=== PATIENT | female | born 1970 | race Caucasian/White ===

== ENCOUNTER 2017-06-19 21:07 | Emergency (ER) | payer MEDICAID, SELFPAY ==
[2017-06-19 21:15] VITALS: BP 136/90; PULSE 133; RESP 20; TEMP 37.3; O2SAT 90; BMI 36.6
--- NOTE | 2017-06-19 21:21 | XR_ITS ---
XR chest portable COMPARISON: None HISTORY: Shortness of breath TECHNIQUE: Portable upright chest FINDINGS: This is a somewhat poor inspiration. There is a large right pleural effusion with fluid extending into the minor fissure. Somewhat coarse opacities are seen in the right infrahilar region and a cannot exclude a right lower lobe pneumonia. The right upper lung field and left lung field are clear. There is borderline cardio megaly. IMPRESSION: Large right pleural effusion with probable right lower lobe pneumonia and effusion could be reactive but in addition there could be an element of chronic congestive heart failure and suggest clinical correlation.
[2017-06-19 21:38] LABS: ABG Base Excess 0.2 mmol/L (-2.4-2.3); ABG HCO3 23.1 mmhg (22.0-26.0); ABG Oxygen Saturation 94 % (90-100); ABG PH 7.52 mmol/L (7.35-7.45); ABG PO2 62.9 mmhg (80-100)
[2017-06-19 21:39] LABS: Allen's Test Y; Oxygen R/A %; Source R/R
[2017-06-19 21:43] VITALS: PULSE 83; PULSE 88
[2017-06-19 21:44] LABS: Basophils # 0.1 K/mm3 (0-0.2); Basophils % 0.4 % (0.1-2.0); Eosinophils # 0.4 K/mm3 (0.0-0.4); Eosinophils % 2.6 % (0.1-12.0); Hematocrit 40.4 % (37.0-47.0); Hemoglobin 13.5 g/dL (12.2-16.2); Lymphocytes # 1.2 K/mm3 (0.7-4.5); Lymphocytes % 7.3 K/mm3 (10-50); Mean Corpuscular HGB Conc 33.4 g/dL (31.8-35.4); Mean Corpuscular Hemoglobin 28.6 pg (27.0-31.2); Mean Corpuscular Volume 85.6 fl (81-99); Mean Platelet Volume 7.2 fl (7.4-10.4); Monocytes # 0.5 K/mm3 (0.1-1.0); Neutrophils # 14.3 K/mm3 (1.8-7.8); Neutrophils % 86.7 % (37.0-80.0); Platelet Count 373 K/mm3 (142-424); Red Blood Count 4.72 M/mm3 (4.20-5.40); Red Cell Distribution Width 14.4 % (11.5-17.5); White Blood Count 16.5 K/mm3 (4.8-10.8)
[2017-06-19 21:47] LABS: MANUAL DIFFERENTIAL MANUAL DIFFERENTIAL (MANUAL DIFF)
[2017-06-19 21:57] LABS: Lactic Acid 0.9 mmol/L (0.4-2.0)
[2017-06-19 22:03] LABS: Eosinophils % 3 % (0-3); Lymphocytes % 7 % (10-50); Monocytes % 1 % (2-9); Neutrophils % 79 % (42-76); Platelet Estimate Normal; RBC Morphology Normal; Total Cells Counted 100
[2017-06-19 22:11] LABS: Alanine Aminotransferase 25 U/L (12-78); Albumin Level 2.9 gm/dL (3.4-5.0); Albumin/Globulin Ratio 0.6 (1.1-1.8); Alkaline Phosphatase 120 U/L (46-116); Anion Gap 13.3 mEq/L (5-15); Aspartate Amino Transferase 5 U/L (15-37); Bilirubin,Total 1.1 mg/dL (0.2-1.0); Blood Urea Nitrogen 13 mg/dL (7-18); Calcium 8.9 mg/dL (8.5-10.1); Carbon Dioxide 25 mmol/L (21.0-32.0); Chloride 100 mmol/L (98-107); Creatine Kinase 18 U/L (26-192); Creatinine Clearance Estimated 122 mL/min (0-300); Estimated Glomerular Filt Rate 76 ml/min (>60); GFR (African American) 92 ML/MIN (>60); Globulin 4.7 gm/dl (1.3-3.2); Glucose 114 mg/dL (74-106); Potassium 3.3 mmoL/L (3.5-5.1); Sodium 135 mmol/L (136-145); Total Protein,Serum 7.6 gm/dL (6.4-8.2); Troponin I < 0.02 ng/ml (0.00-0.06)
[2017-06-19 22:14] LABS: CKMB Relative Index 2.8 U/L (0-4.0); Creatine Kinase MB < 0.5 mg/ml (0.0-3.6)
--- NOTE | 2017-06-19 22:19 | CT_ITS ---
CT angio chest COMPARISON: Portable upright chest same date HISTORY: Shortness of breath, tachycardia, portable chest film showing a large right pleural effusion. Possible pneumonic infiltrate at the right base TECHNIQUE: Multiaxial scans obtained from the thoracic inlet to the hemidiaphragms after rapid injection of IV contrast. Sagittal and coronal reformats were evaluated as well. FINDINGS: There is a somewhat poor inspiration. Again noted is a large right pleural effusion with fluid extending up to level of the aortic arch. There is excellent vascular opacification and there is no CT evidence of pulmonary emboli. Lung windows show subtle areas of groundglass opacity in the left lung and in the right upper lobe. Cardiac size is normal and the vascularity is normal. There is a coarse appearing pneumonic infiltrate in the right lower lobe and there is partial collapse of the right lower lobe. The left lung field is clear throughout. IMPRESSION: 1. Negative for PE 2. Large right pleural effusion with probable right lower lobe pneumonia, an empyema is a possibility and the subtle areas of groundglass opacity in the left lung could indicate a mild degree of interstitial pneumonitis. I agree with the [facility] report
--- NOTE | 2017-06-19 22:26 | [facility].EDSOB ---
ED Disposition Clinical Impression: Empyema of right pleural space, Interstitial pneumonitis, Hypoxia, Immunosuppression, Reactive airway disease Leukocytosis Qualifiers: Leukocytosis type: bandemia Qualified Code(s): D72.825 - Bandemia Rheumatoid arthritis Qualifiers: Rheumatoid arthritis location: multiple sites Rheumatoid factor presence: unspecified presence Qualified Code(s): M06.9 - Rheumatoid arthritis, unspecified Disposition: Xfer Short-Term Hosp Condition on Discharge: Serious Forms: Transfer Record - ED Time of Disposition: 12:01 - Critical Care Critical Care Time: No Attestation: On 06/19/17, the high probability of a clinically significant, sudden or life threatening deterioration of the following system(s) required my full and direct attention, intervention and personal management. The time I documented below is in addition to time spent performing reported procedures but includes the following listed in this critical care notation. Total Critical Care Time: 75 Vital system(s) involved:: Respiratory Failure My critical care processes included: Assessment & monitoring of V/S, Initial and Re-exams, Data Review/Interpretation, Coordinating Care, Medication Orders and management, Documentation Medical Decision Making - Medical Records Medical records reviewed: Yes: I reviewed the patient's medical records. - Joel Inquiry Pt receiving controlled substance: No Vital Signs: 06/19/17 21:15 06/19/17 21:43 06/19/17 23:08 Temperature 99.2 F 99.5 F Temperature Source Oral Oral Pulse Rate 88 Pulse Rate [Right Radial] 133 H 115 H Respiratory Rate 20 22 Blood Pressure [Right Arm] 136/90 138/74 Blood Pressure Mean [Right Arm] 105 95 Blood Pressure Position [Right Arm] 02 Sat by Pulse Oximetry 90 L 95 Oxygen Delivery Method Room Air Nasal Cannula Oxygen Flow Rate (LPM) 2 06/20/17 00:24 06/20/17 00:30 Temperature 99.1 F Temperature Source Oral Pulse Rate 84 Pulse Rate [Right Radial] 113 H Respiratory Rate 24 Blood Pressure [Right Arm] 137/79 Blood Pressure Mean [Right Arm] 98 Blood Pressure Position [Right Arm] Sitting 02 Sat by Pulse Oximetry 95 Oxygen Delivery Method Nasal Cannula Oxygen Flow Rate (LPM) 2 - Lab Data Lab results reviewed: Yes: I reviewed the patient's lab results. Lab Results 06/19/17 21:25: WBC 16.5 H, RBC 4.72, Hgb 13.5, Hct 40.4, MCV 85.6, MCH 28.6, MCHC 33.4, RDW 14.4, Plt Count 373, MPV 7.2 L, Neut % (Auto) 86.7 H, Lymph % (Auto) 7.3 L, [place] % (Auto) 3.0, Eos % (Auto) 2.6, Baso % (Auto) 0.4, Neut # (Auto) 14.3 H, Lymph # (Auto) 1.2, [place] # (Auto) 0.5, Eos # (Auto) 0.4, Baso # (Auto) 0.1, Total Counted 100, Neutrophils % (Manual) 79 H, Band Neutrophils % 10.0 H, Lymphocytes % (Manual) 7 L, Monocytes % (Manual) 1 L, Eosinophils % (Manual) 3, Platelet Estimate Normal, RBC Morphology Normal 06/19/17 21:25: Sodium 135 L, Potassium 3.3 L, Chloride 100, Carbon Dioxide 25, Anion Gap 13.3, BUN 13, Creatinine 0.80, Estimated Creat Clear 122, Estimated GFR 76, Est GFR ( Amer) 92, Glucose 114 H, Calcium 8.9, Total Bilirubin 1.1 H, AST 5 L, ALT 25, Alkaline Phosphatase 120 H, Total Creatine Kinase 18 L, CK-MB (CK-2) < 0.5, CK-MB (CK-2) Rel Index 2.8, Troponin I < 0.02, Total Protein 7.6, Albumin 2.9 L, Globulin 4.7 H, Albumin/Globulin Ratio 0.6 L 06/19/17 21:25: Lactic Acid 0.9 06/19/17 21:25: Specimen Source R/r, O2 % R/a, ABG pH 7.52 H, ABG pCO2 29.0 L, ABG pO2 62.9 L, ABG HCO3 23.1, ABG Total CO2 24.0, ABG O2 Saturation 94, ABG Base Excess 0.2, Brooks Test Y 06/19/17 21:25: D-Dimer 1810 H* 06/19/17 21:25: B-Natriuretic Peptide 11 06/19/17 21:25: TSH 0.65 06/19/17 21:25: ESR 108 H 06/19/17 21:25: C-Reactive Protein 29.2 H Result diagrams: 06/19/17 21:25 06/19/17 21:25 Orders (Tests/Meds): ED MEDICATIONS Generic Name Dose Route Start Last Admin Trade Name Freq PRN Reason Stop Dose Admin Levofloxacin/Dextrose 750 mg in 150 mls @ 100 mls/hr
[2017-06-19 22:38] LABS: Thyroid Stimulating Hormone 0.65 uIU/ml (0.358-3.740)
[2017-06-19 22:49] LABS: D-Dimer 1810 (0-400)
--- NOTE | 2017-06-19 22:52 | PC.NURSE ---
dr. yap notified of elevated ddimer given by yessy in lab.
[2017-06-19 23:02] LABS: C-Reactive Protein 29.2 mg/L (0.0-0.9)
[2017-06-19 23:08] VITALS: BP 138/74; PULSE 115; RESP 22; TEMP 37.5; O2SAT 95
[2017-06-19 23:22] LABS: Erythrocyte Sedimentation Rate 108 mm/hr (0-20)
[2017-06-20 00:24] VITALS: PULSE 81; PULSE 84
[2017-06-20 00:30] VITALS: BP 137/79; PULSE 113; RESP 24; TEMP 37.3; O2SAT 95
[2017-06-20 00:53] VITALS: BP 132/80; PULSE 113; RESP 24; TEMP 37.5; O2SAT 95
[2017-10-26 09:09] LABS: ABG PH 7.52 mmol/L (7.35-7.45); ABG PO2 62.9 mmhg (80-100)
[2017-10-26 09:10] LABS: ABG Base Excess 0.2 mmol/L (-2.4-2.3); ABG HCO3 23.1 mmhg (22.0-26.0); ABG Oxygen Saturation 94 % (90-100); Allen's Test ACCEPTABLE; Oxygen RA %; Source R RADIAL
== END 2017-06-20 00:58 | disposition short-term general hospital (02) ==
PROVIDERS: Emergency Provider Emergency Medicine; PCP Emergency Medicine
DX: J86.9 Pyothorax without fistula (principal); J84.89 Other specified interstitial pulmonary diseases; J45.909 Unspecified asthma, uncomplicated; R09.02 Hypoxemia; D72.825 Bandemia; M06.9 Rheumatoid arthritis, unspecified; E84.9 Cystic fibrosis, unspecified
CPT/HCPCS: 71045; 71275; 80053; 82550; 82553; 82803; 83605; 83880; 84443; 84484; 85007; 85025; 85378; 85651; 86140; 87040; 93005; 96365; 96366; 96375; 99285; J1956; Q9967

== ENCOUNTER → 2017-11-16 12:57 | Outpatient (CLI) | payer MEDICAID, SELFPAY ==
[2017-11-16 13:44] LABS: Basophils % 0.2 % (0.1-2.0); Eosinophils # 0.2 K/mm3 (0.0-0.4); Eosinophils % 1.1 % (0.1-12.0); Hematocrit 39.9 % (37.0-47.0); Hemoglobin 12.8 g/dL (12.2-16.2); Lymphocytes # 0.8 K/mm3 (0.7-4.5); Lymphocytes % 5.5 K/mm3 (10-50); Mean Corpuscular HGB Conc 32.2 g/dL (31.8-35.4); Mean Corpuscular Hemoglobin 29.5 pg (27.0-31.2); Mean Corpuscular Volume 91.7 fl (81-99); Monocytes # 0.2 K/mm3 (0.1-1.0); Monocytes % 1.4 % (1.7-9.3); Neutrophils # 13.7 K/mm3 (1.8-7.8); Neutrophils % 91.8 % (37.0-80.0); Platelet Count 313 K/mm3 (142-424); Red Blood Count 4.35 M/mm3 (4.20-5.40); Red Cell Distribution Width 15.6 % (11.5-17.5); White Blood Count 14.9 K/mm3 (4.8-10.8)
[2017-11-16 13:46] LABS: MANUAL DIFFERENTIAL MANUAL DIFFERENTIAL (MANUAL DIFF)
[2017-11-16 14:11] LABS: Alanine Aminotransferase 42 U/L (12-78); Albumin Level 3.4 gm/dL (3.4-5.0); Alkaline Phosphatase 95 U/L (46-116); Anion Gap 12.6 mEq/L (5-15); Aspartate Amino Transferase 13 U/L (15-37); Bilirubin,Total 0.2 mg/dL (0.2-1.0); Blood Urea Nitrogen 23 mg/dL (7-18); Calcium 9.2 mg/dL (8.5-10.1); Carbon Dioxide 29 mmol/L (21.0-32.0); Chloride 107 mmol/L (98-107); Creatinine,Serum 1.04 mg/dL (0.55-1.02); Estimated Glomerular Filt Rate 56 ml/min (>60); GFR (African American) 68 ML/MIN (>60); Globulin 3.4 gm/dl (1.3-3.2); Glucose 104 mg/dL (74-106); Potassium 4.6 mmoL/L (3.5-5.1); Sodium 144 mmol/L (136-145); Total Protein,Serum 6.8 gm/dL (6.4-8.2)
[2017-11-16 14:54] LABS: Lymphocytes % 5 % (10-50); Monocytes % 5 % (2-9); Neutrophils % 90 % (42-76); Total Cells Counted 100
[2017-11-16 14:56] LABS: Platelet Estimate Normal; RBC Morphology Normal
== END ==
PROVIDERS: Visit Provider Nurse Practitioner Family
DX: Z00.00 Encounter for general adult medical examination without abnormal findings (principal); Z79.899 Other long term (current) drug therapy; Z79.52 Long term (current) use of systemic steroids; Z51.81 Encounter for therapeutic drug level monitoring; M06.9 Rheumatoid arthritis, unspecified; M79.643 Pain in unspecified hand; R53.83 Other fatigue
CPT/HCPCS: 36415; 80053; 85007; 85025

== ENCOUNTER → 2017-11-16 14:00 | Outpatient (POV) | payer MEDICAID, SELFPAY | PROVIDERS: PCP Emergency Medicine | DX: Z00.00 Encounter for general adult medical examination without abnormal findings (principal) ==

== ENCOUNTER → 2017-12-20 13:46 | Outpatient (CLI) | payer MEDICAID, SELFPAY ==
[2017-12-20 14:15] VITALS: PULSE 88; PULSE 90
== END ==
PROVIDERS: PCP Nurse Practitioner Family; Visit Provider Nurse Practitioner Family
DX: R06.02 Shortness of breath (principal)
CPT/HCPCS: 94060; 94640

== ENCOUNTER 2018-02-19 17:51 | Observation (INO) ==
[2018-02-19 18:19] LABS: Basophils # 0.1 K/mm3 (0-0.2); Basophils % 0.9 % (0.1-2.0); Eosinophils # 0.8 K/mm3 (0.0-0.4); Eosinophils % 11.7 % (0.1-12.0); Hematocrit 44.1 % (37.0-47.0); Hemoglobin 14.1 g/dL (12.2-16.2); Lymphocytes # 1.6 K/mm3 (0.7-4.5); Lymphocytes % 22.8 % (10-50); Mean Corpuscular HGB Conc 31.9 g/dL (31.8-35.4); Mean Corpuscular Hemoglobin 28.6 pg (27.0-31.2); Mean Corpuscular Volume 89.8 fl (81-99); Monocytes # 0.3 K/mm3 (0.1-1.0); Monocytes % 4.2 % (1.7-9.3); Neutrophils # 4.1 K/mm3 (1.8-7.8); Neutrophils % 60.3 % (37.0-80.0); Platelet Count 342 K/mm3 (142-424); Red Blood Count 4.92 M/mm3 (4.20-5.40); Red Cell Distribution Width 14.5 % (11.5-17.5); White Blood Count 6.8 K/mm3 (4.8-10.8)
[2018-02-19 18:32] LABS: Albumin Level 3.4 gm/dL (3.4-5.0); Albumin/Globulin Ratio 0.8 (1.1-1.8); Anion Gap 14.2 mEq/L (5-15); Bilirubin,Total 0.2 mg/dL (0.2-1.0); Calcium 8.8 mg/dL (8.5-10.1); Globulin 4.5 gm/dl (1.3-3.2); Potassium 4.2 mmoL/L (3.5-5.1); Total Protein,Serum 7.9 gm/dL (6.4-8.2)
--- NOTE | 2018-02-19 18:32 | Emergency Department Note ---
ED Disposition Clinical Impression: Upper respiratory tract infection, COPD exacerbation Disposition: Home, Self-Care Condition on Discharge: Fair - Critical Care Critical Care Time: No Attestation: On , the high probability of a clinically significant, sudden or life threatening deterioration of the following system(s) required my full and direct attention, intervention and personal management. The time I documented below is in addition to time spent performing reported procedures but includes the following listed in this critical care notation. Medical Decision Making - Medical Records Medical records reviewed: Yes: I reviewed the patient's medical records. - Joel Inquiry Pt receiving controlled substance: No Joel was queried for this patient: No Vital Signs: 02/19/18 18:18 02/19/18 18:21 02/19/18 18:30 Temperature 98.9 F Temperature Source Oral Pulse Rate [Right Brachial] 73 101 H 95 H Respiratory Rate 28 H 24 Blood Pressure [Right Arm] 123/70 127/73 127/73 Blood Pressure Mean [Right Arm] 87 91 91 Blood Pressure Source [Right Arm] Automatic Cuff Automatic Cuff Blood Pressure Position [Right Arm] Sitting 02 Sat by Pulse Oximetry 93 L 99 97 Oxygen Delivery Method Room Air Nasal Cannula Oxygen Flow Rate (LPM) 2 02/19/18 18:47 02/19/18 19:00 Temperature Temperature Source Pulse Rate [Right Brachial] 93 H 102 H Respiratory Rate Blood Pressure [Right Arm] 126/85 138/75 Blood Pressure Mean [Right Arm] 98 96 Blood Pressure Source [Right Arm] Automatic Cuff Blood Pressure Position [Right Arm] Sitting 02 Sat by Pulse Oximetry 95 100 Oxygen Delivery Method Oxygen Flow Rate (LPM) - Lab Data Lab Results 02/19/18 18:07: WBC 6.8, RBC 4.92, Hgb 14.1, Hct 44.1, MCV 89.8, MCH 28.6, MCHC 31.9, RDW 14.5, Plt Count 342, MPV 7.0 L, Neut % (Auto) 60.3, Lymph % (Auto) 22.8, [place] % (Auto) 4.2, Eos % (Auto) 11.7, Baso % (Auto) 0.9, Neut # (Auto) 4.1, Lymph # (Auto) 1.6, [place] # (Auto) 0.3, Eos # (Auto) 0.8 H, Baso # (Auto) 0.1 02/19/18 18:07: Sodium 140, Potassium 4.2, Chloride 105, Carbon Dioxide 25, Anion Gap 14.2, BUN 28 H, Creatinine 0.86, Estimated Creat Clear 134, Estimated GFR 70, Est GFR ( Amer) 85, Glucose 100, Calcium 8.8, Total Bilirubin 0.2, AST 24, ALT 51, Alkaline Phosphatase 108, Total Protein 7.9, Albumin 3.4, Globulin 4.5 H, Albumin/Globulin Ratio 0.8 L 02/19/18 18:07: Lactate 1.5 02/19/18 18:14: Influenza Type A Ag Negative, Influenza Type B Ag Negative Result diagrams: 02/19/18 18:07 02/19/18 18:07 Orders (Tests/Meds): ED MEDICATIONS Generic Name Dose Route Start Last Admin Trade Name Freq PRN Reason Stop Dose Admin Albuterol/Ipratropium 3 ml 02/19/18 18:30 Duoneb 3ml Neb IH 03/21/18 18:29 Q1H CARLOS Discontinued Medications Generic Name Dose Route Start Last Admin Trade Name Freq PRN Reason Stop Dose Admin Ceftriaxone Sodium 1 gm/ 50 mls @ 100 mls/hr 02/19/18 18:29 02/19/18 18:34 Sodium Chloride IV 02/19/18 18:58 100 mls/hr ONCE ONE Administration Protocol Methylprednisolone Sodium Succinate 125 mg 02/19/18 18:04 02/19/18 18:10 Solu-Medrol 125mg/2ml Vial IV 02/19/18 18:05 125 mg ONCE ONE Administration ORDERS Category Date Time Status XR chest portable Stat Exams 02/19/18 18:04 Taken Blood Culture Stat Micro 02/19/18 18:07 Received ECG Request by /Margo Stat Y 02/19/18 18:04 Ordered - Radiology Data #1 Image(s): Chest Image Reviewed: Yes I reviewed the patient's radiology image Preliminary Findings: Normal/NAD Medical Decision Narrative: She received IV Solu-Medrol DuoNeb and she remained to be symptomatic.. I gave her another breathing treatment. The patient remained short of breath speaking short sentences after repeated medications. I spoke with Dr. Weaver manager of production for Dr. Mcleod agreed to admit her for COPD exacerbation. Resp/SOB HPI - General Chief Complaint: Shortness of Breath/Dyspnea Stated Complaint: SOA, Coughing Time Seen by Provider: 02/19/18 18:25 Mode of Arrival: Wheelchair Limitations: No Limitations Description of Symptoms (Recalled from ER Triage Doc. by RN): SHORTNESS OF AIR AFTER COUGHING FOR A WEEK; PROGRESSIVELY WORSENING DESPITE MUCINEX; EXPOSED TO [place]AND SMOKE DAILY PER . PT STATED COUGH IS NON PRODUCTIVE BUT FEELS TIGHT WHEN SHE IS BREATHING. SUSCEPTIBLE TO INFECTIONS PER HER MEDS FOR RHEUMATOID ARTHRITIS PER HER REPORT; STATES SHE DID TAKE A FLU SHOT THIS YEAR - History of Present Illness 48 years old white female with history of rheumatoid on methotrexate and a secondhand smoke by her . A week ago she developed upper respiratory tra ct infection progressively gotten worse with shortness of breath wheezing and nonproductive cough. She arrived to the ED today and started on Solu-Medrol DuoNeb with not much improvement. MD Complaint: shortness of breath, cough Onset (ago): week(s) (2 days.) Severity: moderate Consistency/Duration: constant Relieving factors: oxygen, rest, bronchodilators, upright position Exacerbating factors: lying flat, exertion, coughing Associated symptoms: denies other symptoms - Related Data Home oxygen amount: 2 liters Home Medications Medication Instructions Recorded Confirmed Folic Acid [Folic Acid 1mg tablet] 1 mg PO DAILY 06/19/17 01/20/18 metHOTREXate sodium [metHOTREXate 15 mg PO WEEKLY 06/19/17 01/20/18 2.5mg Tablet] sulfasalazine 500 mg tablet 0.5 g PO Q6H 12/26/17 01/20/18 Previous Rx's Medication Instructions Recorded Albuterol Sulfate [Albuterol HFA 1 - 2 puffs IH Q4-6H PRN #1 inh 12/01/17 Inhaler] prednisone 20 mg tablet 20 mg PO BID #6 tab 12/26/17 Allergies Allergy/AdvReac Type Severity Reaction Status Date / Time diphenhydramine Allergy Mild RASH, ITCH Verified 01/20/18 09:47 [DIPHENHYDRAMINE] [facility] History I have reviewed the patient's past medical history: Yes Medical History: Reports:: Dementia Denies:: Chronic Obstructive Pulmonary Disease (COPD) Other Medical History: Reports: Arthritis, Other Comment: joint pain Other Surgeries: Yes: Hysterectomy-Total Amputation: No Fractures: Yes Comment: tibia,fibula - Social History Educational Level: Completed High School Smoking Status: Former smoker Tobacco Type: cigarettes # Packs/Day (cigarettes): 1 Alcohol Intake: never Substance Use Type: denies use Occupational Status: disabled Housing: apartment - Psychiatric History Expresses thoughts of harming self/others: None Suicide Plan Description: No Plan Family Hx:: Cancer, Coronary Artery Disease, Hypertension ROS Obtained: Yes All systems reviewed & no additional complaints Physical Exam - General General appearance: alert, in no apparent distress - Head Head exam: atraumatic, normocephalic, normal inspection - Eye Eye exam: Present: normal appearance, PERRL, EOMI. Absent: scleral icterus, nystagmus - ENT ENT exam: Present: normal exam, normal oropharynx, mucous membranes moist, TM's normal bilaterally, normal external ear exam - Neck Neck exam: Present: normal inspection, full ROM, trachea midline. Absent: tenderness, meningismus, lymphadenopathy - Chest Chest inspection: Present: normal inspection, symmetric chest wall rise. Absent: tenderness - Respiratory Respiratory exam: Present: normal lung sounds bilaterally, wheezes, other (Bronchial breathing. ). Absent: respiratory distress - Cardiovascular Cardiovascular exam: Present: regular rate, normal rhythm, normal heart sounds. Absent: JVD - Abdominal Exam Abdominal exam: Present: soft, normal bowel sounds. Absent: distention, tenderness, guarding, rebound, rigidity - Extremities Exam Extremities exam: Present: normal inspection, full ROM, normal capillary refill. Absent: calf tenderness - Back Exam Back exam: Present: normal inspection. Absent: tenderness, CVA tenderness (R), CVA tenderness (L), paraspinal tenderness, vertebral tenderness - Neurological Exam Neurological exam: Present: alert, oriented X3, CN II-XII intact, motor sensory deficit, reflexes normal - Psychiatric Psychiatric exam: Present: normal affect, normal mood - Skin Skin exam: Present: warm, dry, intact, normal color - Lymphatic Lymphatic Findings: no adenopathy
[2018-02-20 02:27] LABS: Basophils % 0.2 % (0.1-2.0); Eosinophils % 0.4 % (0.1-12.0); Hematocrit 39.9 % (37.0-47.0); Hemoglobin 12.6 g/dL (12.2-16.2); Lymphocytes # 0.4 K/mm3 (0.7-4.5); Lymphocytes % 5.4 % (10-50); Mean Corpuscular HGB Conc 31.5 g/dL (31.8-35.4); Mean Corpuscular Hemoglobin 28.5 pg (27.0-31.2); Mean Corpuscular Volume 90.5 fl (81-99); Mean Platelet Volume 7.9 fl (7.4-10.4); Monocytes # 0.1 K/mm3 (0.1-1.0); Monocytes % 1.1 % (1.7-9.3); Neutrophils # 6.1 K/mm3 (1.8-7.8); Neutrophils % 92.8 % (37.0-80.0); Platelet Count 279 K/mm3 (142-424); Red Blood Count 4.41 M/mm3 (4.20-5.40); Red Cell Distribution Width 14.4 % (11.5-17.5); White Blood Count 6.6 K/mm3 (4.8-10.8)
[2018-02-20 02:33] LABS: Anion Gap 14.2 mEq/L (5-15); Calcium 8.8 mg/dL (8.5-10.1); Potassium 4.2 mmoL/L (3.5-5.1)
[2018-02-20 02:41] LABS: Lymphocytes % 3 % (10-50); Neutrophils % 90 % (42-76); Total Cells Counted 100
[2018-02-20 02:42] LABS: Hypochromasia 1+; Polychromasia 1+
--- NOTE | 2018-02-20 07:44 | Pharmacy Consult Notes ---
[facility] Pharmacy VTE Monitoring - Patient Demographics Admission date: 02/19/18 Report Date: 02/20/18 Time: 07:44 Allergies/Adverse Reactions: Patient Allergies diphenhydramine [DIPHENHYDRAMINE] Allergy (Mild, Verified 01/20/18 09:47) RASH, ITCH Height: 1.68 m Weight: 89.902 kg Patient Problems: Current Active Problems COPD exacerbation (Acute) Upper respiratory tract infection (Acute) - VTE Risk Labs: VTE Related Lab Results Hgb 12.6 g/dL (12.2-16.2) D 02/20/18 02:20 Hct 39.9 % (37.0-47.0) 02/20/18 02:20 Plt Count 279 K/mm3 (142-424) 02/20/18 02:20 BUN 26 mg/dL (7-18) H 02/20/18 02:20 Creatinine 0.81 mg/dL (0.55-1.02) 02/20/18 02:20 Estimated Creat Clear 143 mL/min (50-200) 02/20/18 02:20 VTE Score: 7 VTE Risk Level: Moderate Risk - Prophylaxis VTE Prophylaxis Ordered?: Yes Types of VTE Prophylaxis: TEDS Knee High Location of Applied Device: Bilateral Lower Extremeties - VTE Diagnosis Confirmed Treatment or plan recommended: Continue Current Treatment
--- NOTE | 2018-02-20 13:06 | History & Physical Report ---
*Admission Date: 02/19/18 *Chief complaint: sob *History of present illness: this wf with progressive sob over the last few days with cough and wheezing - but no hemoptysis- she tried home and otc meds but no response and was seen in the ed -years old white female with history of rheumatoid on methotrexate and a secondhand smoke by her . A week ago she developed upper respiratory tract infection progressively gotten worse with shortness of breath wheezing and nonproductive cough. She arrived to the ED today and started on Solu-Medrol DuoNeb with not much improve [facility] History I have reviewed the patient's past medical history: Yes Medical History: Reports:: Dementia Denies:: Chronic Obstructive Pulmonary Disease (COPD) Other Medical History: Reports: Arthritis, Other Other Surgeries: Yes: Hysterectomy-Total Amputation: No Fractures: Yes - *Social History Educational Level: Completed High School Smoking Status: Former smoker Tobacco Type: cigarettes # Packs/Day (cigarettes): 1 Alcohol Intake: never Substance Use Type: denies use Occupational Status: disabled Housing: apartment - Psychiatric History Expresses thoughts of harming self/others: None Suicide Plan Description: No Plan *Family Hx:: Cancer, Coronary Artery Disease, Hypertension Review of Systems - Review of Systems Review of systems:: pertinent systems reviewed and negative unless documented below - Constitutional Reports fever(s), Reports malaise - Eyes Denies change in vision - ENT Denies sore throat - *Cardiovascular Reports chest pain - *Respiratory Reports cough, Reports shortness of breath - *Gastrointestinal Reports abdominal pain - *Genitourinary Denies blood in urine - *Musculoskeletal Reports joint pain, Denies joint swelling - Integumentary/Breasts Denies rash - *Neurologic Denies seizure-like activity - Psychiatric Reports anxiety Meds Home Medications Medication Instructions Recorded Confirmed Type Folic Acid [Folic Acid 1mg tablet] 1 mg PO DAILY 06/19/17 02/20/18 History metHOTREXate sodium [metHOTREXate 15 mg PO WEEKLY 06/19/17 02/20/18 History 2.5mg Tablet] sulfasalazine 500 mg tablet 1,000 mg PO BID 12/26/17 02/20/18 History Tofacitinib Citrate [Xeljanz Xr] 11 mg PO DAILY 02/20/18 02/20/18 History Allergies Allergy/AdvReac Type Severity Reaction Status Date / Time diphenhydramine Allergy Mild RASH, ITCH Verified 01/20/18 09:47 [DIPHENHYDRAMINE] Exam Vital signs and Labs for Last 24 Hours: Temp Pulse Resp BP Pulse Ox 98.2 F 85 21 107/67 L 97 02/20/18 08:00 02/20/18 09:20 02/20/18 08:00 02/20/18 08:00 02/20/18 08:00 Laboratory Results - last 24 hr 02/19/18 18:07: WBC 6.8, RBC 4.92, Hgb 14.1, Hct 44.1, MCV 89.8, MCH 28.6, MCHC 31.9, RDW 14.5, Plt Count 342, MPV 7.0 L, Neut % (Auto) 60.3, Lymph % (Auto) 22.8, [place] % (Auto) 4.2, Eos % (Auto) 11.7, Baso % (Auto) 0.9, Neut # (Auto) 4.1, Lymph # (Auto) 1.6, [place] # (Auto) 0.3, Eos # (Auto) 0.8 H, Baso # (Auto) 0.1 02/19/18 18:07: Sodium 140, Potassium 4.2, Chloride 105, Carbon Dioxide 25, Anion Gap 14.2, BUN 28 H, Creatinine 0.86, Estimated Creat Clear 134, Estimated GFR 70, Est GFR ( Amer) 85, Glucose 100, Calcium 8.8, Total Bilirubin 0.2, AST 24, ALT 51, Alkaline Phosphatase 108, Total Protein 7.9, Albumin 3.4, Globulin 4.5 H, Albumin/Globulin Ratio 0.8 L 02/19/18 18:07: Lactate 1.5 02/19/18 18:14: Influenza Type A Ag Negative, Influenza Type B Ag Negative 02/19/18 23:09: Troponin I < 0.02 02/20/18 02:20: Troponin I < 0.02 02/20/18 02:20: WBC 6.6, RBC 4.41, Hgb 12.6 D, Hct 39.9, MCV 90.5, MCH 28.5, MCHC 31.5 L, RDW 14.4, Plt Count 279, MPV 7.9, Neut % (Auto) 92.8 H, Lymph % (Auto) 5.4 L, [place] % (Auto) 1.1 L, Eos % (Auto) 0.4, Baso % (Auto) 0.2, Neut # (Auto) 6.1, Lymph # (Auto) 0.4 L, [place] # (Auto) 0.1, Eos # (Auto) 0.0, Baso # (Auto) 0.0, Total Counted 100, Neutrophils % (Manual) 90 H, Band Neutrophils % 7.0, Lymphocytes % (Manual) 3 L, Platelet Estimate Normal, Polychromasia 1+, Hypochromasia 1+ 02/20/18 02:20: Sodium 140, Potassium 4.2, Chloride 106, Carbon Dioxide 24, Anion Gap 14.2, BUN 26 H, Creatinine 0.81, Estimated Creat Clear 143, Estimated GFR 75, Est GFR ( Amer) 91, Glucose 251 H D, Calcium 8.8 I & O for Last 24 hours: Intake & Output 02/18/18 02/19/18 02/20/18 02/21/18 11:59 11:59 11:59 11:59 Intake Total 1475 / 1475 250 / 250 Output Total 2099 / 2099 600 / 600 Balance -625 / -625 -350 / -350 Weight 198 lb 3.2 oz - Constitutional no acute distress, obese - *Routine HEENT Exam Head: Present: normocephalic Eye: Present: EOMI, PERRL ENT: Present: mucous membranes dry - *Routine Neck Exam Present: supple. Absent: JVD - *Routine Respiratory Exam Present: prolonged expiratory phase, rhonchi, wheezes - *Routine Cardiovascular Exam Present: RRR, murmur. Absent: S3 - *Routine Abdominal Exam Present: soft - *Routine Extremities Exam Present: edema. Absent: calf tenderness - *Routine Skin Exam Present: intact - *Routine Neurological Exam Present: alert, oriented X3, CN II-XII intact - Routine Psychiatric Exam Present: normal affect Assessment and Plan (1) COPD exacerbation Current visit: Yes Status: Acute Category: Medical Code(s): J44.1 - Chronic obstructive pulmonary disease with (acute) exacerbation (2) Bronchitis Current visit: Yes Status: Acute Category: Medical Code(s): J40 - Bronchitis, not specified as acute or chronic (3) Rheumatoid arthritis Current visit: Yes Status: Acute Category: Medical Code(s): M06.9 - Rheumatoid arthritis, unspecified
--- NOTE | 2018-02-21 09:39 | Progress Note ---
Internal Medicine - PN: Subj *Date: 02/21/18 *Time: 09:38 Exam Vital signs and Labs for Last 24 Hours: Temp Pulse Resp BP Pulse Ox 98.7 F 97 H 18 124/80 100 02/21/18 08:00 02/21/18 08:00 02/21/18 08:00 02/21/18 08:00 02/21/18 08:00 I & O for Last 24 hours: Intake & Output 02/18/18 02/19/18 02/20/18 02/21/18 11:59 11:59 11:59 11:59 Intake Total 1475 / 1475 1626 / 1626 Output Total 2100 / 2100 1200 / 1200 Balance -625 / -625 426 / 426 Weight 198 lb 3.2 oz - Constitutional no acute distress - *Routine HEENT Exam Head: Present: normocephalic Eye: Present: PERRL ENT: Present: mucous membranes moist - *Routine Neck Exam Present: supple. Absent: lymphadenopathy - *Routine Respiratory Exam Present: CTA bilaterally - *Routine Cardiovascular Exam Present: RRR - *Routine Abdominal Exam Present: soft, normoactive bowel sounds. Absent: tenderness - *Routine Extremities Exam Absent: cyanosis, clubbing, edema - *Routine Skin Exam Present: warm. Absent: rash - *Routine Neurological Exam Present: alert, oriented X3 Assessment and Plan (1) COPD exacerbation Current visit: Yes Status: Acute Category: Medical Code(s): J44.1 - Chronic obstructive pulmonary disease with (acute) exacerbation (2) Bronchitis Current visit: Yes Status: Acute Category: Medical Code(s): J40 - Bronchitis, not specified as acute or chronic (3) Rheumatoid arthritis Current visit: Yes Status: Acute Category: Medical Code(s): M06.9 - Rheumatoid arthritis, unspecified - Assessment and plan all Dx Assessment and Plan for all problems:: Rounded with Dr. Mcleod all orders per Hars[place] CT of the chest to rule out PE Wean oxygen patient does not use oxygen at home Possible discharge tomorrow
--- NOTE | 2018-02-22 08:14 | Discharge Summary ---
General - General Admission date:: 02/19/18 Discharge date: 02/22/18 HPI HPI: this wf with progressive sob over the last few days with cough and wheezing - but no hemoptysis- she tried home and otc meds but no response and was seen in the ed -years old white female with history of rheumatoid on methotrexate and a secondhand smoke by her . A week ago she developed upper respiratory tract infection progressively gotten worse with shortness of breath wheezing and nonproductive cough. She arrived to the ED today and started on Solu-Medrol DuoNeb with not much improve Hospital Course Hospital Course: pt with slow improvement and off o2 but has continued cough and wheezing at this time- labd stable and will d/c today on steroids and abx and inhalers and will see in office tuesday Objective Vital signs: Temp Pulse Resp BP Pulse Ox 98.2 F 82 18 154/80 H 98 02/22/18 07:53 02/22/18 07:53 02/22/18 07:53 02/22/18 07:53 02/22/18 07:53 no acute distress, obese - *Routine HEENT Exam Head: Present: normocephalic Eye: Present: EOMI, PERRL ENT: Present: mucous membranes dry - *Routine Neck Exam Present: supple. Absent: JVD - *Routine Respiratory Exam Present: decreased breath sounds, rhonchi, wheezes - *Routine Cardiovascular Exam Present: RRR, murmur - *Routine Abdominal Exam Present: soft - *Routine Extremities Exam Absent: Wes's sign - *Routine Skin Exam Present: intact - *Routine Neurological Exam Present: alert, oriented X3, CN II-XII intact - Routine Psychiatric Exam Present: normal affect Results Labs on day of discharge: Preliminary micro results at discharge 02/19/18 18:07 Blood Culture - Preliminary Blood NO GROWTH AFTER 48 HOURS 02/19/18 18:07 Blood Culture - Preliminary Blood NO GROWTH AFTER 48 HOURS DS: Diagnosis - Discharge Diagnosis (1) COPD exacerbation Status: Acute (2) Bronchitis Status: Acute (3) Rheumatoid arthritis Status: Acute (4) Pneumonitis Status: Acute (5) Overweight Status: Acute Discharge Plan - Patient Discharge Instructions ACTIVITY: Continue current activity DIET: continue same diet - Follow up Plan Disposition: Home, Self-Long Term Medications: Home Medications Medication Instructions Recorded Confirmed Type Folic Acid [Folic Acid 1mg tablet] 1 mg PO DAILY 06/19/17 02/20/18 History metHOTREXate sodium [metHOTREXate 15 mg PO WEEKLY 06/19/17 02/20/18 History 2.5mg Tablet] sulfasalazine 500 mg tablet 1,000 mg PO BID 12/26/17 02/20/18 History Tofacitinib Citrate [Xeljanz Xr] 11 mg PO DAILY 02/20/18 02/20/18 History Prescriptions/Medication Reconciliation: New Albuterol Sulfate [Proventil-HFA 90mcg/puff Inh] 2 puffs IH QIDP PRN #1 inh PRN Reason: Shortness Of Breath Or Wheezing Azithromycin [Zithromax 250mg tab] 250 mg PO DIRECTED #6 tab Benzonatate [Tessalon Perle 100mg Cap] 100 mg PO TID #30 cap Budesonide/Formoterol Fumarate [Symbicort 80-4.5 Mcg Inhaler] 10.2 gm IH BID #1 hfa.aer.ad cephALEXin [Keflex 500mg Cap] 500 mg PO TID #30 cap predniSONE [Prednisone 20mg Tab] 20 mg PO BID #10 tab Continue sulfasalazine 500 mg tablet 1,000 mg PO BID metHOTREXate sodium [metHOTREXate 2.5mg Tablet] 15 mg PO WEEKLY Folic Acid [Folic Acid 1mg tablet] 1 mg PO DAILY Tofacitinib Citrate [Xeljanz Xr] 11 mg PO DAILY
== END 2018-02-22 10:38 | disposition home or self-care (01) ==
LOC: ER 17:51 → ICU 17:51 → 2ND 02-20 16:55
PROVIDERS: ADMIT Family Medicine; ATTEND Emergency Medicine

== ENCOUNTER → 2018-03-14 09:40 | Outpatient (POV) | payer SELFPAY ==
--- NOTE | 2018-03-14 13:39 | SW/DCPLANNER ---
I was asked to come [facility] to see [facility] patient by Constantino Crowley . Patient was sitting in patient room at time of my visit. Patient stated that she was previously receiving treatment at and was referred to [facility]. Patient stated this was due to living in a tool shed and not having running water or heat. Patient has stated since her visit at she now lives in a camper with heat on her mothers property. Patient stated that her mother is fixing to go into foster care and patient is a felon so she can NOT have any interaction with her mother. Her mother does leave her water outside and patient is able to shower. Patient stated that she is going today to sign a guilty plea (did not elaborate). Patient stated that she is doing much better since her previous appointment at . I did give patient contact phone number to [employer] due to needing assistance with bills. I also gave patient my work card incase she has any further questions once she gets home. Patient stated that she does have a car and is able to drive herself to her appointments. Patient and I also discussed local food estr[place], churches, and organizations to help assist with food. Patient did not have any other needs at this time. I will be happy to see this patient is she needs assistance during her next MD appointment. Patient also has my contact information for at home as well.
== END ==
PROVIDERS: Visit Provider Internal Medicine
DX: Z00.00 Encounter for general adult medical examination without abnormal findings (principal)

== ENCOUNTER 2018-05-05 15:00 | Observation (INO) ==
[2018-05-05 15:35] LABS: Basophils # 0.1 K/mm3 (0-0.2); Basophils % 0.7 % (0.1-2.0); Eosinophils # 0.4 K/mm3 (0.0-0.4); Eosinophils % 3.9 % (0.1-12.0); Hematocrit 42.5 % (37.0-47.0); Hemoglobin 13.7 g/dL (12.2-16.2); Lymphocytes # 0.9 K/mm3 (0.7-4.5); Mean Corpuscular HGB Conc 32.2 g/dL (31.8-35.4); Mean Corpuscular Hemoglobin 28.7 pg (27.0-31.2); Mean Corpuscular Volume 89.1 fl (81-99); Mean Platelet Volume 7.1 fl (7.4-10.4); Monocytes # 0.3 K/mm3 (0.1-1.0); Neutrophils # 9.6 K/mm3 (1.8-7.8); Neutrophils % 84.4 % (37.0-80.0); Platelet Count 313 K/mm3 (142-424); Red Blood Count 4.77 M/mm3 (4.20-5.40); Red Cell Distribution Width 15.4 % (11.5-17.5); White Blood Count 11.4 K/mm3 (4.8-10.8)
[2018-05-05 15:47] LABS: Albumin Level 3.3 gm/dL (3.4-5.0); Albumin/Globulin Ratio 0.9 (1.1-1.8); Anion Gap 14.5 mEq/L (5-15); Bilirubin,Total 0.3 mg/dL (0.2-1.0); Calcium 9.1 mg/dL (8.5-10.1); Globulin 3.8 gm/dl (1.3-3.2); Potassium 3.5 mmoL/L (3.5-5.1); Total Protein,Serum 7.1 gm/dL (6.4-8.2)
--- NOTE | 2018-05-05 16:02 | Emergency Department Note ---
ED Disposition Clinical Impression: Acute bronchitis with bronchospasm Disposition: Admitted as Observation Condition on Discharge: Fair - Critical Care Critical Care Time: No Attestation: On 05/05/18, the high probability of a clinically significant, sudden or life threatening deterioration of the following system(s) required my full and direct attention, intervention and personal management. The time I documented below is in addition to time spent performing reported procedures but includes the following listed in this critical care notation. Medical Decision Making - Joel Inquiry Pt receiving controlled substance: No Vital Signs: 05/05/18 15:05 05/05/18 15:39 05/05/18 17:08 Temperature 98.5 F Temperature Source Oral Pulse Rate [Left Radial] 112 H 105 H 124 H Respiratory Rate 22 Blood Pressure [Right Arm] 132/82 137/83 131/79 Blood Pressure Mean [Right Arm] 98 101 96 Blood Pressure Source [Right Arm] Automatic Cuff Automatic Cuff Automatic Cuff Blood Pressure Position [Right Arm] Sitting Sitting Sitting 02 Sat by Pulse Oximetry 95 96 96 Oxygen Delivery Method Room Air - Lab Data Lab Results 05/05/18 15:20: WBC 11.4 H, RBC 4.77, Hgb 13.7, Hct 42.5, MCV 89.1, MCH 28.7, MCHC 32.2, RDW 15.4, Plt Count 313, MPV 7.1 L, Neut % (Auto) 84.4 H, Lymph % (Auto) 8.0 L, [place] % (Auto) 3.0, Eos % (Auto) 3.9, Baso % (Auto) 0.7, Neut # (Auto) 9.6 H, Lymph # (Auto) 0.9, [place] # (Auto) 0.3, Eos # (Auto) 0.4, Baso # (Auto) 0.1 05/05/18 15:20: Sodium 140, Potassium 3.5, Chloride 103, Carbon Dioxide 26, Anion Gap 14.5, BUN 13, Creatinine 0.97, Estimated Creat Clear 99, Estimated GFR 61, Est GFR ( Amer) 74, Glucose 253 H, Calcium 9.1, Total Bilirubin 0.3, AST 13 L, ALT 29, Alkaline Phosphatase 95, Total Protein 7.1, Albumin 3.3 L, Globulin 3.8 H, Albumin/Globulin Ratio 0.9 L 05/05/18 15:20: Lactate 2.2 H 05/05/18 17:07: Influenza Type A Ag Negative, Influenza Type B Ag Negative Result diagrams: 05/05/18 15:20 05/05/18 15:20 Orders (Tests/Meds): ED MEDICATIONS Generic Name Dose Route Start Last Admin Trade Name Freq PRN Reason Stop Dose Admin Azithromycin 500 mg/ Sodium 250 mls @ 250 mls/hr 05/05/18 18:15 Chloride IV 05/19/18 18:14 Q24H CARLOS Protocol Discontinued Medications Generic Name Dose Route Start Last Admin Trade Name Freq PRN Reason Stop Dose Admin Albuterol/Ipratropium 3 ml 05/05/18 15:31 05/05/18 15:34 Duoneb 3ml [facility] 05/05/18 15:32 3 ml ONCE ONE Administration Albuterol/Ipratropium 3 ml 05/05/18 15:58 05/05/18 15:58 Duoneb 3ml [facility] 05/05/18 15:59 3 ml ONCE ONE Administration Benzonatate 100 mg 05/05/18 17:10 05/05/18 17:16 Tessalon Perles 100mg Capsule PO 05/05/18 17:11 100 mg ONCE ONE Administration Methylprednisolone Sodium Succinate 125 mg 05/05/18 15:31 05/05/18 15:34 Solu-Medrol 125mg/2ml Vial IV 05/05/18 15:32 125 mg ONCE ONE Administration ORDERS Category Date Time Status Blood Culture Stat Micro 05/05/18 15:20 Received - Radiology Data #1 Image(s): Chest Image Reviewed: Yes I have reviewed radiologist's interpretation IMPRESSION: Trace right effusion otherwise negative chest Dictated By: Brooks Mcdaniel MD Signed By: <Electronically signed by Brooks Mcdaniel MD in OV> 05/05/18 1546 - ECG Data Tracing #1 EKG interpreted by William Madison MD: Rhythm: sinus Rate: 99 [place]: normal Ectopy: none Conduction: normal ST Segment Changes: none T Wave Changes: none Q Waves: none No evidence of acute ischemia or injury Normal electrocardiogram - Physician Consults Physician Consulted: Krys Llanes NP for Dr. Mcleod Time: 18:11 Reason -: Admission Comment/Response: Agrees to admit the patient to the hospital. We discussed the patient's clinical information, including history, exam, laboratory and radiology results and ED course. Per hospital procedure, I will write temporary bridge inpatient orders on the patient. Specific orders requested by the admitting physician: Continue steroids, nebulizer treatments, zithromax Medical Decision Narrative: Discussed blood sugar of 253. Patient is diabetic. States she has never been told that her blood sugar was high. Review of her previous letter shows a blood sugar of 251 on 02/20/18. She was in the hospital at that time. She was unaware of an elevated blood sugar. Her last sugar was on 04/12/18 was 112. She says that she ate a lot of peanut butter before coming in because of her "shakes". General Adult HPI - General Chief complaint: Shortness of Breath/Dyspnea Stated complaint: soa Time Seen by Provider: 05/05/18 15:50 Mode of Arrival: Ambulatory Limitations: No Limitations Description of Symptoms (Recalled from ER Triage Doc. by RN): c/o coughing and congestion and SOA for a week "she has pneumonia alot and this feels like that". - History of Present Illness HPI narrative: States she has been short of breath all week with chest congestion. Nonproductive cough. No fever. No vomiting or diarrhea. No rhinorrhea or sore throat. States that she has had problems with shortness of breath off and on with multiple admissions over the past few months. She has had pneumonia. She had a pleural effusion and was sent to [facility] and had it drained. She states that she followed up in March and her pleural effusion was improved. States that she thinks she is prone to respiratory infections due to immune suppression from her rheumatoid arthritis medication. States when she gets like she usually gets admitted to the hospital. - Related Data Home Medications Medication Instructions Recorded Confirmed Folic Acid [Folic Acid 1mg tablet] 1 mg PO DAILY 06/19/17 05/05/18 metHOTREXate sodium [metHOTREXate 15 mg PO WEEKLY 06/19/17 05/05/18 2.5mg Tablet] sulfasalazine 500 mg tablet 1,000 mg PO BID 12/26/17 05/05/18 Tofacitinib Citrate [Xeljanz Xr] 11 mg PO DAILY 02/20/18 05/05/18 Allergies Allergy/AdvReac Type Severity Reaction Status Date / Time diphenhydramine Allergy Mild RASH, ITCH Verified 02/27/18 13:13 [DIPHENHYDRAMINE] [facility] History - Hepatitis A Screen Drug use history?: No High risk sexual behaviors?: No History of sexually transmitted infection?: No Currently employed?: No Childcare worker?: No Do you have indoor plumbing?: Yes Do you have electricity?: Yes Attestation statement:: This patient has been screened for Hepatitis A risk factors. I have reviewed the patient's past medical history: Yes Medical History: Reports:: Dementia Denies:: Chronic Obstructive Pulmonary Disease (COPD), Diabetes Mellitus Type 1, Diabetes Mellitus Type 2 Other Medical History: Reports: Arthritis, Other Comment: joint pain Other Surgeries: Yes: Hysterectomy-Total Amputation: No Fractures: Yes Comment: tibia,fibula - Social History Smoking Status: Never smoker Tobacco Type: cigarettes # Packs/Day (cigarettes): 1 Alcohol Intake: never Substance Use Type: denies use Occupational Status: disabled Housing: apartment - Psychiatric History Expresses thoughts of harming self/others: None Suicide Plan Description: No Plan Family Hx:: Cancer, Coronary Artery Disease, Hypertension ROS Obtained: Yes All systems reviewed & no additional complaints - Constitutional Constitutional: Denies fever(s) - ENT Ears, Nose, Mouth, and Throat: Denies nasal discharge, Denies sore throat - Cardiovascular Cardiovascular: Reports chest pain (States secondary to congestion and coughing. Hurts worse with cough.) - Respiratory Respiratory: Yes cough, Yes non-productive cough, Yes dyspnea, No excessive phlegm production, No coughing up blood, Yes pain with cough - Gastrointestinal Gastrointestingal: Denies: abdominal pain, diarrhea, vomiting Physical Exam - General General appearance: alert, in no apparent distress - Head Head exam: atraumatic, normocephalic, normal inspection - Eye Eye exam: Present: normal appearance, PERRL, EOMI - ENT ENT exam: Present: mucous membranes moist - Neck Neck exam: Present: normal inspection, full ROM, trachea midline. Absent: meningismus, lymphadenopathy - Chest Chest inspection: Present: normal inspection, symmetric chest wall rise. Absent: tenderness - Respiratory Respiratory exam: Present: wheezes, other (Frequent cough). Absent: respiratory distress - Cardiovascular Cardiovascular exam: Present: regular rate, normal rhythm. Absent: JVD - Abdominal Exam Abdominal exam: Present: soft, normal bowel sounds. Absent: distention, tenderness, guarding - Extremities Exam Extremities exam: Present: normal inspection, full ROM, normal capillary refill. Absent: calf tenderness - Neurological Exam Neurological exam: Present: alert, oriented X3 - Psychiatric Psychiatric exam: Present: normal affect, normal mood - Skin Skin exam: Present: warm, dry, intact, normal color
[2018-05-06 07:01] LABS: Calcium 9.1 mg/dL (8.5-10.1)
[2018-05-06 08:27] LABS: Eosinophils % 0.1 % (0.1-12.0); Lymphocytes # 0.4 K/mm3 (0.7-4.5); Mean Platelet Volume 7.4 fl (7.4-10.4); Red Cell Distribution Width 15.5 % (11.5-17.5)
[2018-05-06 08:38] LABS: Basophils % 0.1 % (0.1-2.0); Hematocrit 37.2 % (37.0-47.0); Lymphocytes % 3.6 % (10-50); Mean Corpuscular Volume 90.7 fl (81-99); Monocytes # 0.2 K/mm3 (0.1-1.0); Monocytes % 1.9 % (1.7-9.3); Neutrophils # 11.3 K/mm3 (1.8-7.8); Neutrophils % 94.3 % (37.0-80.0); Platelet Count 295 K/mm3 (142-424); Red Blood Count 4.11 M/mm3 (4.20-5.40)
[2018-05-06 08:44] LABS: Hemoglobin 11.9 g/dL (12.2-16.2)
[2018-05-06 09:22] LABS: Lymphocytes % 2 % (10-50); Monocytes % 2 % (2-9); Neutrophils % 94 % (42-76); RBC Morphology Normal; Total Cells Counted 100
--- NOTE | 2018-05-06 11:30 | Pharmacy Consult Notes ---
[facility] Pharmacy VTE Monitoring - Patient Demographics Admission date: 05/06/18 Report Date: 05/06/18 Time: 11:29 Allergies/Adverse Reactions: Patient Allergies diphenhydramine [DIPHENHYDRAMINE] Allergy (Mild, Verified 02/27/18 13:13) RASH, ITCH Height: 1.57 m Weight: 87.742 kg Patient Problems: Current Active Problems Acute bronchitis with bronchospasm (Acute) - VTE Risk Labs: VTE Related Lab Results Hgb 11.9 g/dL (12.2-16.2) L D 05/06/18 06:20 Hct 37.2 % (37.0-47.0) 05/06/18 06:20 Plt Count 295 K/mm3 (142-424) 05/06/18 06:20 BUN 21 mg/dL (7-18) H D 05/06/18 06:20 Creatinine 0.80 mg/dL (0.55-1.02) 05/06/18 06:20 Estimated Creat Clear 117 mL/min (50-200) 05/06/18 06:20 Was VTE Risk Assessment Performed: Yes VTE Score: 5 VTE Risk Level: Low Risk - Prophylaxis Types of VTE Prophylaxis: TEDS Knee High (GIGI HOSE ORDERED) Location of Applied Device: Bilateral Lower Extremeties, Refused
--- NOTE | 2018-05-06 17:00 | H&P/Discharge Summary ---
General - General Admission date:: 05/05/18 Discharge date: 05/06/18 *Admission Date: 05/06/18 *Chief complaint: sob *History of present illness: 48-year-old female presents for short of breath all week with chest congestion. Nonproductive cough. No fever. No vomiting or diarrhea. No rhinorrhea or sore throat. States that she has had problems with shortness of breath off and on with multiple admissions over the past few months. She has had pneumonia. She had a pleural effusion and was sent to [facility] and had it drained. She states that she followed up in March and her pleural effusion was improved. States that she thinks she is prone to respiratory infections due to immune suppression from her rheumatoid arthritis medication. Patient admitted for bronchitis placed on IV antibiotics. Patient states she does not have COPD or asthma that her shortness of breath is related to her medication she takes for her rheumatoid arthritis. [facility] History I have reviewed the patient's past medical history: Yes Medical History: Reports:: Dementia Denies:: Cancer, Chronic Obstructive Pulmonary Disease (COPD), Diabetes Mellitus Type 1, Diabetes Mellitus Type 2, MRSA Have you ever received a pneumonia vaccine?: No Have you received a flu vaccine this season?: Yes Other Medical History: Reports: Arthritis, Other Laterality Cases: Bilateral: Other Other Surgeries: Yes: Colonoscopy, Hysterectomy-Total, Other (BUNIONECTOMY) Amputation: No Fractures: Yes - *Social History Educational Level: Completed College Smoking Status: Never smoker Tobacco Type: cigarettes # Packs/Day (cigarettes): 1 Alcohol Intake: never Substance Use Type: denies use Occupational Status: disabled Housing: apartment Household Members: spouse Travel in the last 8 weeks: None - Psychiatric History Expresses thoughts of harming self/others: None Suicide Plan Description: No Plan *Family Hx:: Cancer, Coronary Artery Disease, Hypertension Review of Systems - Constitutional Denies headache(s) - Eyes Denies change in vision - ENT Denies change in voice, Denies sore throat - *Cardiovascular Reports shortness of breath, Reports shortness of breath with activity - *Respiratory Reports cough, Reports shortness of breath - *Gastrointestinal Denies nausea, Denies vomiting - *Genitourinary Denies difficulty starting urination - *Musculoskeletal Denies decreased muscle mass - Integumentary/Breasts Denies rash - *Neurologic Denies abnormal movements - Psychiatric Denies anxiety - Endocrine Denies heat intolerance - Hematologic/Lymphatic Denies enlarged lymph nodes Exam Vital signs and Labs for Last 24 Hours: Temp Pulse Resp BP Pulse Ox 98.9 F 96 H 17 133/77 93 L 05/06/18 15:44 05/06/18 15:44 05/06/18 15:44 05/06/18 15:44 05/06/18 15:44 Laboratory Results - last 24 hr 05/05/18 17:07: Influenza Type A Ag Negative, Influenza Type B Ag Negative 05/05/18 19:33: Lactate 1.7 05/06/18 06:20: Sodium 143, Potassium 4.0, Chloride 106, Carbon Dioxide 27, Anion Gap 14.0, BUN 21 H D, Creatinine 0.80, Estimated Creat Clear 117, Estimated GFR 76, Est GFR ( Amer) 92 D, Glucose 238 H, Calcium 9.1 05/06/18 06:20: WBC 12.0 H, RBC 4.11 L, Hgb 11.9 L D, Hct 37.2, MCV 90.7, MCH 29.0, MCHC 32.0, RDW 15.5, Plt Count 295, MPV 7.4, Neut % (Auto) 94.3 H, Lymph % (Auto) 3.6 L, [place] % (Auto) 1.9, Eos % (Auto) 0.1, Baso % (Auto) 0.1, Neut # (Auto) 11.3 H, Lymph # (Auto) 0.4 L, [place] # (Auto) 0.2, Eos # (Auto) 0.0, Baso # (Auto) 0.0, Total Counted 100, Neutrophils % (Manual) 94 H, Lymphocytes % (Manual) 2 L, Atypical Lymphs % 2.0, Monocytes % (Manual) 2, Platelet Estimate Normal, RBC Morphology Normal 05/06/18 06:20: Hemoglobin A1c 6.2 I & O for Last 24 hours: Intake & Output 05/04/18 05/05/18 05/06/18 05/07/18 11:59 11:59 11:59 11:59 Intake Total 870 / 870 480 / 480 Output Total 500 / 500 Balance 870 / 870 -20 / -20 Weight 193 lb 7 oz - Constitutional no acute distress - *Routine HEENT Exam Head: Present: normocephalic Eye: Present: EOMI, PERRL ENT: Present: mucous membranes moist - *Routine Neck Exam Present: supple. Absent: lymphadenopathy - *Routine Respiratory Exam Present: wheezes - *Routine Cardiovascular Exam Present: RRR - *Routine Abdominal Exam Present: soft, normoactive bowel sounds. Absent: tenderness - *Routine Extremities Exam Absent: cyanosis, clubbing, edema - *Routine Skin Exam Present: warm. Absent: rash - *Routine Neurological Exam Present: alert, oriented X3 Hospital Course Hospital Course: chest x ray IMPRESSION: Trace right effusion otherwise negative chest Today patient states she is feeling better and would like to go home. Will discharge patient home on Zithromax and follow-up with Dr. Mcleod in the office. Patient's A1c was 6.2 instructed patient we will watch this closely. Instructed patient she needed to follow-up with her concrete carpenter and discuss breathing issues she is having related to her rheumatoid arthritis medications. Results Labs on day of discharge: Labs from last 24 hours 05/06/18 05/06/18 05/06/18 06:20 06:20 06:20 WBC 12.0 H RBC 4.11 L Hgb 11.9 L D Hct 37.2 MCV 90.7 MCH 29.0 MCHC 32.0 RDW 15.5 Plt Count 295 MPV 7.4 Neut % (Auto) 94.3 H Lymph % (Auto) 3.6 L [place] % (Auto) 1.9 Eos % (Auto) 0.1 Baso % (Auto) 0.1 Neut # (Auto) 11.3 H Lymph # (Auto) 0.4 L [place] # (Auto) 0.2 Eos # (Auto) 0.0 Baso # (Auto) 0.0 Total Counted 100 Neutrophils % (Manual) 94 H Lymphocytes % (Manual) 2 L Atypical Lymphs % 2.0 Monocytes % (Manual) 2 Platelet Estimate Normal RBC Morphology Normal Sodium 143 Potassium 4.0 Chloride 106 Carbon Dioxide 27 Anion Gap 14.0 BUN 21 H D Creatinine 0.80 Estimated Creat Clear 117 Estimated GFR 76 Est GFR ( Amer) 92 D Glucose 238 H Hemoglobin A1c 6.2 Lactate Calcium 9.1 Influenza Type A Ag Influenza Type B Ag 05/05/18 05/05/18 19:33 17:07 WBC RBC Hgb Hct MCV MCH MCHC RDW Plt Count MPV Neut % (Auto) Lymph % (Auto) [place] % (Auto) Eos % (Auto) Baso % (Auto) Neut # (Auto) Lymph # (Auto) [place] # (Auto) Eos # (Auto) Baso # (Auto) Total Counted Neutrophils % (Manual) Lymphocytes % (Manual) Atypical Lymphs % Monocytes % (Manual) Platelet Estimate RBC Morphology Sodium Potassium Chloride Carbon Dioxide Anion Gap BUN Creatinine Estimated Creat Clear Estimated GFR Est GFR ( Amer) Glucose Hemoglobin A1c Lactate 1.7 Calcium Influenza Type A Ag Negative Influenza Type B Ag Negative - Additional Comments Dr. Mcleod rounded earlier today all orders per Harsha DS: Diagnosis - Discharge Diagnosis (1) Bronchitis Status: Acute Discharge Medications - Medications for Discharge Home Medication List at Discharge: No Action sulfasalazine 500 mg tablet 1,000 mg PO BID metHOTREXate sodium [metHOTREXate 2.5mg Tablet] 15 mg PO SA Folic Acid [Folic Acid 1mg tablet] 1 mg PO DAILY Tofacitinib Citrate [Xeljanz Xr] 11 mg PO DAILY Disposition Disposition: Home, Self-Care
== END 2018-05-06 18:37 | disposition home or self-care (01) ==
LOC: ER 15:00 → 2ND 15:00
PROVIDERS: ADMIT Emergency Medicine; ATTEND Emergency Medicine
CPT/HCPCS: 36415; 71020; 71046; 80048; 80053; 83036; 83605; 85007; 85025; 87040; 87275; 87276; 93005; 94640; 96365; 96375; 99285; G0378; J0456; J8610

== ENCOUNTER 2018-06-26 14:01 | Observation (INO) ==
--- NOTE | 2018-06-26 14:36 | Emergency Department Note ---
ED Disposition Clinical Impression: Acute bronchitis with bronchospasm Disposition: Admitted as Observation Condition on Discharge: Fair Referrals: Dread Mcleod MD [Primary Care Provider] - - Critical Care Critical Care Time: No Attestation: On 06/26/18, the high probability of a clinically significant, sudden or life threatening deterioration of the following system(s) required my full and direct attention, intervention and personal management. The time I documented below is in addition to time spent performing reported procedures but includes the following listed in this critical care notation. Medical Decision Making - Joel Inquiry Pt receiving controlled substance: No Vital Signs: 06/26/18 14:13 06/26/18 14:21 06/26/18 14:39 Temperature 98.5 F 98.5 F Temperature Source Oral Oral Pulse Rate Pulse Rate [Right Radial] 121 H 112 H Respiratory Rate 26 H 32 H Blood Pressure [Right Arm] 119/72 110/65 Blood Pressure Mean [Right Arm] 87 80 Blood Pressure Source [Right Arm] Automatic Cuff Automatic Cuff Blood Pressure Position [Right Arm] Sitting Sitting 02 Sat by Pulse Oximetry 92 L 90 L 96 Oxygen Delivery Method Room Air Room Air Nasal Cannula Oxygen Flow Rate (LPM) 3 06/26/18 14:58 Temperature Temperature Source Pulse Rate 82 Pulse Rate [Right Radial] Respiratory Rate Blood Pressure [Right Arm] Blood Pressure Mean [Right Arm] Blood Pressure Source [Right Arm] Blood Pressure Position [Right Arm] 02 Sat by Pulse Oximetry Oxygen Delivery Method Oxygen Flow Rate (LPM) - Lab Data Lab Results 06/26/18 14:25: WBC 15.8 H, RBC 4.16 L, Hgb 12.0 L, Hct 36.8 L, MCV 88.6, MCH 29.0, MCHC 32.7, RDW 14.2, Plt Count 390, MPV 7.1 L, Neut % (Auto) 87.0 H, Lymph % (Auto) 6.0 L, [place] % (Auto) 2.7, Eos % (Auto) 4.0, Baso % (Auto) 0.4, Neut # (Auto) 13.7 H, Lymph # (Auto) 1.0, [place] # (Auto) 0.4, Eos # (Auto) 0.6 H, Baso # (Auto) 0.1, Total Counted 100, Neutrophils % (Manual) 84 H, Band Neutrophils % 4.0, Lymphocytes % (Manual) 7 L, Monocytes % (Manual) 3, Eosinophils % (Manual) 2, Platelet Estimate Normal, RBC Morphology Normal 06/26/18 14:25: Sodium 138, Potassium 3.7, Chloride 101, Carbon Dioxide 24, Anion Gap 16.7 H, BUN 11, Creatinine 0.92, Estimated Creat Clear 105, Estimated GFR 65, Est GFR ( Amer) 78, Glucose 173 H, Calcium 9.0, Troponin I < 0.02 06/26/18 14:50: Lactate 1.4 Result diagrams: 06/26/18 14:25 06/26/18 14:25 Orders (Tests/Meds): ED MEDICATIONS Generic Name Dose Route Start Last Admin Trade Name Freq PRN Reason Stop Dose Admin Azithromycin 500 mg/ Sodium 250 mls @ 250 mls/hr 06/26/18 16:00 Chloride IV 07/10/18 15:59 Q24H CARLOS Protocol Ceftriaxone Sodium 1 gm/ 50 mls @ 100 mls/hr 06/26/18 16:00 Sodium Chloride IV 07/10/18 15:59 Q24H CARLOS Protocol Sodium Chloride 10 ml 06/26/18 14:30 Saline Flush 10ml Syringe IV 07/26/18 14:29 NEEDED PRN Maintain IV Site Discontinued Medications Generic Name Dose Route Start Last Admin Trade Name Freq PRN Reason Stop Dose Admin Albuterol/Ipratropium 3 ml 06/26/18 14:56 06/26/18 14:57 Duoneb 3ml Neb IH 06/26/18 14:57 3 ml ONCE ONE Administration Methylprednisolone Sodium Succinate 125 mg 06/26/18 15:34 Solu-Medrol 125mg/2ml Vial IV 06/26/18 15:35 ONCE ONE ORDERS Category Date Time Status Blood Culture Stat Micro 06/26/18 14:58 Received - Radiology Data #1 Image(s): Chest Image Reviewed: Yes I reviewed the patient's radiology image Minimal blunting right costophrenic angle. No change from recent chest x-rays. - ECG Data Tracing #1 EKG interpreted by William Madison MD: Rhythm: sinus tachycardia Rate: 110 [place]: normal Ectopy: none Conduction: normal ST Segment Changes: none T Wave Changes: none Q Waves: none No evidence of acute ischemia or injury - Physician Consults Physician Consulted: Harsha Time: 16:03 Reason -: Admission Comment/Response: Agrees to admit the patient to the hospital. We discussed the patient's clinical information, including history, exam, laboratory and radiology results and ED course. Per hospital procedure, I will write temporary bridge inpatient orders on the patient. Specific orders requested by the admitting physician: Sputum culture, nebulizer treatments, Rocephin and Zithromax, steroids, oxygen Medical Decision Narrative: The patient appears ill, tachycardic, borderline pulse oximetry. Given her history of recurrent pneumonia and immunocompromised state, I think it is best to admit her and treat with antibiotics, steroids, nebulizer treatments. General Adult HPI - General Chief complaint: Shortness of Breath/Dyspnea Stated complaint: cough SOA Time Seen by Provider: 06/26/18 14:25 Mode of Arrival: Wheelchair Limitations: No Limitations Description of Symptoms (Recalled from ER Triage Doc. by RN): pt sent from [facility] for eval due to sob cough x 1 week. states recently admitted to hospital 1 month ago for pneumonia. pt c/o chest pain when coughing. pt currently taking methotrexate for RA. - History of Present Illness HPI narrative: Complains of productive cough with yellow sputum, subjective fever, shortness of breath, feeling tired for 1 week. Rhinorrhea and sore throat. States was in the hospital here a month ago for pneumonia and has had pneumonia 6 times over the past [address] Plunkett for pulmonary evaluation. She says that she does not have COPD. It is felt she gets recurrent pneumonia due to immunosuppressive medications for rheumatoid arthritis. She is not on oxygen or nebulizer treatments at home. She says she finished up a 5-day course of prednisone last week. - Related Data Home Medications Medication Instructions Recorded Confirmed Folic Acid [Folic Acid 1mg tablet] 1 mg PO DAILY 06/19/17 06/26/18 metHOTREXate sodium [metHOTREXate 15 mg PO SA 06/19/17 06/26/18 2.5mg Tablet] sulfasalazine 500 mg tablet 1,000 mg PO BID 12/26/17 06/26/18 Tofacitinib Citrate [Xeljanz Xr] 11 mg PO DAILY 02/20/18 06/26/18 predniSONE [Prednisone 20mg 20 mg PO BID 06/26/18 06/26/18 Tab] Allergies Allergy/AdvReac Type Severity Reaction Status Date / Time diphenhydramine Allergy Mild RASH, ITCH Verified 02/27/18 13:13 [DIPHENHYDRAMINE] [facility] History - Hepatitis A Screen Drug use history?: No High risk sexual behaviors?: No History of sexually transmitted infection?: No Currently employed?: No Childcare worker?: No Do you have indoor plumbing?: Yes Do you have electricity?: Yes Attestation statement:: This patient has been screened for Hepatitis A risk factors. I have reviewed the patient's past medical history: Yes Medical History: Reports:: Dementia Denies:: Cancer, Chronic Obstructive Pulmonary Disease (COPD), Diabetes Mellitus Type 1, Diabetes Mellitus Type 2, MRSA Other Medical History: Reports: Arthritis, Other Comment: joint pain Laterality Cases: Bilateral: Other Other Surgeries: Yes: Colonoscopy, Hysterectomy-Total, Other (BUNIONECTOMY) Amputation: No Fractures: Yes Comment: tibia,fibula - Social History Smoking Status: Never smoker Tobacco Type: cigarettes # Packs/Day (cigarettes): 1 Alcohol Intake: never Substance Use Type: denies use Occupational Status: disabled Housing: apartment Household Members: spouse - Psychiatric History Expresses thoughts of harming self/others: None Suicide Plan Description: No Plan Family Hx:: Cancer, Coronary Artery Disease, Hypertension ROS Obtained: Yes All systems reviewed & no additional complaints - Constitutional Constitutional: Reports fatigue, Reports fever(s) - ENT Ears, Nose, Mouth, and Throat: Reports nasal discharge, Reports sore throat - Cardiovascular Cardiovascular: Reports chest pain (Only when coughing) - Respiratory Respiratory: Yes cough, Yes dyspnea, Yes excessive phlegm production - Gastrointestinal Gastrointestingal: Denies: abdominal pain, diarrhea, vomiting Physical Exam - General General appearance: alert, in no apparent distress Comment: Appears fatigued - Head Head exam: atraumatic, normocephalic - Eye Eye exam: Present: normal appearance, PERRL, EOMI - ENT ENT exam: Present: mucous membranes moist - Neck Neck exam: Present: normal inspection, full ROM - Chest Chest inspection: Present: normal inspection, symmetric chest wall rise - Respiratory Respiratory exam: Present: wheezes, other ([place]) - Cardiovascular Cardiovascular exam: Present: normal rhythm, tachycardia, normal heart sounds - Abdominal Exam Abdominal exam: Present: soft. Absent: distention, tenderness - Extremities Exam Extremities exam: Present: normal inspection. Absent: tenderness, pedal edema, calf tenderness - Neurological Exam Neurological exam: Present: alert, oriented X3 - Psychiatric Psychiatric exam: Present: normal affect, normal mood - Skin Skin exam: Present: warm, dry
[2018-06-26 14:39] LABS: Basophils # 0.1 K/mm3 (0-0.2); Basophils % 0.4 % (0.1-2.0); Eosinophils # 0.6 K/mm3 (0.0-0.4); Hematocrit 36.8 % (37.0-47.0); Mean Corpuscular HGB Conc 32.7 g/dL (31.8-35.4); Mean Corpuscular Volume 88.6 fl (81-99); Mean Platelet Volume 7.1 fl (7.4-10.4); Monocytes # 0.4 K/mm3 (0.1-1.0); Monocytes % 2.7 % (1.7-9.3); Neutrophils # 13.7 K/mm3 (1.8-7.8); Platelet Count 390 K/mm3 (142-424); Red Blood Count 4.16 M/mm3 (4.20-5.40); Red Cell Distribution Width 14.2 % (11.5-17.5); White Blood Count 15.8 K/mm3 (4.8-10.8)
[2018-06-26 14:55] LABS: Anion Gap 16.7 mEq/L (5-15); Blood Urea Nitrogen 11 mg/dL (7-18); Carbon Dioxide 24 mmol/L (21.0-32.0); Chloride 101 mmol/L (98-107); Glucose 173 mg/dL (74-106); Potassium 3.7 mmoL/L (3.5-5.1); Sodium 138 mmol/L (136-145)
[2018-06-26 15:18] LABS: Eosinophils % 2 % (0-3); Lymphocytes % 7 % (10-50); Monocytes % 3 % (2-9); Neutrophils % 84 % (42-76); RBC Morphology Normal; Total Cells Counted 100
--- NOTE | 2018-06-26 21:12 | History & Physical Report ---
*Admission Date: 06/26/18 *Chief complaint: sob *History of present illness: this wf with hx of sev rheumatoid art has progressive cough and despite op treatment continued sx-t sent from [facility] for eval due to sob cough x 1 week. states recently admitted to hospital 1 month ago for pneumonia. pt c/o chest pain when coughing. pt currently taking methotrexate for RA. Complains of productive cough with yellow sputum, subjective fever, shortness of breath, feeling tired for 1 week. Rhinorrhea and sore throat. States was in the hospital here a month ago for pneumonia and has had pneumonia 6 times over the past [address] Plunkett for pulmonary evaluation. She says that she does not have COPD. It is felt she gets recurrent pneumonia due to immunosuppressive medications for rheumatoid arthritis. She is not on oxygen or nebulizer treatments at home. She says she finished up a 5-day course of prednisone last week. [facility] History I have reviewed the patient's past medical history: Yes Medical History: Reports:: Dementia Denies:: Cancer, Chronic Obstructive Pulmonary Disease (COPD), Diabetes Mellitus Type 1, Diabetes Mellitus Type 2, MRSA *Have you ever received a pneumonia vaccine?: No *Have you received a flu vaccine this season?: No Other Medical History: Reports: Arthritis, Other Laterality Cases: Bilateral: Other Other Surgeries: Yes: Colonoscopy, Hysterectomy-Total, Other (BUNIONECTOMY) Amputation: No Fractures: Yes - *Social History Educational Level: Completed High School Smoking Status: Never smoker Tobacco Type: cigarettes # Packs/Day (cigarettes): 1 Alcohol Intake: never Substance Use Type: denies use *Occupational Status:: disabled Housing: apartment Household Members: spouse *Travel in the last 8 weeks: None - Psychiatric History Expresses thoughts of harming self/others: None Suicide Plan Description: No Plan Family Hx:: Cancer, Coronary Artery Disease, Hypertension Review of Systems - Review of Systems Review of systems:: pertinent systems reviewed and negative unless documented below - Constitutional Denies fever(s) - Eyes Denies change in vision - ENT Denies sore throat - *Cardiovascular Reports shortness of breath - *Respiratory Reports cough, Reports shortness of breath with activity, Reports pain on inspiration, Denies coughing up blood - *Gastrointestinal Denies abdominal pain - *Genitourinary Denies blood in urine - *Musculoskeletal Denies joint pain, Denies neck pain - Integumentary/Breasts Denies rash - *Neurologic Denies seizure-like activity - Psychiatric Denies anxiety Meds Home Medications Medication Instructions Recorded Confirmed Type Folic Acid [Folic Acid 1mg tablet] 1 mg PO DAILY 06/19/17 06/26/18 History metHOTREXate sodium [metHOTREXate 15 mg PO WEEKLY 06/19/17 06/27/18 History 2.5mg Tablet] sulfasalazine 500 mg tablet 1,000 mg PO BID 12/26/17 06/26/18 History Tofacitinib Citrate [Xeljanz Xr] 11 mg PO DAILY 02/20/18 06/26/18 History Allergies Allergy/AdvReac Type Severity Reaction Status Date / Time diphenhydramine Allergy Mild RASH, ITCH Verified 02/27/18 13:13 [DIPHENHYDRAMINE] Exam Vital signs and Labs for Last 24 Hours: Temp Pulse Resp BP Pulse Ox 98.2 F 96 H 22 121/71 90 L 06/26/18 16:31 06/26/18 19:19 06/26/18 16:31 06/26/18 16:31 06/26/18 19:19 Laboratory Results - last 24 hr 06/26/18 14:25: WBC 15.8 H, RBC 4.16 L, Hgb 12.0 L, Hct 36.8 L, MCV 88.6, MCH 29.0, MCHC 32.7, RDW 14.2, Plt Count 390, MPV 7.1 L, Neut % (Auto) 87.0 H, Lymph % (Auto) 6.0 L, [place] % (Auto) 2.7, Eos % (Auto) 4.0, Baso % (Auto) 0.4, Neut # (Auto) 13.7 H, Lymph # (Auto) 1.0, [place] # (Auto) 0.4, Eos # (Auto) 0.6 H, Baso # (Auto) 0.1, Total Counted 100, Neutrophils % (Manual) 84 H, Band Neutrophils % 4.0, Lymphocytes % (Manual) 7 L, Monocytes % (Manual) 3, Eosinophils % (Manual) 2, Platelet Estimate Normal, RBC Morphology Normal 06/26/18 14:25: Sodium 138, Potassium 3.7, Chloride 101, Carbon Dioxide 24, Anion Gap 16.7 H, BUN 11, Creatinine 0.92, Estimated Creat Clear 105, Estimated GFR 65, Est GFR ( Amer) 78, Glucose 173 H, Calcium 9.0, Troponin I < 0.02 06/26/18 14:50: Lactate 1.4 I & O for Last 24 hours: Intake & Output 06/24/18 06/25/18 06/26/18 06/27/18 11:59 11:59 11:59 11:59 Intake Total 710 / 710 Balance 710 / 710 Weight 200 lb 6 oz - Constitutional no acute distress, obese - *Routine HEENT Exam Head: Present: normocephalic Eye: Present: EOMI, PERRL. Absent: conjunctival icterus ENT: Present: mucous membranes dry - *Routine Neck Exam Present: supple. Absent: JVD - *Routine Respiratory Exam Present: prolonged expiratory phase, rhonchi, wheezes - *Routine Cardiovascular Exam Present: RRR, murmur, S4 - *Routine Abdominal Exam Present: soft - *Routine Extremities Exam Absent: calf tenderness - *Routine Skin Exam Present: intact - *Routine Neurological Exam Present: alert, oriented X3, CN II-XII intact - Routine Psychiatric Exam Present: normal affect Assessment and Plan (1) Rheumatoid arthritis Current visit: Yes Status: Acute Qualifiers: Rheumatoid arthritis location: multiple sites Rheumatoid factor presence: with rheumatoid factor Qualified Code(s): M05.79 - Rheumatoid arthritis with rheumatoid factor of multiple sites without organ or systems involvement Category: Medical Code(s): M06.9 - Rheumatoid arthritis, unspecified (2) Acute bronchitis with bronchospasm Current visit: Yes Status: Acute Category: Medical Code(s): J20.9 - Acute bronchitis, unspecified (3) Obesity (BMI 30-39.9) Current visit: Yes Status: Acute Category: Medical Code(s): E66.9 - Obesity, unspecified
--- NOTE | 2018-06-27 07:28 | Pharmacy Consult Notes ---
[facility] Pharmacy VTE Monitoring - Patient Demographics Admission date: 06/26/18 Report Date: 06/27/18 Time: 07:28 Allergies/Adverse Reactions: Patient Allergies diphenhydramine [DIPHENHYDRAMINE] Allergy (Mild, Verified 02/27/18 13:13) RASH, ITCH Height: 1.57 m Weight: 90.889 kg Patient Problems: Current Active Problems Acute bronchitis with bronchospasm (Acute) - VTE Risk Labs: VTE Related Lab Results Hgb 12.0 g/dL (12.2-16.2) L 06/26/18 14:25 Hct 36.8 % (37.0-47.0) L 06/26/18 14:25 Plt Count 390 K/mm3 (142-424) 06/26/18 14:25 BUN 11 mg/dL (7-18) 06/26/18 14:25 Creatinine 0.92 mg/dL (0.55-1.02) 06/26/18 14:25 Estimated Creat Clear 105 mL/min (50-200) 06/26/18 14:25 Was VTE Risk Assessment Performed: Yes VTE Score: 1 VTE Risk Level: Very Low Risk - Prophylaxis VTE Prophylaxis Ordered?: Yes Types of VTE Prophylaxis: TEDS Knee High Location of Applied Device: Bilateral Lower Extremeties - VTE Diagnosis Confirmed Treatment or plan recommended: Continue Current Treatment
--- NOTE | 2018-06-27 08:49 | Progress Note ---
Internal Medicine - PN: Subj *Date: 06/27/18 *Time: 08:48 Interval history: Patient states she is feeling slightly better today Exam Vital signs and Labs for Last 24 Hours: Temp Pulse Resp BP Pulse Ox 97.6 F 98 H 18 117/73 90 L 06/27/18 07:42 06/27/18 07:42 06/27/18 07:42 06/27/18 07:42 06/27/18 07:42 Laboratory Results - last 24 hr 06/26/18 14:25: WBC 15.8 H, RBC 4.16 L, Hgb 12.0 L, Hct 36.8 L, MCV 88.6, MCH 29.0, MCHC 32.7, RDW 14.2, Plt Count 390, MPV 7.1 L, Neut % (Auto) 87.0 H, Lymph % (Auto) 6.0 L, [place] % (Auto) 2.7, Eos % (Auto) 4.0, Baso % (Auto) 0.4, Neut # (Auto) 13.7 H, Lymph # (Auto) 1.0, [place] # (Auto) 0.4, Eos # (Auto) 0.6 H, Baso # (Auto) 0.1, Total Counted 100, Neutrophils % (Manual) 84 H, Band Neutrophils % 4.0, Lymphocytes % (Manual) 7 L, Monocytes % (Manual) 3, Eosinophils % (Manual) 2, Platelet Estimate Normal, RBC Morphology Normal 06/26/18 14:25: Sodium 138, Potassium 3.7, Chloride 101, Carbon Dioxide 24, Anion Gap 16.7 H, BUN 11, Creatinine 0.92, Estimated Creat Clear 105, Estimated GFR 65, Est GFR ( Amer) 78, Glucose 173 H, Calcium 9.0, Troponin I < 0.02 06/26/18 14:50: Lactate 1.4 I & O for Last 24 hours: Intake & Output 06/24/18 06/25/18 06/26/18 06/27/18 11:59 11:59 11:59 11:59 Intake Total 2318 / 2318 Balance 2318 / 2318 Weight 200 lb 6 oz - Constitutional no acute distress - *Routine HEENT Exam Head: Present: normocephalic Eye: Present: EOMI, PERRL ENT: Present: mucous membranes moist - *Routine Neck Exam Present: supple. Absent: lymphadenopathy - *Routine Respiratory Exam Present: rhonchi, wheezes, diminished air movement - *Routine Cardiovascular Exam Present: RRR - *Routine Abdominal Exam Present: soft, normoactive bowel sounds. Absent: tenderness - *Routine Extremities Exam Absent: cyanosis, clubbing, edema - *Routine Skin Exam Present: warm. Absent: rash - *Routine Neurological Exam Present: alert, oriented X3 - Routine Psychiatric Exam Present: normal affect Assessment and Plan - Assessment and plan all Dx Assessment and Plan for all problems:: Rounded with Dr. Mcleod all orders per Harsha Continue plan of care
[2018-06-28 06:58] LABS: Hematocrit 32.4 % (37.0-47.0); Hemoglobin 10.2 g/dL (12.2-16.2); Lymphocytes # 0.7 K/mm3 (0.7-4.5); Lymphocytes % 4.8 % (10-50); Mean Corpuscular HGB Conc 31.3 g/dL (31.8-35.4); Mean Corpuscular Hemoglobin 28.9 pg (27.0-31.2); Mean Corpuscular Volume 92.2 fl (81-99); Mean Platelet Volume 7.1 fl (7.4-10.4); Monocytes # 0.4 K/mm3 (0.1-1.0); Monocytes % 2.6 % (1.7-9.3); Neutrophils # 13.6 K/mm3 (1.8-7.8); Neutrophils % 92.5 % (37.0-80.0); Platelet Count 357 K/mm3 (142-424); Red Blood Count 3.52 M/mm3 (4.20-5.40); Red Cell Distribution Width 14.4 % (11.5-17.5); White Blood Count 14.7 K/mm3 (4.8-10.8)
[2018-06-28 07:07] LABS: Albumin Level 2.7 gm/dL (3.4-5.0); Albumin/Globulin Ratio 0.7 (1.1-1.8); Anion Gap 11.6 mEq/L (5-15); Bilirubin,Total 0.1 mg/dL (0.2-1.0); Calcium 8.6 mg/dL (8.5-10.1); Globulin 3.8 gm/dl (1.3-3.2); Potassium 4.6 mmoL/L (3.5-5.1); Total Protein,Serum 6.5 gm/dL (6.4-8.2)
[2018-06-28 09:25] LABS: Lymphocytes % 5 % (10-50); Neutrophils % 93 % (42-76); RBC Morphology Normal; Total Cells Counted 100
--- NOTE | 2018-06-28 16:08 | Progress Note ---
Internal Medicine - PN: Subj *Date: 06/28/18 *Time: 08:00 Interval history: doing better but still on o2 and sig cough with dec po intake Exam Vital signs and Labs for Last 24 Hours: Temp Pulse Resp BP Pulse Ox 98.5 F 94 H 16 120/65 91 L 06/28/18 08:00 06/28/18 13:56 06/28/18 08:00 06/28/18 08:00 06/28/18 13:56 Laboratory Results - last 24 hr 06/28/18 06:40: WBC 14.7 H, RBC 3.52 L, Hgb 10.2 L, Hct 32.4 L, MCV 92.2, MCH 28.9, MCHC 31.3 L, RDW 14.4, Plt Count 357, MPV 7.1 L, Neut % (Auto) 92.5 H, Lymph % (Auto) 4.8 L, [place] % (Auto) 2.6, Eos % (Auto) 0.0 L, Baso % (Auto) 0.0 L , Neut # (Auto) 13.6 H, Lymph # (Auto) 0.7, [place] # (Auto) 0.4, Eos # (Auto) 0.0, Baso # (Auto) 0.0, Total Counted 100, Neutrophils % (Manual) 93 H, Band Neutrophils % 2.0, Lymphocytes % (Manual) 5 L, Platelet Estimate Normal, RBC Morphology Normal 06/28/18 06:40: Sodium 140, Potassium 4.6 D, Chloride 108 H, Carbon Dioxide 25, Anion Gap 11.6, BUN 15 D, Creatinine 0.64 D, Estimated Creat Clear 151, Estimated GFR 98, Est GFR ( Amer) 119 D, Glucose 144 H, Calcium 8.6, Total Bilirubin 0.1 L, AST 26, ALT 39, Alkaline Phosphatase 93, Total Protein 6.5, Albumin 2.7 L, Globulin 3.8 H, Albumin/Globulin Ratio 0.7 L I & O for Last 24 hours: Intake & Output 06/26/18 06/27/18 06/28/18 06/29/18 11:59 11:59 11:59 11:59 Intake Total 2319 / 2319 3651 / 3651 240 / 240 Balance 2319 / 231 3651 / 3651 240 / 240 Weight 200 lb 6 oz Microbiology Reports for the Last 24 Hours: Microbiology 06/26/18 14:58 Blood Blood Culture - Preliminary NO GROWTH AFTER 48 HOURS 06/26/18 14:50 Blood Blood Culture - Preliminary NO GROWTH AFTER 48 HOURS 06/27/18 10:05 Sputum - Expectorated Sputum Gram Stain - Final 06/27/18 10:05 Sputum - Expectorated Sputum Sputum Culture - Preliminary - Constitutional no acute distress, obese - *Routine HEENT Exam Head: Present: normocephalic Eye: Present: EOMI, PERRL ENT: Present: mucous membranes dry - *Routine Neck Exam Absent: JVD - *Routine Respiratory Exam Present: rhonchi, wheezes. Absent: respiratory distress - *Routine Cardiovascular Exam Present: RRR, murmur - *Routine Abdominal Exam Present: soft - *Routine Extremities Exam Present: full ROM. Absent: calf tenderness - *Routine Skin Exam Present: intact - *Routine Neurological Exam Present: alert, oriented X3, CN II-XII intact - Routine Psychiatric Exam Present: normal affect Assessment and Plan (1) Rheumatoid arthritis Current visit: Yes Status: Acute Qualifiers: Rheumatoid arthritis location: multiple sites Rheumatoid factor presence: with rheumatoid factor Qualified Code(s): M05.79 - Rheumatoid arthritis with rheumatoid factor of multiple sites without organ or systems involvement Category: Medical Code(s): M06.9 - Rheumatoid arthritis, unspecified (2) Acute bronchitis with bronchospasm Current visit: Yes Status: Acute Category: Medical Code(s): J20.9 - Acute bronchitis, unspecified (3) Obesity (BMI 30-39.9) Current visit: Yes Status: Acute Category: Medical Code(s): E66.9 - Obesity, unspecified (4) Anemia Current visit: Yes Status: Acute Qualifiers: Anemia type: unspecified type Qualified Code(s): D64.9 - Anemia, unspecified Category: Medical Code(s): D64.9 - Anemia, unspecified
[2018-06-29 06:17] LABS: Basophils % 0.1 % (0.1-2.0); Eosinophils % 0.1 % (0.1-12.0); Hematocrit 30.7 % (37.0-47.0); Hemoglobin 9.6 g/dL (12.2-16.2); Lymphocytes # 0.6 K/mm3 (0.7-4.5); Lymphocytes % 6.3 % (10-50); Mean Corpuscular HGB Conc 31.2 g/dL (31.8-35.4); Mean Corpuscular Hemoglobin 29.3 pg (27.0-31.2); Mean Corpuscular Volume 94.2 fl (81-99); Mean Platelet Volume 7.3 fl (7.4-10.4); Monocytes # 0.3 K/mm3 (0.1-1.0); Monocytes % 2.8 % (1.7-9.3); Neutrophils # 9.1 K/mm3 (1.8-7.8); Neutrophils % 90.8 % (37.0-80.0); Platelet Count 326 K/mm3 (142-424); Red Blood Count 3.26 M/mm3 (4.20-5.40); Red Cell Distribution Width 14.4 % (11.5-17.5); White Blood Count 10.1 K/mm3 (4.8-10.8)
[2018-06-29 06:43] LABS: Albumin Level 2.6 gm/dL (3.4-5.0); Albumin/Globulin Ratio 0.7 (1.1-1.8); Anion Gap 13.4 mEq/L (5-15); Bilirubin,Total 0.2 mg/dL (0.2-1.0); Calcium 8.6 mg/dL (8.5-10.1); Globulin 3.6 gm/dl (1.3-3.2); Potassium 4.4 mmoL/L (3.5-5.1); Total Protein,Serum 6.2 gm/dL (6.4-8.2)
--- NOTE | 2018-06-29 09:54 | Progress Note ---
Internal Medicine - PN: Subj *Date: 06/29/18 *Time: 09:10 Interval history: Patient coughing and complaining of rib pain. States she feels worse today. Exam Vital signs and Labs for Last 24 Hours: Temp Pulse Resp BP Pulse Ox 98.0 F 83 20 116/51 L 93 L 06/29/18 07:45 06/29/18 07:45 06/29/18 07:45 06/29/18 07:45 06/29/18 07:45 Laboratory Results - last 24 hr 06/29/18 05:44: WBC 10.1 D, RBC 3.26 L, Hgb 9.6 L, Hct 30.7 L, MCV 94.2, MCH 29.3, MCHC 31.2 L, RDW 14.4, Plt Count 326, MPV 7.3 L, Neut % (Auto) 90.8 H, Lymph % (Auto) 6.3 L, [place] % (Auto) 2.8, Eos % (Auto) 0.1, Baso % (Auto) 0.1, Neut # (Auto) 9.1 H, Lymph # (Auto) 0.6 L, [place] # (Auto) 0.3, Eos # (Auto) 0.0, Baso # (Auto) 0.0 06/29/18 05:44: Sodium 142, Potassium 4.4, Chloride 108 H, Carbon Dioxide 25, Anion Gap 13.4, BUN 15, Creatinine 0.76, Estimated Creat Clear 127, Estimated GFR 81, Est GFR ( Amer) 97, Glucose 198 H D, Calcium 8.6, Total Bilirubin 0.2, AST 63 H D, ALT 100 H D, Alkaline Phosphatase 88, Total Protein 6.2 L, Albumin 2.6 L, Globulin 3.6 H, Albumin/Globulin Ratio 0.7 L I & O for Last 24 hours: Intake & Output 06/26/18 06/27/18 06/28/18 06/29/18 11:59 11:59 11:59 11:59 Intake Total 2318 / 2318 3650 / 3650 2250 / 2250 Balance 2318 / 2318 3650 / 3650 2250 / 2250 Weight 200 lb 6 oz Microbiology Reports for the Last 24 Hours: Microbiology 06/27/18 10:05 Sputum - Expectorated Sputum Gram Stain - Final 06/27/18 10:05 Sputum - Expectorated Sputum Sputum Culture - Final Normal Respiratory Mary Ann 06/26/18 14:58 Blood Blood Culture - Preliminary NO GROWTH AFTER 48 HOURS 06/26/18 14:50 Blood Blood Culture - Preliminary NO GROWTH AFTER 48 HOURS - Constitutional no acute distress, obese - *Routine HEENT Exam Head: Present: normocephalic Eye: Present: EOMI, PERRL ENT: Present: mucous membranes moist - *Routine Neck Exam Present: supple. Absent: lymphadenopathy - *Routine Respiratory Exam Present: wheezes - *Routine Cardiovascular Exam Present: RRR - *Routine Abdominal Exam Present: soft, normoactive bowel sounds. Absent: tenderness - *Routine Extremities Exam Absent: cyanosis, clubbing, edema - *Routine Skin Exam Present: warm. Absent: rash - *Routine Neurological Exam Present: alert, oriented X3 - Routine Psychiatric Exam Present: normal affect Assessment and Plan (1) Rheumatoid arthritis Current visit: Yes Status: Acute Qualifiers: Rheumatoid arthritis location: multiple sites Rheumatoid factor presence: with rheumatoid factor Qualified Code(s): M05.79 - Rheumatoid arthritis with rheumatoid factor of multiple sites without organ or systems involvement Category: Medical Code(s): M06.9 - Rheumatoid arthritis, unspecified (2) Acute bronchitis with bronchospasm Current visit: Yes Status: Acute Category: Medical Code(s): J20.9 - Acute bronchitis, unspecified (3) Obesity (BMI 30-39.9) Current visit: Yes Status: Acute Category: Medical Code(s): E66.9 - Obesity, unspecified (4) Anemia Current visit: Yes Status: Acute Qualifiers: Anemia type: unspecified type Qualified Code(s): D64.9 - Anemia, unspecified Category: Medical Code(s): D64.9 - Anemia, unspecified - Assessment and plan all Dx Assessment and Plan for all problems:: Rounded with Dr. Mcleod all orders per Harsha Repeat chest x-ray Possible discharge home in a.m.
[2018-06-29 10:27] LABS: Lymphocytes % 9 % (10-50); Monocytes % 1 % (2-9); Neutrophils % 90 % (42-76); Total Cells Counted 100
[2018-06-29 10:28] LABS: Hypochromasia 2+
[2018-06-30 06:17] LABS: Basophils % 0.1 % (0.1-2.0); Hematocrit 30.6 % (37.0-47.0); Hemoglobin 9.8 g/dL (12.2-16.2); Lymphocytes # 0.7 K/mm3 (0.7-4.5); Lymphocytes % 9.8 % (10-50); Mean Corpuscular HGB Conc 32.2 g/dL (31.8-35.4); Mean Corpuscular Hemoglobin 29.3 pg (27.0-31.2); Mean Corpuscular Volume 91.1 fl (81-99); Mean Platelet Volume 7.2 fl (7.4-10.4); Monocytes # 0.3 K/mm3 (0.1-1.0); Monocytes % 3.6 % (1.7-9.3); Neutrophils # 6.3 K/mm3 (1.8-7.8); Neutrophils % 86.4 % (37.0-80.0); Platelet Count 300 K/mm3 (142-424); Red Blood Count 3.36 M/mm3 (4.20-5.40); Red Cell Distribution Width 14.2 % (11.5-17.5); White Blood Count 7.3 K/mm3 (4.8-10.8)
[2018-06-30 06:38] LABS: Albumin Level 2.7 gm/dL (3.4-5.0); Albumin/Globulin Ratio 0.8 (1.1-1.8); Bilirubin,Total 0.2 mg/dL (0.2-1.0); Calcium 8.4 mg/dL (8.5-10.1); Globulin 3.6 gm/dl (1.3-3.2); Total Protein,Serum 6.3 gm/dL (6.4-8.2)
[2018-06-30 07:59] LABS: Lymphocytes % 8 % (10-50); Monocytes % 3 % (2-9); Neutrophils % 89 % (42-76); Total Cells Counted 100
--- NOTE | 2018-06-30 08:59 | Progress Note ---
Internal Medicine - PN: Subj *Date: 06/30/18 *Time: 08:58 Exam Vital signs and Labs for Last 24 Hours: Temp Pulse Resp BP Pulse Ox 97.8 F 85 18 144/58 H 95 06/30/18 08:00 06/30/18 08:00 06/30/18 08:00 06/30/18 08:00 06/30/18 08:00 Laboratory Results - last 24 hr 06/29/18 05:44: Total Counted 100, Neutrophils % (Manual) 90 H, Lymphocytes % (Manual) 9 L, Monocytes % (Manual) 1 L, Platelet Estimate Normal, Hypochromasia 2+ 06/30/18 05:40: WBC 7.3 D, RBC 3.36 L, Hgb 9.8 L, Hct 30.6 L, MCV 91.1, MCH 29.3, MCHC 32.2, RDW 14.2, Plt Count 300, MPV 7.2 L, Neut % (Auto) 86.4 H, Lymph % (Auto) 9.8 L, [place] % (Auto) 3.6, Eos % (Auto) 0.0 L, Baso % (Auto) 0.1, Neut # (Auto) 6.3, Lymph # (Auto) 0.7, [place] # (Auto) 0.3, Eos # (Auto) 0.0, Baso # (Auto) 0.0, Total Counted 100, Neutrophils % (Manual) 89 H, Lymphocytes % (Manual) 8 L, Monocytes % (Manual) 3, Platelet Estimate Normal 06/30/18 05:40: Sodium 142, Potassium 4.0, Chloride 107, Carbon Dioxide 27, Anion Gap 12.0, BUN 16, Creatinine 0.84, Estimated Creat Clear 115, Estimated GFR 72, Est GFR ( Amer) 87, Glucose 181 H, Calcium 8.4 L, Total Bilirubin 0.2, AST 77 H, ALT 173 H D, Alkaline Phosphatase 93, Total Protein 6.3 L, Albumin 2.7 L, Globulin 3.6 H, Albumin/Globulin Ratio 0.8 L I & O for Last 24 hours: Intake & Output 06/27/18 06/28/18 06/29/18 06/30/18 23:59 23:59 23:59 23:59 Intake Total 2329 / 2329 3411 / 3411 2844 / 2844 1528 / 1528 Balance 2329 / 2329 3411 / 3411 2844 / 2844 1528 / 1528 Weight 90.889 kg Microbiology Reports for the Last 24 Hours: Microbiology 06/27/18 10:05 Sputum - Expectorated Sputum Gram Stain - Final 06/27/18 10:05 Sputum - Expectorated Sputum Sputum Culture - Final Normal Respiratory Mary Ann Assessment and Plan (1) Rheumatoid arthritis Current visit: Yes Status: Acute Qualifiers: Rheumatoid arthritis location: multiple sites Rheumatoid factor presence: with rheumatoid factor Qualified Code(s): M05.79 - Rheumatoid arthritis with rheumatoid factor of multiple sites without organ or systems involvement Category: Medical Code(s): M06.9 - Rheumatoid arthritis, unspecified (2) Acute bronchitis with bronchospasm Current visit: Yes Status: Acute Category: Medical Code(s): J20.9 - Acute bronchitis, unspecified (3) Obesity (BMI 30-39.9) Current visit: Yes Status: Acute Category: Medical Code(s): E66.9 - Obesity, unspecified (4) Anemia Current visit: Yes Status: Acute Qualifiers: Anemia type: unspecified type Qualified Code(s): D64.9 - Anemia, unspecified Category: Medical Code(s): D64.9 - Anemia, unspecified The patient's infection will respond to the chosen ABx?: Yes Is the patient receiving the right drug, dose, and route?: Yes Could a more targeted ABx be ordered?: No
--- NOTE | 2018-06-30 09:11 | Discharge Summary ---
General - General Admission date:: 06/26/18 Discharge date: 06/30/18 HPI HPI: this wf with hx of sev rheumatoid art has progressive cough and despite op treatment continued sx-t sent from [facility] for eval due to sob cough x 1 week. states recently admitted to hospital 1 month ago for pneumonia. pt c/o chest pain when coughing. pt currently taking methotrexate for RA. Complains of productive cough with yellow sputum, subjective fever, shortness of breath, feeling tired for 1 week. Rhinorrhea and sore throat. States was in the hospital here a month ago for pneumonia and has had pneumonia 6 times over the past [address] Plunkett for pulmonary evaluation. She says that she does not have COPD. It is felt she gets recurrent pneumonia due to immunosuppressive medications for rheumatoid arthritis. She is not on oxygen or nebulizer treatments at home. She says she finished up a 5-day course of prednisone last week. Hospital Course Hospital Course: 06/26 chest x ray:FINDINGS: Unremarkable cardiovascular structures. There is some minimal blunting of the right CP angle which had a similar appearance on 02/19/2018 portable exam. No lobar consolidation or collapse is evident. No acute bony findings. IMPRESSION: No change with no acute finding. Minimal chronic blunting of the right CP angle 06/29chest x ray FINDINGS: The cardiomediastinal silhouette and pulmonary vascularity are within normal limits. There is blunting of the right CP angle consistent with small right pleural effusion. There is mild thickening of the major fissure on the right. The left lung is clear. No acute bony anomalies. IMPRESSION: Slight increase in size of small right effusion with mild thickening of the right major fissure which may be due to small amount of fluid in the fissure Will discharge home follow-up on Tuesday in the office. Objective Vital signs: Temp Pulse Resp BP Pulse Ox 97.8 F 85 18 144/58 H 95 06/30/18 08:00 06/30/18 08:00 06/30/18 08:00 06/30/18 08:00 06/30/18 08:00 no acute distress - *Routine HEENT Exam Head: Present: normocephalic Eye: Present: PERRL ENT: Present: mucous membranes moist - *Routine Neck Exam Present: full ROM - *Routine Respiratory Exam Present: CTA bilaterally - *Routine Cardiovascular Exam Present: RRR - *Routine Abdominal Exam Present: soft, normoactive bowel sounds - *Routine Skin Exam Present: intact - *Routine Neurological Exam Present: alert, oriented X3 - Routine Psychiatric Exam Present: normal affect Results Labs on day of discharge: Labs from last 24 hours 06/30/18 06/30/18 06/29/18 05:40 05:40 05:44 WBC 7.3 D RBC 3.36 L Hgb 9.8 L Hct 30.6 L MCV 91.1 MCH 29.3 MCHC 32.2 RDW 14.2 Plt Count 300 MPV 7.2 L Neut % (Auto) 86.4 H Lymph % (Auto) 9.8 L [place] % (Auto) 3.6 Eos % (Auto) 0.0 L Baso % (Auto) 0.1 Neut # (Auto) 6.3 Lymph # (Auto) 0.7 [place] # (Auto) 0.3 Eos # (Auto) 0.0 Baso # (Auto) 0.0 Total Counted 100 100 Neutrophils % (Manual) 89 H 90 H Lymphocytes % (Manual) 8 L 9 L Monocytes % (Manual) 3 1 L Platelet Estimate Normal Normal Hypochromasia 2+ Sodium 142 Potassium 4.0 Chloride 107 Carbon Dioxide 27 Anion Gap 12.0 BUN 16 Creatinine 0.84 Estimated Creat Clear 115 Estimated GFR 72 Est GFR ( Amer) 87 Glucose 181 H Calcium 8.4 L Total Bilirubin 0.2 AST 77 H ALT 173 H D Alkaline Phosphatase 93 Total Protein 6.3 L Albumin 2.7 L Globulin 3.6 H Albumin/Globulin Ratio 0.8 L Preliminary micro results at discharge 06/26/18 14:58 Blood Culture - Preliminary Blood NO GROWTH AFTER 48 HOURS 06/26/18 14:50 Blood Culture - Preliminary Blood NO GROWTH AFTER 48 HOURS - Additional Comments Rounded with Dr. Mcleod all orders per Harsha DS: Diagnosis - Discharge Diagnosis (1) Rheumatoid arthritis Status: Acute (2) Acute bronchitis with bronchospasm Status: Acute (3) Obesity (BMI 30-39.9) Status: Acute (4) Anemia Status: Acute Discharge Plan - Patient Discharge Instructions ACTIVITY: Continue current activity DIET: continue same diet Patient Instructions: Acute Bronchitis, DI for Rheumatoid Arthritis - Follow up Plan Follow up with: Dread Mcleod MD [Primary Care Provider] - 07/03/18 Disposition: Home, Self-Longterm Medications: Home Medications Medication Instructions Recorded Confirmed Type Folic Acid [Folic Acid 1mg tablet] 1 mg PO DAILY 06/19/17 06/26/18 History metHOTREXate sodium [metHOTREXate 15 mg PO WEEKLY 06/19/17 06/27/18 History 2.5mg Tablet] sulfasalazine 500 mg tablet 1,000 mg PO BID 12/26/17 06/26/18 History Tofacitinib Citrate [Xeljanz Xr] 11 mg PO DAILY 02/20/18 06/26/18 History Azithromycin [Zithromax 250mg 250 mg PO DIRECTED #6 tab 06/30/18 Rx tab] Benzonatate [Tessalon Perle 100mg 100 mg PO BID 7 Days #14 cap 06/30/18 Rx Cap] predniSONE [Prednisone 20mg 20 mg PO BID #10 tab 06/30/18 Rx Tab] Prescriptions/Medication Reconciliation: New predniSONE [Prednisone 20mg Tab] 20 mg PO BID #10 tab Azithromycin [Zithromax 250mg tab] 250 mg PO DIRECTED #6 tab Benzonatate [Tessalon Perle 100mg Cap] 100 mg PO BID 7 Days #14 cap Continue sulfasalazine 500 mg tablet 1,000 mg PO BID metHOTREXate sodium [metHOTREXate 2.5mg Tablet] 15 mg PO WEEKLY Folic Acid [Folic Acid 1mg tablet] 1 mg PO DAILY Tofacitinib Citrate [Xeljanz Xr] 11 mg PO DAILY
== END 2018-06-30 10:20 | disposition home or self-care (01) ==
LOC: 2ND 14:01 → UTC 14:01 → 2ND 16:32
PROVIDERS: ADMIT Emergency Medicine; ATTEND Emergency Medicine
CPT/HCPCS: 36415; 71010; 71020; 71045; 71046; 80048; 80053; 83605; 84484; 85007; 85025; 87040; 87070; 87205; 93005; 94640; 94761; 96374; 96375; 99285; G0378; J0456

== ENCOUNTER 2018-08-28 15:09 | Emergency (ER) | payer MEDICAID, SELFPAY ==
[2018-08-28 15:20] VITALS: BP 121/74; PULSE 105; RESP 20; TEMP 36.9; O2SAT 97; BMI 36.6
[2018-08-28 15:26] VITALS: BP 121/74; PULSE 92; RESP 18; TEMP 36.9; O2SAT 98; BMI 34.3
[2018-08-28 15:40] VITALS: BP 121/74; BP 142/87; PULSE 105; PULSE 92; RESP 18; TEMP 36.9; O2SAT 98; O2SAT 99; BMI 34.3
--- NOTE | 2018-08-28 15:46 | CT_ITS ---
CT abdomen pelvis w con INDICATION: Left upper quadrant pain ITS.REASON: abdomen pain ORDERING PHYSICIAN: Dread Waller MD PATIENT AGE: 48 years COMPARISON: No previous abdominal CT or plain films CTA chest which includes upper abdomen from 06/19/2017 TECHNIQUE: IV contrast: 75 cc Isovue 350 followed no oral contrast utilized. Axial images obtained with sagittal and coronal reformats. All CT scans at the facility use one or more dose reduction, viz: automated exposure control, ma/kV adjustment per patient size (including targeted exams where dose is matched to indication, i.e. head), or iterative reconstruction technique. FINDINGS: Right lung base: Mild pleural thickening at the posterior right base. Slightly undulating along the posterior aspect of the right lower lobe. Warrants follow-up no discrete masslike areas and most likely reflect scarring..-This likely reflects residual from the previous prominent right pleural effusion & prominent right lower lobe airspace disease/pneumonia sequela which was seen at right lung base 06/19/2017. CT chest. There is also a small residual most inferiorly at the dependent pleural effusion seen at the posterior sulcus region. Left lung base: wispy pleural & parenchymal scarring at the posterior left base Heart upper normal size. Abdomen/Pelvis.: Postcontrast images Liver appear normal. Spleen unremarkable. Pancreas unremarkable. No inflammation about the pancreas towards the tail. No retroperitoneal or peripancreatic adenopathy. Adrenal satisfactory. Gallbladder markedly contracted with multiple gallstones.. With the largest measuring at least 12 mm maximally. Upper normal gallbladder wall wall thickness. . No biliary ductal dilatation common duct normal. Pancreatic duct normal. Aorta. No aneurysm. Diffuse calcification most evident distally.- Likely yields slight narrowing at the distal most aorta and origin of the common iliac arteries GI TRACT.: Large Bowel: Minimal liquid semisolid stool the cecum, right colon up to hepatic flexure. Moderate stool & generous gas throughout the transverse, & into the left colon. Airdox Fitter film nicely demonstrates generous gas at the transverse colon. Moderate to generous gas is specifically noted in the region of splenic flexure on axial images as well as towards the descending colon. Descending colon . Diffuse Upper normal wall thickness sigmoid colon with a few diverticuli but no diverticulitis evident. No free fluid at pelvis. Appendix is normal. Terminal ileum unremarkable. Small Bowel: distal small bowel unremarkable. Proximal small bowel borderline dilated upper normal in caliber proximal jejunum measuring up to to 2.8 cm.. With some slight increased fluid and areas of borderline thickening proximal small bowel. Nonspecific reflect mild enteritis developing or less likely mild ileus. No free fluid no focal inflammation. Stomach-fairly distended food filled stomach. Presumed recent meal Last of all note slight bulging of fat at the inguinal canal region bilaterally reflecting lack inguinal ring,. Perhaps a very small developing fat-containing left inguinal hernia. Barely evident, unimpressive. No bowel loops. No inflammation. TRACT . No urinary tract calculi nor obstruction. No significant renal mass. Small cyst anterior lower pole left kidney 8.5 mm size. Ureters unremarkable A generous extra renal pelvis bilaterally may merely reflect generous hydration. Pelvis. Urinary bladder unremarkable. Hysterectomy. No adnexal masses. No free fluid Bones no remarkable findings. IMPRESSION: ...... 1. No prominent findings. Appendix normal. Terminal ileum unremarkable 2. Regarding LUQ pain; note the following minimal observat
--- NOTE | 2018-08-28 15:46 | XR_ITS ---
XR shoulder RT min 2V Ordering Physician: Dread Waller MD Patient Age: 48 years: Female HISTORY: ITS.REASON: pain TECHNIQUE: 3 views right shoulder AP internal and rotation with Y view. COMPARISON :These are compared to previous April 2018 right shoulder study FINDINGS Right shoulder appears intact with no fracture nor acute finding. Normal relationships at the glenohumeral joint. Head and neck intact. AC joint intact. Scapula and upper right ribs including right lung apex appears satisfactory. Minimal calcification carotid bifurcation.Incidentally noted IMPRESSION: Right shoulder intact. & Within normal limits. No significant change since 2018 radiograph
--- NOTE | 2018-08-28 15:58 | PC.NURSE ---
iv initiated to left antecubital at this time, x 1 attempt. no issues, no complaints. sl placed. blood collected and sent to lab. pt is complaining of left ankle in additional to right shoulder and left upper quad pain. meds given. boyfriend brought to room per house. adequate response from meds. propped left ankle up on pillow and ice placed. blanket given.
[2018-08-28 15:59] LABS: Basophils % 0.4 % (0.1-2.0); Eosinophils # 0.3 K/mm3 (0.0-0.4); Eosinophils % 3.8 % (0.1-12.0); Hematocrit 36.8 % (37.0-47.0); Hemoglobin 12.2 g/dL (12.2-16.2); Lymphocytes # 1.1 K/mm3 (0.7-4.5); Lymphocytes % 12.8 % (10-50); Mean Corpuscular HGB Conc 33.2 g/dL (31.8-35.4); Mean Corpuscular Hemoglobin 28.5 pg (27.0-31.2); Mean Platelet Volume 7.2 fl (7.4-10.4); Monocytes # 0.5 K/mm3 (0.1-1.0); Monocytes % 5.4 % (1.7-9.3); Neutrophils # 6.7 K/mm3 (1.8-7.8); Neutrophils % 77.4 % (37.0-80.0); Platelet Count 358 K/mm3 (142-424); Red Blood Count 4.28 M/mm3 (4.20-5.40); Red Cell Distribution Width 13.9 % (11.5-17.5); White Blood Count 8.6 K/mm3 (4.8-10.8)
[2018-08-28 16:10] VITALS: BP 134/83; PULSE 96; O2SAT 97
[2018-08-28 16:12] LABS: Anion Gap 12.5 mEq/L (5-15); Blood Urea Nitrogen 15 mg/dL (7-18); C-Reactive Protein 13.6 mg/L (0.0-0.9); Calcium 8.4 mg/dL (8.5-10.1); Carbon Dioxide 28 mmol/L (21.0-32.0); Chloride 103 mmol/L (98-107); Creatinine Clearance Estimated 105 mL/min (50-200); Creatinine,Serum 0.92 mg/dL (0.55-1.02); Estimated Glomerular Filt Rate 65 ml/min (>60); GFR (African American) 78 ML/MIN (>60); Glucose 117 mg/dL (74-106); Potassium 3.5 mmoL/L (3.5-5.1); Sodium 140 mmol/L (136-145)
[2018-08-28 16:30] VITALS: BP 134/83; PULSE 101; O2SAT 94
--- NOTE | 2018-08-28 18:49 | HMH.EDGENADL ---
ED Disposition Clinical Impression: Shoulder pain, Rheumatoid arthritis Disposition: Home, Self-Care Condition on Discharge: Good Instructions: Rheumatoid Arthritis Prescriptions: Hydrocodone/Acetaminophen [[place] 7.5-325 Tablet] 1 tab PO QID PRN 3 Days #10 tab PRN Reason: Moderate Pain predniSONE [Prednisone 50mg Tab] 50 mg PO DAILY 5 Days #5 tab Referrals: Dread Mcleod MD [Primary Care Provider] - Time of Disposition: 18:53 - Critical Care Critical Care Time: No Attestation: On 08/28/18, the high probability of a clinically significant, sudden or life threatening deterioration of the following system(s) required my full and direct attention, intervention and personal management. The time I documented below is in addition to time spent performing reported procedures but includes the following listed in this critical care notation. Medical Decision Making - Medical Records Medical records reviewed: Yes: I reviewed the patient's medical records. - Joel Inquiry Pt receiving controlled substance: Yes Joel was queried for this patient: Yes Reference #:: [id number] report was obtai Risks and benefits of using a controlled substance: were discussed with pt by me Vital Signs: 08/28/18 15:20 08/28/18 15:26 08/28/18 15:40 Temperature 98.5 F 98.5 F 98.5 F Temperature Source Oral Oral Oral Pulse Rate [Left Radial] 105 H 92 H 105 H Respiratory Rate 20 18 18 Blood Pressure [Right Arm] 121/74 121/74 142/87 H Blood Pressure Mean [Right Arm] 89 89 105 Blood Pressure Source [Right Arm] Automatic Cuff Blood Pressure Position [Right Arm] Sitting 02 Sat by Pulse Oximetry 97 98 99 Oxygen Delivery Method Room Air Room Air Room Air 08/28/18 16:10 08/28/18 16:30 Temperature Temperature Source Pulse Rate [Left Radial] 96 H 101 H Respiratory Rate Blood Pressure [Right Arm] 134/83 134/83 Blood Pressure Mean [Right Arm] 100 100 Blood Pressure Source [Right Arm] Blood Pressure Position [Right Arm] 02 Sat by Pulse Oximetry 97 94 L Oxygen Delivery Method - Lab Data Lab results reviewed: Yes: I reviewed the patient's lab results. Lab Results 08/28/18 15:46: WBC 8.6, RBC 4.28, Hgb 12.2, Hct 36.8 L, MCV 86.0, MCH 28.5, MCHC 33.2, RDW 13.9, Plt Count 358, MPV 7.2 L, Neut % (Auto) 77.4, Lymph % (Auto) 12.8, [place] % (Auto) 5.4, Eos % (Auto) 3.8, Baso % (Auto) 0.4, Neut # (Auto) 6.7, Lymph # (Auto) 1.1, [place] # (Auto) 0.5, Eos # (Auto) 0.3, Baso # (Auto) 0.0 08/28/18 15:46: Sodium 140, Potassium 3.5, Chloride 103, Carbon Dioxide 28, Anion Gap 12.5, BUN 15, Creatinine 0.92, Estimated Creat Clear 105, Estimated GFR 65, Est GFR ( Amer) 78, Glucose 117 H, Calcium 8.4 L, C-Reactive Protein 13.6 H Result diagrams: 08/28/18 15:46 08/28/18 15:46 Orders (Tests/Meds): ED MEDICATIONS Discontinued Medications Generic Name Dose Route Start Last Admin Trade Name Kerwin PRN Reason Stop Dose Admin Ioversol 75 ml 08/28/18 17:01 08/28/18 17:03 Rad-Optiray 350 100ml Vial IV 08/28/18 17:02 75 ml ONCE ONE Administration Protocol Sodium Chloride 10 ml 08/28/18 17:01 08/28/18 17:03 Rad-Saline Flush 10ml Syringe IV 08/28/18 17:02 10 ml ONCE ONE Administration ORDERS Category Date Time Status XR shoulder RT min 2V Stat Exams 08/28/18 15:46 Taken General Adult HPI - General Chief complaint: Abdominal Pain Stated complaint: Has RA, shoulder&Rib pain Time Seen by Provider: 08/28/18 15:30 Mode of Arrival: Wheelchair Source of Information: Patient Limitations: No Limitations Description of Symptoms (Recalled from ER Triage Doc. by RN): Pt states she has a hx of RA and states this is a flare up pain in her right shoulder and rib pain. States she usually gets anti inflammatory and steroid and it gets better. Sent from [facility] with c/o left uppper quad pain thinks her spleen is swollen . - History of Present Illness HPI narrative: right shoulder pain, severe, aggrav
--- NOTE | 2018-08-28 18:52 | ED_ITS ---
ED Disposition Clinical Impression: Shoulder pain, Rheumatoid arthritis Disposition: Home, Self-Care Condition on Discharge: Good Instructions: Rheumatoid Arthritis Prescriptions: Hydrocodone/Acetaminophen [[place] 7.5-325 Tablet] 1 tab PO QID PRN 3 Days #10 tab PRN Reason: Moderate Pain predniSONE [Prednisone 50mg Tab] 50 mg PO DAILY 5 Days #5 tab Referrals: Dread Mcleod MD [Primary Care Provider] - Time of Disposition: 18:53 - Critical Care Critical Care Time: No Attestation: On 08/28/18, the high probability of a clinically significant, sudden or life threatening deterioration of the following system(s) required my full and direct attention, intervention and personal management. The time I documented below is in addition to time spent performing reported procedures but includes the following listed in this critical care notation. Medical Decision Making - Medical Records Medical records reviewed: Yes: I reviewed the patient's medical records. - Joel Inquiry Pt receiving controlled substance: Yes Joel was queried for this patient: Yes Reference #:: [id number] report was obtai Risks and benefits of using a controlled substance: were discussed with pt by me Vital Signs: 08/28/18 15:20 08/28/18 15:26 08/28/18 15:40 Temperature 98.5 F 98.5 F 98.5 F Temperature Source Oral Oral Oral Pulse Rate [Left Radial] 105 H 92 H 105 H Respiratory Rate 20 18 18 Blood Pressure [Right Arm] 121/74 121/74 142/87 H Blood Pressure Mean [Right Arm] 89 89 105 Blood Pressure Source [Right Arm] Automatic Cuff Blood Pressure Position [Right Arm] Sitting 02 Sat by Pulse Oximetry 97 98 99 Oxygen Delivery Method Room Air Room Air Room Air 08/28/18 16:10 08/28/18 16:30 Temperature Temperature Source Pulse Rate [Left Radial] 96 H 101 H Respiratory Rate Blood Pressure [Right Arm] 134/83 134/83 Blood Pressure Mean [Right Arm] 100 100 Blood Pressure Source [Right Arm] Blood Pressure Position [Right Arm] 02 Sat by Pulse Oximetry 97 94 L Oxygen Delivery Method - Lab Data Lab results reviewed: Yes: I reviewed the patient's lab results. Lab Results 08/28/18 15:46: WBC 8.6, RBC 4.28, Hgb 12.2, Hct 36.8 L, MCV 86.0, MCH 28.5, MCHC 33.2, RDW 13.9, Plt Count 358, MPV 7.2 L, Neut % (Auto) 77.4, Lymph % (Auto) 12.8, [place] % (Auto) 5.4, Eos % (Auto) 3.8, Baso % (Auto) 0.4, Neut # (Auto) 6.7, Lymph # (Auto) 1.1, [place] # (Auto) 0.5, Eos # (Auto) 0.3, Baso # (Auto) 0.0 08/28/18 15:46: Sodium 140, Potassium 3.5, Chloride 103, Carbon Dioxide 28, Anion Gap 12.5, BUN 15, Creatinine 0.92, Estimated Creat Clear 105, Estimated GFR 65, Est GFR ( Amer) 78, Glucose 117 H, Calcium 8.4 L, C-Reactive Protein 13.6 H Result diagrams: 08/28/18 15:46 08/28/18 15:46 Orders (Tests/Meds): ED MEDICATIONS Discontinued Medications Generic Name Dose Route Start Last Admin Trade Name Kerwin PRN Reason Stop Dose Admin Ioversol 75 ml 08/28/18 17:01 08/28/18 17:03 Rad-Optiray 350 100ml Vial IV 08/28/18 17:02 75 ml ONCE ONE Administration Protocol Sodium Chloride 10 ml 08/28/18 17:01 08/03
[2018-08-28 19:02] VITALS: BP 125/72; PULSE 106; RESP 19; TEMP 36.7; O2SAT 98
--- NOTE | 2018-08-28 20:13 | PC.NURSE ---
pt ride here at this time
== END 2018-08-28 20:17 | disposition home or self-care (01) ==
LOC: UTC 15:19 → ER 15:39
PROVIDERS: Emergency Provider Emergency Medicine; PCP Emergency Medicine
DX: M25.511 Pain in right shoulder (principal); M06.9 Rheumatoid arthritis, unspecified
CPT/HCPCS: 73030; 74177; 80048; 85025; 86140; 96365; 96374; 96375; 96376; 99283; J2405; Q9967

== ENCOUNTER → 2018-09-12 10:57 | Outpatient (CLI) | payer MEDICAID, SELFPAY ==
[2018-09-12 13:59] LABS: Alanine Aminotransferase 32 U/L (12-78); Albumin Level 3.2 gm/dL (3.4-5.0); Alkaline Phosphatase 123 U/L (46-116); Aspartate Amino Transferase 21 U/L (15-37); Bilirubin,Direct 0.1 mg/dL (0.0-0.2); Bilirubin,Indirect 0.2 mg/dL (0.0-0.9); Bilirubin,Total 0.3 mg/dL (0.2-1.0); Total Protein,Serum 6.4 gm/dL (6.4-8.2)
== END ==
PROVIDERS: Visit Provider Surgery
DX: K82.8 Other specified diseases of gallbladder (principal)
CPT/HCPCS: 36415; 80076; 93005

== ENCOUNTER 2018-09-23 19:54 | Emergency (ER) | payer MEDICAID, SELFPAY ==
--- NOTE | 2018-09-23 20:04 | HMH.EDGENADL ---
ED Disposition Clinical Impression: Problem involving surgical incision Disposition: Home, Self-Care Condition on Discharge: Good Additional Instructions: See Dr. Barba in the office on Tuesday or Tuesday of this coming week. Return to the emergency room if increasing pain, redness is spreading, fever greater than 100.5 degrees. Augmentin as prescribed. Apply warm compresses to the area for 20 minutes 4-5 times a day. Prescriptions: Amoxicillin/Potassium Clav [Augmentin 875-125 Tablet] 1 tab PO Q12H #20 tab Referrals: Dread Mcleod MD [Primary Care Provider] - - Critical Care Critical Care Time: No Attestation: On , the high probability of a clinically significant, sudden or life threatening deterioration of the following system(s) required my full and direct attention, intervention and personal management. The time I documented below is in addition to time spent performing reported procedures but includes the following listed in this critical care notation. Medical Decision Making - Joel Inquiry Pt receiving controlled substance: No Vital Signs: 09/23/18 20:06 Temperature 98.3 F Temperature Source Oral Pulse Rate [Right] 127 H Respiratory Rate 20 Blood Pressure [Right Arm] 146/93 H Blood Pressure Mean [Right Arm] 110 02 Sat by Pulse Oximetry 100 - Lab Data Lab Results 09/23/18 20:22: WBC 10.3, RBC 4.21, Hgb 11.1 L, Hct 36.4 L, MCV 86.4, MCH 26.4 L, MCHC 30.6 L, RDW 14.5, Plt Count 339, MPV 7.3 L, Neut % (Auto) 79.6, Lymph % (Auto) 9.0 L, [place] % (Auto) 5.8, Eos % (Auto) 4.9, Baso % (Auto) 0.7, Neut # (Auto) 8.2 H, Lymph # (Auto) 0.9, [place] # (Auto) 0.6, Eos # (Auto) 0.5 H, Baso # (Auto) 0.1 09/23/18 20:22: Sodium 140, Potassium 3.8, Chloride 105, Carbon Dioxide 25, Anion Gap 13.8, BUN 22 H, Creatinine 0.80, Estimated Creat Clear 113, Estimated GFR 76, Est GFR ( Amer) 92, Glucose 100, Calcium 8.6 09/23/18 20:22: Lactate 0.7 09/23/18 20:22: Total Bilirubin 0.3, Direct Bilirubin 0.1, Indirect Bilirubin 0.2, AST 19, ALT 80 H, Alkaline Phosphatase 163 H, Total Protein 6.8, Albumin 3.0 L Result diagrams: 09/23/18 20:22 09/23/18 20:22 Orders (Tests/Meds): ED MEDICATIONS Discontinued Medications Generic Name Dose Route Start Last Admin Trade Name Kerwin PRN Reason Stop Dose Admin Amoxicillin/Clavulanate Potassium 1 each 09/23/18 21:51 Augmentin 500mg Tablet PO 09/23/18 21:52 ONCE ONE Protocol Sodium Chloride 1,000 ml 09/23/18 20:17 09/23/18 20:40 Sod Chlor 0.9% 1000ml Bag IV 09/23/18 20:18 1,000 ml BOLUS ONE Administration ORDERS Category Date Time Status Blood Culture Stat Micro 09/23/18 20:22 Received - Physician Consults Physician Consulted: Gomez Barba Time: 20:15 Reason -: Surgical Eval/Care Comment/Response: Call him back when labs are resulted Additional Consult: Gomez Time: 21:09 Reason -: Surgical Eval/Care Comment/Response: Do not I&D. Augmentin, warm compresses, follow-up with Dr. Barba in clinic on Tuesday. Return to the emergency department if worse. General Adult HPI - General Stated complaint: Surg 0614 Pain Time Seen by Provider: 09/23/18 20:04 - History of Present Illness HPI narrative: 8 days status post laparoscopic cholecystectomy. 3-day history of increasing pain and a knot at her midline epigastric incision. No fever. All other incisions are nonpainful and healing well. Called Dr. Barba's office on and was advised to come to the emergency room, but did not have a ride to get her until today. She drove herself here today. The patient has rheumatoid arthritis and is on medications for that. Her only medication added postoperatively is ibuprofen. Patient states her heart rate always runs high, usually between 100-110. Blood pressure runs low, so that they cannot put her on medications for her heart rate. - Related Data Home Medications Medication Instructions Recorded Confirmed
[2018-09-23 20:06] VITALS: BP 146/93; PULSE 127; RESP 20; TEMP 36.8; O2SAT 100; BMI 34.4
[2018-09-23 20:34] LABS: Basophils # 0.1 K/mm3 (0-0.2); Basophils % 0.7 % (0.1-2.0); Eosinophils # 0.5 K/mm3 (0.0-0.4); Eosinophils % 4.9 % (0.1-12.0); Hematocrit 36.4 % (37.0-47.0); Hemoglobin 11.1 g/dL (12.2-16.2); Lymphocytes # 0.9 K/mm3 (0.7-4.5); Mean Corpuscular HGB Conc 30.6 g/dL (31.8-35.4); Mean Corpuscular Hemoglobin 26.4 pg (27.0-31.2); Mean Corpuscular Volume 86.4 fl (81-99); Mean Platelet Volume 7.3 fl (7.4-10.4); Monocytes # 0.6 K/mm3 (0.1-1.0); Monocytes % 5.8 % (1.7-9.3); Neutrophils # 8.2 K/mm3 (1.8-7.8); Neutrophils % 79.6 % (37.0-80.0); Platelet Count 339 K/mm3 (142-424); Red Blood Count 4.21 M/mm3 (4.20-5.40); Red Cell Distribution Width 14.5 % (11.5-17.5); White Blood Count 10.3 K/mm3 (4.8-10.8)
[2018-09-23 20:40] LABS: Anion Gap 13.8 mEq/L (5-15); Blood Urea Nitrogen 22 mg/dL (7-18); Calcium 8.6 mg/dL (8.5-10.1); Carbon Dioxide 25 mmol/L (21.0-32.0); Chloride 105 mmol/L (98-107); Creatinine Clearance Estimated 113 mL/min (50-200); Estimated Glomerular Filt Rate 76 ml/min (>60); GFR (African American) 92 ML/MIN (>60); Glucose 100 mg/dL (74-106); Potassium 3.8 mmoL/L (3.5-5.1); Sodium 140 mmol/L (136-145)
[2018-09-23 21:05] LABS: Lactic Acid 0.7 mmol/L (0.4-2.0)
--- NOTE | 2018-09-23 21:08 | PC.NURSE ---
dr chinchilla consulting with dr calero once again concerning patient.
[2018-09-23 21:29] LABS: Alanine Aminotransferase 80 U/L (12-78); Alkaline Phosphatase 163 U/L (46-116); Aspartate Amino Transferase 19 U/L (15-37); Bilirubin,Direct 0.1 mg/dL (0.0-0.2); Bilirubin,Indirect 0.2 mg/dL (0.0-0.9); Bilirubin,Total 0.3 mg/dL (0.2-1.0); Total Protein,Serum 6.8 gm/dL (6.4-8.2)
[2018-09-23 22:01] VITALS: BP 153/79; PULSE 97; RESP 18; O2SAT 98
[2018-09-23 22:22] VITALS: BP 150/70; PULSE 100; RESP 20; TEMP 37; O2SAT 98
== END 2018-09-23 22:24 | disposition home or self-care (01) ==
PROVIDERS: Emergency Provider Emergency Medicine; PCP Emergency Medicine
DX: T81.89XA Other complications of procedures, not elsewhere classified, initial encounter (principal); G89.18 Other acute postprocedural pain; M06.9 Rheumatoid arthritis, unspecified
CPT/HCPCS: 80048; 80076; 83605; 85025; 87040; 87077; 87186; 96365; 99283

== ENCOUNTER 2019-07-21 13:08 | Emergency (ER) | payer MEDICAID, SELFPAY ==
[2019-07-21 13:10] VITALS: BP 151/92; PULSE 103; RESP 20; TEMP 36.8; O2SAT 99; BMI 32.9
--- NOTE | 2019-07-21 13:21 | XR_ITS ---
PROCEDURE: XR CHEST 2V Patient Age:49Y CLINICAL HISTORY: CP chest pain, epigastric pains. Smoker. COMPARISON: CXR2V XR chest 2V from 02/20/[address] angio chest from 02/21/2018 CXR2V XR chest 2V from 05/05/2018 CXR1VP XR chest portable from 06/26/2018 CXR2V XR chest 2V from 06/29/2018 FINDINGS: The heart is normal in size.. There is better inspiration today than on 06/29/2018. With this lungs overall appear better expanded and slightly clear overall with less vascular prominence but pulmonary vascularity. I would consider pulmonary vascularity normal-upper normal on today's study. Left CP angle clear Again note blunting of the right CP angle/right posterior sulcus with fluid pleural thickening tracking into the inferior aspect of right major fissure. Initially felt due to a recent right pleural effusion similar to 06/29/2018., but note is a longstanding feature and finding dates back to Feb [address] chest, thus appears to reflect some chronic pleural thickening or fluid, rather than a new effusion. On today's the lateral film there is a new small a subtle bandlike linear area of density extending anteriorly through the retrosternal space. It was not seen on prior 2018 studies nor May 2018. I suspect is area of atelectasis and scarring but cannot totally exclude a subtle infiltrate. You may want to consider follow-up CT in this patient particular if there are any persistent chest symptoms On final review of images, also question of minor focal pleural thickening is beneath the 6 rib. Doubt of significance but noted the chest wall and rib cage otherwise unremarkable. T-spine and ribs unremarkable but IMPRESSION: 1.. Persistent blunting right CP angle & posterior sulcus again noted with, no significant change since 06/29/2018 CXR. . On further review of old studies, would note similar feature on 2018 CT chest and CXR, thus appears to reflect primarily chronic pleural changes rather than new feature. 2. New bandlike density passing through retrosternal space on today's lateral view, was not seen on previous studies. May be related to scarring/and atelectasis but nonspecific and will also benefit from follow-up 3. On final review of images, also question of minor focal pleural thickening is beneath the 6 rib. Doubt of significance but noted. 4.CT chest with contrast may be of benefit in this patient for further evaluation and follow-up, particularly of persistent chest symptoms Dictated by: Jesus Edwards MD 07/21/2019 14:37 Electronically signed by Jesus Edwards MD in [place] 07/21/2019 14:37
--- NOTE | 2019-07-21 13:31 | ECG_ITS ---
APPROVED REPORT Exam: Resting ECG HR:103 bpm ECG Measurements Heart Rate 103 AXES UT 124 P 41 QRSd 74 QRS 69 QT 350 T 53 QTc 458 <Conclusion> Sinus tachycardia Otherwise normal ECG Electronically signed by : Yuan Montez, 07/23/2019 07:04:56
--- NOTE | 2019-07-21 14:00 | HMH.EDGENADL ---
ED Disposition Clinical Impression: Cellulitis, Abscess Disposition: Home, Self-Care Condition on Discharge: Good Instructions: Cellulitis Additional Instructions: Please follow-up with your primary care if condition worsens Prescriptions: Clindamycin HCl 150 mg PO Q8 10 Days #30 cap Transmission Status: Pending to [facility] Referrals: Provider,Referral, [Primary Care Provider] - - Critical Care Critical Care Time: No Attestation: On 07/21/19, the high probability of a clinically significant, sudden or life threatening deterioration of the following system(s) required my full and direct attention, intervention and personal management. The time I documented below is in addition to time spent performing reported procedures but includes the following listed in this critical care notation. Medical Decision Making - Joel Inquiry Pt receiving controlled substance: No Vital Signs: 07/21/19 13:10 Temperature 98.2 F Temperature Source Oral Pulse Rate [Right] 103 H Respiratory Rate 20 Blood Pressure [Right Arm] 151/92 H Blood Pressure Mean [Right Arm] 111 02 Sat by Pulse Oximetry 99 Orders (Tests/Meds): ED MEDICATIONS Generic Name Dose Route Start Last Admin Trade Name Freq PRN Reason Stop Dose Admin Clindamycin Phosphate 900 mg/ 106 mls @ 100 mls/hr 07/21/19 13:49 07/21/19 13:54 Sodium Chloride IV 07/21/19 14:52 100 mls/hr ONCE ONE Administration Protocol Discontinued Medications Generic Name Dose Route Start Last Admin Trade Name Freq PRN Reason Stop Dose Admin Ketorolac Tromethamine 30 mg 07/21/19 13:49 07/21/19 13:54 Toradol 30mg/Ml Vial IV 07/21/19 13:50 30 mg ONCE ONE Administration ORDERS Category Date Time Status XR chest 2V Stat Exams 07/21/19 13:21 Taken Complete Blood Count Auto Diff Stat Lab 07/21/19 13:38 Received Comprehensive Metabolic Panel Stat Lab 07/21/19 13:38 Received Lactic Acid Stat Lab 07/21/19 13:38 Received Troponin I Q3H Lab 07/21/19 16:30 Ordered Troponin I Q3H Lab 07/21/19 19:30 Ordered Troponin I Stat Lab 07/21/19 13:38 Received Blood Culture Stat Micro 07/21/19 13:38 Received ECG Request by /Margo Stat Y 07/21/19 13:21 Ordered General Adult HPI - General Chief complaint: PAIN Stated complaint: possible infection from surgery Time Seen by Provider: 07/21/19 14:00 Mode of Arrival: Ambulatory Source of Information: Patient Limitations: No Limitations Description of Symptoms (Recalled from ER Triage Doc. by RN): PT C/O PAIN IN HER SCAR IN THE EPIGASTRIC REGION WHERE SHE HAD HER GB REMOVED THAT SHOOTS UP INTO HER CHEST AND DOWN HER LEFT ARM - History of Present Illness HPI narrative: 49-year-old female comes in complaining of an abscess on her abdomen that she noticed started about 2 days ago and is progressively gotten worse. She states she did have an abdominal surgery and that was 1 of the areas where they went and she states that the surgery was 10 months ago. She states that it is painful to touch and she has some mild erythema around the area with no draining. She denies any recent fever shakes or chills. She also denies any shortness of breath or cough or headache or nausea vomiting or diarrhea. - Related Data Home Medications Medication Instructions Recorded Confirmed Folic Acid [Folic Acid 1mg tablet] 1 mg PO DAILY 06/19/17 10/10/18 metHOTREXate sodium [metHOTREXate 15 mg PO WEEKLY 06/19/17 10/10/18 2.5mg Tablet] sulfasalazine 500 mg tablet 1,000 mg PO BID 12/26/17 10/10/18 Tofacitinib Citrate [Xeljanz Xr] 11 mg PO DAILY 02/20/18 10/10/18 Previous Rx's Medication Instructions Recorded ondansetron HCl 4 mg tablet 4 mg PO Q8H PRN #14 tab 09/05/18 Clindamycin HCl 150 mg PO Q8 10 Days #30 cap 07/21/19 Allergies Allergy/AdvReac Type Severity Reaction Status Date / Time diphenhydramine Allergy Mild RASH, ITCH Verified 10/10/18 13:12 [DIPHENHYDRAMINE]
[2019-07-21 14:04] LABS: Alanine Aminotransferase 19 U/L (12-78); Albumin Level 4.4 g/dl (3.5-5.0); Albumin/Globulin Ratio 1.1 (1.1-1.8); Alkaline Phosphatase 95 U/L (38-126); Anion Gap 10.1 mEq/L (5-15); Aspartate Amino Transferase 35 U/L (14-36); Bilirubin,Total 0.5 mg/dl (0.2-1.3); Blood Urea Nitrogen 14 mg/dl (7-17); Calcium 9.9 mg/dl (8.4-10.2); Carbon Dioxide 27 mmol/L (22.0-30.0); Chloride 105 mmol/L (98-107); Creatinine Clearance Estimated 123 mL/min (50-200); Estimated Glomerular Filt Rate 88 ml/min (>60); GFR (African American) 107 ML/MIN (>60); Globulin 3.9 g/dL (1.3-3.2); Glucose 107 mg/dl (74-100); Potassium 4.1 mmoL/L (3.5-5.1); Sodium 138 mmol/L (136-145); Total Protein,Serum 8.3 g/dl (6.3-8.2)
[2019-07-21 14:05] LABS: Lactic Acid 1.1 mmol/L (0.7-2.1)
[2019-07-21 14:10] LABS: Basophils # 0.1 K/mm3 (0-0.2); Basophils % 1.3 % (0.1-2.0); Eosinophils # 0.2 K/mm3 (0.0-0.4); Hematocrit 42.5 % (37.0-47.0); Hemoglobin 13.9 g/dL (12.2-16.2); Lymphocytes % 11.5 % (10-50); Mean Corpuscular HGB Conc 32.7 g/dL (31.8-35.4); Mean Corpuscular Hemoglobin 28.4 pg (27.0-31.2); Mean Platelet Volume 8.4 fl (7.4-10.4); Monocytes # 0.5 K/mm3 (0.1-1.0); Monocytes % 5.7 % (1.7-9.3); Neutrophils # 7.2 K/mm3 (1.8-7.8); Neutrophils % 79.6 % (37.0-80.0); Platelet Count 342 K/mm3 (142-424); Red Blood Count 4.88 M/mm3 (4.20-5.40); Red Cell Distribution Width 16.4 % (11.5-17.5)
[2019-07-21 14:18] LABS: Troponin I < 0.01 ng/ml (0.00-0.034)
[2019-07-21 14:46] VITALS: BP 140/85; PULSE 85; RESP 20; TEMP 36.8; O2SAT 98
== END 2019-07-21 14:47 | disposition home or self-care (01) ==
PROVIDERS: Emergency Provider Family Medicine
DX: L02.211 Cutaneous abscess of abdominal wall (principal); F03.90 Unspecified dementia, unspecified severity, without behavioral disturbance, psychotic disturbance, mood disturbance, and anxiety; Z90.49 Acquired absence of other specified parts of digestive tract; Z90.79 Acquired absence of other genital organ(s); F17.210 Nicotine dependence, cigarettes, uncomplicated
CPT/HCPCS: 71046; 80053; 83605; 84484; 85025; 87040; 93005; 96365; 96367; 96374; 96375; 99284

== ENCOUNTER 2020-02-15 19:06 | Emergency (ER) | payer MEDICAID, SELFPAY ==
[2020-02-15 19:06] VITALS: BP 131/54; BP 157/90; PULSE 100; PULSE 95; RESP 20; TEMP 36.5; O2SAT 97; O2SAT 98; BMI 32.0
--- NOTE | 2020-02-15 19:33 | ECG_ITS ---
APPROVED REPORT Exam: Resting ECG HR:95 bpm ECG Measurements Heart Rate 95 AXES UT 130 P 40 QRSd 84 QRS 66 QT 364 T 54 QTc 457 Conclusion Normal sinus rhythm Normal ECG Electronically signed by : Yuan Montez, 02/16/2020 06:55:16
--- NOTE | 2020-02-15 19:38 | XR_ITS ---
PROCEDURE: XR CHEST 2V CLINICAL HISTORY: soa Shortness of air and wheezing cough COMPARISON: CT AGCHEST CT angio chest from 02/21/2018 CR CXR1VP XR chest portable from 06/26/2018 CR CXR2V XR chest 2V from 06/29/2018 CR XR CHEST 2V from 07/21/2019 FINDINGS: The cardiomediastinal silhouette and pulmonary vascularity are within normal limits. There is chronic consolidation/volume loss in the right middle lobe along with blunting of the right CP angle slightly more prominent. Increased density noted in the retrosternal region within the anterior clear space which may be slightly more prominent. No acute bony abnormalities. IMPRESSION: Persistent right middle lobe volume loss/consolidation with pleural thickening in the right lung base suggesting effusion which is slightly more prominent with. Persistent retrosternal opacification with suggestion of nodularity in this region. Chest CT with contrast may provide further evaluation. Dictated by: Brooks Mcdaniel MD 02/16/2020 00:04 Brooks Mcdaniel MD in [place] 02/16/2020 00:04
[2020-02-15 19:41] LABS: Microscopic, Urine URINE MICROSCOPIC (MICROSCOPIC)
[2020-02-15 20:04] LABS: Basophils # 0.1 K/mm3 (0-0.2); Basophils % 1.3 % (0.1-2.0); Eosinophils # 0.4 K/mm3 (0.0-0.4); Eosinophils % 6.3 % (0.1-12.0); Hematocrit 44.7 % (37.0-47.0); Hemoglobin 14.7 g/dL (12.2-16.2); Lymphocytes # 1.7 K/mm3 (0.7-4.5); Lymphocytes % 29.7 % (10-50); Mean Corpuscular Hemoglobin 29.8 pg (27.0-31.2); Mean Corpuscular Volume 90.4 fl (81-99); Mean Platelet Volume 7.4 fl (7.4-10.4); Monocytes # 0.3 K/mm3 (0.1-1.0); Monocytes % 5.6 % (1.7-9.3); Neutrophils # 3.4 K/mm3 (1.8-7.8); Neutrophils % 57.2 % (37.0-80.0); Platelet Count 289 K/mm3 (142-424); Red Blood Count 4.94 M/mm3 (4.20-5.40); Red Cell Distribution Width 13.8 % (11.5-17.5); White Blood Count 5.9 K/mm3 (4.8-10.8)
[2020-02-15 20:10] LABS: Appearance,Urine CLEAR (Clear); Bilirubin,Urine Negative (Negative); Blood, Urine Negative (Negative); Color,Urine YELLOW (Yellow); Glucose,Urine (UA) Negative (Negative); Ketones,Urine Negative (Negative); Leukocyte Esterase,Urine TRACE (Negative); Nitrate,Urine Negative (Negative); PH,Urine 7.5 (5.0-8.5); Protein,Urine Negative (Negative); Urobilinogen,Urine 0.2 EU/dl (0.2)
[2020-02-15 20:10] LABS: Chloride 107 mmol/L (98-107)
[2020-02-15 20:11] LABS: Sodium 141 mmol/L (136-145)
[2020-02-15 20:12] LABS: Potassium 3.6 mmoL/L (3.5-5.1)
[2020-02-15 20:14] LABS: Anion Gap 11.6 mEq/L (5-15); Blood Urea Nitrogen 14 mg/dl (7-17); Calcium 9.3 mg/dl (8.4-10.2); Carbon Dioxide 26 mmol/L (22.0-30.0); Creatinine Clearance Estimated 118 mL/min (50-200); Estimated Glomerular Filt Rate 88 ml/min (>60); GFR (African American) 106 ML/MIN (>60); Glucose 94 mg/dl (74-100)
[2020-02-15 20:24] LABS: Bacteria,Urine 3+ /lpf
--- NOTE | 2020-02-15 20:38 | HMH.EDSOB ---
ED Disposition Clinical Impression: Acute exacerbation of chronic obstructive airways disease Disposition: Home, Self-Care Condition on Discharge: Good Prescriptions: Azithromycin 250 mg PO DAILY 5 Days #6 tab Transmission Status: Received by [facility] dexAMETHasone [Dexamethasone] 2 mg PO BID 6 Days #12 tab Transmission Status: Received by [facility] Cholecalciferol (Vitamin D3) [Dialyvite Vitamin D3 Max] 50,000 unit PO WEEKLY 30 Days #4 tab Transmission Status: Received by [facility] Referrals: PCP,No [Primary Care Provider] - - Critical Care Critical Care Time: No Attestation: On 02/15/20, the high probability of a clinically significant, sudden or life threatening deterioration of the following system(s) required my full and direct attention, intervention and personal management. The time I documented below is in addition to time spent performing reported procedures but includes the following listed in this critical care notation. Medical Decision Making - Medical Records Medical records reviewed: Yes: I reviewed the patient's medical records. - Joel Inquiry Pt receiving controlled substance: No Vital Signs: 02/15/20 19:06 Temperature 97.7 F Temperature Source Oral Pulse Rate [Left Radial] 95 H Respiratory Rate 20 Blood Pressure [Right Arm] 157/90 H Blood Pressure Mean [Right Arm] 112 Blood Pressure Source [Right Arm] Automatic Cuff Blood Pressure Position [Right Arm] Supine 02 Sat by Pulse Oximetry 97 Oxygen Delivery Method Room Air - Lab Data Lab results reviewed: Yes: I reviewed the patient's lab results. Lab Results 02/15/20 19:22: Urine Color Yellow, Urine Appearance Clear, Urine pH 7.5, Ur Specific Hext 1.020, Urine Protein Negative, Urine Glucose (UA) Negative, Urine Ketones Negative, Urine Blood Negative, Urine Nitrate Negative, Urine Bilirubin Negative, Urine Urobilinogen 0.2, Ur Leukocyte Esterase Trace, Urine WBC 5-10, Ur Squamous Epith Cells 3-5, Urine Bacteria 3+ 02/15/20 19:55: WBC 5.9, RBC 4.94, Hgb 14.7, Hct 44.7, MCV 90.4, MCH 29.8, MCHC 33.0, RDW 13.8, Plt Count 289, MPV 7.4, Neut % (Auto) 57.2, Lymph % (Auto) 29.7, Mclennan % (Auto) 5.6, Eos % (Auto) 6.3, Baso % (Auto) 1.3, Neut # (Auto) 3.4, Lymph # (Auto) 1.7, Mclennan # (Auto) 0.3, Eos # (Auto) 0.4, Baso # (Auto) 0.1 02/15/20 19:55: Sodium 141, Potassium 3.6, Chloride 107, Carbon Dioxide 26, Anion Gap 11.6, BUN 14, Creatinine 0.70, Estimated Creat Clear 118, Estimated GFR 88, Est GFR ( Amer) 106, Glucose 94, Calcium 9.3 02/15/20 19:55: SARS-CoV-2 IgG Ab (Rapid) Negative, SARS-CoV-2 IgM Ab (Rapid) Negative 02/15/20 19:55: Procalcitonin 0.038 02/15/20 20:21: Lactate 0.7 Result diagrams: 02/15/20 19:55 02/15/20 19:55 Orders (Tests/Meds): ED MEDICATIONS Generic Name Dose Route Start Last Admin Trade Name Freq PRN Reason Stop Dose Admin Sodium Chloride 3 ml 02/15/20 19:33 Sodium Chloride 3% 15ml Neb 03/16/20 19:32 ONCE PRN INDUCE SPUTUM COLLECTION Discontinued Medications Generic Name Dose Route Start Last Admin Trade Name Freq PRN Reason Stop Dose Admin Albuterol/Ipratropium 1 puff 02/15/20 21:06 Combivent 20mcg/100mcg Respimat Inhaler 02/15/20 21:07 ONCE ONE Albuterol/Ipratropium 2 puff 02/15/20 21:06 Combivent 20mcg/100mcg Respimat Inhaler 02/15/20 21:07 ONCE ONE Methylprednisolone Sodium Succinate 125 mg 02/15/20 20:07 02/15/20 20:27 Methylprednisolone Sod Succ 125mg Vial IV 02/15/20 20:08 125 mg ONCE ONE Administration Miscellaneous 1 unit 02/15/20 21:06 Aerochamber/Optihaler 02/15/20 21:07 ONCE ONE Miscellaneous 1 unit 02/15/20 21:06 Aerochamber/Optihaler 02/15/20 21:07 ONCE ONE ORDERS Category Date Time Status Chest XR 2 view (NOT portable) [XR chest 2V] Stat Exams 02/15/20 19:38 Taken Covid-19 Nasal PCR ([facility]) Routine Lab 02/15/20 21:05 Ordered Blood Culture Stat Micr
[2020-02-15 20:39] LABS: Coronavirus 19 IgG Antibody Negative (Negative); Coronavirus 19 IgM Antibody Negative (Negative)
[2020-02-15 20:40] LABS: Lactic Acid 0.7 mmol/L (0.7-2.1)
[2020-02-15 20:43] LABS: Procalcitonin 0.038 ng/mL (0.0-2.0)
[2020-02-15 22:08] VITALS: BP 144/88; PULSE 94; RESP 19; TEMP 36.6; O2SAT 96
== END 2020-02-15 22:10 | disposition home or self-care (01) ==
PROVIDERS: Family Medicine; Emergency Provider Emergency Medicine
DX: Z20.828 Contact with and (suspected) exposure to other viral communicable diseases (principal); J44.1 Chronic obstructive pulmonary disease with (acute) exacerbation; F03.90 Unspecified dementia, unspecified severity, without behavioral disturbance, psychotic disturbance, mood disturbance, and anxiety; Z79.899 Other long term (current) drug therapy; F17.210 Nicotine dependence, cigarettes, uncomplicated; Z88.8 Allergy status to other drugs, medicaments and biological substances
CPT/HCPCS: 71046; 80048; 81001; 83605; 84145; 85025; 86328; 87040; 87086; 93005; 96374; 99284; U0003

== ENCOUNTER 2021-10-16 03:55 | Emergency (ER) | payer MEDICAID, SELFPAY ==
[2021-10-16] VITALS (7 sets, daily range): BP systolic 126–164; BP diastolic 77–88; PULSE 79–99; RESP 17–24; TEMP 37.2; O2SAT 87–98; BMI 35.3
[2021-10-16 04:04] LABS: Influenza A, PCR Not Detected (NotDetected); Influenza B, PCR Not Detected (NotDetected)
--- NOTE | 2021-10-16 04:07 | ECG_ITS ---
APPROVED REPORT Exam: Resting ECG HR:88 bpm ECG Measurements Heart Rate 88 AXES FL 137 P 23 QRSd 84 QRS 38 QT 372 T 48 QTc 418 Conclusion SINUS RHYTHM NORMAL ECG UNCONFIRMED REPORT Electronically signed by : Yuan Montez MD 10/18/2021 16:29:40
--- NOTE | 2021-10-16 04:09 | PC.NURSE ---
RT at to obtain ABG
--- NOTE | 2021-10-16 04:10 | XR_ITS ---
PROCEDURE INFORMATION: Exam: XR Chest Exam date and time: 10/16/2021 4:30 AM Age: 51 years old Clinical indication: Cough and shortness of breath; Additional info: Cough, shortness of air TECHNIQUE: Imaging protocol: Radiologic exam of the chest. Views: 1 view. COMPARISON: CR XR CHEST 2V 02/15/2020 7:50 PM FINDINGS: Lungs: There is atelectasis in the right lung base that could be reactive. Pleural spaces: There is a meniscus involving the right costophrenic angle. Heart/Mediastinum: Unremarkable. No cardiomegaly. Bones/joints: Unremarkable. IMPRESSION: There is evidence of small right pleural effusion and reactive atelectasis.
--- NOTE | 2021-10-16 04:20 | PC.NURSE ---
RADIOLOGY AT BEDSIDE TO DO PCXR.
[2021-10-16 04:22] LABS: ABG Base Excess -4.2 mmol/L (-2.4-2.3); ABG HCO3 18.2 mmhg (22.0-26.0); ABG Oxygen Saturation 98 % (90-100); ABG PCO2 21.6 mmhg (35.0-45.0); ABG PH 7.54 mmol/L (7.35-7.45); ABG PO2 106.7 mmhg (80-100); ABG TCO2 18.9 mmhg (23-27)
--- NOTE | 2021-10-16 04:22 | PC.NURSE ---
PORTABLE CHEST XRAY OBTAINED PER RADIOLOGY.
[2021-10-16 04:23] LABS: Allen's Test Acceptable; Oxygen 1.5L %; Source Right Radial
[2021-10-16 04:24] LABS: Basophils # 0.1 K/mm3 (0-0.2); Basophils % 1.7 % (0.1-2.0); Eosinophils # 0.2 K/mm3 (0.0-0.4); Eosinophils % 3.5 % (0.1-12.0); Hematocrit 39.5 % (37.0-47.0); Hemoglobin 12.8 g/dL (12.2-16.2); Lymphocytes # 1.8 K/mm3 (0.7-4.5); Lymphocytes % 35.3 % (10-50); Mean Corpuscular HGB Conc 32.4 g/dL (31.8-35.4); Mean Corpuscular Hemoglobin 27.7 pg (27.0-31.2); Mean Corpuscular Volume 85.5 fl (81-99); Mean Platelet Volume 8.1 fl (7.4-10.4); Monocytes # 0.3 K/mm3 (0.1-1.0); Monocytes % 6.8 % (1.7-9.3); Neutrophils # 2.6 K/mm3 (1.8-7.8); Neutrophils % 52.8 % (37.0-80.0); Platelet Count 295 K/mm3 (142-424); Red Blood Count 4.61 M/mm3 (4.20-5.40); Red Cell Distribution Width 15.2 % (11.5-17.5)
[2021-10-16 04:26] LABS: Alanine Aminotransferase 29 U/L (12-78); Albumin Level 3.8 g/dl (3.5-5.0); Alkaline Phosphatase 97 U/L (38-126); Anion Gap 11.1 mEq/L (5-15); Aspartate Amino Transferase 29 U/L (14-36); Blood Urea Nitrogen 17 mg/dl (7-17); Carbon Dioxide 22 mmol/L (22.0-30.0); Chloride 105 mmol/L (98-107); Creatinine Clearance Estimated 112 mL/min (50-200); Estimated Glomerular Filt Rate 75 ml/min (>60); GFR (African American) 91 ML/MIN (>60); Globulin 3.8 g/dL (1.3-3.2); Glucose 118 mg/dl (74-100); Potassium 4.1 mmoL/L (3.5-5.1); Sodium 134 mmol/L (136-145); Total Protein,Serum 7.6 g/dl (6.3-8.2)
[2021-10-16 04:27] LABS: Lactic Acid 1.5 mmol/L (0.7-2.1)
[2021-10-16 04:28] LABS: Bilirubin,Total < 0.1 mg/dl (0.2-1.3)
[2021-10-16 04:31] LABS: C-Reactive Protein 13.2 mg/L (0-4)
--- NOTE | 2021-10-16 04:34 | PC.NURSE ---
PT PLACED ON ROOM AIR AFTER ABG RESULTS OBTAINED.
--- NOTE | 2021-10-16 04:35 | HMH.EDSOB ---
ED Disposition Clinical Impression: COVID-19, Obesity (BMI 30-39.9) Rheumatoid arthritis Qualifiers: Rheumatoid arthritis location: unspecified site Rheumatoid factor presence: unspecified presence Qualified Code(s): M06.9 - Rheumatoid arthritis, unspecified Disposition: Home, Self-Care Condition on Discharge: Good Instructions: DI for COVID-19 (Suspected or Confirmed ) Additional Instructions: fluids and use meds as directed and limit tob use Prescriptions: Benzonatate [Benzonatate 100mg cap] 100 mg PO TID #21 cap Transmission Status: Pending to [facility] Molnupiravir [Molnupiravir (Eua)] 200 mg PO BID #40 cap Transmission Status: [facility] predniSONE [Prednisone 20mg Tab] 20 mg PO BID #10 tab Transmission Status: [facility] Referrals: Provider,Referral, MD [Primary Care Provider] - - Critical Care Critical Care Time: No Attestation: On , the high probability of a clinically significant, sudden or life threatening deterioration of the following system(s) required my full and direct attention, intervention and personal management. The time I documented below is in addition to time spent performing reported procedures but includes the following listed in this critical care notation. Medical Decision Making - Medical Records Medical records reviewed: Yes: I reviewed the patient's medical records. - Joel Inquiry Pt receiving controlled substance: No Vital Signs: 10/16/21 03:55 10/16/21 04:09 10/16/21 04:30 Temperature 98.9 F Temperature Source Oral Pulse Rate 87 Pulse Rate [Left Brachial] 94 H Respiratory Rate 22 24 20 Blood Pressure 153/87 H Blood Pressure [Left Arm] 133/88 Blood Pressure Mean 109 Blood Pressure Mean [Left Arm] 103 Blood Pressure Source [Left Arm] Automatic Cuff Blood Pressure Position [Left Arm] Sitting 02 Sat by Pulse Oximetry 98 87 L 97 Oxygen Delivery Method Nasal Cannula Room Air Oxygen Flow Rate (LPM) 2 10/16/21 05:10 10/16/21 05:30 10/16/21 06:30 Temperature Temperature Source Pulse Rate 81 86 83 Pulse Rate [Left Brachial] Respiratory Rate 17 19 17 Blood Pressure 148/85 H 164/82 H 136/77 Blood Pressure [Left Arm] Blood Pressure Mean 106 Blood Pressure Mean [Left Arm] Blood Pressure Source [Left Arm] Blood Pressure Position [Left Arm] 02 Sat by Pulse Oximetry 96 96 96 Oxygen Delivery Method Room Air Room Air Room Air Oxygen Flow Rate (LPM) - Lab Data Lab results reviewed: Yes: I reviewed the patient's lab results. Lab Results 10/16/21 03:57: SARS-CoV-2 (PCR) Detected A, Influenza A Untype (PCR) Not detected, Influenza Type B (PCR) Not detected 10/16/21 04:02: WBC 5.0, RBC 4.61, Hgb 12.8, Hct 39.5, MCV 85.5, MCH 27.7, MCHC 32.4, RDW 15.2, Plt Count 295, MPV 8.1, Neut % (Auto) 52.8, Lymph % (Auto) 35.3, Stokes % (Auto) 6.8, Eos % (Auto) 3.5, Baso % (Auto) 1.7, Neut # (Auto) 2.6, Lymph # (Auto) 1.8, Stokes # (Auto) 0.3, Eos # (Auto) 0.2, Baso # (Auto) 0.1, ESR 125 H 10/16/21 04:02: Sodium 134 L, Potassium 4.1, Chloride 105, Carbon Dioxide 22, Anion Gap 11.1, BUN 17, Creatinine 0.80, Estimated Creat Clear 112, Estimated GFR 75, Est GFR ( Amer) 91, Glucose 118 H, Calcium 9.0, Total Bilirubin < 0.1 L, AST 29, ALT 29, Alkaline Phosphatase 97, Troponin I < 0.01, C-Reactive Protein 13.2 H, Total Protein 7.6, Albumin 3.8, Globulin 3.8 H, Albumin/Globulin Ratio 1.0 L 10/16/21 04:02: Lactate 1.5 10/16/21 04:02: NT-Pro-B Natriuret Pep 20.0, Procalcitonin 0.043 10/16/21 04:16: Specimen Source Right radial, O2 % 1.5l, ABG pH 7.54 H, ABG pCO2 21.6 L, ABG pO2 106.7 H, ABG HCO3 18.2 L, ABG Total CO2 18.9 L, ABG O2 Saturation 98, ABG Base Excess -4.2 L, Brooks Test Acceptable Result diagrams: 10/16/21 04:02 10/16/21 04:02 Orders (Tests/Meds): ED MEDICATIONS Generic Name Dose Route Start Last Admin Trade Name Freq PRN Reason Stop Dose Admin Benzonatate 100
--- NOTE | 2021-10-16 04:44 | CT_ITS ---
PROCEDURE INFORMATION: Exam: CTA Chest With Contrast Exam date and time: 10/16/2021 4:53 AM Age: 51 years old Clinical indication: Cough and shortness of breath; Additional info: SOB TECHNIQUE: Imaging protocol: Computed tomographic angiography of the chest with contrast. 3D rendering (Not supervised by radiologist): MIP and/or 3D reconstructed images were created by the technologist. Radiation optimization: All CT scans at this facility use at least one of these dose optimization techniques: automated exposure control; mA and/or kV adjustment per patient size (includes targeted exams where dose is matched to clinical indication); or iterative reconstruction. Contrast material: ISOVUE; Contrast volume: 70 ml; Contrast route: INTRAVENOUS (IV); COMPARISON: [facility] CT angio chest 02/21/2018 1:58 PM FINDINGS: Pulmonary arteries: No pulmonary emboli. Aorta: No aortic aneurysm. No aortic dissection. Lungs: There is a 5 mm calcified nodule in the left lower lobe. Pleural spaces: There is a small to moderate right pleural effusion. There is reactive atelectasis. No pneumothorax. No pleural effusion. Heart: The RV/LV ratio measures 0.77 (normal < 0.91). Lymph nodes: There are calcified lymph nodes in the left shayy that are subclinical in size. Spleen: There are scattered punctate calcifications in the spleen. Bones/joints: Unremarkable. No acute fracture. Soft tissues: Unremarkable. IMPRESSION: 1. There is a small to moderate right pleural effusion with reactive atelectasis. 2. There are stable chronic calcified granulomatous changes of the spleen and left hilar calcified lymphadenitis. There is a stable 5 mm calcified granuloma in the left lower lobe. 3. No evidence of pulmonary embolus by CTA PA. No aortic dissection or aneurysm.
--- NOTE | 2021-10-16 04:44 | PC.NURSE ---
PATIENT IN [place]BORNE/CONTACT ISOLATION.
[2021-10-16 04:45] LABS: Procalcitonin 0.043 ng/mL (0.0-2.0)
--- NOTE | 2021-10-16 04:53 | PC.NURSE ---
Pt gone to RAD for CT
[2021-10-16 04:59] LABS: Troponin I < 0.01 ng/ml (0.00-0.034)
--- NOTE | 2021-10-16 05:02 | PC.NURSE ---
Pt back from RAD
[2021-10-16 05:14] LABS: Coronavirus 19, PCR Detected (NotDetected)
[2021-10-16 05:35] LABS: Erythrocyte Sedimentation Rate 125 mm/hr (0-30)
--- NOTE | 2021-10-16 06:08 | PC.NURSE ---
PT ASSISTED TO RESTROOM. BLANKETS PROVIDED UPON RETURN. PT UPDATED. NO COMPLAINTS VOICED. WCM.
--- NOTE | 2021-10-16 06:20 | PC.NURSE ---
called radiology to check on cxr & cta readings from [facility]
--- NOTE | 2021-10-16 06:57 | PC.NURSE ---
MD at BS speaking with pt about results and POC
--- NOTE | 2021-10-16 06:58 | PC.NURSE ---
RT at BS
== END 2021-10-16 07:23 | disposition home or self-care (01) ==
PROVIDERS: Emergency Provider Emergency Medicine
DX: U07.1 COVID-19 (principal); E66.9 Obesity, unspecified; Z68.35 Body mass index [BMI] 35.0-35.9, adult; Z79.899 Other long term (current) drug therapy; Z88.8 Allergy status to other drugs, medicaments and biological substances; F03.90 Unspecified dementia, unspecified severity, without behavioral disturbance, psychotic disturbance, mood disturbance, and anxiety
CPT/HCPCS: 71045; 71275; 80053; 82803; 83605; 83880; 84145; 84484; 85025; 85651; 86140; 87040; 93005; 94640; 96365; 96375; 99284; C9803; Q9967; U0003; U0005

== ENCOUNTER 2022-11-23 14:52 | Emergency (ER) | payer MEDICAID, SELFPAY ==
--- NOTE | 2022-11-23 15:08 | EXP.UTC ---
Discharge Plan Disposition Patient Disposition: Home, Self-Care Condition: Good Prescriptions Prescriptions: New benzonatate [benzonatate] 100 mg capsule 100 mg PO TIDP PRN (Reason: Cough) Qty: 30 0RF amoxicillin-pot clavulanate 875-125 mg Tablet 1 tab PO Q12H Qty: 20 0RF methylprednisolone 4 mg Tablets,Dose Pack 4 mg PO DIRECTED Qty: 21 0RF guaifenesin [Mucinex] 600 mg tablet extended release 12hr 600 - 1,200 mg PO BIDP PRN (Reason: Congestion) Qty: 30 0RF No Action sulfasalazine 500 mg tablet 1,000 mg PO BID methotrexate sodium 2.5 MG tablet 15 mg PO WEEKLY Patient Comments: PATIENT TAKES ON SATURDAYS Rx Instructions: takes on saturdays folic acid 1 MG tablet 1 mg PO DAILY upadacitinib 15 MG tablet extended release 24 hr 15 mg PO DAILY benzonatate 100 MG capsule 100 mg PO TID Qty: 21 0RF prednisone 20 MG tablet 20 mg PO BID Qty: 10 0RF molnupiravir 200 MG capsule 200 mg PO BID Qty: 40 0RF Rx Instructions: 4 tabs bid x 5 days Referrals Follow up/Referrals: Provider,Referral, MD [Primary Care Provider] - See instructions Activity Restrictions/Add. Instructions Additional Instructions/Restrictions: Drink plenty of fluids. Take tylenol for pain or fever. Take the medications as directed. Follow up with your regular doctor. GO TO THE ER FOR ANY WORSENING SYMPTOMS Clinical Impressions Clinical Impression: COPD exacerbation, Sinusitis, Exposure to 2019 novel coronavirus Instructions Patient Instructions: DI for Chronic Obstructive Pulmonary Disease, Coronavirus Disease 2019, Preventing the Spread of Coronavirus Discharge Instructions Discharge ED Provider: Bradley Ventura [facility] General Stated complaint: cough,sore throat,headache Time Seen by Provider: 11/23/22 15:07 History of Present Illness Provider Complaint: She states that for the past 5 days she has had chest congestion, body aches, chilling, sore throat, and cough. She has a history of copd. She has been exposed to covid-19 also. Related Data Home Medications Medication Instructions Recorded Confirmed folic acid 1 mg tablet 1 mg PO DAILY Supplement 06/19/17 10/16/21 methotrexate sodium 2.5 mg tablet 15 mg PO WEEKLY Arthritis 06/19/17 10/16/21 sulfasalazine 500 mg tablet 1,000 mg PO BID Rheumatoid 12/26/17 10/16/21 arthritis upadacitinib 15 mg tablet,extended 15 mg PO DAILY Arthritis 10/16/21 10/16/21 release 24 hr Previous Rx's Medication Instructions Recorded benzonatate 100 mg capsule 100 mg PO TID #21 caps 10/16/21 molnupiravir 200 mg capsule (EUA) 200 mg PO BID #40 caps 10/16/21 prednisone 20 mg tablet 20 mg PO BID #10 tabs 10/16/21 amoxicillin 875 mg-potassium 1 tab PO Q12H #20 tabs 11/23/22 clavulanate 125 mg tablet benzonatate 100 mg capsule 100 mg PO TIDP PRN Cough #30 caps 11/23/22 guaifenesin 600 mg tablet, 600 - 1,200 mg PO BIDP PRN 11/23/22 extended release 12 hr (Mucinex) Congestion #30 tabs methylprednisolone 4 mg tablets in 4 mg PO DIRECTED #21 tabs 11/23/22 a dose pack Allergies Allergy/AdvReac Type Severity Reaction Status Date / Time diphenhydramine Allergy Mild RASH, ITCH Verified 10/10/18 13:12 [DIPHENHYDRAMINE] [facility] Disclaimer: The information contained in this section may have been updated after the patient was seen, as this information can be updated by other users. Social History Smoking Status: Current every day smoker tobacco type: cigarettes packs per day: 1 second hand exposure: Yes alcohol intake: never substance use type: denies use current occupational status: disabled Travel in the last 8 weeks: None household members: spouse housing: apartment current occupational exposures/hazards: No caffeine: Yes ROS Obtained: Yes All systems reviewed & no additional complaints except as documented Constitutional Constitutional: Reports chills and Re
[2022-11-23 15:10] VITALS: BP 159/102; PULSE 124; RESP 22; TEMP 37.6; O2SAT 96; BMI 35.4
[2022-11-23 15:21] VITALS: BP 159/102; PULSE 124; RESP 22; TEMP 37.6; O2SAT 96
== END 2022-11-23 15:43 | disposition home or self-care (01) ==
PROVIDERS: Emergency Provider Nurse Practitioner Family
DX: J44.1 Chronic obstructive pulmonary disease with (acute) exacerbation (principal); J01.90 Acute sinusitis, unspecified; Z20.822 Contact with and (suspected) exposure to COVID-19; F17.210 Nicotine dependence, cigarettes, uncomplicated
CPT/HCPCS: 99204; 99212; G0463

== ENCOUNTER 2023-08-19 21:16 | Emergency (ER) | payer MEDICAID, SELFPAY ==
[2023-08-19 21:25] VITALS: BP 182/101; PULSE 104; RESP 19; TEMP 35.5; O2SAT 96; BMI 36.6
--- NOTE | 2023-08-19 21:57 | CT_ITS ---
PROCEDURE INFORMATION: Exam: CTA Chest With Contrast Exam date and time: 08/20/2023 12:02 AM Age: 53 years old Clinical indication: Pain; Chest pressure; Additional info: Chest pain, L calf pain, family HX blood clot TECHNIQUE: Imaging protocol: Computed tomographic angiography of the chest with contrast. Exam focused on the arteries. 3D rendering (Not supervised by radiologist): MIP and/or 3D reconstructed images were created by the technologist. Radiation optimization: All CT scans at this facility use at least one of these dose optimization techniques: automated exposure control; mA and/or kV adjustment per patient size (includes targeted exams where dose is matched to clinical indication); or iterative reconstruction. Contrast material: ISOUVE 370; Contrast volume: 70 ml; Contrast route: INTRAVENOUS (IV); COMPARISON: 1. CT ANGIO CHEST PE PROTOCOL 10/16/2021 4:53 AM [facility] 02/21/2018 1:58 PM [address] [facility] 06/19/2017 10:57 PM FINDINGS: Pulmonary arteries: There is fair opacification of the pulmonary arterial tree. No central pulmonary arterial filling defect is seen. Aorta: There is atherosclerotic disease of the visualized aorta and its major branch vessels. Other arteries: Subsegmental vessels are not well evaluated due to technical factors. Lungs: There are scattered calcified granulomas in the lungs which most likely reflect prior granulomatous disease. Scattered areas of bronchial wall thickening which are likely chronic inflammatory. A few areas of subpleural reticulation are noted, nonspecific. Stable 6 mm subpleural left upper lobe pulmonary nodule (image 25 series 5). Pleural spaces: There is a moderate to large right pleural effusion. Heart: There is a 1.7 x 1.2 cm nodule adjacent to the right heart border, unchanged since at least October 16, 2021 and possibly reflecting loculated fluid. Coronary arteries: There is mild coronary atherosclerotic disease/calcification although evaluation is limited secondary to the non gated nature of the study. Lymph nodes: Unremarkable. No enlarged lymph nodes. Gallbladder and bile ducts: The patient is status post cholecystectomy. Bones/joints: There is diffuse degenerative disease of the visualized osseous structures. Soft tissues: Unremarkable. IMPRESSION: 1. There is a moderate to large right pleural effusion. 2. No central pulmonary arterial filling defect is seen. Subsegmental vessels are not well evaluated due to technical factors. 3. There is a 1.7 x 1.2 cm nodule adjacent to the right heart border, unchanged since at least October 16, 2021 and possibly reflecting loculated fluid.
[2023-08-19 22:00] VITALS: BP 147/95; PULSE 96; O2SAT 96
[2023-08-19 22:30] VITALS: BP 141/77; PULSE 85; O2SAT 94
[2023-08-19 23:00] VITALS: BP 141/78; PULSE 81; O2SAT 95
--- NOTE | 2023-08-19 23:18 | ECG_ITS ---
APPROVED REPORT Exam: Resting ECG HR:81 bpm ECG Measurements Heart Rate 81 AXES UT 152 P 68 QRSd 85 QRS 86 QT 376 T 58 QTc 413 Conclusion SINUS RHYTHM NORMAL ECG UNCONFIRMED REPORT Electronically signed by : NERY EASTMAN, 08/20/2023 06:00:41
--- NOTE | 2023-08-19 23:25 | PC.NURSE ---
EKG obtained, patient given pillow and blanket, no other needs at this time
[2023-08-19 23:30] VITALS: BP 162/90; PULSE 86; O2SAT 95
--- NOTE | 2023-08-19 23:41 | [facility].EDGENADL ---
Discharge Plan Disposition Patient Disposition: Home, Self-Care Prescriptions Prescriptions: No Action sulfasalazine 500 mg tablet 1,000 mg PO BID methotrexate sodium 2.5 MG tablet 15 mg PO WEEKLY Patient Comments: PATIENT TAKES ON SATURDAYS Rx Instructions: takes on saturdays folic acid 1 MG tablet 1 mg PO DAILY upadacitinib 15 MG tablet extended release 24 hr 15 mg PO DAILY benzonatate 100 MG capsule 100 mg PO TID Qty: 21 0RF prednisone 20 MG tablet 20 mg PO BID Qty: 10 0RF molnupiravir 200 MG capsule 200 mg PO BID Qty: 40 0RF Rx Instructions: 4 tabs bid x 5 days benzonatate [benzonatate] 100 mg capsule 100 mg PO TIDP PRN (Reason: Cough) Qty: 30 0RF amoxicillin-pot clavulanate 875-125 mg Tablet 1 tab PO Q12H Qty: 20 0RF methylprednisolone 4 mg Tablets,Dose Pack 4 mg PO DIRECTED Qty: 21 0RF guaifenesin [Mucinex] 600 mg tablet extended release 12hr 600 - 1,200 mg PO BIDP PRN (Reason: Congestion) Qty: 30 0RF Referrals Follow up/Referrals: Provider,Referral, MD [Primary Care Provider] - See instructions Activity Restrictions/Add. Instructions Additional Instructions/Restrictions: No evidence of blood clot on CT scan of the chest or on ultrasound of the leg. Please follow-up with your primary care provider. Please return to the emergency department if you develop any new or worsening symptoms or become concerned for your health. Clinical Impressions Clinical Impression: Left leg pain, Pleural effusion Discharge ED Provider: Georgiana Rand General Adult HPI <Georgiana Rand DO - Last Filed: 08/19/23 23:45> General Chief complaint: Extremity Problem,Nontraumatic Stated complaint: Left leg pain no injury Time Seen by Provider: 08/19/23 21:43 Mode of Arrival: Family Vehicle Source of Information: Patient Limitations: No Limitations Description of Symptoms (Recalled from ER Triage Doc. by RN): 53 YO FEMALE WITH LEFT POSTERIOR LEG PAIN X 1 MONTH. MINIMAL CHEST DISCOMFORT LAST NIGHT. HX: RA. WORRIED ABOUT A BLOOD CLOT. +PMS. INTERFERING WITH GAIT History of Present Illness HPI narrative: This patient is a 53-year-old female with a history of rheumatoid arthritis and COPD presenting to the emergency department for evaluation with concern for posterior left leg pain x 1 month. She also started having some minimal chest discomfort last night. Given this, she became concerned for blood clot and came into the ED for further evaluation and management. She states that she related her left leg pain to chronic rheumatoid arthritis, however when these other symptoms showed up, it made her concerned. She does have a family history of blood clots, though no personal history. She does not take any anticoagulation. No other concerns noted at this time she is able to bear weight. No numbness or tingling. Related Data Home Medications Medication Instructions Recorded Confirmed folic acid 1 mg tablet 1 mg PO DAILY Supplement 06/19/17 10/16/21 methotrexate sodium 2.5 mg tablet 15 mg PO WEEKLY Arthritis 06/19/17 10/16/21 sulfasalazine 500 mg tablet 1,000 mg PO BID Rheumatoid 12/26/17 10/16/21 arthritis upadacitinib 15 mg tablet,extended 15 mg PO DAILY Arthritis 10/16/21 10/16/21 release 24 hr Previous Rx's Medication Instructions Recorded benzonatate 100 mg capsule 100 mg PO TID #21 caps 10/16/21 molnupiravir 200 mg capsule (EUA) 200 mg PO BID #40 caps 10/16/21 prednisone 20 mg tablet 20 mg PO BID #10 tabs 10/16/21 amoxicillin 875 mg-potassium 1 tab PO Q12H #20 tabs 11/23/22 clavulanate 125 mg tablet benzonatate 100 mg capsule 100 mg PO TIDP PRN Cough #30 caps 11/23/22 guaifenesin 600 mg tablet, 600 - 1,200 mg (1 - 2 x 600 mg) PO 11/23/22 extended release 12 hr (Mucinex) BIDP PRN Congestion #30 tabs methylprednisolone 4 mg tablets in 4 mg PO DIRECTED #21 tabs 11/23/22 a dose pack Allergies Allergy/AdvReac Type Severity Reaction Status Date / Time diphenhydramine Allergy Mild RASH, ITCH Verified 10/10/18 13:12 [DIPHENHYDRAMINE] [facility] <Georgiana Rand DO - Last Filed: 08/19/23 23:45> [facility] Disclaimer: The information contained in this section may have been updated after the patient was seen, as this information can be updated by other users. Social History (Updated 08/19/23 @ 23:45 by BRETT Wilde Smoking Status: Unknown if ever smoked second hand exposure: Yes alcohol intake: never substance use type: denies use current occupational status: disabled Travel in the last 8 weeks: None household members: spouse housing: apartment current occupational exposures/hazards: No caffeine: Yes <Georgiana Rand DO - Last Filed: 08/19/23 23:45> ROS Obtained: Yes All systems reviewed & no additional complaints except as documented Physical Exam <Georgiana Rand DO - Last Filed: 08/19/23 23:45> General General appearance: alert and in no apparent distress Head Head exam: atraumatic and normocephalic Eye Eye exam: Present normal appearance, PERRL and EOMI ENT ENT exam: Present normal exam, normal oropharynx, mucous membranes moist and normal external ear exam Neck Neck exam: Present normal inspection, full ROM and trachea midline; Absent tenderness Chest Chest inspection: Present normal inspection and symmetric chest wall rise; Absent tenderness Respiratory Respiratory exam: Present normal lung sounds bilaterally; Absent respiratory distress, wheezes, stridor or accessory muscle use Cardiovascular Cardiovascular exam: Present normal rhythm and tachycardia Abdominal Exam Abdominal exam: Present soft; Absent distention, tenderness or guarding Extremities Exam Extremities exam: Present normal inspection, full ROM and normal capillary refill; Absent tenderness or edema Back Exam Back exam: Present normal inspection and full ROM; Absent tenderness Neurological Exam Neurological exam: Present alert, oriented X3, CN II-XII intact and normal gait; Absent motor sensory deficit Psychiatric Psychiatric exam: Present normal affect and normal mood Skin Skin exam: Present warm and dry Medical Decision Making <Georgiana Rand DO - Last Filed: 08/19/23 23:45> Medical Records Medical records reviewed: Yes I reviewed the patient's medical records. Joel Inquiry Pt receiving controlled substance: No Vital Signs: 08/19/23 21:25 08/19/23 22:00 08/19/23 22:30 Temperature 96 F L Temperature Source Oral Pulse Rate 96 H 85 Pulse Rate [Right Brachial] 104 H Respiratory Rate 19 Blood Pressure 147/95 H 141/77 H Blood Pressure [Right Arm] 182/101 H Blood Pressure Mean 124 121 Blood Pressure Mean [Right Arm] 128 Blood Pressure Source [Right Arm] Automatic Cuff Blood Pressure Position [Right Arm] Sitting 02 Sat by Pulse Oximetry 96 96 94 L Oxygen Delivery Method Room Air Room Air Room Air 08/19/23 23:00 08/19/23 23:30 Temperature Temperature Source Pulse Rate 81 86 Pulse Rate [Right Brachial] Respiratory Rate Blood Pressure 141/78 H 162/90 H Blood Pressure [Right Arm] Blood Pressure Mean Blood Pressure Mean [Right Arm] Blood Pressure Source [Right Arm] Blood Pressure Position [Right Arm] 02 Sat by Pulse Oximetry 95 95 Oxygen Delivery Method Lab Data Lab results reviewed: Yes I reviewed the patient's lab results. Lab Results 08/19/23 23:40: WBC 9.8, RBC 5.19, Hgb 14.8, Hct 46.3, MCV 89.2, MCH 28.5, MCHC 32.0, RDW 15.1, Plt Count 339, MPV 7.4, Neut % (Auto) 72.1, Lymph % (Auto) 18.3, Fallon % (Auto) 5.1, Eos % (Auto) 3.4, Baso % (Auto) 1.1, Neut # (Auto) 7.1, Lymph # (Auto) 1.8, Fallon # (Auto) 0.5, Eos # (Auto) 0.3, Baso # (Auto) 0.1, D-Dimer 0.56 H, Sodium 140, Potassium 4.0, Chloride 105, Carbon Dioxide 27, Anion Gap 12.0, BUN 33 H, Creatinine 0.80, Estimated Creat Clear 114, Estimated GFR 74, Est GFR ( Amer) 90, Glucose 102 H, Calcium 9.6, Total Bilirubin 0.3, AST 25, ALT 23, Alkaline Phosphatase 110, Troponin I < 0.01, Total Protein 8.1, Albumin 4.2, Globulin 3.9 H, Albumin/Globulin Ratio 1.1 08/19/23 23:40 08/19/23 23:40 Orders (Tests/Meds): ED MEDICATIONS Generic Name Dose Route Start Last Admin Trade Name Freq PRN Reason Stop Dose Admin Sodium Chloride 10 ml 08/20/23 00:16 08/20/23 00:18 Sodium Chloride 0.9% 10ml Syr (Rad Only) IV 09/19/23 00:15 10 ml NEEDED PRN Administration Maintain IV Site Discontinued Medications Generic Name Dose Route Start Last Admin Trade Name Freq PRN Reason Stop Dose Admin Iopamidol 70 ml 08/20/23 00:16 08/20/23 00:18 Iopamidol-370 (76%);100ml Bottle IV 08/20/23 00:17 70 ml ONCE ONE Administration Sodium Chloride 50 ml 08/20/23 00:16 08/20/23 00:18 0.9 % Sodium Chloride 50 Ml Vial IV 08/20/23 00:17 50 ml ONCE ONE Administration ORDERS Category Date Time Status CT angio chest PE protocol Stat Cat Scan 08/19/23 21:57 Completed Complete Blood Count Auto Diff Stat Lab 08/19/23 23:40 Completed Comprehensive Metabolic Panel Stat Lab 08/19/23 23:40 Completed D-Dimer Stat Lab 08/19/23 23:40 Completed Troponin I Q3H Lab 08/20/23 01:00 Ordered Troponin I Q3H Lab 08/20/23 04:00 Ordered Troponin I Stat Lab 08/19/23 23:40 Completed ECG Data Tracing #1: I reviewed this ECG and interpreted as documented below: Normal sinus rhythm with a ventricular rate of [address] changes concerning for ischemia. Normal axis and intervals. ECG initial impression date: 08/19/23 ECG initial impression time: 23:22 Medical Decision Narrative: In summary, this patient is a 53-year-old male presenting to the Emergency Department for evaluation of left leg pain and chest pain. Differential diagnoses considered include but are not limited to PE, DVT, ACS, dysrhythmia, GERD, rheumatoid arthritis pain. Ruling out the most morbid conditions drove assessment. It should be noted patient's history includes rheumatoid arthritis and COPD which may or may not be at goal therapy. This complicates all aspects of care by increasing patient's risk for morbidity. On exam, the patient is well-appearing. She has no significant swelling, redness, or skin color changes to her left lower extremity. She is neurovascularly intact. She is mildly tachycardic. Workup included CBC, CMP, troponin, EKG, CTA of the chest, and D-dimer. EKG is reassuring. Patient care signed out to the oncoming provider, Dr. Corbin, pending workup and disposition. <Nitin Corbin MD - Last Filed: 08/20/23 01:20> Vital Signs: 08/19/23 21:25 08/19/23 22:00 08/19/23 22:30 Temperature 96 F L Temperature Source Oral Pulse Rate 96 H 85 Pulse Rate [Right Brachial] 104 H Respiratory Rate 19 Blood Pressure 147/95 H 141/77 H Blood Pressure [Right Arm] 182/101 H Blood Pressure Mean 124 121 Blood Pressure Mean [Right Arm] 128 Blood Pressure Source [Right Arm] Automatic Cuff Blood Pressure Position [Right Arm] Sitting 02 Sat by Pulse Oximetry 96 96 94 L Oxygen Delivery Method Room Air Room Air Room Air 08/19/23 23:00 08/19/23 23:30 Temperature Temperature Source Pulse Rate 81 86 Pulse Rate [Right Brachial] Respiratory Rate Blood Pressure 141/78 H 162/90 H Blood Pressure [Right Arm] Blood Pressure Mean Blood Pressure Mean [Right Arm] Blood Pressure Source [Right Arm] Blood Pressure Position [Right Arm] 02 Sat by Pulse Oximetry 95 95 Oxygen Delivery Method Lab Data Lab Results 08/19/23 23:40: WBC 9.8, RBC 5.19, Hgb 14.8, Hct 46.3, MCV 89.2, MCH 28.5, MCHC 32.0, RDW 15.1, Plt Count 339, MPV 7.4, Neut % (Auto) 72.1, Lymph % (Auto) 18.3, Fallon % (Auto) 5.1, Eos % (Auto) 3.4, Baso % (Auto) 1.1, Neut # (Auto) 7.1, Lymph # (Auto) 1.8, Fallon # (Auto) 0.5, Eos # (Auto) 0.3, Baso # (Auto) 0.1, D-Dimer 0.56 H, Sodium 140, Potassium 4.0, Chloride 105, Carbon Dioxide 27, Anion Gap 12.0, BUN 33 H, Creatinine 0.80, Estimated Creat Clear 114, Estimated GFR 74, Est GFR ( Amer) 90, Glucose 102 H, Calcium 9.6, Total Bilirubin 0.3, AST 25, ALT 23, Alkaline Phosphatase 110, Troponin I < 0.01, Total Protein 8.1, Albumin 4.2, Globulin 3.9 H, Albumin/Globulin Ratio 1.1 Orders (Tests/Meds): ED MEDICATIONS Generic Name Dose Route Start Last Admin Trade Name Freq PRN Reason Stop Dose Admin Sodium Chloride 10 ml 08/20/23 00:16 08/20/23 00:18 Sodium Chloride 0.9% 10ml Syr (Rad Only) IV 09/19/23 00:15 10 ml NEEDED PRN Administration Maintain IV Site Discontinued Medications Generic Name Dose Route Start Last Admin Trade Name Kewrin PRN Reason Stop Dose Admin Iopamidol 70 ml 08/20/23 00:16 08/20/23 00:18 Iopamidol-370 (76%);100ml Bottle IV 08/20/23 00:17 70 ml ONCE ONE Administration Sodium Chloride 50 ml 08/20/23 00:16 08/20/23 00:18 0.9 % Sodium Chloride 50 Ml Vial IV 08/20/23 00:17 50 ml ONCE ONE Administration ORDERS Category Date Time Status CT angio chest PE protocol Stat Cat Scan 08/19/23 21:57 Completed Complete Blood Count Auto Diff Stat Lab 08/19/23 23:40 Completed Comprehensive Metabolic Panel Stat Lab 08/19/23 23:40 Completed D-Dimer Stat Lab 08/19/23 23:40 Completed Troponin I Q3H Lab 08/20/23 01:00 Ordered Troponin I Q3H Lab 08/20/23 04:00 Ordered Troponin I Stat Lab 08/19/23 23:40 Completed Medical Decision Narrative: In summary, this patient is a 53-year-old male presenting to the Emergency Department for evaluation of left leg pain and chest pain. Differential diagnoses considered include but are not limited to PE, DVT, ACS, dysrhythmia, GERD, rheumatoid arthritis pain. Ruling out the most morbid conditions drove assessment. It should be noted patient's history includes rheumatoid arthritis and COPD which may or may not be at goal therapy. This complicates all aspects of care by increasing patient's risk for morbidity. On exam, the patient is well-appearing. She has no significant swelling, redness, or skin color changes to her left lower extremity. She is neurovascularly intact. She is mildly tachycardic. Workup included CBC, CMP, troponin, EKG, CTA of the chest, and D-dimer. EKG is reassuring. Patient care signed out to the oncoming provider, Dr. Corbin, pending workup and disposition. Emerald MORALES: I assumed care of the patient at the time of handoff from the prior provider. On reassessment patient is sleeping, remains afebrile and hemodynamically stable. She reports that her chest discomfort/pressure started yesterday and is not currently present. The left leg pain is posterior to the knee and is intermittent. Labs independently interpreted by me and show D-dimer of 0.56, undetectable initial troponin, no significant electrolyte derangement. CTA of the chest shows no evidence of PE but does show chronic pleural effusion which patient is aware of. I performed a bedside ultrasound of the left popliteal fossa to assess the region of the patient's pain. The veins are compressible, no evidence of DVT at this time. These findings were communicated with patient and she was discharged in stable condition. Repeat troponin was considered, but deemed unnecessary given duration of symptoms and the fact that patient is truly here for Procedures <Nitin Corbin MD - Last Filed: 08/20/23 01:20> Limited Ultrasound Indication:: Limited DVT ultrasound Indication: Limited compression ultrasonography of the left lower extremity popliteal fossa was performed to evaluate for non-compressibility of the deep veins in the patient. The ultrasound was performed with the following indications, as noted in the H&P: Left leg pain Chest pain Identified structures: Left popliteal vein Findings: Lower Extremity: Left Popliteal vein: Good compressibility Impression: Normal, no evidence of DVT in the area of pain Images were saved to permanent archive The study was technically adequate [id number] This study was performed by me, and I personally interpreted all images/videos. Critical Care <Georgiana Rand DO - Last Filed: 08/19/23 23:45> Critical Care Time Critical Care Time: No
[2023-08-19 23:47] LABS: Basophils # 0.1 K/mm3 (0-0.2); Basophils % 1.1 % (0.1-2.0); Eosinophils # 0.3 K/mm3 (0.0-0.4); Eosinophils % 3.4 % (0.1-12.0); Hematocrit 46.3 % (37.0-47.0); Hemoglobin 14.8 g/dL (12.2-16.2); Lymphocytes # 1.8 K/mm3 (0.7-4.5); Lymphocytes % 18.3 % (10-50); Mean Corpuscular Hemoglobin 28.5 pg (27.0-31.2); Mean Corpuscular Volume 89.2 fl (81-99); Mean Platelet Volume 7.4 fl (7.4-10.4); Monocytes # 0.5 K/mm3 (0.1-1.0); Monocytes % 5.1 % (1.7-9.3); Neutrophils # 7.1 K/mm3 (1.8-7.8); Neutrophils % 72.1 % (37.0-80.0); Platelet Count 339 K/mm3 (142-424); Red Blood Count 5.19 M/mm3 (4.20-5.40); Red Cell Distribution Width 15.1 % (11.5-17.5); White Blood Count 9.8 K/mm3 (4.8-10.8)
[2023-08-19 23:55] LABS: Alanine Aminotransferase 23 U/L (12-78); Albumin Level 4.2 g/dl (3.5-5.0); Albumin/Globulin Ratio 1.1 (1.1-1.8); Alkaline Phosphatase 110 U/L (38-126); Aspartate Amino Transferase 25 U/L (14-36); Bilirubin,Total 0.3 mg/dl (0.2-1.3); Blood Urea Nitrogen 33 mg/dl (7-17); Calcium 9.6 mg/dl (8.4-10.2); Carbon Dioxide 27 mmol/L (22.0-30.0); Chloride 105 mmol/L (98-107); Creatinine Clearance Estimated 114 mL/min (50-200); Estimated Glomerular Filt Rate 74 ml/min (>60); GFR (African American) 90 ML/MIN (>60); Globulin 3.9 g/dL (1.3-3.2); Glucose 102 mg/dl (74-100); Sodium 140 mmol/L (136-145); Total Protein,Serum 8.1 g/dl (6.3-8.2)
[2023-08-20] LABS: D-Dimer 0.56 ug/mL (0.0-0.5)
[2023-08-20 00:10] LABS: Troponin I < 0.01 ng/ml (0.00-0.034)
[2023-08-20] MEDS: 0.9 % SODIUM CHLORIDE 50 ML VIAL IV (00:18)
[2023-08-20] MEDS: SODIUM CHLORIDE 0.9% 10ML SYR (RAD ONLY) 10 ML IV (00:18)
[2023-08-20] MEDS: IOPAMIDOL-370 (76%);100ML BOTTLE 70 ML IV (00:18)
[2023-08-20 01:22] VITALS: BP 144/98; PULSE 82; RESP 18; TEMP 36.7; O2SAT 96
== END 2023-08-20 01:23 | disposition home or self-care (01) ==
PROVIDERS: Emergency Provider Emergency Medicine
DX: M79.605 Pain in left leg (principal); J90 Pleural effusion, not elsewhere classified; M06.9 Rheumatoid arthritis, unspecified; J44.9 Chronic obstructive pulmonary disease, unspecified
CPT/HCPCS: 71275; 80053; 84484; 85025; 85378; 93005; 99284; Q9967

== ENCOUNTER 2023-09-05 10:32 | Emergency (ER) | payer MEDICAID, SELFPAY ==
[2023-09-05 10:43] VITALS: BP 141/76; PULSE 97; RESP 17; TEMP 37.3; O2SAT 94; BMI 35.3
[2023-09-05 10:45] VITALS: BP 133/76; PULSE 108; O2SAT 96
--- NOTE | 2023-09-05 10:57 | HMH.EDGENADL ---
Discharge Plan Disposition Patient Disposition: Home, Self-Care Prescriptions Prescriptions: New hydrocodone-acetaminophen 5-325 mg tablet 1 tab PO Q6H PRN (Reason: pain) 3 Days Qty: 12 0RF prednisone 50 mg tablet 50 mg PO DAILY 5 Days Qty: 5 0RF Rx Instructions: Please begin 1 day after ED visit No Action sulfasalazine 500 mg tablet 1,000 mg PO BID methotrexate sodium 2.5 MG tablet 15 mg PO WEEKLY Patient Comments: PATIENT TAKES ON SATURDAYS Rx Instructions: takes on saturdays folic acid 1 MG tablet 1 mg PO DAILY upadacitinib 15 MG tablet extended release 24 hr 15 mg PO DAILY benzonatate 100 MG capsule 100 mg PO TID Qty: 21 0RF prednisone 20 MG tablet 20 mg PO BID Qty: 10 0RF molnupiravir 200 MG capsule 200 mg PO BID Qty: 40 0RF Rx Instructions: 4 tabs bid x 5 days benzonatate [benzonatate] 100 mg capsule 100 mg PO TIDP PRN (Reason: Cough) Qty: 30 0RF amoxicillin-pot clavulanate 875-125 mg Tablet 1 tab PO Q12H Qty: 20 0RF methylprednisolone 4 mg Tablets,Dose Pack 4 mg PO DIRECTED Qty: 21 0RF guaifenesin [Mucinex] 600 mg tablet extended release 12hr 600 - 1,200 mg PO BIDP PRN (Reason: Congestion) Qty: 30 0RF Referrals Follow up/Referrals: Kevin Polo MD [Primary Care Provider] - See instructions Activity Restrictions/Add. Instructions Additional Instructions/Restrictions: Please take the remainder of your steroids starting 72 hours from your ED visit. Only take your other pain medicine if needed. Please follow-up closely with your statistics manager or your primary care doctor. Clinical Impressions Clinical Impression: Rheumatoid arthritis flare Discharge ED Provider: Lazarus Cheek General Adult HPI General Chief complaint: PAIN Stated complaint: arthritis Time Seen by Provider: 09/05/23 10:51 Mode of Arrival: EMS Source of Information: Patient and EMS Limitations: No Limitations Description of Symptoms (Recalled from ER Triage Doc. by RN): pt to ed c/o bilateral extremity pain. pt states she is having an RA flare. History of Present Illness HPI narrative: Patient is a 53-year-old female presenting today with severe pain associated with her rheumatoid arthritis. 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 Subsequently she has had severe worsening of her pain over the last several days in her hands and in her feet. She states this is consistent with flares that she had many years ago and in the past steroid to help with this. Pain is 10 out of 10 and severe at the moment. No fevers chills or any other symptoms Related Data Home Medications Medication Instructions Recorded Confirmed folic acid 1 mg tablet 1 mg PO DAILY Supplement 06/19/17 10/16/21 methotrexate sodium 2.5 mg tablet 15 mg PO WEEKLY Arthritis 06/19/17 10/16/21 sulfasalazine 500 mg tablet 1,000 mg PO BID Rheumatoid 12/26/17 10/16/21 arthritis upadacitinib 15 mg tablet,extended 15 mg PO DAILY Arthritis 10/16/21 10/16/21 release 24 hr Previous Rx's Medication Instructions Recorded benzonatate 100 mg capsule 100 mg PO TID #21 caps 10/16/21 molnupiravir 200 mg capsule (EUA) 200 mg PO BID #40 caps 10/16/21 prednisone 20 mg tablet 20 mg PO BID #10 tabs 10/16/21 amoxicillin 875 mg-potassium 1 tab PO Q12H #20 tabs 11/23/22 clavulanate 125 mg tablet benzonatate 100 mg capsule 100 mg PO TIDP PRN Cough #30 caps 11/23/22 guaifenesin 600 mg tablet, 600 - 1,200 mg (1 - 2 x 600 mg) PO 11/23/22 extended release 12 hr (Mucinex) BIDP PRN Congestion #30 tabs methylprednisolone 4 mg tablets in 4 mg PO DIRECTED #21 tabs 11/23/22 a dose pack hydrocodone 5 mg-acetaminophen 325 1 tab PO Q6H PRN pain 3 days #12 09/05/23 mg tablet tabs prednisone 50 mg tablet 50 mg PO DAILY 5 days #5 tabs 09/05/23 Allergies Allergy/AdvReac Type Severity Reaction Status Date / Time diphenhydramine Allergy Mild RASH, ITCH Verified 10/10/18 13:12 [DIPHENHYDRAMINE] [facility] Disclaimer: The information contained in this section may have been updated after the patient was seen, as this information can be updated by other users. Social History (Updated 08/19/23 @ 23:45 by Georgiana Rand DO) Smoking Status: Never smoker second hand exposure: Yes alcohol intake: never substance use type: denies use current occupational status: disabled Travel in the last 8 weeks: None household members: spouse housing: apartment current occupational exposures/hazards: No caffeine: Yes ROS Obtained: Yes All systems reviewed & no additional complaints except as documented Physical Exam General General appearance: in distress (Writhing in severe pain) Respiratory Respiratory exam: Present normal lung sounds bilaterally Cardiovascular Cardiovascular exam: Present regular rate Extremities Exam Extremities exam: Present other (Patient with obvious deformities in her upper extremities consistent with end-stage and severe rheumatoid arthritis no redness or swelling in any of her extremities or joints) Neurological Exam Neurological exam: Present alert and oriented X3 Medical Decision Making Joel Inquiry Pt receiving controlled substance: No Vital Signs: 09/05/23 10:43 09/05/23 10:45 Temperature 99.1 F Temperature Source Oral Pulse Rate 108 H Pulse Rate [Left Radial] 97 H Respiratory Rate 17 Blood Pressure 133/76 Blood Pressure [Right Arm] 141/76 H Blood Pressure Mean [Right Arm] 97 02 Sat by Pulse Oximetry 94 L 96 Oxygen Delivery Method Room Air Orders (Tests/Meds): ED MEDICATIONS Generic Name Dose Route Start Last Admin Trade Name Freq PRN Reason Stop Dose Admin Lactated Ringer's 1,000 mls @ 999 mls/hr 09/05/23 11:00 09/05/23 11:14 Lactated Ringer's 1000 Ml Bag IV 09/05/23 12:00 999 mls/hr .Q1H1M CARLOS Administration Discontinued Medications Generic Name Dose Route Start Last Admin Trade Name Freq PRN Reason Stop Dose Admin Dexamethasone Sodium Phosphate 10 mg 09/05/23 10:54 09/05/23 11:14 Dexamethasone 4mg/Ml 1ml Vial IV 09/05/23 10:55 10 mg ONCE ONE Administration Hydromorphone HCl 0.5 mg 09/05/23 10:54 09/05/23 11:14 Hydromorphone 2mg/Ml Syringe IV 09/05/23 10:55 0.5 mg ONCE ONE Administration Medical Decision Narrative: 53-year-old female presenting today with severe exacerbation of her chronic rheumatoid arthritis after discontinuation of her DMARDs. Will give 10 of IV Dex and Dilaudid for immediate pain control and inflammatory control and will reassess. I do not suspect infectious joints or other complications. Reassessment 11:44 AM patient given Dilaudid and dexamethasone with significant improvement. We will make sure she can ambulate. She will follow-up with her statistics manager and primary care doctor she will be given a short course of opiates as well as additional steroids to be started 72 hours from her ED visit. She was discharged in improved and stable condition. Critical Care Critical Care Time Critical Care Time: No
[2023-09-05] MEDS: DEXAMETHASONE 4MG/ML 1ML VIAL 10 MG IV (11:14)
[2023-09-05] MEDS: LACTATED RINGERS 1000ML 1,000 ML 999 ML IV (11:14)
[2023-09-05] MEDS: HYDROMORPHONE 2MG/ML SYRINGE 0.5 MG IV (11:14)
[2023-09-05 12:04] VITALS: BP 133/76; PULSE 108; RESP 19; TEMP 36.7
== END 2023-09-05 12:05 | disposition home or self-care (01) ==
PROVIDERS: Emergency Provider Student in an Organized Health Care Education/Training Program; PCP Family Medicine
DX: M06.841 Other specified rheumatoid arthritis, right hand; M06.842 Other specified rheumatoid arthritis, left hand; M06.871 Other specified rheumatoid arthritis, right ankle and foot; M06.872 Other specified rheumatoid arthritis, left ankle and foot; M79.671 Pain in right foot; M79.641 Pain in right hand; M79.642 Pain in left hand; M79.672 Pain in left foot
CPT/HCPCS: 96361; 96374; 96375; 99284; J7120

== ENCOUNTER 2024-05-02 10:03 | Emergency (ER) | payer MEDICARE, SELFPAY ==
[2024-05-02] VITALS (7 sets, daily range): BP systolic 149–189; BP diastolic 88–107; PULSE 82–127; RESP 16–28; TEMP 36.6–36.7; O2SAT 93–99; BMI 35.6
--- NOTE | 2024-05-02 10:49 | XR_ITS ---
FINAL REPORT CLINICAL HISTORY: soa FINDINGS: CHEST 2 VIEWS PA AND LATERAL The heart is normal in size. The mediastinum is unremarkable. Small right pleural effusion is identified. The lungs are clear. There is no pneumothorax. IMPRESSION: Small right pleural effusion. Reviewed, Interpreted and Dictated by Jimmy Chaudhry MD Transcribed by Ivana France Authenticated and [facility]
--- NOTE | 2024-05-02 10:58 | ED_ITS ---
Discharge Plan Disposition Patient Disposition: Still a Patient Condition: Fair Referrals Follow up/Referrals: Kevin Polo MD [Primary Care Provider] - See instructions Clinical Impressions Clinical Impression: Pleural effusion on right Print Language Print Language: Italian Discharge ED Provider: Dayana Carlton [facility] [place] Stated complaint: soa, cough Mode of Arrival: Ambulatory Source of Information: Patient Time Seen by Provider: 05/02/24 10:58 Description of Symptoms (Recalled from Triage Doc. by RN): TROUBLE BREATHING, INHALED SMOKE A FEW WEEKS AGO HEENT Symptoms (Recalled from RN notes): No Resp Symptoms (Recalled from RN notes): Yes Skin Symptoms (Recalled from RN notes): No MS Symptoms (Recalled from RN notes): No Functional Status (Recalled from RN notes): WNL History of Present Illness Provider Complaint: She states that for the past 2 weeks she has had progressively worsening shortness of breath. She states that her dyspnea is much worse with walking or any activities. Related Data Allergies Allergy/AdvReac Type Severity Reaction Status Date / Time diphenhydramine Allergy Mild RASH, ITCH Verified 10/10/18 13:12 (DIPHENHYDRAMINE) Worker's Comp Is this a Worker's Comp case?: No [facility] Disclaimer: The information contained in this section may have been updated after the patient was seen, as this information can be updated by other users. Social History (Updated 08/19/23 @ 23:45 by Georgiana Rand DO) Smoking Status: Never smoker second hand exposure: Yes alcohol intake: never substance use type: denies use current occupational status: disabled Travel in the last 8 weeks: None household members: spouse housing: apartment current occupational exposures/hazards: No caffeine: Yes Have you lived/traveled outside [place] in past 30 days?: No Contact w/someone who lives/traveled outside [place] past 30 days?: No Exposure to someone with infectious disease in past 14 days?: No Do you have a fever (greater than 100.4 F or 38 C)?: No Have you tested positive for COVID-19: No Exposed to someone with COVID-19 in past 14 days?: No Do you have a sore throat?: No Do you have a cough?: Yes Do you have any weakness?: No Do you have any diarrhea?: No Are you experiencing any unusual bleeding?: No Do you have any muscle aches/pain?: No Do you have any abdominal pain?: No Are you experiencing loss of taste or smell?: No ROS Obtained: Yes All systems reviewed & no additional complaints except as documented Constitutional Constitutional: Denies chills and Denies fever(s) Eyes Eyes: Denies eye discharge ENT Ears, Nose, Mouth, and Throat: Denies dizziness, Denies otalgia and Denies sore throat Cardiovascular Cardiovascular: Denies chest pain Respiratory Respiratory: Reports shortness of breath, Reports chest congestion, Denies cough, Denies stridor and Reports wheezing Gastrointestinal Gastrointestingal: Denies nausea or vomiting Musculoskeletal Musculoskeletal: Reports system reviewed and no additional complaints, except as documented and Denies arthralgias Integumentary/Breasts Skin/Breast: Denies rash Neurologic Neurologic: Denies dizziness and Denies paresthesias Allergic/Immunologic Allergic/Immunologic: Reports wheezing Physical Exam General General appearance: alert and in no apparent distress Head Head exam: atraumatic, normocephalic and normal inspection Eye Eye exam: Present normal appearance, PERRL and EOMI ENT ENT exam: Present normal exam, normal oropharynx, mucous membranes moist, TM's normal bilaterally and normal external ear exam Neck Neck exam: Present normal inspection, full ROM and trachea midline; Absent meningismus or lymphadenopathy Chest Chest inspection: Present normal inspection and symmetric chest wall rise; Absent tenderness Respiratory Respiratory exam: Present wheezes; Absent respiratory distress Expanded Respiratory Exam Location: Right: decreased breath sounds and Lower: decreased breath sounds Cardiovascular Cardiovascular exam: Present regular rate and normal rhythm; Absent JVD Abdominal Exam Abdominal exam: Present soft and normal bowel sounds; Absent distention, tenderness or guarding Extremities Exam Extremities exam: Present normal inspection, full ROM and normal capillary refill; Absent calf tenderness Back Exam Back exam: Present normal inspection; Absent tenderness Neurological Exam Neurological exam: Present alert and oriented X3 Psychiatric Psychiatric exam: Present normal affect and normal mood Skin Skin exam: Present warm, dry, intact and normal color Lymphatic Lymphatic Findings: no adenopathy Medical Decision Making Medical Records Medical records reviewed: No I reviewed the patient's medical records. Screening: Per USPSTF and CDC recommendations, given the prevalence of disease in our region, it is our hospital?s policy to screen for HIV and viral Hepatitis for all patients aged 18 and over and those with ongoing risk factors. Joel Inquiry Pt receiving controlled substance: No Vital Signs: 05/02/24 10:54 Temperature 97.9 F Temperature Source Oral Pulse Rate [Left Radial] 99 H Respiratory Rate 28 H Blood Pressure [Left Arm] 149/91 H Blood Pressure Mean [Left Arm] 110 02 Sat by Pulse Oximetry 97 Orders (Tests/Meds): ORDERS Category Date Time Status Chest XR 2 view (NOT portable) [XR chest 2V] Stat Exams 05/02/24 10:49 Ordered Radiology Data #1: Image(s): Chest Image Reviewed: Yes I reviewed the patient's radiology image Preliminary Findings: Abnormal right pleural effusion Medical Decision Narrative: She was transferred to the ER due to her having right pleural effusion with worsening shortness of breath.
--- NOTE | 2024-05-02 11:48 | ECG_ITS ---
APPROVED REPORT Exam: Resting ECG HR:84 bpm ECG Measurements Heart Rate 84 AXES SC 136 P 55 QRSd 85 QRS 74 QT 361 T 59 QTc 402 Conclusion SINUS RHYTHM NORMAL ECG UNCONFIRMED REPORT Electronically signed by : Dayana Carlton, 05/04/2024 07:09:22
[2024-05-02] MEDS: IPRATROPIUM/ALBUTEROL 3 ML NEB 9 ML IH (12:00)
--- NOTE | 2024-05-02 12:24 | ED_ITS ---
<Statement entered by Dayana Carlton MD - 05/04/24 06:52> I was consulted by the KAREN, and we discussed the complexity of problems being addressed. I approved the treatment and management plan for this patient's care in the emergency department, thus performing a substantive portion of the medical decision making. Dayana Carlton MD Discharge Plan Disposition Patient Disposition: Home, Self-Care Condition: Good Prescriptions Prescriptions: New prednisone 50 mg tablet 50 mg PO DAILY 5 Days Qty: 5 0RF albuterol sulfate 90 mcg/actuation HFA aerosol inhaler 1 inh inhalation Q4H PRN (Reason: shortness of breath or wheezing) Qty: 8.5 0RF mtqvmkwgildlcoz-tlifliclr-NB [Bromfed DM] 2-30-10 mg/5 mL syrup 5 ml PO Q4H PRN (Reason: sinus symptoms) Qty: 118 0RF amoxicillin-pot clavulanate 875-125 mg tablet 1 tab PO BID Qty: 20 0RF azithromycin 250 mg tablet 250 mg PO DAILY 6 Days Qty: 6 0RF Rx Instructions: start on day 2 of therapy Referrals Follow up/Referrals: Kevin Polo MD [Primary Care Provider] - See instructions Hannah Godwin MD [Physician] - See instructions Activity Restrictions/Add. Instructions Additional Instructions/Restrictions: I have referred you to pulmonology. Please call to make your appointment tomorrow. Follow-up with your PCP within 48 hours for recheck. If you have any new or worsening signs or symptoms follow-up sooner or return to the ER as needed. I have sent a prescription into your pharmacy for steroids and antibiotics as well as an inhaler. Please take the antibiotics and your steroids till they are gone. Your inhaler is a rescue inhaler only. If you are having to use it more than twice a day you need to be evaluated. Clinical Impressions Clinical Impression: Acute exacerbation of chronic obstructive pulmonary disease Instructions Patient Instructions: DI for Chronic Obstructive Pulmonary Disease Print Language Print Language: Estonian Discharge ED Provider: Dayana Carlton General Adult HPI General Chief complaint: Shortness of Breath/Dyspnea Stated complaint: soa, cough Time Seen by Provider: 05/02/24 10:58 Mode of Arrival: Wheelchair Source of Information: Patient Limitations: No Limitations Description of Symptoms (Recalled from ER Triage Doc. by RN): PT VIA WC FROM [facility] FOR FURTHER EVALUATION OF SHORTNESS OF BREATH. PT REPORTS SHORT OF BREATH X 2 MONTHS, WORSE FOR 2 WEEKS. DENIES FEVER OR COUGH. DOES NOT WEAR HOME O2. History of Present Illness HPI narrative: Patient presents for evaluation of dyspnea.. Patient has a known history of COPD however she is not on no current disease modifying medications. She has not seen pulmonology in many years. In fact she has not seen any doctor in many years. Patient is a smoker down to 5 cigarettes a day. Patient gives a 2- month history of worsening shortness of breath however the last 2 weeks it has been even more significant. She is short of breath even at rest. She does not wear home O2 does not carry diagnosis of sleep apnea. She denies any fever chills chest pain hemoptysis hematochezia melena nausea vomiting diarrhea. Related Data Previous Rx's ?Medication ?Instructions ?Recorded albuterol sulfate 90 mcg/actuation 1 inh inhalation Q4H PRN shortness 05/02/24 aerosol inhaler of breath or wheezing #8.5 grams amoxicillin 875 mg-potassium 1 tab PO BID #20 tabs 05/02/24 clavulanate 125 mg tablet azithromycin 250 mg tablet 250 mg PO DAILY 6 days #6 tabs 05/02/24 dmwzcckcrenrtvn-bzyygivdemekkwz-QG 5 ml PO Q4H PRN sinus symptoms 05/02/24 2 mg-30 mg-10 mg/5 mL oral syrup #118 mL (Bromfed DM) prednisone 50 mg tablet 50 mg PO DAILY 5 days #5 tabs 05/02/24 Allergies Allergy/AdvReac Type Severity Reaction Status Date / Time diphenhydramine Allergy Mild RASH, ITCH Verified 05/02/24 11:53 (DIPHENHYDRAMINE) [facility] Disclaimer: The information contained in this section may have been updated after the patient was seen, as this information can be updated by other users. Medical History (Updated 05/02/24 @ 13:58 by AMANDA Ruano) Rheumatoid arthritis Surgical History (Updated 05/02/24 @ 11:55 by Irena Bae RN) Hx of hysterectomy Hx of cholecystectomy Family History (Updated 05/02/24 @ 11:57 by Irena Bae RN) Other No significant family history Social History (Updated 05/02/24 @ 11:56 by Irena Bae RN) Smoking Status: Never smoker second hand exposure: Yes alcohol intake: never substance use type: denies use current occupational status: disabled Travel in the last 8 weeks: None household members: spouse housing: apartment current occupational exposures/hazards: No caffeine: Yes Have you lived/traveled outside US in past 30 days?: No Contact w/someone who lives/traveled outside US past 30 days?: No Exposure to someone with infectious disease in past 14 days?: No Do you have a fever (greater than 100.4 F or 38 C)?: No Have you tested positive for COVID-19: No Exposed to someone with COVID-19 in past 14 days?: No Do you have a sore throat?: No Do you have a cough?: Yes Do you have any weakness?: No Are you experiencing any nausea/vomitting?: No Do you have any diarrhea?: No Are you experiencing any unusual bleeding?: No Do you have any muscle aches/pain?: No Do you have any abdominal pain?: No Are you experiencing loss of taste or smell?: No Other Medical History Have you received the Flu Vaccine for this season: No Have you received the Pneumonia Vaccine: No ROS Obtained: Yes Systems reviewed as appropriate & no additional complaints except as documented Physical Exam General General appearance: alert Respiratory Respiratory exam: Present respiratory distress, accessory muscle use and prolonged expiratory phase; Absent normal lung sounds bilaterally (Diminished air entry in all 4 rosas and late wheezes) or wheezes Cardiovascular Cardiovascular exam: Present regular rate Neurological Exam Neurological exam: Present alert and oriented X3 Medical Decision Making Medical Records Medical records reviewed: Yes I reviewed the patient's medical records. Screening: Per USPSTF and CDC recommendations, given the prevalence of disease in our region, it is our hospital?s policy to screen for HIV and viral Hepatitis for all patients aged 18 and over and those with ongoing risk factors. Joel Inquiry Pt receiving controlled substance: No Vital Signs: 05/02/24 10:54 05/02/24 11:41 05/02/24 12:00 Temperature 97.9 F 98.0 F Temperature Source Oral Oral Pulse Rate 82 Pulse Rate [Apical] 87 Pulse Rate [Left Radial] 99 H Respiratory Rate 28 H 20 Blood Pressure 153/89 H Blood Pressure [Left Arm] 149/91 H Blood Pressure [Right Arm] 150/107 H Blood Pressure Mean Blood Pressure Mean [Left Arm] 110 Blood Pressure Mean [Right Arm] 121 Blood Pressure Source Blood Pressure Source [Right Arm] Automatic Cuff Blood Pressure Position [Right Arm] Sitting 02 Sat by Pulse Oximetry 97 99 98 Oxygen Delivery Method Room Air 05/02/24 13:00 05/02/24 13:01 05/02/24 13:15 Temperature Temperature Source Pulse Rate 121 H 123 H 127 H Pulse Rate [Apical] Pulse Rate [Left Radial] Respiratory Rate 16 22 23 Blood Pressure 182/92 H 182/92 H 189/98 H Blood Pressure [Left Arm] Blood Pressure [Right Arm] Blood Pressure Mean 122 Blood Pressure Mean [Left Arm] Blood Pressure Mean [Right Arm] Blood Pressure Source Blood Pressure Source [Right Arm] Blood Pressure Position [Right Arm] 02 Sat by Pulse Oximetry 95 93 L 94 L Oxygen Delivery Method 05/02/24 13:59 Temperature 98.0 F Temperature Source Oral Pulse Rate 112 H Pulse Rate [Apical] Pulse Rate [Left Radial] Respiratory Rate 20 Blood Pressure 159/88 H Blood Pressure [Left Arm] Blood Pressure [Right Arm] Blood Pressure Mean Blood Pressure Mean [Left Arm] Blood Pressure Mean [Right Arm] Blood Pressure Source Automatic Cuff Blood Pressure Source [Right Arm] Blood Pressure Position [Right Arm] 02 Sat by Pulse Oximetry Oxygen Delivery Method Room Air Lab Data Lab results reviewed: Yes I reviewed the patient's lab results. Lab Results 05/02/24 11:52: WBC 6.8, RBC 4.76, Hgb 13.2, Hct 41.1, MCV 86.3, MCH 27.7, MCHC 32.1, RDW 13.7, Plt Count 363, MPV 9.8, Neut % (Auto) 73.3, Lymph % (Auto) 15.7, [place] % (Auto) 6.5, Eos % (Auto) 2.9, Baso % (Auto) 1.3, Neut # (Auto) 5.0, Lymph # (Auto) 1.1, [place] # (Auto) 0.4, Eos # (Auto) 0.2, Baso # (Auto) 0.1, PT 9.3, I NR 0.83 L, Sodium 135 L, Potassium 4.4, Chloride 104, Carbon Dioxide 22, Anion Gap 13.4, BUN 14, Creatinine 0.70, Estimated Creat Clear 129, Estimated GFR 87, Est GFR ( Amer) 105, Glucose 109 H, Calcium 9.2, Magnesium 2.1, Total Bilirubin 0.3, AST 30, ALT 27, Alkaline Phosphatase 111, Troponin I < 0.01, NT-Pro-B Natriuret Pep 23.8, Total Protein 7.8, Albumin 4.1, Globulin 3.7 H, Albumin/Globulin Ratio 1.1, Procalcitonin 0.045, HCV Ab PARTH w/Rflx PCR Qn Negative, HIV Ag/Ab Combo Qual Negative 05/02/24 12:26: VBG pH 7.37, VBG pCO2 35.3, VBG pO2 65.7 H, VBG HCO3 19.9 L, VBG Total CO2 21.0 L, VBG O2 Saturation 92.0 H, VBG Base Excess -5.3 L, VBG Lactic Acid 3.2 H 05/02/24 12:39: SARS-CoV-2 (PCR) Not detected, Influenza Type A (PCR) Not detected, Influenza Type B (PCR) Not detected, RSV (PCR) Not detected, Rhinovirus (PCR) Not detected 05/02/24 11:52 05/02/24 11:52 Orders (Tests/Meds): ED MEDICATIONS Discontinued Medications Generic Name Dose Route Start Last Admin Trade Name Freq PRN Reason Stop Dose Admin Albuterol/Ipratropium 9 ml 05/02/24 11:59 05/02/24 12:00 Ipratropium/Albuterol 3 Ml Neb IH 05/02/24 12:00 9 ml ONCE ONE Administration Amoxicillin/Clavulanate Potassium 1 each 05/02/24 13:53 05/02/24 13:59 Amoxicillin/Clavulanate Potassium 875/125mg Tablet PO 05/02/24 13:54 1 each ONCE ONE Administration Azithromycin 500 mg 05/02/24 13:53 05/02/24 14:00 Azithromycin 250mg Tablet PO 05/02/24 13:54 500 mg ONCE ONE Administration Dexamethasone Sodium Phosphate 10 mg 05/02/24 12:25 05/02/24 12:36 Dexamethasone 4mg/Ml 5ml Mdv IV 05/02/24 12:26 10 mg ONCE ONE Administration ORDERS Category Date Time Status Chest XR 2 view (NOT portable) [XR chest 2V] Stat Exams 05/02/24 10:49 Completed BNP [NT Pro Brain Natriuretic Pep.] Stat Lab 05/02/24 11:52 Completed CBC w/Auto Diff [Complete Blood Count Auto Diff] Stat Lab 05/02/24 11:52 Completed CMP [Comprehensive Metabolic Panel] Stat Lab 05/02/24 11:52 Completed HIV Combo Stat Lab 05/02/24 11:52 Completed Hepatitis C Ab Qual. W/ RFX Stat Lab 05/02/24 11:52 Completed INR [Prothrombin Time INR] Stat Lab 05/02/24 11:52 Completed Magnesium Stat Lab 05/02/24 11:52 Completed Mini Respiratory Panel Stat Lab 05/02/24 12:39 Completed Procalcitonin Stat Lab 05/02/24 11:52 Completed Trop I [Troponin I] Stat Lab 05/02/24 11:52 Completed VBG [Venous Blood Gas] Stat RT 05/02/24 12:26 Completed Medical Decision Narrative: In summary patient is a 54-year-old female who presents to the emergency department for evaluation of dyspnea. Patient is initially normotensive at 149/91 slightly tachycardic at 99 tachypneic at 28 satting at 97% on room air upon arrival, and afebrile at 97.9. Physical exam is remarkable for visible respiratory distress with tachypnea and increased work of breathing and accessory muscle use, breath sounds are diminished in all 4 rosas with late expiratory wheezes.. Differential diagnosis includes COPD exacerbation versus viral or bacterial pneumonia versus ACS etc. Initial workup will be conducted with hematologic labs plain film chest x-ray twelve-lead EKG respiratory swab. Initial interventions include DuoNeb Decadron magnesium infusion. Initial workup reviewed by me shows that her white count is normal normal H&H no neutrophilic shift, INR 0.83 VBG shows a pH of 7.37 pCO2 of 35.3 VBG lactic acid 3.2 the remainder of her hematologic labs are nonactionable including undetectable troponin and NT proBNP of 23.8 procalcitonin is 0.045 and her respiratory panel is negative. My informal interpretation with plain film chest x-ray does not show any acute processes but does show evidence of chronic COPD. And chronic and stable pleural effusion. Review of her records shows that this pleural effusion has been present since at least 2018 which was secondary to an empyema.. Upon repeat evaluation patient had significant improvement in her constitutional subjective symptoms and objectively she was breathing easier at 20 times a minute with wheezes still present but air entry heard in all 4 rosas to the bases no accessory muscle use.. Given this I had interactive discussion regarding her workup and findings and I offered the patient admission versus discharge home with strict return precautions and via patient directed decision making and discharge patient felt comfortable going home with steroid Dosepak antibiotics a rescue inhaler and referral to pulmonology. Thus she is appropriate for discharge with a prescription for steroid Dosepak metered-dose inhaler prescription for Augmentin and azithromycin with first doses given here and referral to pulmonology. Critical Care Critical Care Time Critical Care Time: Yes Attestation: On 05/02/24, the high probability of a clinically significant, sudden or life threatening deterioration of the following system(s) required my full and direct attention, intervention and personal management. The time I documented below is in addition to time spent performing reported procedures but includes the following listed in this critical care notation. Total Time Total Critical Care Time: 35
[2024-05-02 12:32] LABS: Basophils # 0.1 K/mm3 (0-0.2); Basophils % 1.3 % (0.1-2.0); Eosinophils # 0.2 K/mm3 (0.0-0.4); Eosinophils % 2.9 % (0.1-12.0); Hematocrit 41.1 % (37.0-47.0); Hemoglobin 13.2 g/dL (12.2-16.2); Lymphocytes # 1.1 K/mm3 (0.7-4.5); Lymphocytes % 15.7 % (10-50); Mean Corpuscular HGB Conc 32.1 g/dL (31.8-35.4); Mean Corpuscular Hemoglobin 27.7 pg (27.0-31.2); Mean Corpuscular Volume 86.3 fl (81-99); Mean Platelet Volume 9.8 fl (7.4-10.4); Monocytes # 0.4 K/mm3 (0.1-1.0); Monocytes % 6.5 % (1.7-9.3); Neutrophils % 73.3 % (37.0-80.0); Platelet Count 363 K/mm3 (142-424); Red Blood Count 4.76 M/mm3 (4.20-5.40); Red Cell Distribution Width 13.7 % (11.5-17.5); White Blood Count 6.8 K/mm3 (4.8-10.8)
[2024-05-02 12:33] LABS: Albumin Level 4.1 g/dl (3.5-5.0); Chloride 104 mmol/L (98-107); Potassium 4.4 mmoL/L (3.5-5.1); Sodium 135 mmol/L (136-145)
[2024-05-02 12:36] LABS: Alanine Aminotransferase 27 U/L (12-78); Albumin/Globulin Ratio 1.1 (1.1-1.8); Alkaline Phosphatase 111 U/L (38-126); Anion Gap 13.4 mEq/L (5-15); Aspartate Amino Transferase 30 U/L (14-36); Bilirubin,Total 0.3 mg/dl (0.2-1.3); Blood Urea Nitrogen 14 mg/dl (7-17); Calcium 9.2 mg/dl (8.4-10.2); Carbon Dioxide 22 mmol/L (22.0-30.0); Creatinine Clearance Estimated 129 mL/min (50-200); Estimated Glomerular Filt Rate 87 ml/min (>60); GFR (African American) 105 ML/MIN (>60); Globulin 3.7 g/dL (1.3-3.2); Glucose 109 mg/dl (74-100); Magnesium 2.1 mg/dl (1.6-2.3); Total Protein,Serum 7.8 g/dl (6.3-8.2)
[2024-05-02] MEDS: DEXAMETHASONE 4MG/ML 5ML MDV 10 MG IV (12:36)
[2024-05-02 12:42] LABS: Coronavirus 19, PCR Not Detected (NotDetected); Human Rhinovirus Not Detected (NotDetected); Influenza A, PCR Not Detected (NotDetected); Influenza B, PCR Not Detected (NotDetected); Respiratory Syncytial Virus Not Detected (NotDetected)
[2024-05-02 12:46] LABS: NT Pro Brain Natriuretic Pep. 23.8 pg/mL (0-125)
[2024-05-02 12:46] LABS: VBG Base Excess -5.3 mmol/L (-2.4-2.3); VBG HCO3 19.9 mmol/L (23-30); VBG PCO2 35.3 mmol/L (35-51); VBG PH 7.37 mmol/L (7.31-7.41); VBG PO2 65.7 mmol/L (28-40)
[2024-05-02 12:47] LABS: Lactate Venous 3.2 mmol/L (0.4-2.0)
[2024-05-02 13:00] LABS: Procalcitonin 0.045 ng/mL (0.0-2.0)
--- NOTE | 2024-05-02 13:02 | PC.NURSE ---
Rounded on PT. PT voices that she does not need anything at this time. Call light is within reach of the PT.
[2024-05-02 13:13] LABS: HIV Combo NEGATIVE (Negative)
[2024-05-02 13:20] LABS: Hepatitis C Ab Qual. W/ RFX NEGATIVE (Negative)
[2024-05-02 13:30] LABS: INR 0.83 (0.9-1.1); Prothrombin Time 9.3 seconds (9.2-12.1)
[2024-05-02 13:34] LABS: Troponin I < 0.01 ng/ml (0.00-0.034)
--- NOTE | 2024-05-02 13:47 | PC.NURSE ---
Rounded on the PT. The PT voices that she does not need anything at this time. Call light is within reach of the PT.
[2024-05-02] MEDS: AMOXICILLIN/CLAVULANATE POTASSIUM 875/125MG TABLET 1 EACH PO (13:59)
[2024-05-02] MEDS: AZITHROMYCIN 250MG TABLET 500 MG PO (14:00)
[2024-05-02 16:48] LABS: Reflex Lactic Add Lactic Reflex
== END 2024-05-02 14:03 | disposition home or self-care (01) ==
LOC: UTC 10:42 → ER 11:37
PROVIDERS: Physician Assistant; Emergency Provider Student in an Organized Health Care Education/Training Program; PCP Family Medicine
DX: J44.1 Chronic obstructive pulmonary disease with (acute) exacerbation (principal); R06.02 Shortness of breath; R06.00 Dyspnea, unspecified; R06.2 Wheezing; R09.89 Other specified symptoms and signs involving the circulatory and respiratory systems; Z72.0 Tobacco use
CPT/HCPCS: 71046; 80053; 82803; 83735; 83880; 84145; 84484; 85025; 85610; 86803; 87389; 87631; 93005; 96374; 99284; J1100; J7620

== ENCOUNTER 2024-06-08 11:07 | Observation (INO) | payer MEDICARE, SELFPAY ==
[2024-06-08] VITALS (11 sets, daily range): BP systolic 120–170; BP diastolic 63–126; PULSE 98–137; RESP 17–26; TEMP 36.7–37.7; O2SAT 90–98; BMI 35.4; BMI 35.5
--- NOTE | 2024-06-08 11:22 | ECG_ITS ---
APPROVED REPORT Exam: Resting ECG HR:123 bpm ECG Measurements Heart Rate 123 AXES VT 140 P 48 QRSd 79 QRS 81 QT 311 T 39 QTc [address] depression in leads II and III normal axis Electronically signed by : Jaimie Marie, 06/08/2024 16:22:51
[2024-06-08 11:26] LABS: Influenza A, PCR Not Detected (NotDetected); Influenza B, PCR Not Detected (NotDetected)
--- NOTE | 2024-06-08 11:44 | PC.NURSE ---
DR BEATTY AT BEDSIDE
--- NOTE | 2024-06-08 11:46 | XR_ITS ---
FINAL REPORT CLINICAL HISTORY: soa cough COMPARISON: 05/02/2024 FINDINGS: CHEST 2 VIEWS PA AND LATERAL The heart is normal in size. The mediastinum is unremarkable. There is moderate right effusion, similar to previous. There is mild atelectasis in the right lower lobe. The left lung is clear. There is no pneumothorax. IMPRESSION: Stable moderate right effusion. Reviewed, Interpreted and Dictated by Josue Denson MD Transcribed by Ivana France Authenticated and [facility]
--- NOTE | 2024-06-08 11:46 | HMH.EDGENADL ---
Discharge Plan Disposition Patient Disposition: Admitted Clinical Impressions Clinical Impression: COPD exacerbation Discharge ED Provider: Jaimie Marie General Adult HPI General Chief complaint: Shortness of Breath/Dyspnea Stated complaint: cough, SOA Time Seen by Provider: 06/08/24 11:43 Mode of Arrival: Ambulatory Source of Information: Patient Description of Symptoms (Recalled from ER Triage Doc. by RN): PT TO THE ED FOR SOB AND NONPRODUCTIVE COUGH X 2 DAYS, PT DENIES ANY FEVER OR KNOWN ILLNESS. PT ALSO REPORTS THAT THEY RECENTLY FOUND BLACK MOLD IN HER APARTMENT. History of Present Illness HPI narrative: Patient is a 54-year-old past medical history significant for COPD, current smoker presents to the emergency department with shortness of breath. Patient has had 2 days of nonproductive cough with increased shortness of breath. Takes albuterol inhaler but no other inhalers at baseline. Denies fevers or chills. No chest pain. Related Data Home Medications ?Medication ?Instructions ?Recorded ?Confirmed No Known Home Medications 06/08/24 06/08/24 Allergies Allergy/AdvReac Type Severity Reaction Status Date / Time diphenhydramine Allergy Mild RASH, ITCH Verified 05/02/24 11:53 (DIPHENHYDRAMINE) [facility] Disclaimer: The information contained in this section may have been updated after the patient was seen, as this information can be updated by other users. Medical History (Updated 06/08/24 @ 14:23 by Jaimie Marie MD) Rheumatoid arthritis Surgical History Hx of hysterectomy Hx of cholecystectomy Family History Other No significant family history Social History (Updated 06/08/24 @ 14:10 by Karolyn Fox RN) Smoking Status: Smoker, status unknown tobacco type: cigarettes packs per day: 1 second hand exposure: Yes alcohol intake: never substance use type: denies use current occupational status: disabled Travel in the last 8 weeks: None household members: spouse housing: apartment current occupational exposures/hazards: No caffeine: Yes Have you lived/traveled outside US in past 30 days?: No Contact w/someone who lives/traveled outside US past 30 days?: No Exposure to someone with infectious disease in past 14 days?: No Do you have a fever (greater than 100.4 F or 38 C)?: No Have you tested positive for COVID-19: No Exposed to someone with COVID-19 in past 14 days?: No Do you have a sore throat?: No Do you have a cough?: Yes Do you have any weakness?: No Do you have any diarrhea?: No Are you experiencing any unusual bleeding?: No Do you have any muscle aches/pain?: No Do you have any abdominal pain?: No Are you experiencing loss of taste or smell?: No Other Medical History Have you received the Flu Vaccine for this season: No Have you received the Pneumonia Vaccine: No ROS Obtained: Yes All systems reviewed & no additional complaints except as documented Physical Exam General General appearance: alert Comment: Diaphoretic Respiratory Respiratory exam: Present respiratory distress, wheezes, accessory muscle use and prolonged expiratory phase; Absent stridor Cardiovascular Cardiovascular exam: Present normal rhythm and tachycardia Abdominal Exam Abdominal exam: Present soft; Absent distention or tenderness Neurological Exam Neurological exam: Present alert and oriented X3 Skin Skin exam: Present warm and diaphoresis Medical Decision Making Medical Records Screening: Per USPSTF and CDC recommendations, given the prevalence of disease in our region, it is our hospital?s policy to screen for HIV and viral Hepatitis for all patients aged 18 and over and those with ongoing risk factors. Joel Inquiry Pt receiving controlled substance: No Vital Signs: 06/08/24 11:08 06/08/24 11:32 06/08/24 12:20 Temperature 98.5 F Temperature Source Oral Pulse Rate 108 H 114 H Pulse Rate [Left Radial] 117 H Respiratory Rate 17 18 Blood Pressure 157/85 H Blood Pressure [Right Arm] 155/104 H Blood Pressure Mean 109 Blood Pressure Mean [Right Arm] 121 Blood Pressure Source [Right Arm] Automatic Cuff Blood Pressure Position [Right Arm] Sitting 02 Sat by Pulse Oximetry 96 95 96 Oxygen Delivery Method Room Air 06/08/24 12:21 06/08/24 12:30 06/08/24 13:01 Temperature Temperature Source Pulse Rate 100 H 109 H 137 H Pulse Rate [Left Radial] Respiratory Rate Blood Pressure 138/88 161/110 H 170/126 H Blood Pressure [Right Arm] Blood Pressure Mean 131 Blood Pressure Mean [Right Arm] Blood Pressure Source [Right Arm] Blood Pressure Position [Right Arm] 02 Sat by Pulse Oximetry 98 98 92 L Oxygen Delivery Method Lab Data Lab Results 06/08/24 11:15: SARS-CoV-2 (PCR) Detected A, Influenza A Untype (PCR) Not detected, Influenza Type B (PCR) Not detected 06/08/24 11:31: WBC 5.8, RBC 4.92, Hgb 13.7, Hct 42.3, MCV 86.0, MCH 27.8, MCHC 32.4, RDW 14.2, Plt Count 263, MPV 9.7, Neut % (Auto) 63.6, Lymph % (Auto) 22.0, [place] % (Auto) 11.5 H, Eos % (Auto) 1.5, Baso % (Auto) 1.2, Neut # (Auto) 3.7, Lymph # (Auto) 1.3, [place] # (Auto) 0.7, Eos # (Auto) 0.1, Baso # (Auto) 0.1, Sodium 140, Potassium 3.8, Chloride 107, Carbon Dioxide 27, Anion Gap 9.8, BUN 12, Creatinine 0.80, Estimated Creat Clear 112, Estimated GFR 74, Est GFR ( Amer) 90, Glucose 104 H, Calcium 9.1, Total Bilirubin 0.3, AST 36, ALT 31, Alkaline Phosphatase 95, Troponin I < 0.01, NT-Pro-B Natriuret Pep < 20.0, Total Protein 7.8, Albumin 4.3, Globulin 3.5 H, Albumin/Globulin Ratio 1.2, Procalcitonin 0.060 06/08/24 11:52: VBG pH 7.37, VBG pCO2 39.6, VBG pO2 82.6 H, VBG HCO3 22.2 L, VBG Total CO2 23.4, VBG O2 Saturation 95.1 H, VBG Base Excess -3.1 L, VBG Lactic Acid 2.3 H 06/08/24 11:31 06/08/24 11:31 Orders (Tests/Meds): ED MEDICATIONS Generic Name Dose Route Start Last Admin Trade Name Freq PRN Reason Stop Dose Admin Fluticasone/Umeclidinium/Vilanterol 1 puff 06/09/24 09:00 Fluticasone/Umeclidin/Vilanter 100/62.5/25mcg Inhaler IH 07/09/24 08:59 DAILY [facility] Ceftriaxone Sodium 2 gm/ 100 mls @ 200 mls/hr 06/08/24 13:45 06/08/24 14:20 Sodium Chloride IV 06/18/24 13:44 200 mls/hr Q24H CARLOS Administration Azithromycin 500 mg/ Sodium 250 mls @ 250 mls/hr 06/08/24 14:00 Chloride IV 06/18/24 13:59 Q24H [facility] Ipratropium [place] 0.5 mg 06/08/24 14:00 Ipratropium [place] 0.5 Mg/2.5ml Solution 07/08/24 13:59 Q4RT CARLOS Levalbuterol HCl 1.25 mg 06/08/24 14:00 06/08/24 14:20 Levalbuterol 1.25mg/3ml Neb 07/08/24 13:59 1.25 mg QIDRT CARLOS Administration Prednisone 40 mg 06/09/24 09:00 Prednisone 20mg Tab PO 07/09/24 08:59 DAILY [facility] Discontinued Medications Generic Name Dose Route Start Last Admin Trade Name Freq PRN Reason Stop Dose Admin Albuterol/Ipratropium 9 ml 06/08/24 11:47 06/08/24 11:54 Ipratropium/Albuterol 3 Ml Neb 06/08/24 11:48 9 ml ONCE ONE Administration Albuterol/Ipratropium 3 ml 06/08/24 13:44 06/08/24 14:20 Ipratropium/Albuterol 3 Ml [facility] 06/08/24 13:45 3 ml ONCE ONE Administration Enoxaparin Sodium 40 mg 06/08/24 13:58 Enoxaparin 40mg/0.4ml Syringe SUBCUT 06/08/24 13:59 ONCE ONE Magnesium Sulfate 2 gm in 50 mls @ 50 mls/hr 06/08/24 11:46 06/08/24 11:54 Magnesium Sulfate 2gm/50ml Premix IV 06/08/24 12:45 50 mls/hr ONCE ONE Administration Methylprednisolone Sodium Succinate 125 mg 06/08/24 11:48 06/08/24 11:54 Methylprednisolone Sod Succ 125mg Vial IV 06/08/24 11:49 125 mg ONCE ONE Administration ORDERS Category Date Time Status POCUS Point of Care (ER Only) Stat Exams 06/08/24 11:43 Completed XR chest 2V Stat Exams 06/08/24 11:46 Completed BNP [NT Pro Brain Natriuretic Pep.] Stat Lab 06/08/24 11:31 Received Complete Blood Count Auto Diff AMLAB Lab 06/09/24 06:00 Ordered Complete Blood Count Auto Diff Stat Lab 06/08/24 11:31 Completed Comprehensive Metabolic Panel AMLAB Lab 06/09/24 06:00 Ordered Comprehensive Metabolic Panel Stat Lab 06/08/24 11:31 Completed HIV Combo Routine Lab 06/08/24 11:31 Received Hepatitis C Ab Qual. W/ RFX Routine Lab 06/08/24 11:31 Received Magnesium AMLAB Lab 06/09/24 06:00 Ordered Procalcitonin Stat Lab 06/08/24 11:31 Completed Rapid PCR Covid and Flu A/B Stat Lab 06/08/24 11:15 Completed Troponin I Q3H Lab 06/08/24 15:00 Ordered Troponin I Q3H Lab 06/08/24 18:00 Ordered Troponin I Stat Lab 06/08/24 11:31 Completed Blood Culture Stat Micro 06/08/24 14:12 Received VBG [Venous Blood Gas] Stat RT 06/08/24 11:52 Completed CA echo doppler complete Routine Y 06/08/24 13:56 Completed Medical Decision Narrative: In summary, this 54-year-old female presents to the emergency department today with shortness of breath. On initial evaluation patient is diaphoretic hypertensive tachycardic saturating appropriately on her. Differential diagnosis includes but is not limited to viral syndrome COPD exacerbation ACS pneumonia. Based on these concerns, I ordered CBC CMP troponin EKG Pro-Gordon mag VBG. ECG personally interpreted demonstrates EKG personally turbid by me and significant for ST depressions in lead II and III, sinus tachycardia Patient received 3 DuoNebs, magnesium ceftriaxone methylprednisolone for treatment. Labs personally reviewed demonstrate COVID-positive, no hypercapnia XR personally interpreted demonstrates no focal consolidation I had an interactive discussion with hospital medicine recommendations to admit to their service Critical Care Critical Care Time Critical Care Time: No
[2024-06-08 11:54] LABS: Basophils # 0.1 K/mm3 (0-0.2); Basophils % 1.2 % (0.1-2.0); Eosinophils # 0.1 K/mm3 (0.0-0.4); Eosinophils % 1.5 % (0.1-12.0); Hematocrit 42.3 % (37.0-47.0); Hemoglobin 13.7 g/dL (12.2-16.2); Lymphocytes # 1.3 K/mm3 (0.7-4.5); Mean Corpuscular HGB Conc 32.4 g/dL (31.8-35.4); Mean Corpuscular Hemoglobin 27.8 pg (27.0-31.2); Mean Platelet Volume 9.7 fl (7.4-10.4); Monocytes # 0.7 K/mm3 (0.1-1.0); Monocytes % 11.5 % (1.7-9.3); Neutrophils # 3.7 K/mm3 (1.8-7.8); Neutrophils % 63.6 % (37.0-80.0); Platelet Count 263 K/mm3 (142-424); Red Blood Count 4.92 M/mm3 (4.20-5.40); Red Cell Distribution Width 14.2 % (11.5-17.5); White Blood Count 5.8 K/mm3 (4.8-10.8)
[2024-06-08] MEDS: METHYLPREDNISOLONE SOD SUCC 125MG VIAL 125 MG IV (11:54)
[2024-06-08] MEDS: IPRATROPIUM/ALBUTEROL 3 ML NEB 9 ML IH (11:54)
[2024-06-08] MEDS: MAGNESIUM SULFATE IN WATER 2 GM/50 ML PIGGYBACK IV (11:54)
[2024-06-08 11:57] LABS: Albumin Level 4.3 g/dl (3.5-5.0); Chloride 107 mmol/L (98-107); Potassium 3.8 mmoL/L (3.5-5.1); Sodium 140 mmol/L (136-145)
[2024-06-08 11:59] LABS: Blood Urea Nitrogen 12 mg/dl (7-17); Creatinine Clearance Estimated 112 mL/min (50-200); Estimated Glomerular Filt Rate 74 ml/min (>60); GFR (African American) 90 ML/MIN (>60)
[2024-06-08 12:00] LABS: Alanine Aminotransferase 31 U/L (12-78); Albumin/Globulin Ratio 1.2 (1.1-1.8); Alkaline Phosphatase 95 U/L (38-126); Anion Gap 9.8 mEq/L (5-15); Aspartate Amino Transferase 36 U/L (14-36); Bilirubin,Total 0.3 mg/dl (0.2-1.3); Calcium 9.1 mg/dl (8.4-10.2); Carbon Dioxide 27 mmol/L (22.0-30.0); Globulin 3.5 g/dL (1.3-3.2); Glucose 104 mg/dl (74-100); Total Protein,Serum 7.8 g/dl (6.3-8.2)
[2024-06-08 12:05] LABS: VBG Base Excess -3.1 mmol/L (-2.4-2.3); VBG HCO3 22.2 mmol/L (23-30); VBG Oxygen Saturation 95.1 % (50-70); VBG PCO2 39.6 mmol/L (35-51); VBG PH 7.37 mmol/L (7.31-7.41); VBG PO2 82.6 mmol/L (28-40); VBG Total CO2 23.4 mmol/L (23-27)
[2024-06-08 12:06] LABS: Lactate Venous 2.3 mmol/L (0.4-2.0)
[2024-06-08 12:07] LABS: Coronavirus 19, PCR Detected (NotDetected)
[2024-06-08 12:19] LABS: Troponin I < 0.01 ng/ml (0.00-0.034)
--- NOTE | 2024-06-08 13:46 | PC.NURSE ---
PT HAS NOT SEEN DR BUNCH SINCE 2007
--- NOTE | 2024-06-08 13:53 | PC.NURSE ---
DATA WAREHOUSE MANAGER NOTIFIED OF ADMISSION
--- NOTE | 2024-06-08 13:56 | CA_ITS ---
APPROVED REPORT EXAM: Comprehensive 2D, Doppler, and color-flow Echocardiogram Travel Accommodations Rater: Guerda Culp RVT Ht: 5 ft 3 in Wt: 200lbs BSA: 1.93 BP: 170/126 mmHg Indications: SOA,?CHF,COVID,PLEURAL EFFUSION,COPD,SMOKER 2D Dimensions IVSd 1.16 cm F: 0.6-1.0 LVEF (Visual) 76.80 % PWd 1.12 cm F: 0.6 - 1.0 LA Volume 39.00 mL LVDd 3.75 cm F: 3.9 - 5.3 LA Volume Index 20.10 mL/m2 (M/F) 16-34 LVDs 2.07 cm F: 2.2 - 3.5 M-Mode Dimensions LA Diam 3.49 cm (1.9-4.0) TAPSE 2.33 (<1.7) Aortic Valve DIMPLE Index 1.48 cm2/m2 AoV Peak Jatin. 144.0 (50-130 cm/s) AO Peak GR. 8.30 mmHg AO Mean GR. 5.30 (<5 mmHg) AO VTI 26.3 (18-25 cm) DIMPLE (VTI) 2.94 (2.5-4.5 cm2) Pulmonary Valve PV Peak Velocity 119.0 (50-150 cm/s) Tricuspid Valve TR P. Velocity 174.00 cm/s RAP Estimate 10.00 mmHg RVSP 22.20 mmHg Left Ventricle The left ventricle is normal size. The left ventricular systolic function is normal. The left ventricular ejection fraction is within the normal range. There is normal left ventricular wall thickness. There is normal LV segmental wall motion. The left ventricular diastolic function is normal. LVEF is 65%. Right Ventricle The right ventricle is normal size. The right ventricular systolic function is normal. Atria The left atrium size is normal. The right atrium size is normal. There is no Doppler evidence of interatrial shunt. Aortic valve is mildly thickened. Aortic Valve There is no aortic valvular stenosis. No aortic regurgitation is present. Mitral Valve The mitral valve is normal in structure. No evidence of mitral valve stenosis. There is no mitral valve regurgitation noted. Tricuspid Valve Tricuspid valve is grossly normal in structure and function. Trace tricuspid regurgitation. There is insufficient TR jet to estimate RVSP. Pulmonic Valve The pulmonary valve is normal in structure. Trace pulmonic regurgitation. Great Vessels The aortic root is normal in size. IVC is normal in size and collapses >50% with inspiration. Pericardium There is no pericardial effusion. Other Information Study Quality: Fair Conclusion Normal biventricular systolic function. No significant valvular stenosis or regurgitation. Electronically signed by : Heidi Chung MD 06/11/2024 12:12:39
--- NOTE | 2024-06-08 13:57 | EXP.HP ---
History of Present Illness *Admission Date: 06/08/24 *Reason for visit:: Dyspnea, cough *History of present illness: Ms. Reina is a 54-year-old female with history of RA, tobacco use disorder, suspected COPD. She has not seen a primary care doctor in several years and was following with for her RA until last August. Care has been complicated by lack of insurance for medications. Not on regular medications over the past 10 months. She presented to the ED with worsening shortness of breath. States she has been feeling more short of breath for the past 6 months but more acutely over the past 2 to 3 days. Has had dry nonproductive cough. Denies fever. No nausea or vomiting. Intermittent stabbing chest pain with coughing. Denies chest pressure. Alert and oriented x 3. On workup in the ER, found to have stable right sided pleural effusion on chest x-ray and significant wheeze with moderate hypoxia O2 sats 90-92 on room air with tachycardia and tachypnea. Subsequently her respiratory panel returned positive for COVID. Initiated on nebulizers for COPD exacerbation and started on empiric antibiotics. Medicine consulted for management and further treatment. On arrival to the floor, patient appears in mild respiratory distress. Sats above 90 on room air. No nausea or vomiting. Feeling little bit better after nebulizers. In light of her effusion, discussed getting an echo. Patient is amenable to this. Review of her chart shows she has had a small effusion since 2021, slightly more pronounced on imaging today but stable compared to an image from 2 months ago. Was continuing to smoke up until 2 days ago. Has been smoking 5 cigarettes a day for the past several months. Used to smoke up to 2 packs a day. Does not drink. On no meds at this time for her RA. Having diffuse joint pains [facility] Disclaimer: The information contained in this section may have been updated after the patient was seen, as this information can be updated by other users. Medical History Rheumatoid arthritis Surgical History Hx of hysterectomy Hx of cholecystectomy Family History Other No significant family history Social History Smoking Status: Smoker, status unknown tobacco type: cigarettes packs per day: 1 second hand exposure: Yes alcohol intake: never substance use type: denies use current occupational status: disabled Travel in the last 8 weeks: None household members: spouse housing: apartment current occupational exposures/hazards: No caffeine: Yes Other Medical History Have you received the Flu Vaccine for this season: No Have you received the Pneumonia Vaccine: No Review of Systems Review of Systems Review of systems (narrative): 14 point review of systems performed, pertinent positives and negatives as per HPI Meds Home Medications and Allergies Home Medications ?Medication ?Instructions ?Recorded ?Confirmed ?Type No Known Home Medications 06/08/24 06/08/24 History New Prescriptions to Start Prescriptions: Allergies Allergy/AdvReac Type Severity Reaction Status Date / Time diphenhydramine Allergy Mild RASH, ITCH Verified 05/02/24 11:53 (DIPHENHYDRAMINE) Exam Data for Last 24 hours Vital signs and Labs for Last 24 Hours: Temp Pulse Resp BP Pulse Ox O2 Del Method 98.5 F 137 H 18 170/126 H 92 L Room Air 06/08/24 11:08 06/08/24 13:01 06/08/24 11:32 06/08/24 13:01 06/08/24 13:01 06/08/24 11:08 Laboratory Results - last 24 hr 06/08/24 11:15: SARS-CoV-2 (PCR) Detected A, Influenza A Untype (PCR) Not detected, Influenza Type B (PCR) Not detected 06/08/24 11:31: WBC 5.8, RBC 4.92, Hgb 13.7, Hct 42.3, MCV 86.0, MCH 27.8, MCHC 32.4, RDW 14.2, Plt Count 263, MPV 9.7, Neut % (Auto) 63.6, Lymph % (Auto) 22.0, [place] % (Auto) 11.5 H, Eos % (Auto) 1.5, Baso % (Auto) 1.2, Neut # (Auto) 3.7, Lymph # (Auto) 1.3, [place] # (Auto) 0.7, Eos # (Auto) 0.1, Baso # (Auto) 0.1, Sodium 140, Potassium 3.8, Chloride 107, Carbon Dioxide 27, Anion Gap 9.8, BUN 12, Creatinine 0.80, Estimated Creat Clear 112, Estimated GFR 74, Est GFR ( Amer) 90, Glucose 104 H, Calcium 9.1, Total Bilirubin 0.3, AST 36, ALT 31, Alkaline Phosphatase 95, Troponin I < 0.01, Total Protein 7.8, Albumin 4.3, Globulin 3.5 H, Albumin/Globulin Ratio 1.2, Procalcitonin 0.060 06/08/24 11:52: VBG pH 7.37, VBG pCO2 39.6, VBG pO2 82.6 H, VBG HCO3 22.2 L, VBG Total CO2 23.4, VBG O2 Saturation 95.1 H, VBG Base Excess -3.1 L, VBG Lactic Acid 2.3 H I & O for Last 24 hours: Intake & Output 06/05/24 06/06/24 06/07/24 06/08/24 23:59 23:59 23:59 23:59 Weight 90.718 kg Constitutional Constitutional: mild distress, obese, chronically ill appearing and cooperative *Routine HEENT Exam Head: Present normocephalic Eye: Present EOMI and PERRL ENT: Present mucous membranes moist *Routine Neck Exam Neck: Present supple; Absent lymphadenopathy *Routine Respiratory Exam Respiratory: Present accessory muscle use, prolonged expiratory phase, rhonchi, wheezes and diminished air movement; Absent crackles *Routine Cardiovascular Exam Cardiovascular: Present tachycardia Comments: Regular rhythm *Routine Abdominal Exam Abdominal: Present soft and normoactive bowel sounds; Absent tenderness *Routine Rectal Exam Rectal:: deferred *Routine Genitalia Exam Genitalia:: deferred *Routine Extremities Exam Extremities: Absent cyanosis, clubbing or edema *Routine Skin Exam Skin: Present warm; Absent rash *Routine Neurological Exam Neurological: Present alert, oriented X3 and moving all extremities; Absent altered mental status Assessment and Plan *Assessment and plan (1) Acute exacerbation of chronic obstructive pulmonary disease: Status: Acute Category: Medical Code(s): J44.1 - Chronic obstructive pulmonary disease with (acute) exacerbation (2) Pleural effusion: Status: Acute Category: Medical Code(s): J90 - Pleural effusion, not elsewhere classified (3) COVID-19: Status: Acute Category: Medical Code(s): U07.1 - COVID-19 (4) Obesity (BMI 30-39.9): Status: Acute Category: Medical Code(s): E66.9 - Obesity, unspecified (5) Rheumatoid arthritis: Status: Acute Qualifiers: Rheumatoid arthritis location: unspecified site Rheumatoid factor presence: unspecified presence Qualified Code(s): M06.9 - Rheumatoid arthritis, unspecified Category: Medical Code(s): M06.9 - Rheumatoid arthritis, unspecified (6) Tobacco use disorder: Status: Acute Category: Medical Code(s): F17.200 - Nicotine dependence, unspecified, uncomplicated (7) Hypertension: Status: Acute Category: Medical Code(s): I10 - Essential (primary) hypertension Plan 54-year-old female with history of RA, tobacco use disorder, suspected COPD. Presented with 2 days of worsening shortness of breath. Found to be COVID-positive with COPD exacerbation. Discussed case with ER physician, request admission for further care. I agreed to admit for further treatment given her unmanaged autoimmune disease and acute worsening of symptoms in the setting of COVID and underlying lung disease. Initiated on empiric antibiotics with ceftriaxone. Given viral etiology of her symptoms, will treat as COPD exacerbation with azithromycin and steroids. Further workup of her RA pending. Problems addressed as follows: COPD exacerbation COVID-19 -Respiratory panel positive for COVID. Chest imaging per my review with no focal consolidation but does have blunting of right costo-phrenic margin consistent with effusion -Initiate levalbuterol/ipratropium every 4 hours scheduled due to tachyarrhythmia. -Received methylprednisolone 125 mg IV once in the ER, continue prednisone 40 mg daily - White count normal at 5.8, hemoglobin 13.7. ESR normal at 21, CRP elevated at 32. Repeat CBC, CMP, magnesium ordered for the morning -Transition to azithromycin 500 mg daily for 5 days for COPD exacerbation -JORGE/RA panel pending - Goal sats greater 90%, currently on room air. -Initiate Trelegy 100 inhaler daily -Will consider outpatient pulmonology follow-up for further management -In setting of effusion, has not had workup to my understanding. May just simply be inflammatory. BNP less than 20. Echo pending to evaluate heart function as possible etiology; effusion too small to tap at this time. RA: On no directed therapy at this time. Has not seen rheumatology due to insurance issues. JORGE/RA panel pending at this time. Needs to establish with PCP for further management as an outpatient and referral to specialist. Will schedule for close outpatient follow-up with new PCP at discharge. Uncontrolled RA could complicate her lung disease and puts her at risk for inflammatory disease/pulmonary fibrosis, infections. Kidney function normal with BUN 12, creatinine 0.8. Tobacco use disorder: Nicotine patch as needed. Patient trying to quit. Full code Lovenox 40 mg daily Regular diet
--- NOTE | 2024-06-08 14:05 | HMH.PHAINT1 ---
Pharmacy Intervention Comments: 06/08/24--NO ROUTINE HOME MEDS. LAST MEDS FILLED WERE FROM 05/02/24 ER VISIT.
[2024-06-08 14:17] LABS: NT Pro Brain Natriuretic Pep. < 20.0 pg/mL (0-125)
[2024-06-08] MEDS: CEFTRIAXONE SODIUM 2 GM in 0.9 % SODIUM CHLORIDE 100 ML IV (14:20)
[2024-06-08] MEDS: IPRATROPIUM/ALBUTEROL 3 ML NEB IH (14:20)
[2024-06-08] MEDS: LEVALBUTEROL 1.25MG/3ML NEB 1.25 MG IH ×2 (14:20→18:39)
--- NOTE | 2024-06-08 14:35 | PC.NURSE ---
arrived by w/c from ED
[2024-06-08 14:50] LABS: HIV Combo NEGATIVE (Negative)
[2024-06-08] MEDS: ENOXAPARIN 40MG/0.4ML SYRINGE 40 MG SUBCUT (14:51)
[2024-06-08] MEDS: AZITHROMYCIN 500 MG in 0.9 % SODIUM CHLORIDE 250 ML 250 MG IV (14:51)
[2024-06-08 14:58] LABS: Hepatitis C Ab Qual. W/ RFX NEGATIVE (Negative)
--- NOTE | 2024-06-08 15:18 | PC.NURSE ---
Pt states she doesn't take any medications because she doesn't have any insurance.
[2024-06-08 15:32] LABS: Anti-Centromere B Antibodies ND; Anti-DNA (DS) Ab Qn ND; Anti-Jo-1 ND; Antichromatin Antibodies ND; Antiscleroderma-70 Antibodies ND; RNP Antibodies ND; Sjogren's Anti-SS-A ND; Sjogren's Anti-SS-B ND
[2024-06-08 15:49] LABS: Erythrocyte Sedimentation Rate 21 mm/hr (0-30)
[2024-06-08 15:50] LABS: Troponin I < 0.01 ng/ml (0.00-0.034)
[2024-06-08 16:06] LABS: Reflex Lactic Add Lactic Reflex
[2024-06-08 16:43] LABS: Lactic Acid Follow Up (RFLX 1) 3.7 mmol/L (0.7-2.1)
[2024-06-08 18:26] LABS: Reflex Lactic (2 hrs) Add Lactic Reflex
[2024-06-08 18:34] LABS: Troponin I < 0.01 ng/ml (0.00-0.034)
[2024-06-08] MEDS: IPRATROPIUM BROMIDE 0.5 MG/2.5ML SOLUTION IH (18:39)
[2024-06-08 18:46] LABS: Lactic Acid Follow up (RFLX 2) 3.3 mmol/L (0.7-2.1)
[2024-06-09] VITALS: BP 151/72; PULSE 84; RESP 16; TEMP 36.7; O2SAT 90
[2024-06-09] MEDS: IPRATROPIUM BROMIDE 0.5 MG/2.5ML SOLUTION IH ×2 (01:17→06:39)
[2024-06-09] MEDS: LEVALBUTEROL 1.25MG/3ML NEB 1.25 MG IH ×2 (01:17→06:39)
[2024-06-09 01:18] VITALS: PULSE 78; PULSE 80
[2024-06-09 04:00] VITALS: BP 131/62; PULSE 78; RESP 18; TEMP 36.6; O2SAT 95; BMI 36.6
--- NOTE | 2024-06-09 05:35 | PC.NURSE ---
patient took a shower and has slept all night with no complaints.
[2024-06-09] MEDS: FLUTICASONE/UMECLIDIN/VILANTER 100/62.5/25MCG INHALER 1 PUFF IH (06:39)
[2024-06-09 06:40] VITALS: PULSE 86; PULSE 89; O2SAT 96
--- NOTE | 2024-06-09 07:43 | P.DS_ITS ---
General Admission date:: 06/08/24 Discharge date: 06/09/24 HPI HPI HPI: Ms. Reina is a 54-year-old female with history of RA, tobacco use disorder, suspected COPD. She has not seen a primary care doctor in several years and was following with for her RA until last August. Care has been complicated by lack of insurance for medications. Not on regular medications over the past 10 months. She presented to the ED with worsening shortness of breath. States she has been feeling more short of breath for the past 6 months but more acutely over the past 2 to 3 days. Has had dry nonproductive cough. Denies fever. No nausea or vomiting. Intermittent stabbing chest pain with coughing. Denies chest pressure. Alert and oriented x 3. On workup in the ER, found to have stable right sided pleural effusion on chest x-ray and significant wheeze with moderate hypoxia O2 sats 90-92 on room air with tachycardia and tachypnea. Subsequently her respiratory panel returned positive for COVID. Initiated on n ebulizers for COPD exacerbation and started on empiric antibiotics. Medicine consulted for management and further treatment. On arrival to the floor, patient appears in mild respiratory distress. Sats above 90 on room air. No nausea or vomiting. Feeling little bit better after nebulizers. In light of her effusion, discussed getting an echo. Patient is amenable to this. Review of her chart shows she has had a small effusion since 2021, slightly more pronounced on imaging today but stable compared to an image from 2 months ago. Was continuing to smoke up until 2 days ago. Has been smo lauren 5 cigarettes a day for the past several months. Used to smoke up to 2 packs a day. Does not drink. On no meds at this time for her RA. Having diffuse joint pains Hospital Course Hospital Course Hospital Course: 54-year-old female with history of RA, tobacco use disorder, suspected COPD. Pr esented with 2 days of worsening shortness of breath. Found to be COVID- positive with COPD exacerbation. Discussed case with ER physician, request admission for further care. I agreed to admit for further treatment given her unmanaged autoimmune disease and acute worsening of symptoms in the setting of COVID and underlying lung disease. Initiated on empiric antibiotics with ceftriaxone x 1. Transitioned to azithromycin to complete treatment for COPD exacerbation. Patient remained stable overnight on room air. Will discharge home with further recommendations for outpatient care. Problems addressed as follows: COPD exacerbation COVID-19 -Respiratory panel positive for COVID. Chest imaging per my review with no focal consolidation but does have blunting of right costo-phrenic margin consistent with effusion. Effusion has been seen on imaging over the past several months but even present a few years ago. Known to patient. She was initiated on DuoNebs, steroids, azithromycin for COPD exacerbation secondary to COVID. Her white count remained normal during admission. 8.8 on day of discharge. Hemoglobin 12.4. No fevers overnight. Remained stable on room air. Improved breathing by morning. Transition to prednisone 40 mg to complete 5 days of therapy and 5 days of azithromycin for COPD exacerbation. Initiated on Trelegy inhaler, sample provided at discharge. Initiated on Combivent to use every 4-6 hours as needed for dyspnea or wheeze. Strongly encouraged patient to follow-up as soon as possible with PCP for further management. Case management consulted and patient provided with resources for insurance as this complicates her long-term access to care. She has resources to communicate with Medicaid starting on Tuesday. Stable to discharge home with further management as an outpatient. - Of note, echocardiogram was obtained with preliminary results appearing normal, formal read still pending. Obtained due to presence of effusion and her underlying COPD RA: On no directed therapy at this time. Has not seen rheumatology due to insurance issues. Rheumatoid factor elevated at 52 in January 2017. JORGE is negative at that time. During this visit her inflammatory markers were mildly elevated with CRP of 32, ESR 21 which is within normal range per our assay however. JORGE panel with reflex ordered this visit. Still pending at discharge. Referred to do PCP for further management as an outpatient and referral to specialist. Uncontrolled RA could complicate her lung disease and puts her at risk for inflammatory disease/pulmonary fibrosis, infections. Kidney function normal with BUN 14 and creatinine 0.6 on day of discharge. Tobacco use disorder: Counseled on tobacco cessation. Nicotine patch while admitted. Patient contemplative at this time. Exam Data for Last 24 hours Vital signs and Labs for Last 24 Hours: Temp Pulse Resp BP Pulse Ox O2 Del Method 97.9 F 86 18 131/62 96 Room Air 06/09/24 04:00 06/09/24 06:40 06/09/24 04:00 06/09/24 04:00 06/09/24 06:40 06/09/24 06:49 Laboratory Results - last 24 hr 06/08/24 11:15: SARS-CoV-2 (PCR) Detected A, Influenza A Untype (PCR) Not detected, Influenza Type B (PCR) Not detected 06/08/24 11:31: WBC 5.8, RBC 4.92, Hgb 13.7, Hct 42.3, MCV 86.0, MCH 27.8, MCHC 32.4, RDW 14.2, Plt Count 263, MPV 9.7, Neut % (Auto) 63.6, Lymph % (Auto) 22.0, [place] % (Auto) 11.5 H, Eos % (Auto) 1.5, Baso % (Auto) 1.2, Neut # (Auto) 3.7, Lymph # (Auto) 1.3, [place] # (Auto) 0.7, Eos # (Auto) 0.1, Baso # (Auto) 0.1, ESR 21, Sodium 140, Potassium 3.8, Chloride 107, Carbon Dioxide 27, Anion Gap 9.8, BUN 12, Creatinine 0.80, Estimated Creat Clear 112, Estimated GFR 74, Est GFR ( Amer) 90, Glucose 104 H, Calcium 9.1, Total Bilirubin 0.3, AST 36, ALT 31, Alkaline Phosphatase 95, Troponin I < 0.01, C-Reactive Protein 32.0 H, NT-Pro-B Natriuret Pep < 20.0, Total Protein 7.8, Albumin 4.3, Globulin 3.5 H, Albumin/Globulin Ratio 1.2, Procalcitonin 0.060, HCV Ab PARTH w/Rflx PCR Qn Negative, HIV Ag/Ab Combo Qual Negative 06/08/24 11:52: VBG pH 7.37, VBG pCO2 39.6, VBG pO2 82.6 H, VBG HCO3 22.2 L, VBG Total CO2 23.4, VBG O2 Saturation 95.1 H, VBG Base Excess -3.1 L, VBG Lactic Acid 2.3 H 06/08/24 15:00: Troponin I < 0.01 06/08/24 16:19: Lactate 3.7 H 06/08/24 18:00: Troponin I < 0.01 06/08/24 18:06: Lactate 3.3 H I & O for Last 24 hours: Intake & Output 06/06/24 06/07/24 06/08/24 06/09/24 23:59 23:59 23:59 23:59 Intake Total 990 / 1230 340 / 340 Output Total 0 / 0 Balance 990 / 1230 340 / 340 Weight 90.945 kg 93.638 kg Constitutional Constitutional: no acute distress, obese, chronically ill appearing and cooperative *Routine HEENT Exam Head: Present normocephalic Eye: Present EOMI and PERRL ENT: Present mucous membranes moist *Routine Neck Exam Neck: Present supple; Absent lymphadenopathy *Routine Respiratory Exam Respiratory: Present prolonged expiratory phase and wheezes (minimal, improved); Absent accessory muscle use, rhonchi or crackles *Routine Cardiovascular Exam Cardiovascular: Present RRR *Routine Abdominal Exam Abdominal: Present soft and normoactive bowel sounds; Absent tenderness *Routine Rectal Exam Patient deferred: visual exam *Routine Exam Patient deferred: external exam *Routine Extremities Exam Extremities: Absent cyanosis, clubbing or edema *Routine Skin Exam Skin: Present warm; Absent rash *Routine Neurological Exam Neurological: Present alert, oriented X3 and moving all extremities; Absent altered mental status Results Data Completed and Pending Labs on day of discharge: Labs from last 24 hours 06/08/24 06/08/24 06/08/24 18:06 18:00 16:19 WBC RBC Hgb Hct MCV MCH MCHC RDW Plt Count MPV Neut % (Auto) Lymph % (Auto) [place] % (Auto) Eos % (Auto) Baso % (Auto) Neut # (Auto) Lymph # (Auto) [place] # (Auto) Eos # (Auto) Baso # (Auto) ESR VBG pH VBG pCO2 VBG pO2 VBG HCO3 VBG Total CO2 VBG O2 Saturation VBG Base Excess VBG Lactic Acid Sodium Potassium Chloride Carbon Dioxide Anion Gap BUN Creatinine Estimated Creat Clear Estimated GFR Est GFR ( Amer) Glucose Lactate 3.3 H 3.7 H Calcium Total Bilirubin AST ALT Alkaline Phosphatase Troponin I < 0.01 C-Reactive Protein NT-Pro-B Natriuret Pep Total Protein Albumin Globulin Albumin/Globulin Ratio Procalcitonin SARS-CoV-2 (PCR) HCV Ab PARTH w/Rflx PCR Qn HIV Ag/Ab Combo Qual Influenza A Untype (PCR) Influenza Type B (PCR) 06/08/24 06/08/24 06/08/24 15:00 11:52 11:31 WBC 5.8 RBC 4.92 Hgb 13.7 Hct 42.3 MCV 86.0 MCH 27.8 MCHC 32.4 RDW 14.2 Plt Count 263 MPV 9.7 Neut % (Auto) 63.6 Lymph % (Auto) 22.0 [place] % (Auto) 11.5 H Eos % (Auto) 1.5 Baso % (Auto) 1.2 Neut # (Auto) 3.7 Lymph # (Auto) 1.3 [place] # (Auto) 0.7 Eos # (Auto) 0.1 Baso # (Auto) 0.1 ESR 21 VBG pH 7.37 VBG pCO2 39.6 VBG pO2 82.6 H VBG HCO3 22.2 L VBG Total CO2 23.4 VBG O2 Saturation 95.1 H VBG Base Excess -3.1 L VBG Lactic Acid 2.3 H Sodium 140 Potassium 3.8 Chloride 107 Carbon Dioxide 27 Anion Gap 9.8 BUN 12 Creatinine 0.80 Estimated Creat Clear 112 Estimated GFR 74 Est GFR ( Amer) 90 Glucose 104 H Lactate Calcium 9.1 Total Bilirubin 0.3 AST 36 ALT 31 Alkaline Phosphatase 95 Troponin I < 0.01 < 0.01 C-Reactive Protein 32.0 H NT-Pro-B Natriuret Pep < 20.0 Total Protein 7.8 Albumin 4.3 Globulin 3.5 H Albumin/Globulin Ratio 1.2 Procalcitonin 0.060 SARS-CoV-2 (PCR) HCV Ab PARTH w/Rflx PCR Qn Negative HIV Ag/Ab Combo Qual Negative Influenza A Untype (PCR) Influenza Type B (PCR) 06/08/24 11:15 WBC RBC Hgb Hct MCV MCH MCHC RDW Plt Count MPV Neut % (Auto) Lymph % (Auto) [place] % (Auto) Eos % (Auto) Baso % (Auto) Neut # (Auto) Lymph # (Auto) [place] # (Auto) Eos # (Auto) Baso # (Auto) ESR VBG pH VBG pCO2 VBG pO2 VBG HCO3 VBG Total CO2 VBG O2 Saturation VBG Base Excess VBG Lactic Acid Sodium Potassium Chloride Carbon Dioxide Anion Gap BUN Creatinine Estimated Creat Clear Estimated GFR Est GFR ( Amer) Glucose Lactate Calcium Total Bilirubin AST ALT Alkaline Phosphatase Troponin I C-Reactive Protein NT-Pro-B Natriuret Pep Total Protein Albumin Globulin Albumin/Globulin Ratio Procalcitonin SARS-CoV-2 (PCR) Detected A HCV Ab PARTH w/Rflx PCR Qn HIV Ag/Ab Combo Qual Influenza A Untype (PCR) Not detected Influenza Type B (PCR) Not detected DS: Diagnosis Discharge Diagnosis (1) Acute exacerbation of chronic obstructive pulmonary disease: Status: Acute Code(s): J44.1 - Chronic obstructive pulmonary disease with (acute) exacerbation (2) Pleural effusion: Status: Acute Code(s): J90 - Pleural effusion, not elsewhere classified (3) COVID-19: Status: Acute Code(s): U07.1 - COVID-19 (4) Obesity (BMI 30-39.9): Status: Acute Code(s): E66.9 - Obesity, unspecified (5) Rheumatoid arthritis: Status: Acute Code(s): M06.9 - Rheumatoid arthritis, unspecified Qualifiers: Rheumatoid arthritis location: unspecified site Rheumatoid factor presence: unspecified presence Qualified Code(s): M06.9 - Rheumatoid arthritis, unspecified (6) Tobacco use disorder: Status: Acute Code(s): F17.200 - Nicotine dependence, unspecified, uncomplicated (7) Hypertension: Status: Acute Code(s): I10 - Essential (primary) hypertension Meds Home Medications and Allergies Home Medications ?Medication ?Instructions ?Recorded ?Confirmed ?Type azithromycin 500 mg tablet 500 mg PO DAILY 3 days #3 tabs 06/09/24 Rx fluticasone fur. 100 mcg-umeclid 1 inh inhalation DAILY 30 days #60 06/09/24 Rx 62.5 mcg-vilant 25 mcg ea inhalat.powder (Trelegy Ellipta) prednisone 20 mg tablet 40 mg (2 x 20 mg) PO DAILY 4 days 06/09/24 Rx #8 tabs New Prescriptions to Start Prescriptions: Bradley Soares [id number] [Trelegy Ellipta] Bradley Devi prednisone Bradley Devi Allergies Allergy/AdvReac Type Severity Reaction Status Date / Time diphenhydramine Allergy Mild RASH, ITCH Verified 05/02/24 11:53 (DIPHENHYDRAMINE) Discharge Plan Disposition Patient Disposition: Home, Self-Care Condition: Fair Follow up Plan Follow up with: Bimal Mckeon DO [Staff Physician] - 06/14/24 9:30 am Prescriptions/Medication Reconciliation: Ramirez Prado Ellipta 100-62.5-25 mcg Blister With Device 1 inh inhalation DAILY 30 Days Qty: 60 0RF prednisone 20 mg Tablet 40 mg PO DAILY 4 Days Qty: 8 0RF azithromycin 500 mg tablet 500 mg PO DAILY 3 Days Qty: 3 0RF Problem Reconciliation Problems Reviewed?: Yes Patient Discharge Instructions ACTIVITY: Continue current activity DIET: continue same diet Patient Instructions: Chronic Obstructive Pulmonary Disease, COVID-19, How to Care for Someone with COVID-19 Print Language: Setswana Providers Primary Care Provider: Provider,Referral Admit Provider: Bradley Devi Attending Provider: Bradley Devi
[2024-06-09 08:00] VITALS: BP 130/79; PULSE 102; RESP 20; TEMP 36.4; O2SAT 92
[2024-06-09 08:06] LABS: Basophils % 0.3 % (0.1-2.0); Lymphocytes # 1.2 K/mm3 (0.7-4.5); Lymphocytes % 13.8 % (10-50); Mean Corpuscular HGB Conc 32.7 g/dL (31.8-35.4); Mean Corpuscular Hemoglobin 27.6 pg (27.0-31.2); Mean Corpuscular Volume 84.3 fl (81-99); Monocytes # 0.4 K/mm3 (0.1-1.0); Monocytes % 4.9 % (1.7-9.3); Neutrophils # 7.1 K/mm3 (1.8-7.8); Neutrophils % 80.9 % (37.0-80.0); Platelet Count 237 K/mm3 (142-424); Red Blood Count 4.39 M/mm3 (4.20-5.40); Red Cell Distribution Width 14.1 % (11.5-17.5); White Blood Count 8.8 K/mm3 (4.8-10.8)
[2024-06-09 08:19] LABS: Hemoglobin 12.4 g/dL (12.2-16.2)
[2024-06-09 08:21] LABS: Alanine Aminotransferase 28 U/L (12-78); Albumin Level 3.9 g/dl (3.5-5.0); Albumin/Globulin Ratio 1.2 (1.1-1.8); Alkaline Phosphatase 80 U/L (38-126); Anion Gap 9.4 mEq/L (5-15); Aspartate Amino Transferase 32 U/L (14-36); Blood Urea Nitrogen 14 mg/dl (7-17); Carbon Dioxide 25 mmol/L (22.0-30.0); Chloride 109 mmol/L (98-107); Creatinine Clearance Estimated 155 mL/min (50-200); Estimated Glomerular Filt Rate 103 ml/min (>60); GFR (African American) 125 ML/MIN (>60); Globulin 3.2 g/dL (1.3-3.2); Glucose 122 mg/dl (74-100); Magnesium 2.2 mg/dl (1.6-2.3); Potassium 3.4 mmoL/L (3.5-5.1); Sodium 140 mmol/L (136-145); Total Protein,Serum 7.1 g/dl (6.3-8.2)
[2024-06-09 08:23] LABS: Bilirubin,Total 0.1 mg/dl (0.2-1.3)
[2024-06-09] MEDS: predniSONE 20MG TAB 40 MG PO (09:04)
[2024-06-09] MEDS: NICOTINE 7MG/24HRS PATCH 7 MG TD (09:05)
[2024-06-09] MEDS: AZITHROMYCIN 250MG TABLET 500 MG PO (09:05)
[2024-06-09] MEDS: COMBIVENT 20MCG/100MCG RESPIMAT INHALER 2 PUFF IH (09:51)
--- NOTE | 2024-06-11 10:39 | SW/DCPLANNER ---
Spoke with patient on the phone. Patient stated that she is doing okay but still sick. Patient stated that she is aware of her upcoming appointments. Patient stated that she was able to pick out hand her new medicine from clinic pharmacy. Patient stated that she has no concerns or questions at this time. Vandana Manuel
[2024-06-11 17:19] LABS: Antinuclear Antibodies (ANA) Negative (Negative)
== END 2024-06-09 11:14 | disposition home or self-care (01) ==
LOC: ER 13:52 → 2ND 14:01
PROVIDERS: Admitting Provider Internal Medicine Adolescent Medicine; Emergency Provider Student in an Organized Health Care Education/Training Program; Visit Provider Internal Medicine Adolescent Medicine
DX: J44.1 Chronic obstructive pulmonary disease with (acute) exacerbation (principal); J90 Pleural effusion, not elsewhere classified; U07.1 COVID-19; Z68.36 Body mass index [BMI] 36.0-36.9, adult; E66.9 Obesity, unspecified; M06.9 Rheumatoid arthritis, unspecified; F17.200 Nicotine dependence, unspecified, uncomplicated; I10 Essential (primary) hypertension; Z59.71 Insufficient health insurance coverage
CPT/HCPCS: 36415; 71046; 80053; 82803; 83605; 83735; 83880; 84145; 84484; 85025; 85651; 86038; 86140; 86225; 86235; 86803; 87040; 87389; 87636; 93005; 93306; 94640; 99285; G0378; J0456; J0696; J1650; J2919; J3475; J7050; J7614; J7620; J7644

== ENCOUNTER 2024-09-10 03:59 | Emergency (ER) | payer MEDICARE, SELFPAY ==
[2024-09-10 04:11] VITALS: BP 184/111; PULSE 101; RESP 16; TEMP 37.2; O2SAT 94; BMI 32.9
--- NOTE | 2024-09-10 04:11 | XR_ITS ---
PROCEDURE INFORMATION: Exam: XR Chest Exam date and time: 09/10/2024 4:25 AM Age: 54 years old Clinical indication: Shortness of breath; Additional info: SOA TECHNIQUE: Imaging protocol: Radiologic exam of the chest. Views: 1 view. COMPARISON: CR XR CHEST 2V 06/08/2024 11:51 AM FINDINGS: Lungs: Suspected small volume, chronic atelectasis at the right base. The left lung is clear. Pleural spaces: There is a emrpc-ta-iooftrll size right pleural effusion. The overall size of the effusion is relatively stable when compared to the prior imaging. Heart/Mediastinum: Unremarkable. No cardiomegaly. Bones/joints: No acute osseous lesions appreciated. There are chronic degenerative changes at each shoulder. Other findings: Image quality is significantly degraded by the radiographic technique. IMPRESSION: Image quality is significantly degraded by the radiographic technique, but there appears to be a [id number]-emyqextj size right pleural effusion and chronic atelectasis of the right lung base. The effusion is similar in size when compared to the prior exam.
--- NOTE | 2024-09-10 04:11 | ECG_ITS ---
APPROVED REPORT Exam: Resting ECG HR:93 bpm ECG Measurements Heart Rate 93 AXES [place] 157 P 66 QRSd 87 QRS 73 QT 355 T 46 QTc 406 Conclusion SINUS RHYTHM NORMAL ECG UNCONFIRMED REPORT Electronically signed by : NERY EASTMAN, 09/10/2024 06:39:44
--- NOTE | 2024-09-10 04:14 | ED_ITS ---
Discharge Plan Disposition Patient Disposition: Home, Self-Care Prescriptions Prescriptions: New rivaroxaban 15 mg (42)- 20 mg (9) tablets,dose pack See Rx Instructions .ROUTE .COMPLEX Qty: 51 0RF Rx Instructions: take one-15 mg tablet twice daily for 21 days, then one-20 mg tablet once daily; must take with meal/food Xarelto 20 mg tablet 20 mg PO DAILY Qty: 60 0RF No Action Trelegy Ellipta 100-62.5-25 mcg Blister With Device 1 inh inhalation DAILY 30 Days Qty: 60 0RF prednisone 20 mg Tablet 40 mg PO DAILY 4 Days Qty: 8 0RF azithromycin 500 mg tablet 500 mg PO DAILY 3 Days Qty: 3 0RF Activity Restrictions/Add. Instructions Additional Instructions/Restrictions: Recommend initiating care with the primary care doctor soon as possible. Please take anticoagulation as prescribed for the next 3 months. Please follow precautions as discussed regarding blood thinner usage. Clinical Impressions Clinical Impression: DVT (deep venous thrombosis) Qualifiers: DVT location: lower extremity Affected thrombotic vein of extremity: popliteal Chronicity: acute Laterality: left Qualified Code(s): I82.432 - Acute embolism and thrombosis of left popliteal vein Instructions Patient Instructions: DI for Deep Vein Thrombosis, Direct Oral Anticoagulants (Alternative Therapy) Print Language Print Language: Bermudian Discharge ED Provider: Nitin Corbin Adult HPI General Chief complaint: Extremity Injury, Lower Stated complaint: swollen feet neck pain Time Seen by Provider: 09/10/24 04:00 History of Present Illness HPI narrative: 54-year-old female with history of rheumatoid arthritis presents for lower extremity swelling. She reports has been ongoing and worsening for the last month or so. The left side is significantly worse than the right. She denies any history of blood clots. She does report history of pleural effusions in the past. She denies any history of heart failure and is not diuretics. She reports she takes ibuprofen 800s for her pain and is not on anything else due to not having insurance. She reports that she occasionally has spasmy pain in the left foot that will shoot all the way up into her left neck. She denies any other concerns regarding to the neck. No trauma. Related Data Previous Rx's ?Medication ?Instructions ?Recorded azithromycin 500 mg tablet 500 mg PO DAILY 3 days #3 t abs 06/09/24 fluticasone fur. 100 mcg-umeclid 1 inh inhalation MARIANN Y 30 days #60 06/09/24 62.5 mcg-vilant 25 mcg ea inhalat.powder (Trelegy Ellipta) prednisone 20 mg tablet 40 mg (2 x 20 mg) PO DAILY 4 days 06/09/24 #8 tabs rivaroxaban 15 mg (42)-20 mg (9) See Rx Instructions P O .COMPLEX 09/10/24 tablets in a starter pack #51 tabs rivaroxaban 20 mg tablet (Xarelto) 20 mg PO DAILY #60 tabs 09/10/24 Allergies Allergy/AdvReac Type Severity Reaction Status Date / Time diphenhydramine Allergy Mild RASH, ITCH Verified 05/02/24 11:53 (DIPHENHYDRAMINE) [facility] Disclaimer: The information contained in this section may have been updated after the patient was seen, as this information can be updated by other users. Medical History Rheumatoid arthritis Surgical History Hx of hysterectomy Hx of cholecystectomy Family History Other No significant family history Social History Smoking Status: Current every day smoker tobacco type: cigarettes packs per day: 1 second hand exposure: Yes alcohol intake: never substance use type: denies use current occupational status: disabled Travel in the last 8 weeks?: None household members: spouse housing: apartment current occupational exposures/hazards: No caffeine: Yes Have you lived/traveled outside US in past 30 days?: No Contact w/someone who lives/traveled outside US past 30 days?: No Exposure to someone with infectious disease in past 14 days?: No Do you have a fever (greater than 100.4 F or 38 C)?: No Have you tested positive for COVID-19?: No Exposed to someone with COVID-19 in past 14 days?: No Do you have a sore throat?: No Do you have a cough?: No Do you have any weakness?: No Do you have any diarrhea?: No Are you experiencing any unusual bleeding?: No Do you have any muscle aches/pain?: No Do you have any abdominal pain?: No Are you experiencing loss of taste or smell?: No Other Medical History Have you received the Flu Vaccine for this season: No Have you received the Pneumonia Vaccine: No ROS Obtained: Yes All systems reviewed & no additional complaints except as documented Physical Exam General General appearance: alert and in no apparent distress Head Head exam: atraumatic and normocephalic Eye Eye exam: Present normal appearance, PERRL and EOMI ENT ENT exam: Present normal oropharynx and normal external ear exam Neck Neck exam: Present normal inspection and full ROM; Absent tenderness Chest Chest inspection: Present normal inspection and symmetric chest wall rise; Absent tenderness Respiratory Respiratory exam: Present normal lung sounds bilaterally; Absent respiratory distress or wheezes Cardiovascular Cardiovascular exam: Present regular rate and normal rhythm Abdominal Exam Abdominal exam: Present soft; Absent distention, tenderness or guarding Extremities Exam Extremities exam: Present normal inspection and edema (Mild pitting edema of the right foot. Significant pitting edema of the left foot extending up to the knee. No significant tenderness in the popliteal fossa, no significant erythema. No evidence of cellulitis.); Absent joint swelling Back Exam Back exam: Present normal inspection; Absent tenderness Neurological Exam Neurological exam: Present alert and oriented X3; Absent motor sensory deficit Psychiatric Psychiatric exam: Present normal affect and normal mood Skin Skin exam: Present warm, dry and normal color Lymphatic Lymphatic Findings: no adenopathy Medical Decision Making Medical Records Medical records reviewed: Yes I reviewed the patient's medical records. Screening: Per USPSTF and CDC recommendations, given the prevalence of disease in our region, it is our hospital?s policy to screen for HIV and viral Hepatitis for all patients aged 18 and over and those with ongoing risk factors. Joel Inquiry Pt receiving controlled substance: No Joel was queried for this patient: No Vital Signs: 09/10/24 04:11 09/10/24 04:31 09/10/24 05:29 Temperature 98.9 F 98.9 F Temperature Source Oral Pulse Rate 103 H 102 H Pulse Rate [Radial] 101 H Respiratory Rate 16 14 Blood Pressure 170/92 H 170/92 H Blood Pressure [Right Arm] 184/111 H Blood Pressure Mean [Right Arm] 135 Blood Pressure Position Sitting Blood Pressure Position [Right Arm] Sitting 02 Sat by Pulse Oximetry 94 L 96 Oxygen Delivery Method Room Air Room Air Lab Data Lab results reviewed: Yes I reviewed the patient's lab results. Lab Results 09/10/24 04:15: WBC 5.8, RBC 4.56, Hgb 12.2, Hct 37.2, MCV 81.6, MCH 26.8 L, MCHC 32.8, RDW 14.5, Plt Count 332, MPV 9.0, Neut % (Auto) 70.6, Lymph % (Auto) 18.6, [place] % (Auto) 5.7, Eos % (Auto) 3.8, Baso % (Auto) 1.0, Neut # (Auto) 4.1, Lymph # (Auto) 1.1, [place] # (Auto) 0.3, Eos # (Auto) 0.2, Baso # (Auto) 0.1, Sodium 138, Potassium 3.9, Chloride 106, Carbon Dioxide 26, Anion Gap 9.9, BUN 19 H, Creatinine 0.80, Estimated Creat Clear 101, Estimated GFR 74, Est GFR ( Amer) 90, Glucose 99, Calcium 9.4, Magnesium 1.9, Total Bilirubin 0.5, AST 28, ALT 21, Alkaline Phosphatase 104, Troponin I < 0.01, NT-Pro-B Natriuret Pep 32.2, Total Protein 7.8, Albumin 3.9, Globulin 3.9 H, Albumin/Globulin Ratio 1.0 L, TSH 1.61, Thyroxine (T4) 14.2 H 09/10/24 04:15 09/10/24 04:15 Orders (Tests/Meds): ED MEDICATIONS Discontinued Medications Generic Name Dose Route Start Last Admin Trade Name Freq PRN Reason Stop Dose Admin Rivaroxaban 1 packet 09/10/24 05:10 09/10/24 05:17 Xarelto 15mg Thp 1 Packet Mickey PO 09/10/24 05:11 1 packet ONCE ONE Administration ORDERS Category Date Time Status CXR --portable [XR chest portable] Stat Exams 09/10/24 04:11 Completed POCUS Point of Care (ER Only) Stat Exams 09/10/24 04:13 Completed BNP [NT Pro Brain Natriuretic Pep.] Stat Lab 09/10/24 04:15 Completed CBC w/Auto Diff [Complete Blood Count Auto Diff] Stat Lab 09/10/24 04:15 Completed CMP [Comprehensive Metabolic Panel] Stat Lab 09/10/24 04:15 Completed Magnesium Stat Lab 09/10/24 04:15 Completed T4 (Thyroxine) Stat Lab 09/10/24 04:15 Completed TSH [Thyroid Stimulating Hormone] Stat Lab 09/10/24 04:15 Completed Troponin I Q3H Lab 09/10/24 04:15 Completed Medical Decision Narrative: 54-year-old female with history of rheumatoid arthritis, not currently on any medication due to lack of insurance, presents for 1 month of worsening bilateral lower extremity edema, left significantly worse than right. History was obtained via interactive discussion with patient, family, chart review. On arrival, patient is [afebrile, hemodynamically stable, satting appropriately, alert, oriented x4, GCS 15], moving all extremities spontaneously. Full physical exam performed and significant for bilateral pitting pedal edema, edema extends proximally to the knee on the left side. Clear lung sounds bilaterally. Differential includes but is not limited to heart failure, renal failure, DVT, cellulitis. Workup initiated including CBC CMP troponin TSH T4 BNP EKG chest x-ray. On re-evaluation, patient [remains afebrile, HD stable.] Laboratory workup independently interpreted by me and significant for no significant renal dysfunction or electrolyte derangement, T4 mildly elevated. BNP and troponin normal.. Imaging independently interpreted by me and significant for bedside ultrasound which shows a popliteal and calf vein thrombosis. No thrombosis noted in the femoral vein.. See radiology read for full review of final results. EKG independently interpreted by me and significant for sinus rhythm, rate of 93, no concerning ischemic changes or evidence of arrhythmia. [place] [address]23. CT PE was considered, but deemed unnecessary due to no chest pain or shortness of breath, no tachycardia, we will initiate anticoagulation regardless. Given patient history, exam and workup, patient's presentation most likely represents acute left lower extremity DVT. Patient reports that she has been laid up in bed recently due to pain associated with her RA. This may be the inciting factor which prompted the development of the DVT. Patient was initiated on rivaroxaban with a take-home pack from the ER and discharged with prescription for same. She was encouraged to follow-up/establish care with PCP as soon as possible. She was given strict return precautions for trauma/bleeding as well as for development of sudden onset chest pain/shortness of breath.. Procedures Risk/Benefits of Procedure(s) Were Explained: Yes Limited Ultrasound Indication:: Limited DVT ultrasound Indication: Limited compression ultrasonography of the left lower extremity was performed to evaluate for non-compressibility of the deep veins in the patient. The ultrasound was performed with the following indications, as noted in the H&P: Left leg pain Identified structures: Left [common femoral vein, femoral vein, popliteal vein were examined.] Findings: Lower Extremity: Left CFV: Good compressibility Left FV good compressibility Left Popliteal vein: No compressibility, distal thrombosis also noted Impression: Acute DVT in the left popliteal vein extending distally Images were saved to permanent archive The study was technically adequate [id number] This study was performed by me, and I personally interpreted all images/videos. Based on my clinical judgement, these images were adequate and did not necessitate further imaging. Critical Care Critical Care Time Critical Care Time: No
--- OUTSIDE RECORDS SUMMARY | 2024-09-10 04:17 | XMS_ITS | Encounter Summary ---
Author Organization Healthcare Address [address] [place] [address] Care Team Providers Care Excelsior Machine Tender Name Role Phone Pcp, No Primary Care Provider Unavailabl e Reason for Visit * Reason Comments Med Refill Encounter Details Date Type Department Care Team (Late st Contact Info) Description 06/06/2023 Refill [facility] [address] [place] [address] Loerna Hartmann H, SALES ENGAGEMENT EXECUTIVE [address] [place] [address] Bronchitis; Shortness of breath Social History Tobacco Use Types Packs/Day Years Used Date Smoking Tobacco: Every Day Cigarettes 0.3 44.4 Started: 04/04/1980 Smokeless Tobacco: Never Comments:Have stopped for ov er a year at a time 4 times Alcohol Use Standard Drinks/Week Comments No 0 (1 standard drink = 0.6 oz pur e alcohol) PHQ-2 Answer Date Recorded Patient Health Questionnaire-2 Score 0 12/30/2022 PHQ-2A Answer Date Recorded Patient Health Questionnaire-2 Score 0 12/30/2022 Comments Unknown Sex and Gender Information Value Date Recorded Sex Assigned at Female 10/07/2021 3:44 AM EDT Legal Sex Female 8:52 PM EDT Gender Identity Female 10/07/2021 3:44 AM EDT Sexual Orientation Straight 10/07/2021 3: 44 AM EDT documented as of this encounter Miscellaneous Notes * Telephone Encounter - Cait Joy RN - 06/06/2023 5:24 PM EST Pt needs appt, hasn't been seen since 10/2022 and has no upcoming appts documented in this encounter Plan of Treatment Not on file documented as of this encounter Visit Diagnoses Diagnosis Bronchitis Bronchitis, not specified as acute or chronic Shortness of breath documented in this encounter Additional Health Concerns Assessment Noted Time A fall risk assessment has been complete d for the patient 12/30/2022 1:49 PM EDT A Body Mass Index follow-up plan has been documented for the patient 02/04/2023 8:49 AM EDT documented as of this encounter Care Teams Excelsior Machine Tender Relationship Specialty Start Date End Date Pcp, [place] [address] PCP - General Family Medicine 08/24/22 documented as of this encounter
--- OUTSIDE RECORDS SUMMARY | 2024-09-10 04:17 | XMS_ITS | Clinical Summary ---
Author Organization [facility] Address [address] [place] [address] Care Team Providers Care Home Care Aide Name Role Phone Pcp, No Primary Care Provider Unavailabl e Allergies Active Allergy Reactions Criticality Noted Date Comments Diphenhydramine Unknown - Patient st ates they do not know rxn details Low 06/20/2017 Diphenhydramine-Apap (Sleep) Unknown - P atient states they do not know rxn details Low 03/14/2018 Medications ergocalciferol (Vitamin D-2) 1.25 MG (28555 UT) capsuleIndicati ons:Vitamin D deficiency Take 1 capsule (50,000 Units total) by mouth 1 (one) time per week. 16 capsule 2 Active Additional Information Patient not taking.Reported on 09/14/2022 albuterol 108 (90 Base) MCG/ACT inhaler Inhale 2 puffs every 4 (four) hours if needed for wheezing or shortness of breath. 18 g 3 Active Fluticasone Furoate-Vilante rol (Breo Ellipta) 100-25 MCG/ACT aerosol powderIndicatio ns:Bronchitis,S hortness of breath Inhale 1 puff 1 (one) time each day. 60 each 3 3 Active folic acid (Folvite) 1 MG tabletIndicatio ns:Seropositive rheumatoid arthritis of multiple sites (CMS/HCC),High risk medication use Take 1 tablet (1 mg) by mouth 1 (one) time each day. 30 tablet 3 3 Active methotrexate 2.5 MG tabletIndicatio ns:Seropositive rheumatoid arthritis of multiple sites (CMS/HCC),High risk medication use Take 8 tablets (20 mg total) by mouth 1 (one) time per week. Follow directions carefully, and ask to explain any part you do not understand. Take exactly as directed. 32 tablet 3 3 Active sulfaSALAzine (Azulfidine) 500 MG tabletIndicatio ns:Seropositive rheumatoid arthritis of multiple sites (CMS/HCC),High risk medication use Take 2 tablets (1,000 mg) by mouth 2 (two) times a day. 120 tablet 3 3 Active Upadacitinib ER (Rinvoq) 15 MG tablet sustained-relea se 24 hourIndications :Seropositive rheumatoid arthritis of multiple sites (CMS/HCC) Take 1 tablet (15 mg) by mouth 1 (one) time each day. 30 tablet 3 3 Active Active Problems Problem Noted Date Diagnosed Date ANIL (obstructive sleep apnea) 02/03/2023 Severe obesity (BMI 35.0-39.9) with comorbidity 09/07/2021 Immunizations Immunization Administration Dates Next Due Hep A, Adult 04/04/2019 Hep B, Adolescent or Pediatric 07/06/2019 Influenza, injectable, quadrivalent, preservativ e free 04/14/2020 Influenza, seasonal, injectable, preservative fr ee 12/26/2017 Family History Medical History Relation Name Comments Cardiac disorder Brother Walter Nuno quiroga Intellectual Disability Brother Walter Nuno quiroga Stroke Brother Walter Nuno quiroga Alcohol abuse Father Walter Reina Cancer Father Walter Reina Other cancer Father Walter Reina Cardiac disorder Mother Melanie Reina Depression Mother Melanie Reina Heart disease Mother Melanie Reina Kidney disease Mother Melanie Reina Obesity Mother Melanie Reina Depression Mother's Sister Tempie Darrian Kidney disease Mother's Sister Tempie Darrian Obesity Mother's Sister Tempie Darrian Arthritis Other 1 Arthritis Other 2 Cardiac disorder Other 3 Other cancer Other 4 Cardiac disorder Sister 1 Feli perry Intellectual Disability Sister 1 Feli perry Stroke Sister 1 Feli perry Obesity Sister 2 Miriam Reina whirls Stroke Sister 2 Miriam Nuno hamlinirls Relation Name Status Comments Brother Walter Reina jr Father Walter Reina Mother Melanie Reina Mother's Sister Tempie Darrian Other 1 Other 2 Other 3 Other 4 Sister 1 Feli perry Sister 2 Miriam Reina whirgabi Social History Tobacco Use Types Packs/Day Years Used Date Smoking Tobacco: Every Day Cigarettes 0.3 44.4 Started: 04/04/1980 Smokeless Tobacco: Never Tobacco Cessation:Ready to Q uit: Not Asked; Counseling Given: Not Answered Comments:Have stopped for over a year at a time 4 times [...] Orientation Straight 10/07/2021 3: 44 AM EDT Last Filed Vital Signs Vital Sign Reading Time Taken Comments Blood Pressure 131/84 12/15/2022 11:28 AM EDT Pulse 89 12/15/2022 11:28 AM EDT Temperature 36.3 C (97.4 F) 12/15/2022 11:28 AM EDT Respiratory Rate 16 12/15/2022 11:28 AM EDT Oxygen Saturation 99% 12/15/2022 11:28 AM EDT Inhaled Oxygen Concentration - - Weight 90.7 kg (200 lb) 12/30/2022 1:47 PM EDT Height 157.5 cm (5' 2 ) 12/30/2022 1:47 PM EDT Body Mass Index 36.58 12/30/2022 1:47 PM EDT Plan of Treatment Health Maintenance Due Date Last Done Comments [facility]-/Child/Adol SDOH Screenings 1970 [facility]- SDOH Screenings 01/01/1986 [facility]-Adult SDOH Screenings 01/01/1986 [facility]-DTaP,Tdap,and Td Vaccines (1 - Tdap) 01/01/1987 [facility]-Zoster Vaccines (1 of 2) 01/01/1987 CT Colonography 01/01/2013 Colonoscopy 01/01/2013 FIT-DNA 01/01/2013 FIT 01/01/2013 FOBT 01/01/2013 Sigmoidoscopy 01/01/2013 [facility]-Colorectal Cancer Screening 01/01/2013 [facility]-Breast Cancer Screening 01/01/2018 [facility]-Pneumococcal Vaccine: 50+ Years (1 of 1 - PCV) 01/01/2018 [facility]-Hepatitis B Vaccines (2 of 3 - 19+ 3-dose series) 08/03/2019 07/06/2019 [facility]-URINS-60 Vaccine (3 - Moderna risk series) 09/23/2020 08/26/2020, 07/29/2020 [facility]-Depression Screening 12/31/2023 12/30/2022 [facility]-Influenza Vaccine (Season Ended) 2024 04/14/2020, 12/26/2017 [facility]-Hepatitis A Vaccines Aged Out 04/04/2019 No longer eligible based on patient's age to complete this topic [facility]-HIV Screening Completed 06/07/2019, , 05/26/2017 [facility]-Hepatitis C Screening Completed 2021, 06/07/2019, 05/26/2017 [facility]-Obesity Intervention Completed 023, 12/30/2022, 12/15/2022, Additional history exists HPV Vaccines Aged Out No longer eligi ble based on patient's age to complete this topic [facility]-HIB Vaccines Aged Out No longer e ligible based on patient's age to complete this topic [facility]-IPV Vaccines Aged Out No longer e ligible based on patient's age to complete this topic [facility]-Rotavirus Vaccines Aged Out No lo nger eligible based on patient's age to complete this topic Procedures Procedure Name Priority Date/Time Associated Diagnosis Comments ACUTE HEPATITIS PANEL Routine 09/09/2021 4:30 PM EDT Seropositive rheumatoid arthritis of multiple sites (CMS/HCC) High risk medication use HIV 1/2 ANTIBODY/ANTIGEN SCREEN WITH REFLEX TO HIV I/II DIFFERENTIATION Routine 06/07/2019 1:05 PM EST from Last 3 Months or Most Recently Relevant to Health Maintenance Results * Hepatitis panel, acute (09/09/2021 4:30 PM EDT) Hepatitis B Surf Antigen Negative Negative 09/11/2021 1:27 PM EDT [facility] Hepatitis C Antibody Negative Negative 09/11/2021 1:27 PM EDT [facility] Hepatitis A Antibody IgM Negative Negative 09/11/2021 1:27 PM EDT [facility] Hepatitis B Core Antibody IgM Negative Negative 09/11/2021 1:27 PM EDT [facility] Blood Venous blood specimen / Unknown Venipuncture / Unknown 09/09/2021 4:30 PM EDT 09/09/2021 4:30 PM EDT Lizeth Spivey WE[employer] SURVEYING ENGINEER LAB BLOOD ORDERABLES Fi nal Result [facility] [address] [place] [id number] * HIV 1 & 2 Antibody/Antigen Screen (06/07/2019 1:05 PM EST) [facility] HIV 1 Result NONREACTIVE Screening for HIV 1 and 2 antibodies is NONREACTIVE. No confirmatory testing is required. [facility] 06/07/2019 1:05 PM EST 06/07/2019 2:42 PM EST Halie Kong APRN, DNP LAB BLOOD ORDERABLE S Final Result [facility] from Last 3 Months or Most Recently Relevant to Health Maintenance Insurance [facility] MEDICAID [place] MEDICARE MEDICARE [employer] MEDICAID [place] Care Teams Home Care Aide Relationship Specialty Start Date End Date Maria Elena, [place] [address] PCP - General Family Medicine 08/24/22
[2024-09-10 04:24] LABS: Basophils # 0.1 K/mm3 (0-0.2); Eosinophils # 0.2 Kmm3 (0.0-0.4); Eosinophils % 3.8 % (0.1-12.0); Hematocrit 37.2 % (37.0-47.0); Hemoglobin 12.2 g/dL (12.2-16.2); Immature Granulocytes # 0.02 10^3uL; Immature Granulocytes % 0.3 %; Lymphocytes # 1.1 K/mm3 (0.7-4.5); Lymphocytes % 18.6 % (10-50); Mean Corpuscular HGB Conc 32.8 g/dL (31.8-35.4); Mean Corpuscular Hemoglobin 26.8 pg (27.0-31.2); Mean Corpuscular Volume 81.6 fl (81-99); Monocytes # 0.3 K/mm3 (0.1-1.0); Monocytes % 5.7 % (1.7-9.3); Neutrophils # 4.1 K/mm3 (1.8-7.8); Neutrophils % 70.6 % (37.0-80.0); Nucleated Red Blood Cells # 0 10^3/uL; Nucleated Red Blood Cells % 0 %; Platelet Count 332 K/mm3 (142-424); Red Blood Count 4.56 M/mm3 (4.20-5.40); Red Cell Distribution Width 14.5 % (11.5-17.5); Red Cell Distribution Width-SD 42.8 fL; White Blood Count 5.8 K/mm3 (4.8-10.8)
[2024-09-10 04:31] VITALS: BP 170/92; PULSE 103; O2SAT 96
--- NOTE | 2024-09-10 04:39 | PC.NURSE ---
+3 edema to left pedal about half way up the leg. +2 edema to right pedal. provider at the bedside to perform POCUS
[2024-09-10 04:41] LABS: Magnesium 1.9 mg/dl (1.6-2.3)
[2024-09-10 04:42] LABS: Alanine Aminotransferase 21 U/L (12-78); Albumin Level 3.9 g/dl (3.5-5.0); Alkaline Phosphatase 104 U/L (38-126); Anion Gap 9.9 mEq/L (5-15); Aspartate Amino Transferase 28 U/L (14-36); Bilirubin,Total 0.5 mg/dl (0.2-1.3); Blood Urea Nitrogen 19 mg/dl (7-17); Calcium 9.4 mg/dl (8.4-10.2); Carbon Dioxide 26 mmol/L (22.0-30.0); Chloride 106 mmol/L (98-107); Creatinine Clearance Estimated 101 mL/min (50-200); Estimated Glomerular Filt Rate 74 ml/min (>60); GFR (African American) 90 ML/MIN (>60); Globulin 3.9 g/dL (1.3-3.2); Glucose 99 mg/dl (74-100); Potassium 3.9 mmoL/L (3.5-5.1); Sodium 138 mmol/L (136-145); Total Protein,Serum 7.8 g/dl (6.3-8.2)
[2024-09-10 04:54] LABS: NT Pro Brain Natriuretic Pep. 32.2 pg/mL (0-125)
[2024-09-10 05:00] LABS: T4 (Thyroxine) 14.2 ug/dl (5.53-11.0)
[2024-09-10 05:14] LABS: Thyroid Stimulating Hormone 1.61 uIU/mL (0.465-4.68)
[2024-09-10 05:16] LABS: Troponin I < 0.01 ng/ml (0.00-0.034)
[2024-09-10] MEDS: XARELTO 15MG THP 1 PACKET PAK PO (05:17)
[2024-09-10 05:29] VITALS: BP 170/92; PULSE 102; RESP 14; TEMP 37.2; O2SAT 98
== END 2024-09-10 05:30 | disposition home or self-care (01) ==
PROVIDERS: Emergency Provider Emergency Medicine
DX: R22.43 Localized swelling, mass and lump, lower limb, bilateral (principal); I82.432 Acute embolism and thrombosis of left popliteal vein; F17.210 Nicotine dependence, cigarettes, uncomplicated; M06.9 Rheumatoid arthritis, unspecified; R94.6 Abnormal results of thyroid function studies
CPT/HCPCS: 71045; 80053; 83735; 83880; 84436; 84443; 84484; 85025; 93005; 99284

== ENCOUNTER 2024-09-23 02:40 | Emergency (ER) | payer MEDICARE, SELFPAY ==
--- NOTE | 2024-09-23 02:43 | HMH.EDGENADL ---
Discharge Plan Disposition Patient Disposition: Home, Self-Care Prescriptions Prescriptions: New methocarbamol 500 mg tablet 1,000 mg PO Q6H PRN (Reason: pain) Qty: 30 0RF No Action rivaroxaban 15 mg (42)- 20 mg (9) tablets,dose pack See Rx Instructions .ROUTE .COMPLEX Qty: 51 0RF Rx Instructions: take one-15 mg tablet twice daily for 21 days, then one-20 mg tablet once daily; must take with meal/food Xarelto 20 mg tablet 20 mg PO DAILY Qty: 60 0RF Trelegy Ellipta 100-62.5-25 mcg Blister With Device 1 inh inhalation DAILY 30 Days Qty: 60 0RF prednisone 20 mg Tablet 40 mg PO DAILY 4 Days Qty: 8 0RF azithromycin 500 mg tablet 500 mg PO DAILY 3 Days Qty: 3 0RF Referrals Follow up/Referrals: Kevin Polo MD [Primary Care Provider, Medical] - See instructions Activity Restrictions/Add. Instructions Additional Instructions/Restrictions: Please follow-up with your primary care provider. Please return to the emergency department if you develop any new or worsening symptoms or become concerned for your health. Clinical Impressions Clinical Impression: Polyarthralgia, DVT (deep venous thrombosis) Print Language Print Language: [place] Timorese Discharge ED Provider: Nitin Corbin General Adult HPI General Chief complaint: PAIN Stated complaint: Legs and arms hurting Time Seen by Provider: 09/23/24 02:43 History of Present Illness HPI narrative: 54-year-old female with history of rheumatoid arthritis, rheumatoid lung, recent diagnosis of left lower extremity DVT presents for multifocal pain. She reports that she has been having pain in her arms and legs for the last couple of days. The swelling that she initially had from her DVT has resolved. She reports that the pain is in her shoulders and in her lower legs bilaterally. No obvious trauma or injury. No recent fever or infection. She reports it does not feel like her rheumatoid arthritis. She reports that she just woke up one morning and everything was more sore. She was previously taking ibuprofen but stopped taking after starting her Xarelto because she was worried about interactions. Patient also reports some shortness of breath but denies any chest pain. Related Data Previous Rx's ?Medication ?Instructions ?Recorded azithromycin 500 mg tablet 500 mg PO DAILY 3 days #3 tabs 06/09/24 fluticasone fur. 100 mcg-umeclid 1 inh inhalation DAILY 30 days #60 06/09/24 62.5 mcg-vilant 25 mcg ea inhalat.powder (Trelegy Ellipta) prednisone 20 mg tablet 40 mg (2 x 20 mg) PO DAILY 4 days 06/09/24 #8 tabs rivaroxaban 15 mg (42)-20 mg (9) See Rx Instructions PO .COMPLEX 09/10/24 tablets in a starter pack #51 tabs rivaroxaban 20 mg tablet (Xarelto) 20 mg PO DAILY #60 tabs 09/10/24 methocarbamol 500 mg tablet 1,000 mg (2 x 500 mg) PO Q6H PRN 09/23/24 pain #30 tabs Allergies Allergy/AdvReac Type Severity Reaction Status Date / Time diphenhydramine Allergy Mild RASH, ITCH Verified 05/02/24 11:53 (DIPHENHYDRAMINE) [facility] Disclaimer: The information contained in this section may have been updated after the patient was seen, as this information can be updated by other users. Medical History Rheumatoid arthritis Surgical History Hx of hysterectomy Hx of cholecystectomy Family History Other No significant family history Social History Smoking Status: Current every day smoker tobacco type: cigarettes packs per day: 1 second hand exposure: Yes alcohol intake: never substance use type: denies use current occupational status: disabled Travel in the last 8 weeks?: None household members: spouse housing: apartment current occupational exposures/hazards: No caffeine: Yes Have you lived/traveled outside US in past 30 days?: No Contact w/someone who lives/traveled outside US past 30 days?: No Exposure to someone with infectious disease in past 14 days?: No Do you have a fever (greater than 100.4 F or 38 C)?: No Have you tested positive for COVID-19?: No Exposed to someone with COVID-19 in past 14 days?: No Do you have a sore throat?: No Do you have a cough?: No Do you have any weakness?: No Do you have any diarrhea?: No Are you experiencing any unusual bleeding?: No Do you have any muscle aches/pain?: Yes Do you have any abdominal pain?: No Are you experiencing loss of taste or smell?: No Other Medical History Have you received the Flu Vaccine for this season: No Have you received the Pneumonia Vaccine: No ROS Obtained: Yes All systems reviewed & no additional complaints except as documented Physical Exam General General appearance: alert and in no apparent distress Head Head exam: atraumatic and normocephalic Eye Eye exam: Present normal appearance, PERRL and EOMI ENT ENT exam: Present normal oropharynx and normal external ear exam Neck Neck exam: Present normal inspection and full ROM Chest Chest inspection: Present normal inspection and symmetric chest wall rise; Absent tenderness Respiratory Respiratory exam: Present normal lung sounds bilaterally; Absent respiratory distress Cardiovascular Cardiovascular exam: Present regular rate and normal rhythm Abdominal Exam Abdominal exam: Present soft; Absent distention, tenderness or guarding Extremities Exam Extremities exam: Present normal inspection and tenderness (Multifocal point tenderness in the shoulders and legs, no obvious bruising, no signs of deformity, normal strength and sensation and range of motion); Absent edema or joint swelling Back Exam Back exam: Present normal inspection; Absent tenderness Neurological Exam Neurological exam: Present alert and oriented X3; Absent motor sensory deficit Psychiatric Psychiatric exam: Present normal affect and normal mood Skin Skin exam: Present warm, dry and normal color Lymphatic Lymphatic Findings: no adenopathy Medical Decision Making Medical Records Medical records reviewed: Yes I reviewed the patient's medical records. Screening: Per USPSTF and CDC recommendations, given the prevalence of disease in our region, it is our hospital?s policy to screen for HIV and viral Hepatitis for all patients aged 18 and over and those with ongoing risk factors. Joel Inquiry Pt receiving controlled substance: No Joel was queried for this patient: No Vital Signs: 09/23/24 02:57 Temperature 98.9 F Temperature Source Oral Pulse Rate [Right Radial] 111 H Respiratory Rate 17 Blood Pressure [Right Arm] 154/93 H Blood Pressure Mean [Right Arm] 113 Blood Pressure Source [Right Arm] Automatic Cuff Blood Pressure Position [Right Arm] Sitting 02 Sat by Pulse Oximetry 98 Oxygen Delivery Method Room Air Lab Data Lab results reviewed: Yes I reviewed the patient's lab results. Lab Results 09/23/24 02:52: WBC 6.5, RBC 4.46, Hgb 12.0 L, Hct 36.8 L, MCV 82.5, MCH 26.9 L, MCHC 32.6, RDW 14.2, Plt Count 444 H, MPV 8.9, Neut % (Auto) 64.3, Lymph % (Auto) 22.5, [place] % (Auto) 7.6, Eos % (Auto) 4.2, Baso % (Auto) 1.1, Neut # (Auto) 4.2, Lymph # (Auto) 1.5, [place] # (Auto) 0.5, Eos # (Auto) 0.3, Baso # (Auto) 0.1, Sodium 134 L, Potassium 4.2, Chloride 104, Carbon Dioxide 27, Anion Gap 7.2, BUN 17, Creatinine 0.70, Estimated Creat Clear 116, Estimated GFR 87, Est GFR ( Amer) 105, Glucose 138 H, Calcium 9.7, Magnesium 2.2, Total Bilirubin 0.4, AST 28, ALT 16, Alkaline Phosphatase 83, Total Creatine Kinase 39, Total Protein 8.0, Albumin 3.9, Globulin 4.1 H, Albumin/Globulin Ratio 1.0 L 09/23/24 02:53: Troponin I < 0.01 09/23/24 02:52 09/23/24 02:52 Orders (Tests/Meds): ED MEDICATIONS Discontinued Medications Generic Name Dose Route Start Last Admin Trade Name Freq PRN Reason Stop Dose Admin Acetaminophen 1,000 mg 09/23/24 02:51 09/23/24 03:02 Acetaminophen 500mg Tab PO 09/23/24 02:52 1,000 mg ONCE ONE Administration Iopamidol 70 ml 09/23/24 03:41 09/23/24 03:42 Iopamidol-370 (76%);100ml Bottle IV 09/23/24 03:42 70 ml ONCE ONE Administration Ketorolac Tromethamine 30 mg 09/23/24 02:51 09/23/24 03:02 Ketorolac 30mg/Ml Vial IV 09/23/24 02:52 30 mg ONCE ONE Administration Methocarbamol 1,000 mg 09/23/24 02:51 09/23/24 03:02 Methocarbamol 500mg Tablet PO 09/23/24 02:52 1,000 mg ONCE ONE Administration Sodium Chloride 50 ml 09/23/24 03:41 09/23/24 03:42 0.9 % Sodium Chloride 50 Ml Vial IV 09/23/24 03:42 50 ml ONCE ONE Administration Sodium Chloride 10 ml 09/23/24 03:41 09/23/24 03:42 Sodium Chloride 0.9% 10ml Syr (Rad Only) IV 09/23/24 03:42 10 ml ONCE ONE Administration ORDERS Category Date Time Status CT angio chest PE protocol Stat Cat Scan 09/23/24 02:51 Completed CBC w/Auto Diff [Complete Blood Count Auto Diff] Stat Lab 09/23/24 02:52 Completed CK [Creatine Kinase] Stat Lab 09/23/24 02:52 Completed CMP [Comprehensive Metabolic Panel] Stat Lab 09/23/24 02:52 Completed Magnesium Stat Lab 09/23/24 02:52 Completed Troponin I Q3H Lab 09/23/24 02:53 Completed Troponin I Q3H Lab 09/23/24 06:00 Ordered ECG Data Tracing #1: I reviewed this ECG and interpreted as documented below: Sinus tachycardia, rate of 108, no significant ST 2 days, no evidence of arrhythmia ECG initial impression date: 09/23/24 ECG initial impression time: 02:51 HEART Score History (anamnesis): Slightly suspicious ECG: Normal Age: 45-65 years Risk factors: 1-2 risk factors Troponin: </= normal limit HEART Score: 2 Medical Decision Narrative: 54-year-old female with history of rheumatoid arthritis, rheumatoid lung, recent diagnosis of DVT in left lower extremity on Xarelto presents for multifocal joint pain, shortness of breath. History was obtained via interactive discussion with patient. On arrival, patient is [afebrile, hemodynamically stable, satting appropriately, alert, oriented x4, GCS 15], moving all extremities spontaneously. Full physical exam performed and significant for generalized tenderness, no focal evidence of injury, deformity, joint effusion, limb swelling, etc. Differential includes but is not limited to DVT that has progressed to PE, new DVTs, rheumatoid exacerbation, viral syndrome, rhabdo,. Patient was given Tylenol Toradol Robaxin for symptomatic management and correction of underlying abnormalities. Workup initiated including CBC CMP troponin mag CTA chest. On re-evaluation, patient [remains afebrile, HD stable.] Laboratory workup independently interpreted by me and significant for stable anemia, no leukocytosis, no significant electrolyte derangement, negative troponin. Imaging independently interpreted by me and significant for stable/ slightly larger right-sided pleural effusion, no obvious PE.. See radiology read for full review of final results. On reassessment patient reports improvement in her pain. Unclear exactly what the underlying etiology is, but no evidence of emergent pathology at this time. Does not seem consistent with rheumatoid exacerbation. Patient was discharged in stable condition with return precautions and prescription for muscle relaxers. Procedures Risk/Benefits of Procedure(s) Were Explained: Yes Critical Care Critical Care Time Critical Care Time: No
--- NOTE | 2024-09-23 02:51 | CT_ITS ---
PROCEDURE INFORMATION: Exam: CTA Chest With Contrast Exam date and time: 09/23/2024 3:32 AM Age: 54 years old Clinical indication: Shortness of breath; Additional info: Worsening SOB, HX dvt TECHNIQUE: Imaging protocol: Computed tomographic angiography of the chest with contrast. Exam focused on the arteries. 3D rendering (Not supervised by radiologist): MIP and/or 3D reconstructed images were created by the technologist. Radiation optimization: All CT scans at this facility use at least one of these dose optimization techniques: automated exposure control; mA and/or kV adjustment per patient size (includes targeted exams where dose is matched to clinical indication); or iterative reconstruction. Contrast material: [id number]; Contrast volume: 70 ml; Contrast route: INTRAVENOUS (IV); COMPARISON: CT ANGIO CHEST PE PROTOCOL 08/20/2023 12:02 AM FINDINGS: Pulmonary arteries: Normal. No pulmonary emboli. Aorta: Unremarkable. No aortic aneurysm. No aortic dissection. Lungs: Granuloma in the left lower lobe. Pleural spaces: Moderate sized right-sided pleural effusion, unchanged from prior. Heart: Stable 17 x 12 mm nodule adjacent to the right heart in the mid to upper chest, unchanged dating back to at least 2021. Coronary arteries: No coronary calcium noted. Lymph nodes: Unremarkable. No enlarged lymph nodes. Bones/joints: Unremarkable. No acute fracture. Soft tissues: Unremarkable. IMPRESSION: 1. No evidence of pulmonary embolus. 2. Stable moderate right-sided pleural effusion. 3. Stable noncalcified right-sided 17 x 12 mm pleural-based nodule unchanged from 2021.
--- NOTE | 2024-09-23 02:54 | ECG_ITS ---
APPROVED REPORT Exam: Resting ECG HR:108 bpm ECG Measurements Heart Rate 108 AXES GA 124 P 48 QRSd 79 QRS 66 QT 332 T 43 QTc 395 Conclusion SINUS TACHYCARDIA ABNORMAL RHYTHM ECG UNCONFIRMED REPORT Electronically signed by : NEYR EASTMAN, 09/25/2024 06:31:58
[2024-09-23 02:57] VITALS: BP 154/93; PULSE 111; RESP 17; TEMP 37.2; O2SAT 98; BMI 31.8
[2024-09-23] MEDS: METHOCARBAMOL 500MG TABLET 1000 MG PO (03:02)
[2024-09-23] MEDS: ACETAMINOPHEN 500MG TAB 1000 MG PO (03:02)
[2024-09-23] MEDS: KETOROLAC 30MG/ML VIAL 30 MG IV (03:02)
--- OUTSIDE RECORDS SUMMARY | 2024-09-23 03:02 | XMS_ITS | Encounter Summary ---
Author Organization Healthcare Address [address] [place] [address] Care Team Providers Care Manual Lathe Machinist Name Role Phone Pcp, No Primary Care Provider Unavailabl e Reason for Visit * Reason Comments Med Refill Encounter Details Date Type Department Care Team (Late st Contact Info) Description 06/06/2023 Refill [facility] [address] [place] [address] Lorena Hartmann H, GRINDING OPERATOR [address] [place] [address] Bronchitis; Shortness of breath Social History Tobacco Use Types Packs/Day Years Used Date Smoking Tobacco: Every Day Cigarettes 0.2 44.5 Started: 04/04/1980 Smokeless Tobacco: Never Comments:Have stopped [...] documented as of this encounter Care Teams Manual Lathe Machinist Relationship Specialty Start Date End Date Pcp, [place] [address] PCP - General Family Medicine 08/24/22 documented as of this encounter
--- OUTSIDE RECORDS SUMMARY | 2024-09-23 03:02 | XMS_ITS | Clinical Summary ---
Author Organization [facility] Address [address] [place] [address] Care Team Providers Care Risk Officer Name Role Phone Pcp, No Primary Care Provider Unavailabl e Allergies Active Allergy Reactions Criticality Noted Date Comments Diphenhydramine Unknown - Patient st ates they do not know rxn details Low 06/20/2017 Diphenhydramine-Apap (Sleep) Unknown - P atient states they do not know rxn details Low 03/14/2018 Medications ergocalciferol (Vitamin D-2) 1.25 MG (25508 UT) capsuleIndicati ons:Vitamin D deficiency Take 1 [...] 0.2 44.5 Started: 04/04/1980 Smokeless Tobacco: Never Tobacco Cessation:Ready [...] Health Maintenance Due Date Last Done Comments [facility]-Infant/Child/Adol SDOH Screenings 1968 [facility]- SDOH Screenings 01/01/1986 [...] 3 - 19+ 3-dose series) 08/03/2019 07/06/2019 [id number] Vaccine (3 - Moderna risk series) 09/23/2020 [...] Antibody Negative Negative 09/11/2021 1:27 PM EDT [facility] Hepatitis A Antibody IgM Negative Negative 09/11/2021 1:27 PM EDT [facility] Hepatitis B Core Antibody IgM Negative Negative 09/11/2021 1:27 PM EDT [facility] Blood Venous blood specimen / Unknown Venipuncture / Unknown 09/09/2021 4:30 PM EDT 09/09/2021 4:30 PM EDT Lizeth Spivey PIG IRON LOADER LAB BLOOD ORDERABLES Fi nal Result [facility] [address] [place] [id number] * HIV 1 & 2 Antibody/Antigen Screen (06/07/2019 1:05 PM EST) [facility] HIV 1 Result NONREACTIVE Screening for HIV 1 and 2 antibodies is NONREACTIVE. No confirmatory testing is required. SUNQUEST 06/07/2019 1:05 PM EST 06/07/2019 2:42 PM EST Halie Kong APRN, DNP LAB BLOOD ORDERABLE S Final Result SUNQUEST from Last 3 Months or Most Recently Relevant to Health Maintenance Insurance [facility] MEDICAID [place] MEDICARE MEDICARE [place] MEDICAID [place] Care Teams Risk Officer Relationship Specialty Start Date End Date Maria Elena, [place] [address] PCP - General Family Medicine 08/24/22
[2024-09-23 03:09] LABS: Basophils # 0.1 K/mm3 (0-0.2); Basophils % 1.1 % (0.1-2.0); Eosinophils # 0.3 Kmm3 (0.0-0.4); Eosinophils % 4.2 % (0.1-12.0); Hematocrit 36.8 % (37.0-47.0); Immature Granulocytes # 0.02 10^3uL; Immature Granulocytes % 0.3 %; Lymphocytes # 1.5 K/mm3 (0.7-4.5); Lymphocytes % 22.5 % (10-50); Mean Corpuscular HGB Conc 32.6 g/dL (31.8-35.4); Mean Corpuscular Hemoglobin 26.9 pg (27.0-31.2); Mean Corpuscular Volume 82.5 fl (81-99); Mean Platelet Volume 8.9 fl (7.4-10.4); Monocytes # 0.5 K/mm3 (0.1-1.0); Monocytes % 7.6 % (1.7-9.3); Neutrophils # 4.2 K/mm3 (1.8-7.8); Neutrophils % 64.3 % (37.0-80.0); Nucleated Red Blood Cells # 0 10^3/uL; Nucleated Red Blood Cells % 0 %; Platelet Count 444 K/mm3 (142-424); Red Blood Count 4.46 M/mm3 (4.20-5.40); Red Cell Distribution Width 14.2 % (11.5-17.5); Red Cell Distribution Width-SD 42.4 fL; White Blood Count 6.5 K/mm3 (4.8-10.8)
[2024-09-23 03:13] LABS: Alanine Aminotransferase 16 U/L (12-78); Albumin Level 3.9 g/dl (3.5-5.0); Alkaline Phosphatase 83 U/L (38-126); Anion Gap 7.2 mEq/L (5-15); Aspartate Amino Transferase 28 U/L (14-36); Bilirubin,Total 0.4 mg/dl (0.2-1.3); Blood Urea Nitrogen 17 mg/dl (7-17); Calcium 9.7 mg/dl (8.4-10.2); Carbon Dioxide 27 mmol/L (22.0-30.0); Chloride 104 mmol/L (98-107); Creatine Kinase 39 U/L (30-135); Creatinine Clearance Estimated 116 mL/min (50-200); Estimated Glomerular Filt Rate 87 ml/min (>60); GFR (African American) 105 ML/MIN (>60); Globulin 4.1 g/dL (1.3-3.2); Glucose 138 mg/dl (74-100); Magnesium 2.2 mg/dl (1.6-2.3); Potassium 4.2 mmoL/L (3.5-5.1); Sodium 134 mmol/L (136-145)
--- NOTE | 2024-09-23 03:28 | PC.NURSE ---
PT to CT by WC at this time
[2024-09-23] MEDS: 0.9 % SODIUM CHLORIDE 50 ML VIAL IV (03:42)
[2024-09-23] MEDS: SODIUM CHLORIDE 0.9% 10ML SYR (RAD ONLY) 10 ML IV (03:42)
[2024-09-23] MEDS: IOPAMIDOL-370 (76%);100ML BOTTLE 70 ML IV (03:42)
[2024-09-23 03:46] LABS: Troponin I < 0.01 ng/ml (0.00-0.034)
[2024-09-23 04:28] VITALS: BP 123/77; PULSE 91; RESP 20; TEMP 36.9; O2SAT 94
== END 2024-09-23 04:28 | disposition home or self-care (01) ==
PROVIDERS: Emergency Provider Emergency Medicine; PCP Family Medicine
DX: R06.02 Shortness of breath (principal); J90 Pleural effusion, not elsewhere classified; M25.59 Pain in other specified joint; F17.210 Nicotine dependence, cigarettes, uncomplicated; M06.9 Rheumatoid arthritis, unspecified
CPT/HCPCS: 71275; 80053; 82550; 83735; 84484; 85025; 93005; 96374; 99284; J1885; Q9967

== ENCOUNTER 2024-10-08 14:29 | Emergency (ER) | payer MEDICARE, SELFPAY ==
--- OUTSIDE RECORDS SUMMARY | 2024-10-08 16:09 | XMS_ITS | Encounter Summary ---
Author Organization Healthcare Address [address] [place] [address] Care Team Providers Care [employer] Name Role Phone Pcp, No Primary Care Provider Unavailabl e Reason for Visit * Reason Comments Med Refill Encounter Details Date Type Department Care Team (Late st Contact Info) Description 06/06/2023 Refill [facility] [address] [place] [address] Lorena Hartmann H, CAFE WORKER [address] [place] [address] Bronchitis; Shortness of breath Social History Tobacco Use Types Packs/Day Years Used Date Smoking Tobacco: Every Day Cigarettes 0.3 44.5 Started: 04/04/1980 Smokeless Tobacco: Never Comments:Have [...] documented as of this encounter Care Teams [employer] Relationship Specialty Start Date End Date Pcp, [place] [address] PCP - General Family Medicine 08/24/22 documented as of this encounter
--- OUTSIDE RECORDS SUMMARY | 2024-10-08 16:09 | XMS_ITS | Clinical Summary ---
Author Organization [facility] Address [address] [place] [address] Care Team Providers Care Submarine Element Coordinator Name Role Phone Pcp, No Primary Care Provider Unavailabl e Allergies Active Allergy Reactions Criticality Noted Date Comments Diphenhydramine Unknown - Patient st ates they do not know rxn details Low 06/20/2017 Diphenhydramine-Apap (Sleep) Unknown - P atient states they do not know rxn details Low 03/14/2018 Medications ergocalciferol (Vitamin D-2) 1.25 MG (58382 UT) capsuleIndicati ons:Vitamin D deficiency Take 1 [...] 0.3 44.5 Started: 04/04/1980 Smokeless Tobacco: Never Tobacco [...] 3 - 19+ 3-dose series) 08/03/2019 07/06/2019 [id number] Vaccine (3 - Moderna risk series) 09/23/2020 08/26/2020, 07/29/2020 [facility]-Depression Screening 12/31/2023 12/30/2022 [facility]-Influenza Vaccine (#1) 2024 04/14/2020, [facility]-Hepatitis A Vaccines Aged Out 04/04/2019 No [...] Antibody Negative Negative 09/11/2021 1:27 PM EDT [facility] Hepatitis A Antibody IgM Negative Negative 09/11/2021 1:27 PM EDT [facility] Hepatitis B Core Antibody IgM Negative Negative 09/11/2021 1:27 PM EDT [facility] Blood Venous blood specimen / Unknown Venipuncture / Unknown 09/09/2021 4:30 PM EDT 09/09/2021 4:30 PM EDT Lizeth Spivey [employer]ED [employer]AR[employer] PINNER LAB BLOOD ORDERABLES Fi nal Result [facility] [address] [place] [id number] * HIV 1 & 2 Antibody/Antigen Screen (06/07/2019 1:05 PM EST) [facility] HIV 1 Result NONREACTIVE Screening for HIV 1 and 2 antibodies is NONREACTIVE. No confirmatory testing is required. SUNQUEST 06/07/2019 1:05 PM EST 06/07/2019 2:42 PM EST Halie Kong APRN, DNP LAB BLOOD ORDERABLE S Final Result SUNQUEST from Last 3 Months or Most Recently Relevant to Health Maintenance Insurance [facility] MEDICAID [place] MEDICARE MEDICARE [employer] MEDICAID [place] Care Teams Submarine Element Coordinator Relationship Specialty Start Date End Date Maria Elena, [place] [address] PCP - General Family Medicine 08/24/22
[2024-10-08 16:24] VITALS: BP 154/77; PULSE 96; RESP 18; TEMP 36.7; O2SAT 99; BMI 36.6
--- NOTE | 2024-10-08 16:35 | CA_ITS ---
FINAL REPORT TECHNIQUE: extremity venous duplex was performed with augmentation and compression. CLINICAL HISTORY: edema and redness RLE x 3 days. Patient states she was recently diagnosed with DVT in LLE and is currently taking Xarelto as treatment.. Denies trauma. FINDINGS: Proper flow is seen throughout the deep venous system. There is no evidence of deep venous thrombosis. There is a 3.2 x 1.5 cm Payne's cyst. IMPRESSION: No evidence of deep venous thrombosis. 3.2 cm Payne's cyst. Reviewed, Interpreted and Dictated by Jimmy Chaudhry MD Transcribed by Madiha Pedersen Authenticated and . [facility]
--- NOTE | 2024-10-08 16:35 | XR_ITS ---
PROCEDURE INFORMATION: Exam: XR Chest Exam date and time: 10/08/2024 5:21 PM Age: 54 years old Clinical indication: Pain; Other: General; Additional info: Swelling TECHNIQUE: Imaging protocol: Radiologic exam of the chest. Views: 1 view. COMPARISON: CT ANGIO CHEST PE PROTOCOL 09/23/2024 3:32 AM FINDINGS: Lungs: Opacity in the right base may represent atelectasis or pneumonia.. Pleural spaces: Possible right pleural effusion.. Heart/Mediastinum: Unremarkable. No cardiomegaly. Bones/joints: Unremarkable. IMPRESSION: 1. Opacity in the right base may represent atelectasis or pneumonia.. 2. Possible right pleural effusion..
--- NOTE | 2024-10-08 16:40 | ED_ITS ---
Discharge Plan Disposition Patient Disposition: Home, Self-Care Prescriptions Prescriptions: New furosemide [Lasix] 40 mg tablet 40 mg PO DAILY Qty: 7 0RF prednisone 20 mg tablet 20 mg PO DAILY 7 Days Qty: 7 0RF No Action rivaroxaban 15 mg (42)- 20 mg (9) tablets,dose pack See Rx Instructions .ROUTE .COMPLEX Qty: 51 0RF Rx Instructions: take one-15 mg tablet twice daily for 21 days, then one-20 mg tablet once daily; must take with meal/food Xarelto 20 mg tablet 20 mg PO DAILY Qty: 60 0RF Trelegy Ellipta 100-62.5-25 mcg Blister With Device 1 inh inhalation DAILY 30 Days Qty: 60 0RF prednisone 20 mg Tablet 40 mg PO DAILY 4 Days Qty: 8 0RF azithromycin 500 mg tablet 500 mg PO DAILY 3 Days Qty: 3 0RF methocarbamol 500 mg tablet 1,000 mg PO Q6H PRN (Reason: pain) Qty: 30 0RF Referrals Follow up/Referrals: Provider,Referral, MD [Primary Care Provider, Medical] - See instructions Activity Restrictions/Add. Instructions Additional Instructions/Restrictions: I encourage you to follow-up with your field sampling technician to get back on your medication as soon as you can. In the meantime, you are being prescribed Lasix to help with fluid retention. Take this as prescribed. You will urinate frequently with this medication so I encourage you to also drink plenty of fluids to stay hydrated. Continue to take your Xarelto as prescribed. You are also being prescribed a course of prednisone to help with your symptoms. Take this as prescribed. If you develop any new or worsening symptoms, or if you become concerned for your health for any reason, return to the emergency department for evaluation. 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 Patient states that she has swelling in her left lower extremity from her DVT but has now developed right lower extremity swelling and pain with walking. She denies any chest pain or shortness of breath but states that is difficult for her to walk due to pain. She reports vein pain to her arms. She notes that she was previously on medications for her rheumatoid arthritis, however has not been on it for 8 weeks that she has lost her insurance. She states that she is currently try to get Medicare and is hopeful that it will come within the next 2 weeks. She states that she has been taking her Xarelto and ibuprofen for pain but continues to have swelling. She denies any history of heart failure. Related Data Previous Rx's ?Medication ?Instructions ?Recorded azithromycin 500 mg tablet 500 mg PO DAILY 3 days #3 t abs 06/09/24 fluticasone fur. 100 mcg-umeclid 1 inh inhalation MARIANN Y 30 days #60 06/09/24 62.5 mcg-vilant 25 mcg ea inhalat.powder (Trelegy Ellipta) prednisone 20 mg tablet 40 mg (2 x 20 mg) PO DAILY 4 days 06/09/24 #8 tabs rivaroxaban 15 mg (42)-20 mg (9) See Rx Instructions P O .COMPLEX 09/10/24 tablets in a starter pack #51 tabs rivaroxaban 20 mg tablet (Xarelto) 20 mg PO DAILY #60 tabs 09/10/24 methocarbamol 500 mg tablet 1,000 mg (2 x 500 mg) PO Q 6H PRN 09/23/24 pain #30 tabs furosemide 40 mg tablet (Lasix) 40 mg PO DAILY #7 tabs 10/08/24 prednisone 20 mg tablet 20 mg PO DAILY 7 days #7 tab s 10/08/24 Allergies Allergy/AdvReac Type Severity Reaction Status Date / Time diphenhydramine Allergy Mild RASH, ITCH Verified 05/02/24 11:53 (DIPHENHYDRAMINE) [facility] Disclaimer: The information contained in this section may have been updated after the patient was seen, as this information can be updated by other users. Medical History Rheumatoid arthritis Surgical History Hx of hysterectomy Hx of cholecystectomy Family History Other No significant family history Social History Smoking Status: Current every day smoker tobacco type: cigarettes packs per day: 1 second hand exposure: Yes alcohol intake: never substance use type: denies use current occupational status: disabled Travel in the last 8 weeks?: None household members: spouse housing: apartment current occupational exposures/hazards: No caffeine: Yes Have you lived/traveled outside [place] in past 30 days?: No Contact w/someone who lives/traveled outside US past 30 days?: No Exposure to someone with infectious disease in past 14 days?: No Do you have a fever (greater than 100.4 F or 38 C)?: No Have you tested positive for COVID-19?: No Exposed to someone with COVID-19 in past 14 days?: No Do you have a sore throat?: No Do you have a cough?: No Do you have any weakness?: No Do you have any diarrhea?: No Are you experiencing any unusual bleeding?: No Do you have any muscle aches/pain?: No Do you have any abdominal pain?: No Are you experiencing loss of taste or smell?: No Other Medical History Have you received the Flu Vaccine for this season: No Have you received the Pneumonia Vaccine: No ROS Obtained: Yes Systems reviewed as appropriate & no additional complaints except as documented Physical Exam General General appearance: alert and in no apparent distress Comment: uncomfortable appearing Head Head exam: atraumatic Eye Eye exam: Present normal appearance ENT ENT exam: Present normal external ear exam Neck Neck exam: Present full ROM Chest Chest inspection: Present symmetric chest wall rise Respiratory Respiratory exam: Present normal lung sounds bilaterally; Absent respiratory distress, wheezes or stridor Cardiovascular Cardiovascular exam: Present regular rate and normal rhythm Abdominal Exam Abdominal exam: Present soft; Absent tenderness or guarding Extremities Exam Extremities exam: Present normal inspection and edema (Pitting edema from the mid calf to the distal foot bilaterally. DP and PT pulses palpable. No swelling or significant tenderness to the upper extremities) Back Exam Back exam: Present normal inspection Neurological Exam Neurological exam: Present alert and oriented X3 Psychiatric Psychiatric exam: Present normal affect Skin Skin exam: Present warm and dry Medical Decision Making Medical Records Screening: Per USPSTF and CDC recommendations, given the prevalence of disease in our region, it is our hospital?s policy to screen for HIV and viral Hepatitis for all patients aged 18 and over and those with ongoing risk factors. Joel Inquiry Pt receiving controlled substance: No Vital Signs: 10/08/24 16:24 Temperature 98.0 F Temperature Source Oral Pulse Rate [Right] 96 H Respiratory Rate 18 Blood Pressure [Left Arm] 154/77 H Blood Pressure Mean [Left Arm] 102 Blood Pressure Source [Left Arm] Automatic Cuff 02 Sat by Pulse Oximetry 99 Oxygen Delivery Method Room Air Lab Data Lab Results 10/08/24 16:50: WBC 7.7, RBC 4.17 L, Hgb 10.9 L, Hct 33.9 L, MCV 81.3, MCH 26.1 L, MCHC 32.2, RDW 14.3, Plt Count 392, MPV 9.0, Neut % (Auto) 76.1, Lymph % (Auto) 12.7, Hancock % (Auto) 5.3, Eos % (Auto) 4.7, Baso % (Auto) 0.9, Neut # (Auto) 5.9, Lymph # (Auto) 1.0, Hancock # (Auto) 0.4, Eos # (Auto) 0.4, Baso # (Auto) 0.1, PT 10.8, INR 0.97, Sodium 137, Potassium 4.3, Chloride 102, Carbon Dioxide 26, Anion Gap 13.3, BUN 28 H, Creatinine 0.70, Estimated Creat Clear 129, Estimated GFR 87, Est GFR ( Amer) 105, Glucose 86, Calcium 8.5, Magnesium 2.3, Total Bilirubin 0.3, AST 26, ALT 18, Alkaline Phosphatase 88, Troponin I < 0.01, NT-Pro-B Natriuret Pep 97.0, Total Protein 7.7, Albumin 3.9, Globulin 3.8 H, Albumin/Globulin Ratio 1.0 L, Free T4 1.71 10/08/24 16:50 10/08/24 16:50 Orders (Tests/Meds): ED MEDICATIONS Discontinued Medications Generic Name Dose Route Start Last Admin Trade Name Freq PRN Reason Stop Dose Admin Acetaminophen 1,000 mg 10/08/24 16:35 10/08/24 18:19 Acetaminophen 500mg Tab PO 10/08/24 16:36 1,000 mg ONCE ONE Administration Furosemide 40 mg 10/08/24 17:13 10/08/24 18:19 Furosemide 40mg/4ml Vial IV 10/08/24 17:14 40 mg ONCE ONE Administration Ketorolac Tromethamine 15 mg 10/08/24 16:35 10/08/24 18:19 Ketorolac 30mg/Ml Vial IV 10/08/24 16:36 15 mg ONCE ONE Administration ORDERS Category Date Time Status CXR --portable [XR chest portable] Stat Exams 10/08/24 16:35 Completed BNP [NT Pro Brain Natriuretic Pep.] Stat Lab 10/08/24 16:50 Results CBC w/Auto Diff [Complete Blood Count Auto Diff] Stat Lab 10/08/24 16:50 Completed CMP [Comprehensive Metabolic Panel] Stat Lab 10/08/24 16:50 Results Free T4 (Free Thyroxine) Stat Lab 10/08/24 16:50 Completed Magnesium Stat Lab 10/08/24 16:50 Results PT INR [Prothrombin Time INR] Stat Lab 10/08/24 16:50 Completed TSH [Thyroid Stimulating Hormone] Stat Lab 10/08/24 16:50 Results Trop I [Troponin I] Stat Lab 10/08/24 16:50 Results Troponin I Q3H Lab 10/08/24 19:45 Ordered Troponin I Q3H Lab 10/08/24 22:45 Ordered CA venous doppler LE RT Stat Y 10/08/24 16:35 Completed Medical Decision Narrative: Asia Reina is a 54-year-old female with a history of rheumatoid arthritis, 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 Patient states that she has swelling in her left lower extremity from her DVT but has now developed right lower extremity swelling and pain with walking. She denies any chest pain or shortness of breath but states that is difficult for her to walk due to pain. She reports vein pain to her arms. She notes that she was previously on medications for her rheumatoid arthritis, however has not been on it for 8 weeks that she has lost her insurance. She states that she is currently try to get Medicare and is hopeful that it will come within the next 2 weeks. She states that she has been taking her Xarelto and ibuprofen for pain but continues to have swelling. She denies any history of heart failure. On arrival, patient is mildly hypertensive with blood pressure 154/77, heart rate within normal limits, breathing comfortably on room air with oxygen saturation 99% SpO2. Afebrile. Physical exam, stated above, reveals an nontoxic appearing female in no distress. She has pitting edema to the bilateral lower extremities with tenderness to touch throughout both. Pulses intact to bilateral lower extremities. No tenderness or swelling to the upper extremities. Differential diagnosis includes, but is not limited to: Swelling secondary to rheumatoid arthritis, DVT, CHF, venous insufficiency, among others. The most morbid conditions were considered and workup was based on these. Workup in the emergency department included: Right lower extremity DVT ultrasound, troponin, BNP, CBC, CMP, TSH/T4, Magnesium level, PT/INR, chest x- ray, EKG. Patient was treated with 50 mg IV Toradol and 1 g oral Tylenol Workup interpreted by me personally. No leukocytosis, hemoglobin stable, platelets mildly elevated at 444. Mild hyponatremia of 134 but electrolytes otherwise within normal limits. Creatinine normal at 0.7 (will give patient dose of IV Lasix for fluid retention). Glucose normal at 138. Initial troponin less than 0.01. DVT ultrasound interpreted by me personally. No evidence of right lower extremity DVT. Coagulation studies unremarkable. Free T4 normal at 1.71. BNP normal at 97. Chest x-ray interpreted by me personally. Patient has a small right-sided oral effusion (patient states that this is her baseline). She has not had a cough or fever to suggest pneumonia. It is felt that patient symptomatology is most consistent with her rheumatoid and she would benefit from a course of steroids as well as Lasix to help with swelling. She was encouraged to follow-up with her field sampling technician as soon as she can, however she currently does not have insurance. She does state that steroids have helped in the past. Return precautions were given. All questions were answered. She demonstrated understanding and was in agreement with this plan. She was then discharged in the emergency department in stable condition. Critical Care Critical Care Time Critical Care Time: No
[2024-10-08 17:08] LABS: Hematocrit 33.9 % (37.0-47.0); Hemoglobin 10.9 g/dL (12.2-16.2); Immature Granulocytes % 0.3 %; Mean Corpuscular HGB Conc 32.2 g/dL (31.8-35.4); Mean Corpuscular Hemoglobin 26.1 pg (27.0-31.2); Mean Corpuscular Volume 81.3 fl (81-99); Nucleated Red Blood Cells % 0 %; Platelet Count 392 K/mm3 (142-424); Red Blood Count 4.17 M/mm3 (4.20-5.40); Red Cell Distribution Width-SD 42.0 fL; White Blood Count 7.7 K/mm3 (4.8-10.8)
[2024-10-08 17:19] LABS: Alanine Aminotransferase 18 U/L (12-78); Albumin Level 3.9 g/dl (3.5-5.0); Albumin/Globulin Ratio 1.0 (1.1-1.8); Alkaline Phosphatase 88 U/L (38-126); Anion Gap 13.3 mEq/L (5-15); Aspartate Amino Transferase 26 U/L (14-36); Bilirubin,Total 0.3 mg/dl (0.2-1.3); Blood Urea Nitrogen 28 mg/dl (7-17); Calcium 8.5 mg/dl (8.4-10.2); Carbon Dioxide 26 mmol/L (22.0-30.0); Chloride 102 mmol/L (98-107); Creatinine Clearance Estimated 129 mL/min (50-200); Creatinine,Serum 0.70 mg/dl (0.52-1.04); Estimated Glomerular Filt Rate 87 ml/min (>60); GFR (African American) 105 ML/MIN (>60); Globulin 3.8 g/dL (1.3-3.2); Glucose 86 mg/dl (74-100); Magnesium 2.3 mg/dl (1.6-2.3); Potassium 4.3 mmoL/L (3.5-5.1); Sodium 137 mmol/L (136-145); Total Protein,Serum 7.7 g/dl (6.3-8.2)
[2024-10-08 17:29] LABS: INR 0.97 (0.9-1.1); Prothrombin Time 10.8 seconds (10.1-12.5)
[2024-10-08 17:31] LABS: NT Pro Brain Natriuretic Pep. 97.0 pg/mL (0-125)
[2024-10-08 17:39] LABS: Troponin I < 0.01 ng/ml (0.00-0.034)
[2024-10-08] MEDS: KETOROLAC 30MG/ML VIAL 15 MG IV (18:19)
[2024-10-08] MEDS: FUROSEMIDE 40MG/4ML VIAL 40 MG IV (18:19)
[2024-10-08] MEDS: ACETAMINOPHEN 500MG TAB 1000 MG PO (18:19)
[2024-10-08 18:32] LABS: Free T4 (Free Thyroxine) 1.71 ng/dl (0.78-2.19)
[2024-10-08 19:04] VITALS: BP 132/88; PULSE 75; RESP 20; TEMP 36.7; O2SAT 97
[2024-10-08 19:21] LABS: Thyroid Stimulating Hormone 1.25 uIU/mL (0.465-4.68)
== END 2024-10-08 19:18 | disposition home or self-care (01) ==
PROVIDERS: Emergency Provider Student in an Organized Health Care Education/Training Program
DX: R22.43 Localized swelling, mass and lump, lower limb, bilateral (principal); J90 Pleural effusion, not elsewhere classified; M06.9 Rheumatoid arthritis, unspecified; F17.210 Nicotine dependence, cigarettes, uncomplicated
CPT/HCPCS: 71045; 80053; 83735; 83880; 84439; 84443; 84484; 85025; 85610; 93971; 96374; 96375; 99285; J1885; J1938

== ENCOUNTER 2024-11-02 23:39 | Observation (INO) | payer MEDICARE, SELFPAY ==
--- NOTE | 2024-11-02 23:36 | ECG_ITS ---
APPROVED REPORT Exam: Resting ECG HR:113 bpm ECG Measurements Heart Rate 113 AXES HI 140 P 55 QRSd 85 QRS 67 QT 316 T 48 QTc 383 Conclusion SINUS TACHYCARDIA ABNORMAL RHYTHM ECG Electronically signed by : PAZ THAPA, 11/03/2024 06:33:04
[2024-11-02 23:40] VITALS: BP 148/87; PULSE 116; RESP 22; TEMP 36.9; O2SAT 98; BMI 36.6
--- NOTE | 2024-11-02 23:49 | XR_ITS ---
PROCEDURE INFORMATION: Exam: XR Chest Exam date and time: 11/03/2024 12:43 AM Age: 54 years old Clinical indication: Other: Palpitations cp TECHNIQUE: Imaging protocol: Radiologic exam of the chest. Views: 1 view. COMPARISON: CR XR CHEST PORTABLE 10/08/2024 5:21 PM FINDINGS: Lungs: Mild interstitial prominence. Pleural spaces: Right pleural effusion. No pneumothorax. Heart/Mediastinum: Unremarkable. No cardiomegaly. Bones/joints: Unremarkable. IMPRESSION: Low-grade CHF/pulmonary edema with pleural effusion.
--- NOTE | 2024-11-02 23:49 | CT_ITS ---
PROCEDURE INFORMATION: Exam: CTA Chest With Contrast Exam date and time: 11/03/2024 1:17 AM Age: 54 years old Clinical indication: Other: Recent dvt, other: Pain back L shoulder; Additional info: Cp palpitations recent dvt, pain back L shoulder TECHNIQUE: Imaging protocol: Computed tomographic angiography of the chest with contrast. Exam focused on the arteries. 3D rendering (Not supervised by radiologist): MIP and/or 3D reconstructed images were created by the technologist. Radiation optimization: All CT scans at this facility use at least one of these dose optimization techniques: automated exposure control; mA and/or kV adjustment per patient size (includes targeted exams where dose is matched to clinical indication); or iterative reconstruction. Contrast material: ISOUVE 370; Contrast volume: 70 ml; Contrast route: INTRAVENOUS (IV); COMPARISON: CT ANGIO CHEST PE PROTOCOL 09/23/2024 3:32 AM FINDINGS: Pulmonary arteries: No central or segmental pulmonary arterial intraluminal filling defects identified. Aorta: Unremarkable. No aortic aneurysm. No aortic dissection. Lungs: Interstitial prominence with pulmonary vasculature redistribution and Calos B-lines.Stable circumscribed nodule abutting right cardiac margin measuring 1.7 x 1.2 cm. Left lower lobar calcified granuloma. Pleural spaces: Moderate, partially loculated right pleural effusion. No pneumothorax. Heart: Unremarkable. No cardiomegaly. No pericardial effusion. Lymph nodes: Unremarkable. No enlarged lymph nodes. Bones/joints: Unremarkable. No acute fracture. Soft tissues: Unremarkable. IMPRESSION: 1. No central or segmental pulmonary arterial embolism identified. 2. Suture/pulmonary edema with right pleural effusion. 3. Stable right pulmonary nodule.
[2024-11-02 23:55] LABS: Hematocrit 39.7 % (37.0-47.0); Hemoglobin 12.8 g/dL (12.2-16.2); Immature Granulocytes % 0.2 %; Mean Corpuscular HGB Conc 32.2 g/dL (31.8-35.4); Mean Corpuscular Hemoglobin 26.3 pg (27.0-31.2); Mean Corpuscular Volume 81.7 fl (81-99); Nucleated Red Blood Cells % 0 %; Platelet Count 455 K/mm3 (142-424); Red Blood Count 4.86 M/mm3 (4.20-5.40); Red Cell Distribution Width-SD 44.1 fL; White Blood Count 4.6 K/mm3 (4.8-10.8)
[2024-11-02 23:56] LABS: Chloride 103 mmol/L (98-107)
[2024-11-02 23:57] LABS: Albumin Level 3.4 g/dl (3.5-5.0); Potassium 3.5 mmoL/L (3.5-5.1); Sodium 138 mmol/L (136-145)
[2024-11-02] MEDS: LACTATED RINGERS 1000ML 1,000 ML 999 ML IV (23:57)
[2024-11-02] MEDS: ASPIRIN 81MG CHEWABLE TABLET 324 MG PO (23:58)
[2024-11-02 23:59] LABS: Blood Urea Nitrogen 20 mg/dl (7-17); Creatinine Clearance Estimated 129 mL/min (50-200); Creatinine,Serum 0.70 mg/dl (0.52-1.04); Estimated Glomerular Filt Rate 87 ml/min (>60); GFR (African American) 105 ML/MIN (>60)
[2024-11-03] VITALS (22 sets, daily range): BP systolic 120–163; BP diastolic 64–113; PULSE 75–108; RESP 13–84; TEMP 36.6–37; O2SAT 92–100; BMI 35.4
[2024-11-03] LABS: Alanine Aminotransferase 18 U/L (12-78); Albumin/Globulin Ratio 0.7 (1.1-1.8); Alkaline Phosphatase 108 U/L (38-126); Anion Gap 10.5 mEq/L (5-15); Aspartate Amino Transferase 24 U/L (14-36); Calcium 9.5 mg/dl (8.4-10.2); Carbon Dioxide 28 mmol/L (22.0-30.0); Globulin 4.8 g/dL (1.3-3.2); Glucose 145 mg/dl (74-100); Total Protein,Serum 8.2 g/dl (6.3-8.2)
[2024-11-03 00:01] LABS: Bilirubin,Total < 0.1 mg/dl (0.2-1.3); INR 0.89 (0.9-1.1); Prothrombin Time 10.0 seconds (10.1-12.5)
--- OUTSIDE RECORDS SUMMARY | 2024-11-03 00:07 | XMS_ITS | Encounter Summary ---
Author Organization [facility] Address [address] [place] [address] Care Team Providers Care Electronic Commerce Specialist Name Role Phone Pcp, No Primary Care Provider Unavailabl e Reason for Visit * Reason Comments Med Refill Encounter Details Date Type Department Care Team (Late st Contact Info) Description 06/06/2023 Refill [facility] [address] [place] [address] Lorena Hartmann H, BUSINESS INTELLIGENCE ETL DEVELOPER [address] [place] [address] Bronchitis; Shortness of breath Social History Tobacco Use Types Packs/Day Years Used Date Smoking Tobacco: Every Day Cigarettes 0.3 44.6 Started: 04/04/1980 Smokeless Tobacco: Never Comments:Have stopped [...] documented as of this encounter Care Teams Electronic Commerce Specialist Relationship Specialty Start Date End Date Pcp, [place] [address] PCP - General Family Medicine 08/24/22 documented as of this encounter
--- OUTSIDE RECORDS SUMMARY | 2024-11-03 00:07 | XMS_ITS | Clinical Summary ---
Author Organization [facility] Address [address] [place] [address] Care Team Providers Care Land Department Head Name Role Phone Pcp, No Primary Care Provider Unavailabl e Allergies Active Allergy Reactions Criticality Noted Date Comments Diphenhydramine Unknown - Patient st ates they do not know rxn details Low 06/20/2017 Diphenhydramine-Apap (Sleep) Unknown - P atient states they do not know rxn details Low 03/14/2018 Medications ergocalciferol (Vitamin D-2) 1.25 MG (54900 UT) capsuleIndicati ons:Vitamin D deficiency Take 1 [...] 0.3 44.6 Started: 04/04/1980 Smokeless Tobacco: Never Tobacco Cessation:Ready [...] 3 - 19+ 3-dose series) 08/03/2019 07/06/2019 [id number] Vaccine (3 - Moderna risk series) 09/23/2020 [...] Antibody Negative Negative 09/11/2021 1:27 PM EDT [facility] Hepatitis A Antibody IgM Negative Negative 09/11/2021 1:27 PM EDT [facility] Hepatitis B Core Antibody IgM Negative Negative 09/11/2021 1:27 PM EDT [facility] Blood Venous blood specimen / Unknown Venipuncture / Unknown 09/09/2021 4:30 PM EDT 09/09/2021 4:30 PM EDT Lizeth Spivey BUSINESS DIVISION CHAIR LAB BLOOD ORDERABLES Fi nal Result [facility] [address] [place] [id number] * HIV 1 & 2 Antibody/Antigen Screen (06/07/2019 1:05 PM EST) [facility] HIV 1 Result NONREACTIVE Screening for HIV 1 and 2 antibodies is NONREACTIVE. No confirmatory testing is required. [facility] 06/07/2019 1:05 PM EST 06/07/2019 2:42 PM EST Halie Kong APRN, DNP LAB BLOOD ORDERABLE S Final Result [facility] from Last 3 Months or Most Recently Relevant to Health Maintenance Insurance [employer] [place] [employer] MEDICARE [place] [employer] [place] Care Teams Land Department Head Relationship Specialty Start Date End Date Maria Elena, [place] [address] PCP - General Family Medicine 08/24/22
[2024-11-03 00:09] LABS: NT Pro Brain Natriuretic Pep. 20.6 pg/mL (0-125)
[2024-11-03 00:12] LABS: Troponin I < 0.01 ng/ml (0.00-0.034)
--- NOTE | 2024-11-03 00:35 | HMH.EDGENADL ---
Discharge Plan Disposition Patient Disposition: Admitted Condition: Fair Prescriptions Prescriptions: No Action rivaroxaban 15 mg (42)- 20 mg (9) tablets,dose pack See Rx Instructions .ROUTE .COMPLEX Qty: 51 0RF Rx Instructions: take one-15 mg tablet twice daily for 21 days, then one-20 mg tablet once daily; must take with meal/food Xarelto 20 mg tablet 20 mg PO DAILY Qty: 60 0RF Trelegy Ellipta 100-62.5-25 mcg Blister With Device 1 inh inhalation DAILY 30 Days Qty: 60 0RF prednisone 20 mg Tablet 40 mg PO DAILY 4 Days Qty: 8 0RF azithromycin 500 mg tablet 500 mg PO DAILY 3 Days Qty: 3 0RF methocarbamol 500 mg tablet 1,000 mg PO Q6H PRN (Reason: pain) Qty: 30 0RF furosemide [Lasix] 40 mg tablet 40 mg PO DAILY Qty: 7 0RF prednisone 20 mg tablet 20 mg PO DAILY 7 Days Qty: 7 0RF Referrals Follow up/Referrals: Provider,Referral, MD [Primary Care Provider, Medical] - See instructions Clinical Impressions Clinical Impression: Acute deep vein thrombosis (DVT) of popliteal vein of left lower extremity, Sinus tachycardia, Chest pain Print Language Print Language: Jordanian Discharge ED Provider: Bryan Nguyễn Adult HPI General Chief complaint: Arrhythmia/Palpitations Stated complaint: Chest pain Time Seen by Provider: 11/02/24 23:49 Mode of Arrival: Ambulatory Source of Information: Patient Description of Symptoms (Recalled from ER Triage Doc. by RN): Pt presents with c/o palpitations with intermittent chest pain that began x1 day ago while sitting. Pt denies any cardiac history. Pt reports associated SOA that is chronic in nature with worsening since palpitations began. Pt denies N/V. History of Present Illness HPI narrative: 54-year-old female presents to the ER complaining of a sensation of palpitations with chest pain worse with exertion, shortness of breath worse with exertion. Patient denies any cardiac history but states she did have a blood clot in her left leg 2 months ago, she took 5 weeks of Xarelto but then was not able to afford the medication so she has been off it for the last 3 weeks. She states she has started developing pain in her left lower extremity again and in the last week started developing the symptoms with which she presented today. Patient states her shortness of breath has been going on for at least the last week but the pain started in the last 24 hours. She states she currently does not have any pain or shortness of breath but as soon as she starts moving it happens again. She denies any hemoptysis, she states she is not lightheaded or dizzy but states she feels generally unwell. No nausea, vomiting, or diarrhea. No recent fevers or chills. No other complaints or concerns. Related Data Previous Rx's ?Medication ?Instructions ?Recorded azithromycin 500 mg tablet 500 mg PO DAILY 3 days #3 tabs 06/09/24 fluticasone fur. 100 mcg-umeclid 1 inh inhalation DAILY 30 days #60 06/09/24 62.5 mcg-vilant 25 mcg ea inhalat.powder (Trelegy Ellipta) prednisone 20 mg tablet 40 mg (2 x 20 mg) PO DAILY 4 days 06/09/24 #8 tabs rivaroxaban 15 mg (42)-20 mg (9) See Rx Instructions PO .COMPLEX 09/10/24 tablets in a starter pack #51 tabs rivaroxaban 20 mg tablet (Xarelto) 20 mg PO DAILY #60 tabs 09/10/24 methocarbamol 500 mg tablet 1,000 mg (2 x 500 mg) PO Q6H PRN 09/23/24 pain #30 tabs furosemide 40 mg tablet (Lasix) 40 mg PO DAILY #7 tabs 10/08/24 prednisone 20 mg tablet 20 mg PO DAILY 7 days #7 tabs 10/08/24 Allergies Allergy/AdvReac Type Severity Reaction Status Date / Time diphenhydramine Allergy Mild RASH, ITCH Verified 05/02/24 11:53 (DIPHENHYDRAMINE) [facility] Disclaimer: The information contained in this section may have been updated after the patient was seen, as this information can be updated by other users. Medical History Rheumatoid arthritis Surgical History Hx of hysterectomy Hx of cholecystectomy Family History Other No significant family history Social History Smoking Status: Current every day smoker tobacco type: cigarettes packs per day: 1 second hand exposure: Yes alcohol intake: never substance use type: denies use current occupational status: disabled Travel in the last 8 weeks?: None household members: spouse housing: apartment current occupational exposures/hazards: No caffeine: Yes Other Medical History Have you received the Flu Vaccine for this season: No Have you received the Pneumonia Vaccine: No ROS Obtained: Yes Systems reviewed as appropriate & no additional complaints except as documented per HPI Physical Exam General General appearance: alert and in no apparent distress Head Head exam: atraumatic and normocephalic Eye Eye exam: Present PERRL and EOMI ENT ENT exam: Present mucous membranes moist Neck Neck exam: Present normal inspection and full ROM Chest Chest inspection: Present symmetric chest wall rise; Absent tenderness Respiratory Respiratory exam: Present normal lung sounds bilaterally; Absent respiratory distress, wheezes or stridor Cardiovascular Cardiovascular exam: Present normal rhythm and tachycardia Abdominal Exam Abdominal exam: Present soft; Absent distention or tenderness Extremities Exam Extremities exam: Present full ROM, calf tenderness (Proximal left calf) and other (Tenderness in the left popliteal fossa, there is some swelling but no pitting edema of the left lower extremity distal to the knee); Absent tenderness or edema Neurological Exam Neurological exam: Present alert and oriented X3; Absent motor sensory deficit Psychiatric Psychiatric exam: Present normal affect and normal mood Skin Skin exam: Present warm and dry Medical Decision Making Medical Records Medical records reviewed: Yes I reviewed the patient's medical records. Screening: Per USPSTF and CDC recommendations, given the prevalence of disease in our region, it is our hospital?s policy to screen for HIV and viral Hepatitis for all patients aged 18 and over and those with ongoing risk factors. Joel Inquiry Pt receiving controlled substance: No Vital Signs: 11/02/24 23:40 11/03/24 00:00 11/03/24 00:30 Temperature 98.5 F Temperature Source Oral Pulse Rate 108 H 98 H Pulse Rate [Radial] 116 H Respiratory Rate 22 15 18 Blood Pressure 149/113 H 151/81 H Blood Pressure [Right Arm] 148/87 H Blood Pressure Mean [Right Arm] 107 Blood Pressure Position [Right Arm] Sitting 02 Sat by Pulse Oximetry 98 97 96 Oxygen Delivery Method Room Air 11/03/24 01:00 11/03/24 01:30 11/03/24 02:00 Temperature Temperature Source Pulse Rate 92 H 87 84 Pulse Rate [Radial] Respiratory Rate 17 18 16 Blood Pressure 153/83 H 141/74 H 146/74 H Blood Pressure [Right Arm] Blood Pressure Mean [Right Arm] Blood Pressure Position [Right Arm] 02 Sat by Pulse Oximetry 97 97 97 Oxygen Delivery Method 11/03/24 02:31 Temperature Temperature Source Pulse Rate 85 Pulse Rate [Radial] Respiratory Rate 15 Blood Pressure 160/96 H Blood Pressure [Right Arm] Blood Pressure Mean [Right Arm] Blood Pressure Position [Right Arm] 02 Sat by Pulse Oximetry 96 Oxygen Delivery Method Lab Data Lab Results 11/02/24 23:30: WBC 4.6 L, RBC 4.86, Hgb 12.8, Hct 39.7, MCV 81.7, MCH 26.3 L, MCHC 32.2, RDW 14.8, Plt Count 455 H, MPV 9.6, Neut % (Auto) 56.9, Lymph % (Auto) 27.9, Weakley % (Auto) 7.2, Eos % (Auto) 6.3, Baso % (Auto) 1.5, Neut # (Auto) 2.6, Lymph # (Auto) 1.3, Weakley # (Auto) 0.3, Eos # (Auto) 0.3, Baso # (Auto) 0.1, PT 10.0 L, INR 0.89 L, Sodium 138, Potassium 3.5, Chloride 103, Carbon Dioxide 28, Anion Gap 10.5, BUN 20 H, Creatinine 0.70, Estimated Creat Clear 129, Estimated GFR 87, Est GFR ( Amer) 105, Glucose 145 H, Calcium 9.5, Total Bilirubin < 0.1 L, AST 24, ALT 18, Alkaline Phosphatase 108, Troponin I < 0.01, NT-Pro-B Natriuret Pep 20.6, Total Protein 8.2, Albumin 3.4 L, Globulin 4.8 H, Albumin/Globulin Ratio 0.7 L 11/03/24 00:24: D-Dimer 5.49 H 11/03/24 00:47: Chlamy pneumoniae PCR Not detected, Adenovirus (PCR) Not detected, B. pertussis DNA (PCR) Not detected, Coronavirus OC43 (PCR) Not detected, Coronavirus HKU1 (PCR) Not detected, Coronavirus 229E (PCR) Not detected, SARS-CoV-2 (PCR) Not detected, Coronavirus NL63 (PCR) Not detected, Human Metapneumovir PCR Not detected, Influenza A (H1) PCR Not detected, Influ A (H1N1/09) PCR Not detected, Influenza A (H3) PCR Not detected, Influenza Type A (PCR) Not detected, Influenza Type B (PCR) Not detected, M. pneumoniae (PCR) Not detected, Parainfluenza 1 (PCR) Not detected, Parainfluenza 2 (PCR) Not detected, Parainfluenza 3 (PCR) Not detected, Parainfluenza 4 (PCR) Not detected, RSV (PCR) Not detected, Entero/Rhino (PCR) Not detected 11/02/24 23:30 11/02/24 23:30 Orders (Tests/Meds): ED MEDICATIONS Generic Name Dose Route Start Last Admin Trade Name Freq PRN Reason Stop Dose Admin Enoxaparin Sodium 90 mg 11/03/24 03:07 Enoxaparin 100mg/Ml Syringe 1 mg/kg (90 mg) 11/03/24 03:08 SUBCUT ONCE ONE Discontinued Medications Generic Name Dose Route Start Last Admin Trade Name Freq PRN Reason Stop Dose Admin Aspirin 324 mg 11/02/24 23:49 11/02/24 23:58 Aspirin 81mg Chewable Tablet PO 11/02/24 23:50 324 mg ONCE ONE Administration Lactated Ringer's 1,000 mls @ 999 mls/hr 11/02/24 23:49 11/02/24 23:57 Lactated Ringer's 1000 Ml Bag IV 11/03/24 00:49 999 mls/hr .Q1H1M ONE Administration Iopamidol 70 ml 11/03/24 01:26 11/03/24 01:28 Iopamidol-370 (76%);100ml Bottle IV 11/03/24 01:27 70 ml ONCE ONE Administration Sodium Chloride 50 ml 11/03/24 01:26 11/03/24 01:27 0.9 % Sodium Chloride 50 Ml Vial IV 11/03/24 01:27 50 ml ONCE ONE Administration Sodium Chloride 10 ml 11/03/24 01:26 11/03/24 01:28 Sodium Chloride 0.9% 10ml Syr (Rad Only) IV 11/03/24 01:27 10 ml ONCE ONE Administration ORDERS Category Date Time Status CT angio chest PE protocol Stat Cat Scan 11/02/24 23:49 Completed POCUS Point of Care (ER Only) Stat Exams 11/03/24 00:02 Completed XR chest portable Stat Exams 11/02/24 23:49 Completed Complete Blood Count Auto Diff Stat Lab 11/02/24 23:30 Completed Comprehensive Metabolic Panel Stat Lab 11/02/24 23:30 Completed D-Dimer Stat Lab 11/03/24 00:24 Completed Full Resp Panel w/COVID ([facility]) Routine Lab 11/03/24 00:47 Completed NT Pro Brain Natriuretic Pep. Stat Lab 11/02/24 23:30 Completed Prothrombin Time INR Stat Lab 11/02/24 23:30 Completed Troponin I Q3H Lab 11/03/24 02:57 Received Troponin I Q3H Lab 11/03/24 06:00 Ordered Troponin I Stat Lab 11/02/24 23:30 Completed Medical Decision Narrative: In summary, this 54-year-old female with comorbidities described in the HPI presents to the emergency department today with left leg pain, chest pain, shortness of breath with exertion. On initial evaluation patient is tachycardic but otherwise hemodynamically stable, afebrile, saturating well on room air, lungs clear bilaterally, patient reports chronic pleural effusion but states she has had no issues with this. Patient has slight swelling of the left lower extremity and tenderness in the left popliteal fossa where she reports her previous DVT was. Differential diagnosis includes but is not limited to ACS, PE, esophageal spasm, pleural effusion, pneumothorax, volume overload, DVT, right heart strain, among others. Based on these concerns, I ordered serum labs, cardiac workup, CTA PE, plan for ultrasound. ECG personally interpreted demonstrates sinus tachycardia, rate 113, normal axis, normal UT and QTc, no STEMI, no evidence of right heart strain on EKG. Patient received aspirin for treatment. Labs personally reviewed demonstrate mild leukopenia, normal hemoglobin, mild thrombocythemia, PT/INR slightly low, D-dimer elevated at 5.4 Increasing suspicion for clot burden, CMP with mild prerenal azotemia, patient has received IV fluids, troponin undetectably low less than 0.01, full respiratory panel negative for all analytes. XR personally interpreted demonstrates right pleural effusion, see radiology read for final interpretation. CT imaging personally interpreted demonstrate no segmental or subsegmental PE, patient does have nodule in the left lung, right pleural effusion appears similar to previous, see radiology read for final interpretation. On reassessment patient patient's heart rate has improved, but as soon as she exerts herself at all her heart rate jumps to the low 110s. She has not been hypoxic or hypotensive in the ER. [id number] ultrasound personally performed and interpreted by me demonstrates significant clot burden in the left popliteal fossa with DVT, but no right heart strain or pericardial effusion. See procedure note for full details. Patient reports that her insurance has changed which is why she cannot get her Xarelto, she states the only thing covered by her insurance at this time is hospitalization. She states she will not be able to afford any anticoagulant that is prescribed. Unfortunately because patient does have clot burden and she requires anticoagulation, I am concerned as well that though a large PE was not appreciated, the contrast timing was not perfect on the CT PE and patient may have small clots in the lungs though she does not have evidence of right heart strain. I discussed this case at length with the hospitalist because I believe the patient requires admission for anticoagulation and symptom management especially because she becomes so dyspneic and tachycardic with any exertion. After discussion with the hospitalist, he graciously accepted this patient for admission. We are starting the patient on therapeutic Lovenox to treat DVT. Patient is comfortable with this plan and was admitted in stable condition. Procedures Miscellaneous Procedure Procedure Performed: Limited Cardiac Ultrasound Indication: Shortness of breath, chest pain Identified cardiac views: [-Cardiac apical four-chamber] [-Cardiac subxiphoid] Parasternal views were unable to be obtained secondary to poor acoustic windows Findings: Cardiac activity present with no gross wall motion abnormality, no pericardial effusion, no right heart strain Impression: - Cardiac activity present with no gross wall motion abnormality, no pericardial effusion, no right heart strain Images were saved to permanent archive The study was technically adequate CPT: 96947 This study was performed by me, and I personally interpreted all images/videos. Based on my clinical judgement, these images were adequate and did not necessitate further imaging. Limited DVT ultrasound Indication: Limited compression ultrasonography of the left lower extremity was performed to evaluate for non-compressibility of the deep veins in the patient. The ultrasound was performed with the following indications, as noted in the H&P: Left lower extremity pain, swelling, chest pain, shortness of breath Identified structures: Left [common femoral vein, femoral vein, popliteal vein were examined.] Findings: Lower Extremity: Left CFV: Good compressibility Left FV good compressibility Left Popliteal vein: Noncompressible, clot extends approximately 3 inches distally from the popliteal fossa Impression: Left lower extremity DVT in the popliteal vein Images were saved to permanent archive The study was technically adequate CPT: 22910-43-IT [id number] 21872-13 (complete bilateral study) This study was performed by me, and I personally interpreted all images/videos. Based on my clinical judgement, these images were adequate and did not necessitate further imaging. Critical Care Critical Care Time Critical Care Time: No
[2024-11-03 00:37] LABS: D-Dimer 5.49 ug/mL (0.0-0.5)
[2024-11-03 01:12] LABS: Adenovirus,PCR Not Detected (NotDetected); Chlamydophila Pneumoniae, PCR Not Detected (NotDetected); Coronavirus 19, PCR Not Detected (NotDetected); Coronovirus HKU1,PCR Not Detected (NotDetected); Influenza A, PCR Not Detected (NotDetected); Influenza AH1, 2009 Not Detected (NotDetected); Influenza AH1, PCR Not Detected (NotDetected); Influenza AH3,PCR Not Detected (NotDetected); Influenza B, PCR Not Detected (NotDetected); Mycoplasma Pneumoniae, PCR Not Detected (NotDetected); Parainfluenza 1, PCR Not Detected (NotDetected); Parainfluenza 2, PCR Not Detected (NotDetected); Parainfluenza 3, PCR Not Detected (NotDetected); Parainfluenza 4, PCR Not Detected (NotDetected)
[2024-11-03] MEDS: 0.9 % SODIUM CHLORIDE 50 ML VIAL IV (01:27)
--- NOTE | 2024-11-03 01:27 | PC.NURSE ---
pt returned from radiology without incident.
[2024-11-03] MEDS: IOPAMIDOL-370 (76%);100ML BOTTLE 70 ML IV (01:28)
[2024-11-03] MEDS: SODIUM CHLORIDE 0.9% 10ML SYR (RAD ONLY) 10 ML IV (01:28)
--- NOTE | 2024-11-03 03:06 | EXP.HP ---
History of Present Illness *Admission Date: 11/03/24 *Reason for visit:: Shortness of breath *History of present illness: Patient presented with complaint of intermittent chest discomfort, shortness of breath. Symptoms began a day or so before coming into the ER. She had been seated at home when they began. She denies nausea, vomiting, syncope. Has had some increased palpitations. Workup in the ED, concern initially for PE. Patient reports she had had a blood clot in her leg 2 months ago but only took 5 weeks of Xarelto due to cost of medication and not having medication/drug coverage with her insurance. Has had some pain in her left lower extremity again. Does have some mild complaint of swelling in her ankles. Does not normally wear oxygen at home. On evaluation, CT PE negative for PE. Did have a small effusion on the right side however. [id number] ultrasound performed in the ED positive for DVT in left lower extremity. Labs with normal white count of 4.6. Hemoglobin 12.8. Kidney function normal with BUN 20, creatinine 0.7. Respiratory panel negative for all analytes. Patient started on therapeutic Lovenox. Medicine was consulted for admission due to shortness of breath and further anticoagulation management. At the time of my evaluation after patient arrived to the floor, she had fallen asleep and was resting comfortably. Unable to obtain any additional history or review of systems. He is comfortable on 2 L oxygen. In no acute distress. Oxygen was placed on arrival to the floor for comfort not for hypoxia. [facility] Disclaimer: The information contained in this section may have been updated after the patient was seen, as this information can be updated by other users. Medical History (Updated 11/03/24 @ 07:00 by Bradley Devi MD) Rheumatoid lung disease Pleural effusion COPD (chronic obstructive pulmonary disease) History of gastroesophageal reflux (GERD) Stroke Deep vein thrombosis (DVT) Rheumatoid arthritis Empyema of right pleural space Surgical History History of bunionectomy Hx of hysterectomy Hx of cholecystectomy Family History Other No significant family history Social History Smoking Status: Current every day smoker tobacco type: cigarettes packs per day: 1 second hand exposure: Yes alcohol intake: never substance use type: denies use current occupational status: disabled Travel in the last 8 weeks?: None household members: spouse housing: apartment current occupational exposures/hazards: No caffeine: Yes Contact w/someone who lives/traveled outside [place] past 30 days?: No Exposure to someone with infectious disease in past 14 days?: No Do you have a fever (greater than 100.4 F or 38 C)?: No Have you tested positive for COVID-19?: No Exposed to someone with COVID-19 in past 14 days?: No Do you have a sore throat?: No Do you have a cough?: No Do you have any weakness?: No Are you experiencing any nausea/vomitting?: No Do you have any diarrhea?: No Are you experiencing any unusual bleeding?: No Do you have any muscle aches/pain?: No Do you have any abdominal pain?: No Are you experiencing loss of taste or smell?: No Other Medical History Have you received the Flu Vaccine for this season: No Have you received the Pneumonia Vaccine: No Review of Systems Review of Systems Review of systems (narrative): 14 point review of systems performed, pertinent positives and negatives as per HPI Meds Home Medications and Allergies Home Medications ?Medication ?Instructions ?Recorded ?Confirmed ?Type No Known Home Medications 11/03/24 11/03/24 History New Prescriptions to Start Prescriptions: Allergies Allergy/AdvReac Type Severity Reaction Status Date / Time diphenhydramine Allergy Mild RASH, ITCH Verified 05/02/24 11:53 (DIPHENHYDRAMINE) Exam Data for Last 24 hours Vital signs and Labs for Last 24 Hours: Temp Pulse Resp BP Pulse Ox O2 Del Method 98.5 F 85 15 160/96 H 96 Room Air 11/02/24 23:40 11/03/24 02:31 11/03/24 02:31 11/03/24 02:31 11/03/24 02:31 11/02/24 23:40 Laboratory Results - last 24 hr 11/02/24 23:30: WBC 4.6 L, RBC 4.86, Hgb 12.8, Hct 39.7, MCV 81.7, MCH 26.3 L, MCHC 32.2, RDW 14.8, Plt Count 455 H, MPV 9.6, Neut % (Auto) 56.9, Lymph % (Auto) 27.9, [place] % (Auto) 7.2, Eos % (Auto) 6.3, Baso % (Auto) 1.5, Neut # (Auto) 2.6, Lymph # (Auto) 1.3, [place] # (Auto) 0.3, Eos # (Auto) 0.3, Baso # (Auto) 0.1, PT 10.0 L, INR 0.89 L, Sodium 138, Potassium 3.5, Chloride 103, Carbon Dioxide 28, Anion Gap 10.5, BUN 20 H, Creatinine 0.70, Estimated Creat Clear 129, Estimated GFR 87, Est GFR ( Amer) 105, Glucose 145 H, Calcium 9.5, Total Bilirubin < 0.1 L, AST 24, ALT 18, Alkaline Phosphatase 108, Troponin I < 0.01, NT-Pro-B Natriuret Pep 20.6, Total Protein 8.2, Albumin 3.4 L, Globulin 4.8 H, Albumin/Globulin Ratio 0.7 L 11/03/24 00:24: D-Dimer 5.49 H 11/03/24 00:47: Chlamy pneumoniae PCR Not detected, Adenovirus (PCR) Not detected, B. pertussis DNA (PCR) Not detected, Coronavirus OC43 (PCR) Not detected, Coronavirus HKU1 (PCR) Not detected, Coronavirus 229E (PCR) Not detected, SARS-CoV-2 (PCR) Not detected, Coronavirus NL63 (PCR) Not detected, Human Metapneumovir PCR Not detected, Influenza A (H1) PCR Not detected, Influ A (H1N1/09) PCR Not detected, Influenza A (H3) PCR Not detected, Influenza Type A (PCR) Not detected, Influenza Type B (PCR) Not detected, M. pneumoniae (PCR) Not detected, Parainfluenza 1 (PCR) Not detected, Parainfluenza 2 (PCR) Not detected, Parainfluenza 3 (PCR) Not detected, Parainfluenza 4 (PCR) Not detected, RSV (PCR) Not detected, Entero/Rhino (PCR) Not detected I & O for Last 24 hours: Intake & Output 10/31/24 11/01/24 11/02/24 11/03/24 23:59 23:59 23:59 23:59 Weight 90.718 kg Constitutional Constitutional: no acute distress, obese, chronically ill appearing and cooperative *Routine HEENT Exam Head: Present normocephalic Eye: Present EOMI and PERRL ENT: Present mucous membranes moist *Routine Neck Exam Neck: Present supple; Absent lymphadenopathy *Routine Respiratory Exam Respiratory: Present prolonged expiratory phase and diminished air movement; Absent accessory muscle use, rhonchi, wheezes or crackles *Routine Cardiovascular Exam Cardiovascular: Present RRR Comments: Regular rhythm *Routine Abdominal Exam Abdominal: Present soft and normoactive bowel sounds; Absent tenderness *Routine Rectal Exam Rectal:: deferred *Routine Genitalia Exam Genitalia:: deferred *Routine Extremities Exam Extremities: Present edema (1+ Bilateral lower extremity); Absent cyanosis or clubbing *Routine Skin Exam Skin: Present intact and warm; Absent rash *Routine Neurological Exam Neurological: Present alert, oriented X3 and moving all extremities; Absent altered mental status Assessment and Plan *Assessment and plan (1) Acute deep vein thrombosis (DVT) of popliteal vein of left lower extremity: Status: Acute Category: Medical Code(s): I82.432 - Acute embolism and thrombosis of left popliteal vein (2) Pleural effusion: Status: Acute Category: Medical Code(s): J90 - Pleural effusion, not elsewhere classified (3) Localized swelling of both lower legs: Status: Acute Category: Medical Code(s): R22.43 - Localized swelling, mass and lump, lower limb, bilateral (4) Hypertension: Status: Acute Category: Medical Code(s): I10 - Essential (primary) hypertension (5) Tobacco use disorder: Status: Acute Category: Medical Code(s): F17.200 - Nicotine dependence, unspecified, uncomplicated (6) COPD (chronic obstructive pulmonary disease): Status: Chronic Category: Medical Code(s): J44.9 - Chronic obstructive pulmonary disease, unspecified Plan 54-year-old female with COPD and obesity who presented with shortness of breath and leg pain. Found to have DVT and pleural effusion. Discussed case with ER physician, strong concern for patient's difficulty getting anticoagulation as an outpatient. Elevated risk for discharge and failure/progression of condition. Requested admission for further anticoagulation and management of patient's persistent dyspnea as well as DVT management. I decided to admit to continue anticoagulation and explore resources to improve patient's compliance with outpatient anticoagulation. Continues to require observation. Case management consulted to assist with resources. Problems addressed as follows: Dyspnea Left lower extremity DVT Pleural effusion - Complain of dyspnea. Given effusion, will administer Lasix 80 mg IV twice daily. Supposed to be on diuretic at home but not taking medication due to cost and no medication coverage. Monitor urine output and improvement in shortness of breath with improvement in fluid management - Initiated on therapeutic Lovenox 1 mg/kg twice daily. Will explore options to transition to oral regimen for discharge. Case management consulted for resource assistance - Will need outpatient follow-up with cardiology for anticoagulation management and further evaluation of her dyspnea/effusion - Repeat CBC, CMP, magnesium ordered for the morning - Per my review of CTA of the chest, has no appreciable occlusions in pulmonary vasculature. Does have small effusion on right side with fluid in the right fissure. No significant pulmonary edema. COPD: -Does not appear to be in brittnee exacerbation. Resume home Advair daily. DuoNebs as needed every 6 hours - White count normal at 4.6. No indication for antibiotics at this time - Supplemental oxygen needed for goal sats greater 90%. Hypertension: Lasix as above. Will reevaluate potential BETTY/ARB therapy prior to discharge home; kidney function normal with BUN 20, creatinine 0.7 Full code Regular diet Therapeutic Lovenox
--- NOTE | 2024-11-03 03:22 | PC.NURSE ---
Report given to Zoë RN
[2024-11-03 03:28] LABS: Troponin I < 0.01 ng/ml (0.00-0.034)
--- NOTE | 2024-11-03 03:39 | PC.NURSE ---
Patient states she takes NO home medications.
--- NOTE | 2024-11-03 03:52 | PC.NURSE ---
Patient arrived to floor via wheelchair from ED at 03:35.
--- NOTE | 2024-11-03 04:54 | PC.NURSE ---
This patient was admitted overnight to Med/surg from the ED. Pc/o SOB x 1 week. Pt. c/o chest pain and palpations x 24 hours. All symptoms worse with exertion. Pt. is alert and orientated x 4,. Pt. is on oxygen 2 liters per N/C. upon admission to the floor Pt. co mild SOB but denies CP or palpations at this time. Pt. has a history of blood clot to left leg diagnosed 2 months ago. Pt. had week coarse of xeralto than had to stop it due to cost. Pt. stopped it about 3 weeks ago. Per limited US in the ED Pt. has a large blood clot behind the left knee. Pt. got Lovenox in the ED. Pt. resting in the bed comfortably. No needs at this time. Personal items and call whyte in reach. Bed in low and locked position. safety measures in place.
[2024-11-03 07:06] LABS: Hematocrit 34.3 % (37.0-47.0); Immature Granulocytes % 0.2 %; Mean Corpuscular HGB Conc 32.4 g/dL (31.8-35.4); Mean Corpuscular Hemoglobin 26.6 pg (27.0-31.2); Mean Corpuscular Volume 82.1 fl (81-99); Nucleated Red Blood Cells % 0 %; Platelet Count 346 K/mm3 (142-424); Red Blood Count 4.18 M/mm3 (4.20-5.40); Red Cell Distribution Width-SD 43.9 fL; White Blood Count 5.1 K/mm3 (4.8-10.8)
[2024-11-03 07:27] LABS: Albumin Level 2.8 g/dl (3.5-5.0); Chloride 106 mmol/L (98-107)
[2024-11-03 07:28] LABS: Potassium 3.5 mmoL/L (3.5-5.1); Sodium 135 mmol/L (136-145)
[2024-11-03 07:30] LABS: Alanine Aminotransferase 14 U/L (12-78); Anion Gap 5.5 mEq/L (5-15); Aspartate Amino Transferase 19 U/L (14-36); Blood Urea Nitrogen 17 mg/dl (7-17); Carbon Dioxide 27 mmol/L (22.0-30.0); Creatinine Clearance Estimated 150 mL/min (50-200); Creatinine,Serum 0.60 mg/dl (0.52-1.04); Estimated Glomerular Filt Rate 103 ml/min (>60); GFR (African American) 125 ML/MIN (>60)
[2024-11-03 07:31] LABS: Albumin/Globulin Ratio 0.7 (1.1-1.8); Alkaline Phosphatase 100 U/L (38-126); Calcium 9.1 mg/dl (8.4-10.2); Globulin 4.0 g/dL (1.3-3.2); Glucose 95 mg/dl (74-100); Magnesium 2.1 mg/dl (1.6-2.3); Total Protein,Serum 6.8 g/dl (6.3-8.2)
[2024-11-03 07:35] LABS: Bilirubin,Total 0.1 mg/dl (0.2-1.3)
[2024-11-03 07:47] LABS: Hemoglobin 10.8 g/dL (12.2-16.2)
[2024-11-03] MEDS: FUROSEMIDE 40MG/4ML VIAL 80 MG IV ×2 (08:55→15:00)
[2024-11-03 09:22] LABS: Troponin I < 0.01 ng/ml (0.00-0.034)
--- NOTE | 2024-11-03 10:39 | PC.NURSE ---
Pt's bathroom light was ringing. at 0917, race steward notified this RN that upon the tech's arrival into pt's room, the pt was sitting up on her butt in the shower floor while taking a shower. Upon this RN's immediate arrival into room, the pt was sitting up on her butt in the shower floor with no obvious signs of injury. pt denies pain, injury, loss of consciousness, or hitting head. This RN, charge nurse, and tech's in room. Vital signs obtained and cycling. Pt was placed in shower chair with wheels locked for a shower and states I was standing up and when I went to sit down in the shower chair, I slipped onto my butt. Provider, Dr. Garza notified. No new orders at this time. Bed alarm placed. Pt notified of need for assistance by staff when wanting to get out of bed.
[2024-11-03] MEDS: FLUTICASONE/UMECLIDIN/VILANTER 100/62.5/25MCG INHALER 1 PUFF IH (11:50)
--- NOTE | 2024-11-03 17:18 | PC.NURSE ---
Pt is A&Ox4. Vital signs stable tolerating room air. Lovenox given per JUN. Pt complains of continuous pain in left leg from DVT. Pt offered pain medication but refuses. Lasix given per JUN with adequate output. Pt resting comfortably with no further needs voiced at this time. Fall precautions and bed alarm in place. Call light within reach
[2024-11-03] MEDS: PANTOPRAZOLE 40MG TABLET 40 MG PO (21:35)
[2024-11-04] VITALS: BP 148/72; PULSE 80; PULSE 98; RESP 12; TEMP 37; O2SAT 94
[2024-11-04 04:00] VITALS: BP 127/71; PULSE 85; PULSE 94; RESP 14; TEMP 37; O2SAT 96; BMI 34.9
--- NOTE | 2024-11-04 06:25 | PC.NURSE ---
v/s, ox4, RA. No acute events to report. plan of care ongoing.
[2024-11-04 07:33] LABS: Hematocrit 37.2 % (37.0-47.0); Hemoglobin 11.6 g/dL (12.2-16.2); Immature Granulocytes % 0.4 %; Mean Corpuscular HGB Conc 31.2 g/dL (31.8-35.4); Mean Corpuscular Hemoglobin 25.5 pg (27.0-31.2); Mean Corpuscular Volume 81.8 fl (81-99); Nucleated Red Blood Cells % 0 %; Platelet Count 392 K/mm3 (142-424); Red Blood Count 4.55 M/mm3 (4.20-5.40); Red Cell Distribution Width-SD 43.8 fL; White Blood Count 5.5 K/mm3 (4.8-10.8)
[2024-11-04 07:42] LABS: Chloride 99 mmol/L (98-107); Potassium 3.2 mmoL/L (3.5-5.1); Sodium 134 mmol/L (136-145)
[2024-11-04 07:45] LABS: Anion Gap 9.2 mEq/L (5-15); Blood Urea Nitrogen 23 mg/dl (7-17); Calcium 9.6 mg/dl (8.4-10.2); Carbon Dioxide 29 mmol/L (22.0-30.0); Creatinine Clearance Estimated 111 mL/min (50-200); Creatinine,Serum 0.80 mg/dl (0.52-1.04); Estimated Glomerular Filt Rate 74 ml/min (>60); GFR (African American) 90 ML/MIN (>60); Glucose 106 mg/dl (74-100)
[2024-11-04 08:00] VITALS: BP 104/73; PULSE 100; PULSE 94; RESP 18; TEMP 36.6; O2SAT 97
[2024-11-04] MEDS: FLUTICASONE/UMECLIDIN/VILANTER 100/62.5/25MCG INHALER 1 PUFF IH (08:40)
[2024-11-04] MEDS: ACETAMINOPHEN 325MG TAB 650 MG PO (08:52)
[2024-11-04] MEDS: POTASSIUM CHLORIDE 20MEQ TAB 40 MEQ PO ×2 (08:52→11:15)
[2024-11-04] MEDS: FUROSEMIDE 40MG/4ML VIAL 40 MG IV (08:53)
--- NOTE | 2024-11-04 11:36 | P.DS_ITS ---
General Admission date:: 11/03/24 Discharge date: 11/04/24 HPI HPI HPI: Patient presented with complaint of intermittent chest discomfort, shortness of breath. Symptoms began a day or so before coming into the ER. She had been seated at home when they began. She denies nausea, vomiting, syncope. Has had some increased palpitations. Workup in the ED, concern initially for PE. Patient reports she had had a blood clot in her leg 2 months ago but only took 5 weeks of Xarelto due to cost of medication and not having medication/drug coverage with her insurance. Has had some pain in her left lower extremity again. Does have some mild complaint of swelling in her ankles. Does not normally wear oxygen at home. On evaluation, CT PE negative for PE. Did have a small effusion on the right side however. [id number] ultrasound performed in the ED positive for DVT in left lower extremity. Labs with normal white count of 4.6. Hemoglobin 12.8. Kidney function normal with BUN 20, creatinine 0.7. Res piratory panel negative for all analytes. Patient started on therapeutic Lovenox. Medicine was consulted for admission due to shortness of breath and further anticoagulation management. At the time of my evaluation after patient arrived to the floor, she had fallen asleep and was resting comfortably. Unable to obtain any additional history or review of systems. He is comfortable on 2 L oxygen. In no acute distress. Oxygen was placed on arrival to the floor for comfort not for hypoxia. Hospital Course Hospital Course Hospital Course: 54-year-old female with COPD and obesity who presented with shortness of breath and leg pain. Found to have DVT and pleural effusion. Discussed case with ER physician, strong concern for patient's difficulty getting anticoagulation as an outpatient. Elevated risk for discharge and failure/progression of condition. Requested admission for further anticoagulation and management of patient's persistent dyspnea as well as DVT management. I decided to admit to continue anticoagulation and explore resources to improve patient's compliance with outpatient anticoagulation. Continues to require observation. Case management consulted to assist with resources. Problems addressed as follows: Dyspnea - resolved Left lower extremity DVT - swelling is improving Pleural effusion - s/p IV lasix, on room air and no complains of SOB. Patient is to be given 3 days supply of xarelto, care management consulted and to help with supply, follow up with cardiology office for OAC. patient is requesting to be discharged, she mentions she will follow up with appointments. Exam Data for Last 24 hours Vital signs and Labs for Last 24 Hours: Temp Pulse Resp BP Pulse Ox O2 Del Method O2 Flow Rate 97.9 F 94 H 18 104/73 L 97 Room Air 2 11/04/24 08:00 11/04/24 08:00 11/04/24 08:00 11/04/24 08:00 11/04/24 08:00 11/04/24 09:00 11/03/24 08:00 Laboratory Results - last 24 hr 11/04/24 07:00: WBC 5.5, RBC 4.55, Hgb 11.6 L, Hct 37.2, MCV 81.8, MCH 25.5 L, MCHC 31.2 L, RDW 14.7, Plt Count 392, MPV 9.5, Neut % (Auto) 63.9, Lymph % (Auto) 21.8, [place] % (Auto) 7.3, Eos % (Auto) 5.5, Baso % (Auto) 1.1, Neut # (Auto) 3.5, Lymph # (Auto) 1.2, [place] # (Auto) 0.4, Eos # (Auto) 0.3, Baso # (Auto) 0.1, Sodium 134 L, Potassium 3.2 L, Chloride 99, Carbon Dioxide 29, Anion Gap 9.2, BUN 23 H D, Creatinine 0.80 D, Estimated Creat Clear 111, Estimated GFR 74, Est GFR ( Amer) 90 D, Glucose 106 H, Calcium 9.6 I & O for Last 24 hours: Intake & Output 11/01/24 11/02/24 11/03/24 11/04/24 23:59 23:59 23:59 23:59 Intake Total 940 / 1060 120 / 120 Output Total 3500 / 3750 700 / 700 Balance -2560 / -2690 -580 / -580 Weight 90.718 kg 90.809 kg 89.448 kg Constitutional Constitutional: no acute distress *Routine HEENT Exam Head: Present normocephalic Eye: Present EOMI and PERRL ENT: Present mucous membranes moist *Routine Neck Exam Neck: Present supple; Absent lymphadenopathy *Routine Respiratory Exam Respiratory: Present CTA bilaterally *Routine Cardiovascular Exam Cardiovascular: Present RRR *Routine Abdominal Exam Abdominal: Present soft and normoactive bowel sounds; Absent tenderness *Routine Extremities Exam Extremities: Absent cyanosis, clubbing or edema *Routine Skin Exam Skin: Present warm; Absent rash *Routine Neurological Exam Neurological: Present alert and oriented X3 Results Data Completed and Pending Labs on day of discharge: Labs from last 24 hours 11/04/24 07:00 WBC 5.5 RBC 4.55 Hgb 11.6 L Hct 37.2 MCV 81.8 MCH 25.5 L MCHC 31.2 L RDW 14.7 Plt Count 392 MPV 9.5 Neut % (Auto) 63.9 Lymph % (Auto) 21.8 [place] % (Auto) 7.3 Eos % (Auto) 5.5 Baso % (Auto) 1.1 Neut # (Auto) 3.5 Lymph # (Auto) 1.2 [place] # (Auto) 0.4 Eos # (Auto) 0.3 Baso # (Auto) 0.1 Sodium 134 L Potassium 3.2 L Chloride 99 Carbon Dioxide 29 Anion Gap 9.2 BUN 23 H D Creatinine 0.80 D Estimated Creat Clear 111 Estimated GFR 74 Est GFR ( Amer) 90 D Glucose 106 H Calcium 9.6 DS: Diagnosis Discharge Diagnosis (1) Acute deep vein thrombosis (DVT) of popliteal vein of left lower extremity: Status: Acute Code(s): I82.432 - Acute embolism and thrombosis of left popliteal vein (2) Pleural effusion: Status: Acute Code(s): J90 - Pleural effusion, not elsewhere classified (3) Localized swelling of both lower legs: Status: Acute Code(s): R22.43 - Localized swelling, mass and lump, lower limb, bilateral (4) Hypertension: Status: Acute Code(s): I10 - Essential (primary) hypertension (5) Tobacco use disorder: Status: Acute Code(s): F17.200 - Nicotine dependence, unspecified, uncomplicated (6) COPD (chronic obstructive pulmonary disease): Status: Chronic Code(s): J44.9 - Chronic obstructive pulmonary disease, unspecified Meds Home Medications and Allergies Home Medications ?Medication ?Instructions ?Recorded ?Confirmed ?Type No Known Home Medications 11/03/24 08/05/29 History New Prescriptions to Start Prescriptions: Allergies Allergy/AdvReac Type Severity Reaction Status Date / Time diphenhydramine Allergy Mild RASH, ITCH Verified 05/02/24 11:53 (DIPHENHYDRAMINE) Discharge Plan Disposition Patient Disposition: Home, Self-Care Condition: Good Follow up Plan Follow up with: Amy Griffiths APRN [Nurse Practitioner, Cardiology] - 2 days Referral Note: OAC for DVT Prescriptions/Medication Reconciliation: No Action No Known Home Medications Problem Reconciliation Problems Reviewed?: Yes Patient Discharge Instructions ACTIVITY: Continue current activity DIET: continue same diet Patient Instructions: DI for Deep Vein Thrombosis, DI for Chest Pain Print Language: Jamaican Providers Primary Care Provider: Provider,Referral Admit Provider: Bradley Devi Attending Provider: Bradley Devi
[2024-11-04] MEDS: XARELTO 15MG THP 1 PACKET PAK PO (12:48)
--- NOTE | 2024-11-06 10:54 | SW/DCPLANNER ---
Spoke with patient on the phone. Patient stated that she is doing okay. Patient stated that she is aware of her upcoming appointments. Patient stated that she was not able to get her new medicine picked up due to the cost and not having insurance. Patient stated that she has no concerns or questions at this time. Vandana Manuel
== END 2024-11-04 12:39 | disposition home or self-care (01) ==
LOC: ER 11-03 03:08 → 2ND 11-03 03:10
PROVIDERS: Admitting Provider Internal Medicine Adolescent Medicine; Emergency Provider Emergency Medicine; Visit Provider Internal Medicine Adolescent Medicine
DX: I82.432 Acute embolism and thrombosis of left popliteal vein (principal); J90 Pleural effusion, not elsewhere classified; I11.0 Hypertensive heart disease with heart failure; I50.9 Heart failure, unspecified; J81.1 Chronic pulmonary edema; R91.1 Solitary pulmonary nodule; F17.210 Nicotine dependence, cigarettes, uncomplicated; J44.9 Chronic obstructive pulmonary disease, unspecified; E66.9 Obesity, unspecified; Z68.34 Body mass index [BMI] 34.0-34.9, adult; Z86.73 Personal history of transient ischemic attack (TIA), and cerebral infarction without residual deficits; Z88.8 Allergy status to other drugs, medicaments and biological substances
CPT/HCPCS: 0223U; 36415; 71045; 71275; 80048; 80053; 83735; 83880; 84484; 85025; 85378; 85610; 87633; 93005; 93308; 93970; 93971; 94640; 96360; 96372; 99285; G0378; J1650; J1938; J7120; Q9967

== ENCOUNTER 2024-12-01 12:19 | Emergency (ER) | payer SELFPAY ==
[2024-12-01] VITALS (9 sets, daily range): BP systolic 134–158; BP diastolic 67–97; PULSE 77–96; RESP 16–22; TEMP 36.6; O2SAT 94–97; BMI 35.8
--- NOTE | 2024-12-01 12:30 | CT_ITS ---
PROCEDURE INFORMATION: Exam: CTA Chest With Contrast Exam date and time: 12/01/2024 2:32 PM Age: 54 years old Clinical indication: Shortness of breath; Additional info: SOA, HX of dvt TECHNIQUE: Imaging protocol: Computed tomographic angiography of the chest with contrast. Exam focused on the arteries. 3D rendering (Not supervised by radiologist): MIP and/or 3D reconstructed images were created by the technologist. Radiation optimization: All CT scans at this facility use at least one of these dose optimization techniques: automated exposure control; mA and/or kV adjustment per patient size (includes targeted exams where dose is matched to clinical indication); or iterative reconstruction. Contrast material: ISOVUE 370; Contrast volume: 70 ml; Contrast route: INTRAVENOUS (IV); COMPARISON: 1. CT ANGIO CHEST PE PROTOCOL 11/03/2024 1:[address] chest PE protocol dated 08/20/2023, 09/23/2024 FINDINGS: Pulmonary arteries: No evidence of filling defects to suggest pulmonary emboli. Aorta: The aorta demonstrates mild atherosclerotic calcification. Lungs: No evidence of consolidation or interlobular septal thickening. There is redemonstration of enhancing right paramediastinal pulmonary 1.4 cm nodule (5/63). Pleural spaces: There is a moderate right pleural effusion. Heart: Unremarkable. No cardiomegaly. No pericardial effusion. Heart RV/LV ratio: The RV/LV ratio is less than 1. Coronary arteries: No significant coronary artery calcifications. Mediastinal space: No hilar or mediastinal lymphadenopathy. Lymph nodes: Unremarkable. No enlarged lymph nodes. Bones/joints: Unremarkable. No acute fracture. Soft tissues: Unremarkable. IMPRESSION: 1. No evidence of filling defects to suggest pulmonary emboli. 2. There is redemonstration of enhancing right paramediastinal 1.4 cm nodule (5/63), unchanged. 3. Moderate right pleural effusion.
--- NOTE | 2024-12-01 12:31 | ED_ITS ---
<Statement entered by Kvng Morgan DO - 12/01/24 17:27> I was consulted by the KAREN, and we discussed the complexity of problems being addressed. I approved the treatment and management plan for this patient's care in the emergency department, thus performing a substantive portion of the medical decision making. Kvng Morgan DO Discharge Plan Disposition Patient Disposition: Home, Self-Care Condition: Good Prescriptions Prescriptions: No Action Eliquis 5 mg tablet 5 mg PO BID Qty: 180 3RF Referrals Follow up/Referrals: Rheumatology (Inessa Rodriguez) [Provider Group, Rheumatology] - See instructions Kevin Polo MD [Primary Care Provider, Medical] - See instructions Bimal Estrada MD [Staff Physician, Cardiology] - See instructions Hannah Godwin MD [Physician, Pulmonology] - See instructions Activity Restrictions/Add. Instructions Additional Instructions/Restrictions: Please follow-up with your PCP laboratory sampler and android ios developer in the upcoming days/weeks. Please return to the emergency department with any worsening signs or symptoms. I would recommend following up with radio script writer, for your rheumatoid arthritis. Please take all medications as prescribed. Clinical Impressions Clinical Impression: Bilateral lower extremity pain, Dyspnea Rheumatoid arthritis Qualifiers: Rheumatoid arthritis location: unspecified site Rheumatoid factor presence: u nspecified presence Qualified Code(s): M06.9 - Rheumatoid arthritis, unspecified Instructions Patient Instructions: DI for Shortness of Breath, DI for Rheumatoid Arthritis, DI for Leg Pain Print Language Print Language: Mongolian Discharge ED Provider: Kvng Morgan HPI <AMANDA Logan - Last Filed: 12/01/24 16:08> General Chief Complaint: Shortness of Breath/Dyspnea Stated Complaint: soa, legs hurt, DVT lt leg Time Seen by Provider: 12/01/24 12:21 Mode of Arrival: Ambulatory Source of Information: Patient and Medical Record Limitations: No Limitations History of Present Illness HPI narrative: 54-year-old female presents the emergency department for a 1 day history of worsening shortness of breath worse with exertion, patient admits bilateral lower leg pain described as achy , and difficulty ambulating due to pain, patient denies any fever chills, cough or congestion, no recent sick contacts, no chest pain, no abdominal pain no nausea no vomiting no constipation no diarrhea, no urinary symptomatology, patient has a poor socioeconomic history, difficulty with insurance and affording medications in the past, patient was recently admitted on 11/03/2024 and discharged on 11/04/2024, with concern of PE/DVT, documented DVT in the left lower extremity, in the past, she is currently on apixaban 5 mg p.o. twice daily she has been taking the medication as prescribed, other past medical history is consistent with current everyday smoker, denies any alcohol or drug use, COPD, rheumatoid arthritis, initial triage vitals otherwise unremarkable. Of note patient states she has been able to ambulate ever since discharge, but is had worsening episodes and difficulty ambulating due to pain , patient states that this generalized weakness and pain with ambulation walking long distances been going on for around 2 months, worsened today which prompted emergency department visit, patient denies any radicular cosmetology, no lower back pain, no numbness tingling no saddle anesthesia. Please note that above description of symptoms, in this electronic medical record under categorization of recalled from ER triage doctor by RN are reflective of an initial nursing assessment, however, is not reflective of my full history and physical exam that was personally taken and clarified. Consequentially, this preceding description of symptoms, which may include the patient's categorized chief complaint in the EMR, do not reflect my personal clinical impression, and the ultimate description of history of present illness and patient stated complaints should be deferred to this section of the note. Unless stated otherwise or congruent with this section of the note, additional signs, symptoms, or incongruence should be interpreted as inaccurate with my clinical impression. Related Data Previous Rx's ?Medication ?Instructions ?Recorded apixaban 5 mg tablet (Eliquis) 5 mg PO BID #180 tabs 0 11/23/24 Allergies Allergy/AdvReac Type Severity Reaction Status Date / Time diphenhydramine Allergy Mild RASH, ITCH Verified 11/07/24 11:47 (DIPHENHYDRAMINE) [facility] <AMANDA Logan - Last Filed: 12/01/24 16:08> [facility] Disclaimer: The information contained in this section may have been updated after the patient was seen, as this information can be updated by other users. Medical History (Updated 12/01/24 @ 16:08 by AMANDA Logan) Palpitations SOB (shortness of breath) on exertion Rheumatoid lung disease Pleural effusion COPD (chronic obstructive pulmonary disease) History of gastroesophageal reflux (GERD) Stroke Deep vein thrombosis (DVT) Rheumatoid arthritis Empyema of right pleural space Surgical History History of bunionectomy Hx of hysterectomy Hx of cholecystectomy Family History Other No significant family history Social History Smoking Status: Current every day smoker tobacco type: cigarettes packs per day: 1 second hand exposure: Yes alcohol intake: never substance use type: denies use current occupational status: disabled Travel in the last 8 weeks?: None household members: spouse housing: apartment current occupational exposures/hazards: No caffeine: Yes Have you lived/traveled outside US in past 30 days?: No Contact w/someone who lives/traveled outside US past 30 days?: No Exposure to someone with infectious disease in past 14 days?: No Do you have a fever (greater than 100.4 F or 38 C)?: No Have you tested positive for COVID-19?: No Exposed to someone with COVID-19 in past 14 days?: No Do you have a sore throat?: No Do you have a cough?: No Do you have any weakness?: No Do you have any diarrhea?: No Are you experiencing any unusual bleeding?: No Do you have any muscle aches/pain?: No Do you have any abdominal pain?: No Are you experiencing loss of taste or smell?: No Other Medical History Have you received the Flu Vaccine for this season: No Have you received the Pneumonia Vaccine: No <AMANDA Logan - Last Filed: 12/01/24 16:08> ROS Obtained: Yes All systems reviewed & no additional complaints except as documented Physical Exam <AMANDA Logan - Last Filed: 12/01/24 16:08> General General appearance: alert and in no apparent distress Comment: Somewhat unkept female, Head Head exam: atraumatic and normocephalic Eye Eye exam: Present PERRL and EOMI ENT ENT exam: Present mucous membranes moist Neck Neck exam: Present normal inspection Chest Chest inspection: Present normal inspection and symmetric chest wall rise Respiratory Respiratory exam: Present normal lung sounds bilaterally; Absent respiratory distress or wheezes Cardiovascular Cardiovascular exam: Present regular rate and normal rhythm Abdominal Exam Abdominal exam: Present soft; Absent tenderness, guarding or rebound Extremities Exam Extremities exam: Present normal inspection Neurological Exam Neurological exam: Present alert, oriented X3 and other (Preserved strength in the bilateral lower and upper extremities, patient moves extremities to command, no focal neurological deficit, no sensation deficit) Psychiatric Psychiatric exam: Present normal affect Skin Skin exam: Present warm, dry and other (No lower extremity edema no erythema, negative Homans' sign on the left, ) HEART Score <AMANDA Logan - Last Filed: 12/01/24 16:08> HEART Score HEART Score assessment performed?: Yes HEART Score: 2 Critical Care <AMANDA Logan - Last Filed: 12/01/24 16:08> Critical Care Time Critical Care Time: No Medical Decision Making <AMANDA Logan - Last Filed: 12/01/24 16:08> Medical Records Medical records reviewed: Yes I reviewed the patient's medical records. Joel Inquiry Pt receiving controlled substance: No Joel was queried for this patient: No Vital Signs Vital Signs: 12/01/24 12:31 12/01/24 13:00 12/01/24 13:30 Temperature 97.8 F Temperature Source Oral Pulse Rate 91 H 84 Pulse Rate [Right Brachial] 96 H Respiratory Rate 22 Blood Pressure 135/88 134/75 Blood Pressure [Right Arm] 155/97 H Blood Pressure Mean [Right Arm] 116 02 Sat by Pulse Oximetry 95 94 L 96 Oxygen Delivery Method Room Air 12/01/24 14:00 12/01/24 14:38 12/01/24 15:00 Temperature Temperature Source Pulse Rate 82 83 77 Pulse Rate [Right Brachial] Respiratory Rate Blood Pressure 158/86 H 135/67 Blood Pressure [Right Arm] Blood Pressure Mean [Right Arm] 02 Sat by Pulse Oximetry 95 96 96 Oxygen Delivery Method Room Air Lab Data Lab results reviewed: Yes I reviewed the patient's lab results. Labs: Lab Results 12/01/24 13:49: WBC 6.6, RBC 4.39, Hgb 11.8 L, Hct 36.3 L, MCV 82.7, MCH 26.9 L, MCHC 32.5, RDW 14.6, Plt Count 397, MPV 9.3, Neut % (Auto) 64.8, Lymph % (Auto) 18.0, Lynn % (Auto) 8.7, Eos % (Auto) 6.8, Baso % (Auto) 1.2, Neut # (Auto) 4.3, Lymph # (Auto) 1.2, Lynn # (Auto) 0.6, Eos # (Auto) 0.5 H, Baso # (Auto) 0.1, PT 10.9, INR 0.98, Sodium 138, Potassium 3.9, Chloride 108 H, Carbon Dioxide 26, Anion Gap 7.9, BUN 27 H, Creatinine 0.70, Estimated Creat Clear 126, Estimated GFR 87, Est GFR ( Amer) 105, Glucose 97, Calcium 9.3, Magnesium 2.2, Total Bilirubin 0.3, AST 24, ALT 13, Alkaline Phosphatase 96, Troponin I < 0.01, NT-Pro-B Natriuret Pep < 20.0, Total Protein 7.8, Albumin 3.9, Globulin 3.9 H, A lbumin/Globulin Ratio 1.0 L 12/01/24 13:49 12/01/24 13:49 Response Orders (Tests/Meds): ED MEDICATIONS Discontinued Medications Generic Name Dose Route Start Last Admin Trade Name Freq PRN Reason Stop Dose Admin Iopamidol 70 ml 12/01/24 14:31 12/01/24 14:33 Iopamidol-370 (76%);100ml Bottle IV 12/01/24 14:32 70 ml ONCE ONE Administration Morphine Sulfate 2 mg 12/01/24 15:39 Morphine 2mg/Ml Syringe IV 12/01/24 15:40 ONCE ONE Ondansetron HCl 4 mg 12/01/24 15:39 Ondansetron 4mg/2ml Vial IV 12/01/24 15:40 ONCE ONE Sodium Chloride 50 ml 12/01/24 14:31 12/01/24 14:33 0.9 % Sodium Chloride 50 Ml Vial IV 12/01/24 14:32 50 ml ONCE ONE Administration Sodium Chloride 10 ml 12/01/24 14:31 12/01/24 14:33 Sodium Chloride 0.9% 10ml Syr (Rad Only) IV 12/01/24 14:32 10 ml ONCE ONE Administration ORDERS Category Date Time Status CT angio chest PE protocol Stat Cat Scan 12/01/24 12:30 Completed Complete Blood Count Auto Diff Stat Lab 12/01/24 13:49 Completed Comprehensive Metabolic Panel Stat Lab 12/01/24 13:49 Completed Magnesium Stat Lab 12/01/24 13:49 Completed NT Pro Brain Natriuretic Pep. Stat Lab 12/01/24 13:49 Completed PT INR [Prothrombin Time INR] Stat Lab 12/01/24 13:49 Completed Troponin I Q3H Lab 12/01/24 15:30 Ordered Troponin I Q3H Lab 12/01/24 18:30 Ordered Troponin I Stat Lab 12/01/24 13:49 Completed MDM Narrative Medical Decision Narrative: 54-year-old female presents the emergency department with dyspnea dyspnea on exertion worsened today, as well as pain in bilateral lower extremities, for the last several months, worsened today, differential diagnose include but not limited to, PE, cardiac arrhythmia, electrolyte disturbance, COPD exacerbation, new onset CHF/exacerbation. I discussed this patient's case with the attending physician Dr. Morgan Will obtain basic laboratory studies, magnesium level proBNP PT/INR, troponin, EKG CTA chest without contrast PE protocol. CBC notable for hemoglobin 11.8, hematocrit 36.3 otherwise unremarkable CBC CMP is noted for elevated BUN at 27, troponin within normal proBNP within normal limits. PT/INR within the limits I reviewed the patient's CTA chest with and without contrast PE protocol, no evidence of filling defects to suggest pulmonary emboli, there is redemonstration of enhancing right paramediastinal 1.4 cm nodule, unchanged, moderate right pleural effusion. Patient passed a walk test. I discussed the results with the patient the bedside, will give 4 mg Zofran and 2 mg of morphine for pain and nausea, most likely thought to be more peripheral artery disease/rheumatoid arthritis flareup to the patient's bilateral lower extremity pain, patient is taking her apixaban as prescribed, less likely to be DVT, currently on treatment plan, patient has follow-up with cardiology, discussed with previous pleural effusion, saturating well on room air, she is known about this pleural effusion. Recommend keep follow-ups and continue take all medication as prescribed. Patient voiced understanding and agreement with the current treatment plan/discharge plan. <Kvng Morgan, - Last Filed: 12/01/24 16:08> Vital Signs Vital Signs: 12/01/24 12:31 12/01/24 13:00 12/01/24 13:30 Temperature 97.8 F Temperature Source Oral Pulse Rate 91 H 84 Pulse Rate [Right Brachial] 96 H Respiratory Rate 22 Blood Pressure 135/88 134/75 Blood Pressure [Right Arm] 155/97 H Blood Pressure Mean [Right Arm] 116 02 Sat by Pulse Oximetry 95 94 L 96 Oxygen Delivery Method Room Air 12/01/24 14:00 12/01/24 14:38 12/01/24 15:00 Temperature Temperature Source Pulse Rate 82 83 77 Pulse Rate [Right Brachial] Respiratory Rate Blood Pressure 158/86 H 135/67 Blood Pressure [Right Arm] Blood Pressure Mean [Right Arm] 02 Sat by Pulse Oximetry 95 96 96 Oxygen Delivery Method Room Air Lab Data Labs: Lab Results 12/01/24 13:49: WBC 6.6, RBC 4.39, Hgb 11.8 L, Hct 36.3 L, MCV 82.7, MCH 26.9 L, MCHC 32.5, RDW 14.6, Plt Count 397, MPV 9.3, Neut % (Auto) 64.8, Lymph % (Auto) 18.0, Lynn % (Auto) 8.7, Eos % (Auto) 6.8, Baso % (Auto) 1.2, Neut # (Auto) 4.3, Lymph # (Auto) 1.2, Lynn # (Auto) 0.6, Eos # (Auto) 0.5 H, Baso # (Auto) 0.1, PT 10.9, INR 0.98, Sodium 138, Potassium 3.9, Chloride 108 H, Carbon Dioxide 26, Anion Gap 7.9, BUN 27 H, Creatinine 0.70, Estimated Creat Clear 126, Estimated GFR 87, Est GFR ( Amer) 105, Glucose 97, Calcium 9.3, Magnesium 2.2, Total Bilirubin 0.3, AST 24, ALT 13, Alkaline Phosphatase 96, Troponin I < 0.01, NT-Pro-B Natriuret Pep < 20.0, Total Protein 7.8, Albumin 3.9, Globulin 3.9 H, A lbumin/Globulin Ratio 1.0 L Response Orders (Tests/Meds): ED MEDICATIONS Discontinued Medications Generic Name Dose Route Start Last Admin Trade Name Freq PRN Reason Stop Dose Admin Iopamidol 70 ml 12/01/24 14:31 12/01/24 14:33 Iopamidol-370 (76%);100ml Bottle IV 12/01/24 14:32 70 ml ONCE ONE Administration Morphine Sulfate 2 mg 12/01/24 15:39 Morphine 2mg/Ml Syringe IV 12/01/24 15:40 ONCE ONE Ondansetron HCl 4 mg 12/01/24 15:39 Ondansetron 4mg/2ml Vial IV 12/01/24 15:40 ONCE ONE Sodium Chloride 50 ml 12/01/24 14:31 12/01/24 14:33 0.9 % Sodium Chloride 50 Ml Vial IV 12/01/24 14:32 50 ml ONCE ONE Administration Sodium Chloride 10 ml 12/01/24 14:31 12/01/24 14:33 Sodium Chloride 0.9% 10ml Syr (Rad Only) IV 12/01/24 14:32 10 ml ONCE ONE Administration ORDERS Category Date Time Status CT angio chest PE protocol Stat Cat Scan 12/01/24 12:30 Completed Complete Blood Count Auto Diff Stat Lab 12/01/24 13:49 Completed Comprehensive Metabolic Panel Stat Lab 12/01/24 13:49 Completed Magnesium Stat Lab 12/01/24 13:49 Completed NT Pro Brain Natriuretic Pep. Stat Lab 12/01/24 13:49 Completed PT INR [Prothrombin Time INR] Stat Lab 12/01/24 13:49 Completed Troponin I Q3H Lab 12/01/24 15:30 Ordered Troponin I Q3H Lab 12/01/24 18:30 Ordered Troponin I Stat Lab 12/01/24 13:49 Completed ECG Data Tracing #1: Attestation: I reviewed this ECG and interpreted as documented below: ECG Narrative: EKG personally interpreted by me demonstrates normal sinus rhythm with a rate of 93 bpm, normal axis, no OR prolongation, narrow QRS, no QTc prolongation. No ST elevation or depression. No overt signs of ischemia or arrhythmia. No inferior T wave inversions.
--- NOTE | 2024-12-01 12:33 | ECG_ITS ---
APPROVED REPORT Exam: Resting ECG HR:93 bpm ECG Measurements Heart Rate 93 AXES TX 144 P 73 QRSd 85 QRS 82 QT 358 T 46 QTc 409 Conclusion SINUS RHYTHM NORMAL ECG Electronically signed by : KHURRAM FISCHER, 12/05/2024 07:06:16
--- OUTSIDE RECORDS SUMMARY | 2024-12-01 12:42 | XMS_ITS | Encounter Summary ---
Author Organization Healthcare Address [address] [place] [address] Care Team Providers Care Major Appliance Assembly Supervisor Name Role Phone Pcp, No Primary Care Provider Unavailabl e Reason for Visit * Reason Comments Med Refill Encounter Details Date Type Department Care Team (Late st Contact Info) Description 06/06/2023 [facility] [address] [place] [address] Lorena Hartmann H, BIOPHYSICS TEACHER [address] [place] [address] Bronchitis; Shortness of breath Social History Tobacco Use Types Packs/Day Years Used Date Smoking Tobacco: Every Day Cigarettes 0.2 44.7 Started: 04/04/1980 Smokeless Tobacco: Never Comments:Have stopped [...] documented as of this encounter Care Teams Major Appliance Assembly Supervisor Relationship Specialty Start Date End Date Pcp, [place] [address] PCP - General Family Medicine 08/24/22 documented as of this encounter
--- OUTSIDE RECORDS SUMMARY | 2024-12-01 12:42 | XMS_ITS | Clinical Summary ---
Author Organization [facility] Address [address] [place] [address] Care Team Providers Care Elementary Ell Teacher Name Role Phone Pcp, No Primary Care Provider Unavailabl e Allergies Active Allergy Reactions Criticality Noted Date Comments Diphenhydramine Unknown - Patient st ates they do not know rxn details Low 06/20/2017 Diphenhydramine-Apap (Sleep) Unknown - P atient states they do not know rxn details Low 03/14/2018 Medications ergocalciferol (Vitamin D-2) 1.25 MG (36597 UT) capsuleIndicati ons:Vitamin D deficiency Take 1 [...] 0.2 44.7 Started: 04/04/1980 Smokeless Tobacco: Never Tobacco Cessation:Ready [...] 3 - 19+ 3-dose series) 08/03/2019 07/06/2019 [id number] Vaccine (3 - Moderna risk series) 09/23/2020 [...] Antibody Negative Negative 09/11/2021 1:27 PM EDT [facility] Hepatitis A Antibody IgM Negative Negative 09/11/2021 1:27 PM EDT [facility] Hepatitis B Core Antibody IgM Negative Negative 09/11/2021 1:27 PM EDT [facility] Blood Venous blood specimen / Unknown Venipuncture / Unknown 09/09/2021 4:30 PM EDT 09/09/2021 4:30 PM EDT Lizeth Spivey REHANGER LAB BLOOD ORDERABLES Fi nal Result [facility] [address] [place] [id number] * HIV 1 & 2 Antibody/Antigen Screen (06/07/2019 1:05 PM EST) [facility] HIV 1 Result NONREACTIVE Screening for HIV 1 and 2 antibodies is NONREACTIVE. No confirmatory testing is required. SUNQUEST 06/07/2019 1:05 PM EST 06/07/2019 2:42 PM EST Halie Kong APRN, DNP LAB BLOOD ORDERABLE S Final Result SUNQUEST from Last 3 Months or Most Recently Relevant to Health Maintenance Insurance [facility] [place] [address] MEDICARE MEDICARE [employer] MEDICAID [place] Care Teams Elementary Ell Teacher Relationship Specialty Start Date End Date Maria Elena, [place] [address] PCP - General Family Medicine 08/24/22
[2024-12-01 14:04] LABS: Albumin Level 3.9 g/dl (3.5-5.0); Chloride 108 mmol/L (98-107); Potassium 3.9 mmoL/L (3.5-5.1); Sodium 138 mmol/L (136-145)
[2024-12-01 14:06] LABS: Alanine Aminotransferase 13 U/L (12-78); Aspartate Amino Transferase 24 U/L (14-36); Blood Urea Nitrogen 27 mg/dl (7-17); Creatinine Clearance Estimated 126 mL/min (50-200); Creatinine,Serum 0.70 mg/dl (0.52-1.04); Estimated Glomerular Filt Rate 87 ml/min (>60); GFR (African American) 105 ML/MIN (>60)
[2024-12-01 14:07] LABS: Albumin/Globulin Ratio 1.0 (1.1-1.8); Alkaline Phosphatase 96 U/L (38-126); Anion Gap 7.9 mEq/L (5-15); Bilirubin,Total 0.3 mg/dl (0.2-1.3); Calcium 9.3 mg/dl (8.4-10.2); Carbon Dioxide 26 mmol/L (22.0-30.0); Globulin 3.9 g/dL (1.3-3.2); Glucose 97 mg/dl (74-100); Magnesium 2.2 mg/dl (1.6-2.3); Total Protein,Serum 7.8 g/dl (6.3-8.2)
[2024-12-01 14:08] LABS: Hematocrit 36.3 % (37.0-47.0); Hemoglobin 11.8 g/dL (12.2-16.2); Immature Granulocytes % 0.5 %; Mean Corpuscular HGB Conc 32.5 g/dL (31.8-35.4); Mean Corpuscular Hemoglobin 26.9 pg (27.0-31.2); Mean Corpuscular Volume 82.7 fl (81-99); Nucleated Red Blood Cells % 0 %; Platelet Count 397 K/mm3 (142-424); Red Blood Count 4.39 M/mm3 (4.20-5.40); Red Cell Distribution Width-SD 42.7 fL; White Blood Count 6.6 K/mm3 (4.8-10.8)
[2024-12-01 14:16] LABS: NT Pro Brain Natriuretic Pep. < 20.0 pg/mL (0-125)
[2024-12-01 14:25] LABS: Troponin I < 0.01 ng/ml (0.00-0.034)
--- NOTE | 2024-12-01 14:31 | PC.NURSE ---
Joe deferred blood cultures at this time.
[2024-12-01] MEDS: SODIUM CHLORIDE 0.9% 10ML SYR (RAD ONLY) 10 ML IV (14:33)
[2024-12-01] MEDS: IOPAMIDOL-370 (76%);100ML BOTTLE 70 ML IV (14:33)
[2024-12-01] MEDS: 0.9 % SODIUM CHLORIDE 50 ML VIAL IV (14:33)
[2024-12-01 14:41] LABS: INR 0.98 (0.9-1.1); Prothrombin Time 10.9 seconds (10.1-12.5)
[2024-12-01] MEDS: MORPHINE 2MG/ML SYRINGE 2 MG IV (16:10)
[2024-12-01] MEDS: ONDANSETRON 4MG/2ML VIAL 4 MG IV (16:10)
== END 2024-12-01 16:21 | disposition home or self-care (01) ==
PROVIDERS: Physician Assistant; Emergency Provider Student in an Organized Health Care Education/Training Program; PCP Family Medicine
DX: R06.00 Dyspnea, unspecified (principal); M79.604 Pain in right leg; M06.9 Rheumatoid arthritis, unspecified
CPT/HCPCS: 71275; 80053; 83735; 83880; 84484; 85025; 85610; 93005; 96374; 96375; 99284; 99285; J2270; J2405; Q9967

== ENCOUNTER 2024-12-24 12:02 | Emergency (ER) | payer MEDICARE, SELFPAY ==
[2024-12-24] VITALS (12 sets, daily range): BP systolic 126–163; BP diastolic 73–101; PULSE 94–126; RESP 14–25; TEMP 36.4–36.6; O2SAT 93–99; BMI 34.7
--- OUTSIDE RECORDS SUMMARY | 2024-12-24 12:12 | XMS_ITS | Encounter Summary ---
Author Organization Healthcare Address [address] [place] [address] Care Team Providers Care Valet Parker Name Role Phone Pcp, No Primary Care Provider Unavailabl e Reason for Visit * Reason Comments Med Refill Encounter Details Date Type Department Care Team (Late st Contact Info) Description 06/06/2023 Refill [facility] [address] [place] [address] Lorena Hartmann H, TUBER OPERATOR [address] [place] [address] Bronchitis; Shortness of breath Social History Tobacco Use Types Packs/Day Years Used Date Smoking Tobacco: Every Day Cigarettes 0.3 44.7 Started: 04/04/1980 Smokeless Tobacco: Never Comments:Have [...] documented as of this encounter Care Teams Valet Parker Relationship Specialty Start Date End Date Pcp, [place] [address] PCP - General Family Medicine 08/24/22 documented as of this encounter
--- OUTSIDE RECORDS SUMMARY | 2024-12-24 12:12 | XMS_ITS | Clinical Summary ---
Author Organization [facility] Address [address] [place] [address] Care Team Providers Care Diploma Dental Assistant Name Role Phone Pcp, No Primary Care Provider Unavailabl e Allergies Active Allergy Reactions Criticality Noted Date Comments Diphenhydramine Unknown - Patient st ates they do not know rxn details Low 06/20/2017 Diphenhydramine-Apap (Sleep) Unknown - P atient states they do not know rxn details Low 03/14/2018 Medications ergocalciferol (Vitamin D-2) 1.25 MG (07613 UT) capsuleIndicati ons:Vitamin D deficiency Take 1 [...] Mother Melanie Reina Depression Mother's Sister Tempie Drarian Kidney disease Mother's Sister Tempie Darrian Obesity [...] 0.3 44.7 Started: [birth year]/04/1982 Smokeless Tobacco: Never Tobacco [...] 3 - 19+ 3-dose series) 08/03/2019 07/06/2019 [id number] Vaccine (3 - Moderna risk series) 09/23/2020 [...] Antibody Negative Negative 09/11/2021 1:27 PM EDT [facility] Hepatitis A Antibody IgM Negative Negative 09/11/2021 1:27 PM EDT [facility] Hepatitis B Core Antibody IgM Negative Negative 09/11/2021 1:27 PM EDT [facility] Blood Venous blood specimen / Unknown Venipuncture / Unknown 09/09/2021 4:30 PM EDT 09/09/2021 4:30 PM EDT Lizeth Spivey AREA FIELD WORKER LAB BLOOD ORDERABLES Fi nal Result [facility] [address] [place] [id number] * HIV 1 & 2 Antibody/Antigen Screen (06/07/2019 1:05 PM EST) [facility] HIV 1 Result NONREACTIVE Screening for HIV 1 and 2 antibodies is NONREACTIVE. No confirmatory testing is required. SUNQUEST 06/07/2019 1:05 PM EST 06/07/2019 2:42 PM EST Halie Kong APRN, DNP LAB BLOOD ORDERABLE S Final Result SUNQUEST from Last 3 Months or Most Recently Relevant to Health Maintenance Insurance [facility] MEDICAID [place] MEDICARE MEDICARE [employer] MEDICAID [place] Care Teams Diploma Dental Assistant Relationship Specialty Start Date End Date Maria Elena, [place] [address] PCP - General Family Medicine 08/24/22
[2024-12-24 12:33] LABS: Hematocrit 37.0 % (37.0-47.0); Hemoglobin 12.1 g/dL (12.2-16.2); Immature Granulocytes % 0.2 %; Mean Corpuscular HGB Conc 32.7 g/dL (31.8-35.4); Mean Corpuscular Hemoglobin 25.9 pg (27.0-31.2); Mean Corpuscular Volume 79.1 fl (81-99); Nucleated Red Blood Cells % 0 %; Platelet Count 468 K/mm3 (142-424); Red Blood Count 4.68 M/mm3 (4.20-5.40); Red Cell Distribution Width-SD 40.7 fL; White Blood Count 9.6 K/mm3 (4.8-10.8)
--- NOTE | 2024-12-24 12:34 | ED_ITS ---
Discharge Plan Disposition Patient Disposition: Home, Self-Care Prescriptions Prescriptions: No Action Eliquis 5 mg tablet 5 mg PO BID Qty: 180 3RF Clinical Impressions Clinical Impression: Shortness of breath, Pleural effusion Print Language Print Language: Frisian Discharge ED Provider: Isak Marlow General Adult HPI <Wiliam Cabrales MD - Last Filed: 12/24/24 17:08> General Chief complaint: Chest Pain Stated complaint: CP SOA Time Seen by Provider: 12/24/24 12:21 Mode of Arrival: Wheelchair Source of Information: Patient Description of Symptoms (Recalled from ER Triage Doc. by RN): pt states 1hr [employer] she began having sternal chest pain and SOA while walking. pt states the pain is a constant squeezing but intermittantly becomes worse as if she is having a muscle spasm. pt states her pain is 4/10. pt also reports lightheadedness. History of Present Illness HPI narrative: This patient presents to the emergency department from cardiology clinic for chest pain and shortness of breath. The patient reports that the symptoms have been ongoing for the last several months. She has had persistent pain in the bilateral lower extremities, intermittent shortness of breath, frequent chest pain. The patient reports to me that she was sent here by her customer logistics manager clinic to be admitted to the hospital for further testing. She reports that she is currently without insurance and so she cannot afford for the testing to be done outpatient which is why the customer logistics manager wants to admit her for further testing. She also reports that at this point she is not able to afford her medications including her Xarelto. Related Data Previous Rx's ?Medication ?Instructions ?Recorded apixaban 5 mg tablet (Eliquis) 5 mg PO BID #180 tabs 0 11/23/24 Allergies Allergy/AdvReac Type Severity Reaction Status Date / Time diphenhydramine Allergy Mild RASH, ITCH Verified 12/24/24 11:34 (DIPHENHYDRAMINE) PFSH <Wiliam Cabrales MD - Last Filed: 12/24/24 17:08> [facility] Disclaimer: The information contained in this section may have been updated after the patient was seen, as this information can be updated by other users. Medical History (Updated 12/24/24 @ 18:36 by Isak Marlow MD) Unstable angina Palpitations SOB (shortness of breath) on exertion Rheumatoid lung disease Pleural effusion COPD (chronic obstructive pulmonary disease) History of gastroesophageal reflux (GERD) Stroke Deep vein thrombosis (DVT) Rheumatoid arthritis Empyema of right pleural space Surgical History History of bunionectomy Hx of hysterectomy Hx of cholecystectomy Family History Other No significant family history Social History Smoking Status: Current every day smoker tobacco type: cigarettes packs per day: 1 second hand exposure: Yes alcohol intake: never substance use type: denies use current occupational status: disabled Travel in the last 8 weeks?: None household members: spouse housing: apartment current occupational exposures/hazards: No caffeine: Yes Have you lived/traveled outside [place] in past 30 days?: No Contact w/someone who lives/traveled outside US past 30 days?: No Exposure to someone with infectious disease in past 14 days?: No Do you have a fever (greater than 100.4 F or 38 C)?: No Have you tested positive for COVID-19?: No Exposed to someone with COVID-19 in past 14 days?: No Do you have a sore throat?: No Do you have a cough?: No Do you have any weakness?: No Do you have any diarrhea?: No Are you experiencing any unusual bleeding?: No Do you have any muscle aches/pain?: No Do you have any abdominal pain?: No Are you experiencing loss of taste or smell?: No Other Medical History Have you received the Flu Vaccine for this season: No Have you received the Pneumonia Vaccine: No <Wiliam Cabrales MD - Last Filed: 12/24/24 17:08> ROS Obtained: Yes All systems reviewed & no additional complaints except as documented Physical Exam <Wiliam Cabrales MD - Last Filed: 12/24/24 17:08> General General appearance: alert and in no apparent distress Head Head exam: atraumatic and normocephalic Eye Eye exam: Present normal appearance, PERRL and EOMI ENT ENT exam: Present normal exam and normal external ear exam Neck Neck exam: Present normal inspection, full ROM and trachea midline Chest Chest inspection: Present normal inspection and symmetric chest wall rise; Absent tenderness Respiratory Respiratory exam: Absent respiratory distress Cardiovascular Cardiovascular exam: Present regular rate, normal rhythm and other (appears warm and well perfused) Abdominal Exam Abdominal exam: Absent distention or tenderness Extremities Exam Extremities exam: Present normal inspection and full ROM Neurological Exam Neurological exam: Present alert and oriented X3 Psychiatric Psychiatric exam: Present normal affect Skin Skin exam: Present warm and dry Medical Decision Making <Wiliam Cabrales MD - Last Filed: 12/24/24 17:08> Medical Records Medical records reviewed: Yes I reviewed the patient's medical records. Screening: Per USPSTF and CDC recommendations, given the prevalence of disease in our region, it is our hospital?s policy to screen for HIV and viral Hepatitis for all patients aged 18 and over and those with ongoing risk factors. Joel Inquiry Pt receiving controlled substance: No Joel was queried for this patient: No Vital Signs: 12/24/24 12:02 12/24/24 12:17 12/24/24 12:31 Temperature 97.6 F Temperature Source Oral Pulse Rate 99 H 96 H Pulse Rate [Left] 96 H Respiratory Rate 20 25 H 20 Blood Pressure 149/101 H 154/92 H Blood Pressure [Right Arm] 163/101 H Blood Pressure Mean Blood Pressure Mean [Right Arm] 121 Blood Pressure Source Automatic Cuff Automatic Cuff Blood Pressure Source [Right Arm] Automatic Cuff Blood Pressure Position Supine Supine Blood Pressure Position [Right Arm] Sitting 02 Sat by Pulse Oximetry 99 98 98 Oxygen Delivery Method Room Air Room Air Room Air 12/24/24 12:31 12/24/24 14:01 12/24/24 14:30 Temperature Temperature Source Pulse Rate 94 H 115 H 124 H Pulse Rate [Left] Respiratory Rate 24 18 14 Blood Pressure 154/92 H 156/89 H 154/81 H Blood Pressure [Right Arm] Blood Pressure Mean 114 Blood Pressure Mean [Right Arm] Blood Pressure Source Blood Pressure Source [Right Arm] Blood Pressure Position Blood Pressure Position [Right Arm] 02 Sat by Pulse Oximetry 99 96 93 L Oxygen Delivery Method 12/24/24 15:00 12/24/24 16:00 12/24/24 16:30 Temperature Temperature Source Pulse Rate 124 H 126 H 124 H Pulse Rate [Left] Respiratory Rate 20 20 16 Blood Pressure 144/81 H 154/81 H 144/81 H Blood Pressure [Right Arm] Blood Pressure Mean 102 Blood Pressure Mean [Right Arm] Blood Pressure Source Blood Pressure Source [Right Arm] Blood Pressure Position Blood Pressure Position [Right Arm] 02 Sat by Pulse Oximetry 93 L 95 95 Oxygen Delivery Method 12/24/24 16:58 12/24/24 17:00 12/24/24 17:30 Temperature Temperature Source Pulse Rate 115 H 113 H 111 H Pulse Rate [Left] Respiratory Rate Blood Pressure 144/87 H 148/90 H 126/73 Blood Pressure [Right Arm] Blood Pressure Mean 100 Blood Pressure Mean [Right Arm] Blood Pressure Source Blood Pressure Source [Right Arm] Blood Pressure Position Blood Pressure Position [Right Arm] 02 Sat by Pulse Oximetry 96 94 L 95 Oxygen Delivery Method Lab Data Lab results reviewed: Yes I reviewed the patient's lab results. Lab Results 12/24/24 12:24: WBC 9.6, RBC 4.68, Hgb 12.1 L, Hct 37.0, MCV 79.1 L, MCH 25.9 L, MCHC 32.7, RDW 14.2, Plt Count 468 H, MPV 9.2, Neut % (Auto) 72.0, Lymph % (Auto) 17.6, Gall[place] % (Auto) 6.2, Eos % (Auto) 2.8, Baso % (Auto) 1.2, Neut # (Auto) 6.9, Lymph # (Auto) 1.7, Gall[place] # (Auto) 0.6, Eos # (Auto) 0.3, Baso # (Auto) 0.1, Sodium 136, Potassium 4.0, Chloride 102, Carbon Dioxide 22, Anion Gap 16.0 H, BUN 20 H, Creatinine 0.70, Estimated Creat Clear 122, Estimated GFR 87, Est GFR ( Amer) 105, Glucose 110 H, Calcium 9.8, Total Bilirubin 0.5, AST 23, ALT 14, Alkaline Phosphatase 108, Troponin I < 0.01, NT-Pro-B Natriuret Pep < 20.0, Total Protein 8.6 H, Albumin 4.2, Globulin 4.4 H, Albumin/Globulin Ratio 1.0 L 12/24/24 12:27: VBG pH 7.50 H, VBG pCO2 29.2 L, VBG pO2 46.0 H, VBG HCO3 22.0 L, VBG Total CO2 22.9 L, VBG O2 Saturation 86.1 H, VBG Base Excess -1.3, VBG Lactic Acid 2.5 H 12/24/24 13:20: SARS-CoV-2 (PCR) Not detected, Influenza A Untype (PCR) Not detected, Influenza Type B (PCR) Not detected 12/24/24 15:23: Troponin I < 0.01 12/24/24 12:24 12/24/24 12:24 Orders (Tests/Meds): ED MEDICATIONS Discontinued Medications Generic Name Dose Route Start Last Admin Trade Name Freq PRN Reason Stop Dose Admin Albuterol/Ipratropium 9 ml 12/24/24 12:37 12/24/24 13:00 Ipratropium/Albuterol 3 Ml Neb IH 12/24/24 12:38 9 ml ONCE ONE Administration Iopamidol 80 ml 12/24/24 13:09 12/24/24 13:09 Iopamidol-370 (76%);100ml Bottle IV 12/24/24 13:10 80 ml ONCE ONE Administration Methylprednisolone Sodium Succinate 80 mg 12/24/24 12:37 12/24/24 12:59 Methylprednisolone Sod Succ 125mg Vial IV 12/24/24 12:38 80 mg ONCE ONE Administration Sodium Chloride 50 ml 12/24/24 13:09 12/24/24 13:09 0.9 % Sodium Chloride 50 Ml Vial IV 12/24/24 13:10 50 ml ONCE ONE Administration Sodium Chloride 10 ml 12/24/24 13:09 12/24/24 13:09 Sodium Chloride 0.9% 10ml Syr (Rad Only) IV 12/24/24 13:10 10 ml ONCE ONE Administration ORDERS Category Date Time Status CT angio chest PE protocol Stat Cat Scan 12/24/24 12:37 Completed CXR --portable [XR chest portable] Stat Exams 12/24/24 12:37 Completed Complete Blood Count Auto Diff Stat Lab 12/24/24 12:24 Completed Comprehensive Metabolic Panel Stat Lab 12/24/24 12:24 Completed NT Pro Brain Natriuretic Pep. Stat Lab 12/24/24 12:24 Completed Rapid PCR Covid and Flu A/B Stat Lab 12/24/24 13:20 Completed Troponin I Q3H Lab 12/24/24 15:23 Completed Troponin I Stat Lab 12/24/24 12:24 Completed VBG [Venous Blood Gas] Stat RT 12/24/24 12:27 Completed Medical Decision Narrative: MDM In summary, this 54-year-old female presents to the emergency department today with chest pain and shortness of breath. Initial evaluation the patient emotionally distressed, hemodynamically stable, normal saturation on room air. Differential diagnosis includes but is not limited to ACS, UT, pulmonary embolism, pulmonary hypertension, pneumonia, pleural effusion, pneumothorax. Based on these concerns, I ordered a comprehensive laboratory and imaging workup. ECG personally interpreted by me demonstrates no significant changes from previous EKGs. Labs personally reviewed and interpreted demonstrate no significant leukocytosis, no significant anemia, no major metabolic abnormalities including no significant elevation in troponin or BNP, venous blood gas is notable for mild alkalosis with decreased CO2 indicating a respiratory alkalosis. X-rays personally interpreted by me demonstrate stable pleural effusion and right-sided pulmonary opacity. I called the patient's cardiology provider and spoke with her on the phone. The provider reported that they have been struggling with the patient's care due to her lack of insurance. Over the last 2 months she has been diagnosed with a lower extremity DVT which they believe is the source of her discomfort. She did have a CT scan of the chest which showed no concern for pulmonary embolism however she has not been able to afford her blood thinner so she has not been taking them. Additionally the provider clarified that they did not recommend admission to the hospital to perform an outpatient workup, they told the patient that if she was admitted to the hospital for another reason they could perform the test while she was there. Given this concern for lack of anticoagulation in a state of possible thromboembolism I felt it was reasonable to repeat a CT scan of the chest. Unfortunately before final results could be given, the care of this patient was signed out to the oncoming attending. <Isak Marlow MD - Last Filed: 12/24/24 18:57> Vital Signs: 12/24/24 12:02 12/24/24 12:17 12/24/24 12:31 Temperature 97.6 F Temperature Source Oral Pulse Rate 99 H 96 H Pulse Rate [Left] 96 H Respiratory Rate 20 25 H 20 Blood Pressure 149/101 H 154/92 H Blood Pressure [Right Arm] 163/101 H Blood Pressure Mean Blood Pressure Mean [Right Arm] 121 Blood Pressure Source Automatic Cuff Automatic Cuff Blood Pressure Source [Right Arm] Automatic Cuff Blood Pressure Position Supine Supine Blood Pressure Position [Right Arm] Sitting 02 Sat by Pulse Oximetry 99 98 98 Oxygen Delivery Method Room Air Room Air Room Air 12/24/24 12:31 12/24/24 14:01 12/24/24 14:30 Temperature Temperature Source Pulse Rate 94 H 115 H 124 H Pulse Rate [Left] Respiratory Rate 24 18 14 Blood Pressure 154/92 H 156/89 H 154/81 H Blood Pressure [Right Arm] Blood Pressure Mean 114 Blood Pressure Mean [Right Arm] Blood Pressure Source Blood Pressure Source [Right Arm] Blood Pressure Position Blood Pressure Position [Right Arm] 02 Sat by Pulse Oximetry 99 96 93 L Oxygen Delivery Method 12/24/24 15:00 12/24/24 16:00 12/24/24 16:30 Temperature Temperature Source Pulse Rate 124 H 126 H 124 H Pulse Rate [Left] Respiratory Rate 20 20 16 Blood Pressure 144/81 H 154/81 H 144/81 H Blood Pressure [Right Arm] Blood Pressure Mean 102 Blood Pressure Mean [Right Arm] Blood Pressure Source Blood Pressure Source [Right Arm] Blood Pressure Position Blood Pressure Position [Right Arm] 02 Sat by Pulse Oximetry 93 L 95 95 Oxygen Delivery Method 12/24/24 16:58 12/24/24 17:00 12/24/24 17:30 Temperature Temperature Source Pulse Rate 115 H 113 H 111 H Pulse Rate [Left] Respiratory Rate Blood Pressure 144/87 H 148/90 H 126/73 Blood Pressure [Right Arm] Blood Pressure Mean 100 Blood Pressure Mean [Right Arm] Blood Pressure Source Blood Pressure Source [Right Arm] Blood Pressure Position Blood Pressure Position [Right Arm] 02 Sat by Pulse Oximetry 96 94 L 95 Oxygen Delivery Method Lab Data Lab Results 12/24/24 12:24: WBC 9.6, RBC 4.68, Hgb 12.1 L, Hct 37.0, MCV 79.1 L, MCH 25.9 L, MCHC 32.7, RDW 14.2, Plt Count 468 H, MPV 9.2, Neut % (Auto) 72.0, Lymph % (Auto) 17.6, Gallia % (Auto) 6.2, Eos % (Auto) 2.8, Baso % (Auto) 1.2, Neut # (Auto) 6.9, Lymph # (Auto) 1.7, Gallia # (Auto) 0.6, Eos # (Auto) 0.3, Baso # (Auto) 0.1, Sodium 136, Potassium 4.0, Chloride 102, Carbon Dioxide 22, Anion Gap 16.0 H, BUN 20 H, Creatinine 0.70, Estimated Creat Clear 122, Estimated GFR 87, Est GFR ( Amer) 105, Glucose 110 H, Calcium 9.8, Total Bilirubin 0.5, AST 23, ALT 14, Alkaline Phosphatase 108, Troponin I < 0.01, NT-Pro-B Natriuret Pep < 20.0, Total Protein 8.6 H, Albumin 4.2, Globulin 4.4 H, Albumin/Globulin Ratio 1.0 L 12/24/24 12:27: VBG pH 7.50 H, VBG pCO2 29.2 L, VBG pO2 46.0 H, VBG HCO3 22.0 L, VBG Total CO2 22.9 L, VBG O2 Saturation 86.1 H, VBG Base Excess -1.3, VBG Lactic Acid 2.5 H 12/24/24 13:20: SARS-CoV-2 (PCR) Not detected, Influenza A Untype (PCR) Not detected, Influenza Type B (PCR) Not detected 12/24/24 15:23: Troponin I < 0.01 Orders (Tests/Meds): ED MEDICATIONS Discontinued Medications Generic Name Dose Route Start Last Admin Trade Name Jose Raulq PRN Reason Stop Dose Admin Albuterol/Ipratropium 9 ml 12/24/24 12:37 12/24/24 13:00 Ipratropium/Albuterol 3 Ml Neb IH 12/24/24 12:38 9 ml ONCE ONE Administration Iopamidol 80 ml 12/24/24 13:09 12/24/24 13:09 Iopamidol-370 (76%);100ml Bottle IV 12/24/24 13:10 80 ml ONCE ONE Administration Methylprednisolone Sodium Succinate 80 mg 12/24/24 12:37 12/24/24 12:59 Methylprednisolone Sod Succ 125mg Vial IV 12/24/24 12:38 80 mg ONCE ONE Administration Sodium Chloride 50 ml 12/24/24 13:09 12/24/24 13:09 0.9 % Sodium Chloride 50 Ml Vial IV 12/24/24 13:10 50 ml ONCE ONE Administration Sodium Chloride 10 ml 12/24/24 13:09 12/24/24 13:09 Sodium Chloride 0.9% 10ml Syr (Rad Only) IV 12/24/24 13:10 10 ml ONCE ONE Administration ORDERS Category Date Time Status CT angio chest PE protocol Stat Cat Scan 12/24/24 12:37 Completed CXR --portable [XR chest portable] Stat Exams 12/24/24 12:37 Completed Complete Blood Count Auto Diff Stat Lab 12/24/24 12:24 Completed Comprehensive Metabolic Panel Stat Lab 12/24/24 12:24 Completed NT Pro Brain Natriuretic Pep. Stat Lab 12/24/24 12:24 Completed Rapid PCR Covid and Flu A/B Stat Lab 12/24/24 13:20 Completed Troponin I Q3H Lab 12/24/24 15:23 Completed Troponin I Stat Lab 12/24/24 12:24 Completed VBG [Venous Blood Gas] Stat RT 12/24/24 12:27 Completed Medical Decision Narrative: MDM In summary, this 54-year-old female presents to the emergency department today with chest pain and shortness of breath. Initial evaluation the patient emotionally distressed, hemodynamically stable, normal saturation on room air. Differential diagnosis includes but is not limited to ACS, UT, pulmonary embolism, pulmonary hypertension, pneumonia, pleural effusion, pneumothorax. Based on these concerns, I ordered a comprehensive laboratory and imaging workup. ECG personally interpreted by me demonstrates no significant changes from previous EKGs. Labs personally reviewed and interpreted demonstrate no significant leukocytosis, no significant anemia, no major metabolic abnormalities including no significant elevation in troponin or BNP, venous blood gas is notable for mild alkalosis with decreased CO2 indicating a respiratory alkalosis. X-rays personally interpreted by me demonstrate stable pleural effusion and right-sided pulmonary opacity. I called the patient's cardiology provider and spoke with her on the phone. The provider reported that they have been struggling with the patient's care due to her lack of insurance. Over the last 2 months she has been diagnosed with a lower extremity DVT which they believe is the source of her discomfort. She did have a CT scan of the chest which showed no concern for pulmonary embolism however she has not been able to afford her blood thinner so she has not been taking them. Additionally the provider clarified that they did not recommend admission to the hospital to perform an outpatient workup, they told the patient that if she was admitted to the hospital for another reason they could perform the test while she was there. Given this concern for lack of anticoagulation in a state of possible thromboembolism I felt it was reasonable to repeat a CT scan of the chest. Unfortunately before final results could be given, the care of this patient was signed out to the oncoming attending. Isak Marlow MD At the time my assumption of care, plan was to follow-up patient's second troponin and CT imaging. Ultimately, patient's workup showed no leukocytosis, platelets elevated 468, pH with respiratory alkalosis with pH of 7.5, pCO2 29.2, lactate mildly elevated at 25, bicarb low at 22. Patient's anion gap is mildly elevated at 16. Electrolytes otherwise within normal limits. No CARITO. Glucose of 110. Calcium normal at 9.8. Liver enzymes and bilirubin within normal limits. Initial troponin less than 0.01. BNP normal at less than 20. Rapid COVID and flu testing is negative. Repeat troponin was also negative at less than 0.01. Significant delay in radiology interpretation of patient CT imaging, however all upon my personal to rotation of the imaging, no pulmonary embolism is identified although there is poor contrast timing to evaluate the distal pulmonary arteries. Patient does have a right sided pleural effusion, however this is a chronic issue according to patient. No other focal opacities to suggest pneumonia. I discussed that we were waiting on radiology interpretation of patient CT imaging before final disposition. Initially she stated that she is willing to wait a few minutes but is concerned about her son being her only source of transportation back home and that he has been up for several hours. I was called back into the room after this discussion patient states that she does want a leave at this time. I did discuss with patient that we would like to wait for her CT imaging results prior to safely discharging patient plus she has also remained mildly tachycardic throughout her ED visit, however she still states that she wants to leave at this time. I did discuss with her that we cannot guarantee that she will not leave and have worsening of her condition, including worsening shortness of breath, or . She demonstrated understanding and was able to express back to me that she understands the risk of leaving but would still like to go home. She has a history of rheumatoid arthritis in her legs hurt her and she wants to go home. Given this, patient will leave AMA at this time. Critical Care <Wiliam Cabrales MD - Last Filed: 12/24/24 17:08> Critical Care Time Critical Care Time: No
[2024-12-24 12:35] LABS: VBG HCO3 22.0 mmol/L (23-30); VBG PCO2 29.2 mmol/L (35-51); VBG PH 7.50 mmol/L (7.31-7.41); VBG PO2 46.0 mmol/L (28-40)
[2024-12-24 12:36] LABS: Lactate Venous 2.5 mmol/L (0.4-2.0)
[2024-12-24 12:36] LABS: Albumin Level 4.2 g/dl (3.5-5.0); Chloride 102 mmol/L (98-107); Potassium 4.0 mmoL/L (3.5-5.1); Sodium 136 mmol/L (136-145)
--- NOTE | 2024-12-24 12:37 | CT_ITS ---
PROCEDURE INFORMATION: Exam: CTA Chest With Contrast Exam date and time: 12/24/2024 12:54 PM Age: 54 years old Clinical indication: Shortness of breath; Additional info: SOB, HX of blood clots TECHNIQUE: Imaging protocol: Computed tomographic angiography of the chest with contrast. Exam focused on the arteries. 3D rendering (Not supervised by radiologist): MIP and/or 3D reconstructed images were created by the technologist. Radiation optimization: All CT scans at this facility use at least one of these dose optimization techniques: automated exposure control; mA and/or kV adjustment per patient size (includes targeted exams where dose is matched to clinical indication); or iterative reconstruction. Contrast material: ISOVUE 370; Contrast volume: 70 ml; Contrast route: INTRAVENOUS (IV); COMPARISON: CT ANGIO CHEST PE PROTOCOL 12/01/2024 2:32 PM FINDINGS: Pulmonary arteries: Limited evaluation of the pulmonary artery secondary to contrast bolus timing. Within the limits of the exam, no definitively identifiable pulmonary artery embolism. Aorta: Atherosclerosis. No aortic aneurysm. No aortic dissection. Lungs: Stable 1.4 cm right paramediastinal enhancing pulmonary nodular focus. Stable 5 mm left apical subpleural pulmonary nodule. Stable left lower lobe calcified granuloma. Mild left lower lobe compressive atelectasis adjacent to pleural effusion. Pleural spaces: Moderate right pleural effusion. No pneumothorax. Heart: Unremarkable. No cardiomegaly. No pericardial effusion. Coronary arteries: Coronary artery calcifications. Lymph nodes: Stable mediastinal and axillary lymph nodes. Bones/joints: Degenerative changes. No acute fracture. Soft tissues: Unremarkable. IMPRESSION: 1. Limited evaluation of the pulmonary artery secondary to contrast bolus timing. Within the limits of the exam, no definitively identifiable pulmonary artery embolism. 2. Moderate right pleural effusion. 3. Stable chronic findings as above.
--- NOTE | 2024-12-24 12:37 | XR_ITS ---
FINAL REPORT CLINICAL HISTORY: SOB COMPARISON: 11/03/2024 FINDINGS: A portable view of the chest was obtained. Cardiac and mediastinal silhouettes are within normal limits. No significant change in right basilar opacity or right pleural effusion. The left lung is clear. There is no pneumothorax. IMPRESSION: No significant change in right basilar opacity or right pleural effusion. Recommend upright PA and lateral. Reviewed, Interpreted and Dictated by Ksenia Phillips MD Transcribed by Madiha Pedersen Authenticated and [facility]
[2024-12-24 12:39] LABS: Alanine Aminotransferase 14 U/L (12-78); Albumin/Globulin Ratio 1.0 (1.1-1.8); Alkaline Phosphatase 108 U/L (38-126); Anion Gap 16.0 mEq/L (5-15); Aspartate Amino Transferase 23 U/L (14-36); Bilirubin,Total 0.5 mg/dl (0.2-1.3); Blood Urea Nitrogen 20 mg/dl (7-17); Carbon Dioxide 22 mmol/L (22.0-30.0); Creatinine Clearance Estimated 122 mL/min (50-200); Creatinine,Serum 0.70 mg/dl (0.52-1.04); Estimated Glomerular Filt Rate 87 ml/min (>60); GFR (African American) 105 ML/MIN (>60); Globulin 4.4 g/dL (1.3-3.2); Total Protein,Serum 8.6 g/dl (6.3-8.2)
[2024-12-24 12:40] LABS: Calcium 9.8 mg/dl (8.4-10.2); Glucose 110 mg/dl (74-100)
[2024-12-24 12:49] LABS: NT Pro Brain Natriuretic Pep. < 20.0 pg/mL (0-125)
[2024-12-24 12:52] LABS: Troponin I < 0.01 ng/ml (0.00-0.034)
[2024-12-24] MEDS: METHYLPREDNISOLONE SOD SUCC 125MG VIAL 80 MG IV (12:59)
[2024-12-24] MEDS: IPRATROPIUM/ALBUTEROL 3 ML NEB 9 ML IH (13:00)
[2024-12-24] MEDS: SODIUM CHLORIDE 0.9% 10ML SYR (RAD ONLY) 10 ML IV (13:09)
[2024-12-24] MEDS: IOPAMIDOL-370 (76%);100ML BOTTLE 80 ML IV (13:09)
[2024-12-24] MEDS: 0.9 % SODIUM CHLORIDE 50 ML VIAL IV (13:09)
[2024-12-24 13:28] LABS: Coronavirus 19, PCR Not Detected (NotDetected); Influenza A, PCR Not Detected (NotDetected); Influenza B, PCR Not Detected (NotDetected)
[2024-12-24 15:50] LABS: Troponin I < 0.01 ng/ml (0.00-0.034)
[2024-12-24 16:36] LABS: Reflex Lactic Add Lactic Reflex
== END 2024-12-24 18:58 | disposition home or self-care (01) ==
PROVIDERS: Student in an Organized Health Care Education/Training Program; Emergency Provider Student in an Organized Health Care Education/Training Program; PCP Family Medicine
DX: J90 Pleural effusion, not elsewhere classified (principal); R07.9 Chest pain, unspecified; R06.02 Shortness of breath; E87.3 Alkalosis; R74.02 Elevation of levels of lactic acid dehydrogenase [LDH]; F17.210 Nicotine dependence, cigarettes, uncomplicated; Z86.718 Personal history of other venous thrombosis and embolism
CPT/HCPCS: 71045; 71275; 80053; 82803; 83880; 84484; 85025; 87636; 93005; 96374; 99285; J2919; Q9967